=== PATIENT | male | born 1940 | race Caucasian/White ===

== ENCOUNTER 2020-01-12 16:29 | Observation (INO) | payer OTHER, MEDICARE ==
[2020-01-12 17:37] LABS: Absolute Lymphocytes (CBC) 1.3 K/uL (0.7-4.9); Basophils % 1.2 % (0-1.3); Hematocrit 44.6 % (39.6-49.0); Lymphocytes % 24.3 % (15.3-44.8); MPV 9.4 fL (7.6-11.3); Protime INR 1.1
--- NOTE | 2020-01-12 17:41 | RAD REPORT ---
EXAM DESCRIPTION: RAD - Chest Single View - 01/12/2020 5:06 pm CLINICAL HISTORY: CHEST PAIN Chest pain. COMPARISON: CHEST PA AND LAT 2 VIEW dated 07/09/2015; CHEST SINGLE VIEW dated 10/30/2013; CHEST SINGLE VIEW dated 07/03/2011; CHEST SINGLE VIEW dated 07/01/2011 FINDINGS: Portable technique limits examination quality. The lungs are grossly clear. The heart is normal in size. No displaced fractures. IMPRESSION: No acute intrathoracic process suspected.
[2020-01-12 17:56] LABS: ALT/SGPT 41 U/L (12-78); AST/SGOT 37 U/L (15-37); Albumin 3.9 g/dL (3.4-5.0); Alkaline Phosphatase 70 U/L (45-117); BUN Blood Urea Nitrogen 21 mg/dL (7-18); Bicarbonate 25 mmol/L (21-32); Bilirubin Direct 0.2 mg/dL (0-0.2); Bilirubin Total 0.6 mg/dL (0.2-1.0); Glucose Level 146 mg/dL (74-106); Magnesium 2.2 mg/dL (1.8-2.4); NT PRO-BNP 591 pg/mL (<450); Potassium 4.3 mmol/L (3.5-5.1); Sodium Level 142 mmol/L (136-145); Troponin (Emerg Dept Use Only) < 0.02 ng/mL (0.0-0.045)
--- NOTE | 2020-01-12 18:29 | EDPHYS ---
Physician Documentation [facility] Name: Matthew Ansari Age: 79 yrs Sex: Male : 1940 Arrival Date: 01/12/2020 Time: 16:37 Bed 17 Private MD: ED Physician Hilario Jackson HPI: 01/11 17:49 This 79 yrs old Male presents to ER via Ambulatory with complaints of Chest kdr Pain, Possible Cardiac Related. 17:49 The patient or guardian reports chest pain that is located primarily in the anterior kdr chest wall. Onset: gradually, Several weeks. The pain radiates to neck. Associated signs and symptoms: Pertinent positives: diaphoresis, shortness of breath, Pertinent negatives: abdominal pain, headache, lower extremity pain, lower extremity swelling, lightheadedness, nausea, near syncope, palpitations, recent travel, syncope, vomiting. The chest pain is described as aching, a pressure. Duration: The patient or guardian reports multiple episodes, that are intermittent, that wax and wane, Related to exertion. Modifying factors: The symptoms are alleviated by remaining still, the symptoms are aggravated by exertion, movement. Severity of pain: At its worst the pain was moderate severe incapacitating just prior to arrival, in the emergency department the pain has improved mildly. Historical: - Allergies: 16:45 No Known Allergies; ll1 - PMHx: 16:45 Hypertension; Diabetes - NIDDM; High Cholesterol; ll1 - PSHx: 16:45 Angioplasty; ll1 - Immunization history:: Adult Immunizations up to date. - Social history:: Smoking status: Patient denies any tobacco usage or history of. Patient/guardian denies using alcohol, street drugs, tobacco products. ROS: 17:49 Constitutional: Negative for fever, chills, and weight loss, Eyes: Negative for injury, kdr pain, redness, and discharge, ENT: Negative for injury, pain, and discharge, Neck: Negative for injury, pain, and swelling, Respiratory: Negative for shortness of breath, cough, wheezing, and pleuritic chest pain, Abdomen/GI: Negative for abdominal pain, nausea, vomiting, diarrhea, and constipation, Back: Negative for injury and pain, : Negative for injury, bleeding, discharge, and swelling, MS/Extremity: Negative for injury and deformity, Skin: Negative for injury, rash, and discoloration, Neuro: Negative for headache, weakness, numbness, tingling, and seizure activity. Psych: Negative for depression, anxiety, suicide ideation, homicidal ideation, and hallucinations, Allergy/Immunology: Negative for hives, rash, and allergies, Endocrine: Negative for neck swelling, polydipsia, polyuria, polyphagia, and marked weight changes, Hematologic/Lymphatic: Negative for swollen nodes, abnormal bleeding, and unusual bruising. 17:49 Cardiovascular: Positive for chest pain, Negative for edema, orthopnea, palpitations, paroxysmal nocturnal dyspnea, acute changes. Exam: 17:49 Constitutional: This is a well developed, well nourished patient who is awake, alert, kdr and in no acute distress. Head/Face: Normocephalic, atraumatic. Eyes: Pupils equal round and reactive to light, extra-ocular motions intact. Lids and lashes normal. Conjunctiva and sclera are non-icteric and not injected. Cornea within normal limits. Periorbital areas with no swelling, redness, or edema. Neck: Trachea midline, no thyromegaly or masses palpated, and no cervical lymphadenopathy. Supple, full range of motion without nuchal rigidity, or vertebral point tenderness. No Meningismus. Chest/axilla: Normal chest wall appearance and motion. Nontender with no deformity. No lesions are appreciated. Cardiovascular: Regular rate and rhythm with a normal S1 and S2. No gallops, murmurs, or rubs. Normal PMI, no JVD. No pulse deficits. Respiratory: Lungs have equal breath sounds bilaterally, clear to auscultation and percussion. No rales, rhonchi or wheezes noted. No increased work of breathing, no retractions or nasal flaring. Abdomen/GI: Soft, non-tender, with normal bowel sounds. No distension or tympany. No guarding or rebound. No evidence of tenderness throughout. Back: No spinal tenderness. No costovertebral tenderness. Full range of motion. Skin: Warm, dry with normal turgor. Normal color with no rashes, no lesions, and no evidence of cellulitis. MS/ Extremity: Pulses equal, no cyanosis. Neurovascular intact. Full, normal range of motion. Neuro: Awake and alert, GCS 15, oriented to person, place, time, and situation. Cranial nerves II-XII grossly intact. Motor strength 5/5 in all extremities. Sensory grossly intact. Cerebellar exam normal. Normal gait. Psych: Awake, alert, with orientation to person, place and time. Behavior, mood, and affect are within normal limits. 17:49 ECG was reviewed by the Attending Physician. kdr Vital Signs: 16:40 BP 141 / 80; Pulse 68; Resp 18; Temp 98.6; Pulse Ox 96% ; Pain 6/10; ll1 18:01 BP 115 / 73; Pulse 66; Resp 18; Pulse Ox 96% ; ah 19:00 BP 140 / 95; Pulse 77; Resp 18; Pulse Ox 100% ; ah 20:00 BP 133 / 78; Pulse 68; Resp 20; Pulse Ox 99% ; ah MDM: 17:49 Data reviewed: vital signs, nurses notes. [facility] 18:29 Patient medically screened. [facility] 06/ 16:42 Order name: Basic Metabolic Panel; Complete Time: 18:24 [facility] 01/11 16:42 Order name: CBC with Diff; Complete Time: 18:24 [facility] 01/11 16:42 Order name: LFT's; Complete Time: 18:24 [facility] 01/11 16:42 Order name: Magnesium; Complete Time: 18:24 [facility] 01/11 16:42 Order name: NT PRO-BNP; Complete Time: 18:24 [facility] 01/11 16:42 Order name: PT-INR; Complete Time: 18:24 [facility] 01/11 16:42 Order name: Troponin (emerg Dept Use Only); Complete Time: 18:24 [facility] 01/11 16:42 Order name: XRAY Chest (1 view); Complete Time: 17:49 [facility] 01/11 19:04 Order name: Comprehensive Metabolic Panel [facility] 01/11 19:04 Order name: Comprehensive Metabolic Panel [facility] 01/11 19:05 Order name: Troponin I [facility] 01/11 19:05 Order name: Troponin I [facility] 01/11 19:07 Order name: Echo with Doppler [facility] 01/11 19:07 Order name: Thyroid Stimulating Hormone [facility] 01/11 16:42 Order name: EKG; Complete Time: 16:43 [facility] 01/11 16:42 Order name: Cardiac monitoring; Complete Time: 17:24 [facility] 01/11 16:42 Order name: EKG - Nurse/Tech; Complete Time: 17:24 [facility] 01/11 16:42 Order name: IV Saline Lock; Complete Time: 17:24 [facility] 01/11 16:42 Order name: Labs collected and sent; Complete Time: 17:24 [facility] 01/11 16:42 Order name: O2 Per Protocol; Complete Time: 17:24 [facility] 01/11 16:42 Order name: O2 Sat Monitoring; Complete Time: 17:24 [facility] 01/11 19:05 Order name: CONS Pharmacy Consult [facility] 01/11 19:05 Order name: CONS Physician Consult [facility] 01/11 19:05 Order name: Heart Healthy EDHI EC:49 Rate is 66 beats/min. Rhythm is regular, Normal Sinus Rhythm with No ectopy. Left axis kdr deviation noted. OH interval is normal. QRS interval is normal. QT interval is normal. Clinical impression: NSR w/ Non-specific ST/T Changes. Administered Medications: No medications were administered Disposition: 01/12/20 18:29 Hospitalization ordered by Jaida Echeverria for Observation. Preliminary diagnosis are Bradycardia, unspecified, Chest pain, unspecified. - Bed requested for Telemetry/MedSurg (observation). - Status is Observation. - Condition is Fair. - Problem is new. - Symptoms have improved. Signatures: Dispatcher [employer] EDHI Hilario Jackson MD MD [facility] Norma Holt RN RN Pia Victor RN RN Ciaran Llanes RN RN ll1 Corrections: (The following items were deleted from the chart) 19:41 18:29 Hospitalization Ordered by Jaida Echeverria MD for Observation. Preliminary cg diagnosis is Bradycardia, unspecified; Chest pain, unspecified. Bed requested for Telemetry/MedSurg (observation). Status is Observation. Condition is Fair. Problem is new. Symptoms have improved. kdr 21:01 19:41 01/12/2020 18:29 Hospitalization Ordered by Jaida Echeverria MD for Observation. Preliminary diagnosis is Bradycardia, unspecified; Chest pain, unspecified. Bed requested for Telemetry/MedSurg (observation). Status is Observation. Condition is Fair. Problem is new. Symptoms have improved. cg
--- NOTE | 2020-01-12 18:29 | ER ---
Nurse's Notes [facility] Name: Matthew Ansari Age: 79 yrs Sex: Male : 1940 Arrival Date: 01/12/2020 Time: 16:37 Bed 17 Private MD: Diagnosis: Bradycardia, unspecified;Chest pain, unspecified Presentation: 01/11 16:40 Chief complaint: Patient states: Chest pain with SOB for 3 days intermittently, worse ll1 today. Saw dr. Lowry, sent for eval of chest pressure. Coronavirus screen: Proceed with normal triage. Patient denies a cough. Patient reports shortness of breath or difficulty breathing. Patient denies measured and/or subjective temperature greater than 100.4F prior to today's visit. Patient denies travel on a cruise ship or to a country the [facility] currently lists as an affected area. Patient denies contact with known and/or suspected case of COVID-19. Cough in the mornings. Ebola Screen: Patient denies travel to an Ebola-affected area in the 21 days before illness onset. Initial Sepsis Screen: Does the patient meet any 2 criteria? No. Patient's initial sepsis screen is negative. Does the patient have a suspected source of infection? No. Patient's initial sepsis screen is negative. Risk Assessment: Do you want to hurt yourself or someone else? Patient reports no desire to harm self or others. Onset of symptoms was January 09, 2020. 16:40 Method Of Arrival: Ambulatory ll1 16:40 Acuity: RAMIRO 3 ll1 Historical: - Allergies: 16:45 No Known Allergies; ll1 - PMHx: 16:45 Hypertension; Diabetes - NIDDM; High Cholesterol; ll1 - PSHx: 16:45 Angioplasty; ll1 - Immunization history:: Adult Immunizations up to date. - Social history:: Smoking status: Patient denies any tobacco usage or history of. Patient/guardian denies using alcohol, street drugs, tobacco products. Screenin:47 Abuse screen: Denies threats or abuse. Nutritional screening: No deficits noted. Tuberculosis screening: No symptoms or risk factors identified. Fall Risk None identified. Assessment: 17:24 General: Appears in no apparent distress. Behavior is calm, cooperative. Pain: Denies pain. Neuro: Level of Consciousness is awake, alert, obeys commands, Oriented to person, place, time, situation. Cardiovascular: Heart tones S1 S2 present Capillary refill < 3 seconds Patient's skin is warm and dry. Pulses are palpable in right radial artery and left radial artery Rhythm is sinus bradycardia. Respiratory: Airway is patent Respiratory effort is even, unlabored, Respiratory pattern is regular, symmetrical. Derm: Skin is intact, is healthy with good turgor. 18:30 Reassessment: Patient and/or family updated on plan of care and expected duration. Pain ah level reassessed. Patient is alert, oriented x 3, equal unlabored respirations, skin warm/dry/pink. awaiting on room assignment Patient denies pain at this time. 19:30 Reassessment: Patient and/or family updated on plan of care and expected duration. Pain ah level reassessed. Patient is alert, oriented x 3, equal unlabored respirations, skin warm/dry/pink. No needs voiced at this time. 20:17 Reassessment: Fleta- phone mjwcxn=[phone]. Vital Signs: 16:40 BP 141 / 80; Pulse 68; Resp 18; Temp 98.6; Pulse Ox 96% ; Pain 6/10; ll1 18:01 BP 115 / 73; Pulse 66; Resp 18; Pulse Ox 96% ; ah 19:00 BP 140 / 95; Pulse 77; Resp 18; Pulse Ox 100% ; ah 20:00 BP 133 / 78; Pulse 68; Resp 20; Pulse Ox 99% ; ah ED Course: 16:37 Patient arrived in ED. fj1 16:42 Hilario Jackson MD is Attending Physician. kdr 16:43 Triage completed. ll1 16:46 Arm band placed on. ll1 16:49 Pia Victor, RN is Primary Nurse. 17:07 XRAY Chest (1 view) In Process Unspecified. EDMS 17:24 Initial lab(s) drawn, by me, sent to lab. Inserted saline lock: 20 gauge in right antecubital area, using aseptic technique. 17:47 Patient has correct armband on for positive identification. Bed in low position. Call light in reach. Side rails up X2. Adult w/ patient. threat monitoring analyst on. Pulse ox on. NIBP on. 17:48 Patient maintains SpO2 saturation greater than 95% on room air. 18:28 Jaida Echeverria MD is Hospitalizing Provider. kdr 20:21 No provider procedures requiring assistance completed. Patient admitted, IV remains in ah place. Administered Medications: No medications were administered Outcome: 18:29 Decision to Hospitalize by Provider. kdr 20:32 Admitted to [facility] accompanied by nurse, via wheelchair, room 204, with chart, Report called to SUMMER Brady 20:32 Condition: good 20:32 Instructed on the need for admit. 21:01 Patient left the ED. Signatures: Dispatcher [employer] EDMS Hilario Jackson MD MD [facility] Arias Stout fj1 Pia Victor, RN RN Ciaran Llanes RN RN ll1 Corrections: (The following items were deleted from the chart) 20:01 18:30 Reassessment: Patient and/or family updated on plan of care and expected ah duration. Pain level reassessed. Patient is alert, oriented x 3, equal unlabored respirations, skin warm/dry/pink. Patient denies pain at this time.
[2020-01-12] MEDS ORDERED: ONDANSETRON 4 MG/2 ML VIAL IV PRN (18:57)
[2020-01-12] MEDS ORDERED: MORPHINE 2 MG/ML SYR IV PRN (18:57)
[2020-01-12] MEDS ORDERED: ACETAMINOPHEN 500 MG TAB PO PRN (18:57)
[2020-01-12] MEDS ORDERED: ALBUTEROL 2.5 MG/3 ML NEB SOL NEB PRN (18:57)
--- NOTE | 2020-01-12 19:13 | P.HP ---
Certification for Inpatient Patient admitted to: Inpatient With expected LOS: >2 Midnights Patient will require the following post-hospital care: None Practitioner: I am a practitioner with admitting privileges, knowledge of patient current condition, hospital course, and medical plan of care. Services: Services provided to patient in accordance with Admission requirements found in Title 42 Section 412.3 of the Code of Federal Regulations Patient History Date of Service: 01/12/20 Reason for admission: Chest pain History of Present Illness: 79-year-old with past medical history of HLD, presumed sick sinus syndrome with previous tachycardia follows with Cardiology on metoprolol since the last couple of years, diabetes mellitus type 2 presented because of new onset chest pain, since the last 4 hr. History of intermittent dizziness and lightheadedness since the last 2 days. Chest pain radiating to was the neck. Admits to cough but no sputum. On arrival in the ED chest x-ray as well as EKG was unremarkable but patient noted with heart rate in the 60s which spontaneously dropped to the 30s and then recovered back to the 60s now. He feels slightly better. Chest pain is resolved. His complain of cramps in the lower extremity Home medications list reviewed: Yes - Past Medical/Surgical History Has patient received pneumonia vaccine in the past: No Diabetic: No -: Diabetes mellitus, HLD, Past Surgical History: Reviewed- Non-Contributory - Social History Smoking Status: Former smoker Smoking therapy provided: No Patient receptive to therapy: No Alcohol use: No CD- Drugs: No Caffeine use: No Place of Residence: Home Review of Systems 10-point ROS is otherwise unremarkable Physical Examination - Physical Exam General: Alert, In no apparent distress, Oriented x3 HEENT: Atraumatic, Normocephalic, PERRLA Neck: Supple, 2+ carotid pulse no bruit Respiratory: Clear to auscultation bilaterally, Normal air movement Cardiovascular: No edema, Normal pulses, Regular rate/rhythm, Normal S1 S2 Capillary refill: <2 Seconds Gastrointestinal: Normal bowel sounds, Soft and benign, Non-distended, No ascites Musculoskeletal: No clubbing, No swelling Integumentary: No rashes, No breakdown, No significant lesion Neurological: Normal gait, Normal speech, Normal strength at 5/5 x4 extr External genitalia: No edema, No lesions - Studies Laboratory Data (last 24 hrs) 01/12/20 17:20: PT 13.0 H, INR 1.10 01/12/20 17:20: WBC 5.4, Hgb 15.1, Hct 44.6, Plt Count 160 01/12/20 17:20: Sodium 142, Potassium 4.3, BUN 21 H, Creatinine 1.13, Glucose 146 H, Magnesium 2.2, Total Bilirubin 0.6, AST 37, ALT 41, Alkaline Phosphatase 70 Assessment and Plan - Problems (Diagnosis) (1) HLD (hyperlipidemia) Current Visit: Yes Status: Acute (2) Diabetes mellitus Current Visit: Yes Status: Acute (3) HTN (hypertension) Current Visit: Yes Status: Acute (4) Chest pain Current Visit: Yes Status: Acute Discharge Plan: Home - Advance Directives Does patient have a Living Will: No Does patient have a Durable POA for Healthcare: No Physician Review: Patient Assessed, Agree with Above Assessment and Plan Physician Review Additional Text: # chest pain-rule out acute coronary syndrome especially inferior wall OR although less likely. -Do serial set of cardiac enzymes, -initiate EKG with mild ST depression in the inferior leads left partial bundle branch block Intermittent bradycardia-obtain tsh and free T4 level Hold metoprolol for now Diabetes mellitus-insulin sliding with Accu-Chek DVT prophylaxis subcutaneous heparin Advanced directives full code Possible hospital stay for 24-48 hr Time Spent Managing Pts Care (In Minutes): 65
[2020-01-12] MEDS ORDERED: NITROGLYCERIN 0.2 MG/HR (5 MG) PATCH TD SCH (19:14)
[2020-01-12] MEDS ORDERED: HYDRALAZINE HCL 20 MG/ML VIAL IV PRN (19:14)
[2020-01-12] MEDS ORDERED: ATROPINE SULFATE 1 MG/ML INJ IV PRN (19:19)
[2020-01-12 21:00] VITALS: BMI 27.6
[2020-01-12] MEDS: INSULIN -REGULAR HUMAN 50 UNIT/0.5 ML ML SQ SCH (21:36)
[2020-01-12 22:40] LABS: Troponin I < 0.02 ng/mL (0.0-0.045)
[2020-01-12] MEDS: NITROGLYCERIN 0.1 MG/HR (2.5 MG) PATCH TD SCH (22:54)
[2020-01-12] MEDS: HEPARIN 5000 UNIT/ML 1 ML VIAL SQ SCH (23:49)
[2020-01-13 01:50] VITALS: O2SAT 97
[2020-01-13 06:00] LABS: Absolute Lymphocytes (CBC) 1.1 K/uL (0.7-4.9); Basophils % 1.1 % (0-1.3); Hematocrit 44.5 % (39.6-49.0); Lymphocytes % 24.8 % (15.3-44.8); RBC Red Blood Cell Count 4.67 M/uL (4.33-5.43)
[2020-01-13 06:47] LABS: Albumin 3.8 g/dL (3.4-5.0); Bilirubin Total 0.7 mg/dL (0.2-1.0); Potassium 3.8 mmol/L (3.5-5.1); Protein, Total 6.8 g/dL (6.4-8.2)
[2020-01-13] MEDS: INSULIN -REGULAR HUMAN 50 UNIT/0.5 ML ML SQ SCH ×2 (07:30→11:30)
[2020-01-13] MEDS: HEPARIN 5000 UNIT/ML 1 ML VIAL SQ SCH (08:17)
[2020-01-13] MEDS: NITROGLYCERIN 0.1 MG/HR (2.5 MG) PATCH TD SCH (08:17)
[2020-01-13] MEDS ORDERED: ASPIRIN EC 81 MG TAB PO SCH (09:00)
[2020-01-13] MEDS ORDERED: ZALEPLON 5 MG PO PRN (09:21)
[2020-01-13] MEDS: GABAPENTIN 300 MG CAP PO SCH ×2 (10:12→14:15)
[2020-01-13 11:53] VITALS: BP 140/79; TEMP 97.7
[2020-01-13] MEDS ORDERED: ALBUTEROL 2.5 MG/3 ML NEB SOL NEB PRN (15:00)
[2020-01-13] MEDS ORDERED: GLIMEPIRIDE 2 MG TABLET PO SCH (17:00)
[2020-01-13] MEDS ORDERED: NABUMETONE 500 MG PO SCH (21:00)
[2020-01-13] MEDS ORDERED: EZETIMIBE 10 MG TAB PO SCH (21:00)
[2020-01-13] MEDS ORDERED: ATORVASTATIN 80 MG TAB PO SCH (21:00)
[2020-01-13] MEDS ORDERED: FENOFIBRATE 160 MG TAB PO SCH (21:00)
--- NOTE | 2020-01-14 04:05 | DS ---
Date of Discharge: 01/13/2020 Consultants: Dr. Del Toro with Cardiology. Discharge Diagnoses: 1.Chest pain. 2.Bradycardia. 3.Essential hypertension. 4.Diabetes mellitus type 2 [id number] with hyperglycemia. 5.Mixed hyperlipidemia. Hospital Course: Patient is an 79-year-old male with past medical history of hypertension, hyperlipi demia, diabetes, presumed sick sinus syndrome with previous tachycardia on metoprolol, comes in [facility] of chest pain. Patient had some dizziness and lightheadedness. Patient was admitted to the [facility] for further evaluation. Chest x-ray was unremarkable. EKG showed some bradycardia. Patient als o had some drops into the 30s and recovered back to the 60s. Patient is on metoprolol. Patient was worked up for ACS and was ruled out. Cardiac enzymes were negative. Patient's triglyceride level wa s elevated at 246. He was counseled regarding diet regimen. His HDL was low. Patient follows with Dr. Allen in [place]. Patient was seen by Dr. Del Toro with Cardiology at our facility and as his sarah ycardia resolved with stopping the metoprolol, the patient was then cleared for discharge. He will l ikely need to follow up with Dr. Allen for an EP study. His TSH level was normal. Electrolytes were also normal. Patient did not have any further chest pain. His heart rate remained stable. He was then sent home in a stable condition. Activity: Fall precautions, ambulate with assist. Diet: Diabetic. Followup: Follow up with primary care physician in 2-3 days. Follow up with primary director of consumer marketing, Raul Allen in 1-2 weeks for EP study due to possible sick sinus syndrome. Return to ER for worsening c ondition. Medications: As per medication reconciliation list. Patient will discontinue his metoprolol due to the bradycardia and sinus pauses less than 3 seconds. Physical Examination: General: Awake, alert, oriented x3. Elderly male, no acute distress. CV: S1, S2. Respiratory: Moving air well bilaterally. Abdomen: Soft, nontender, nondistended. Positive bowel sounds. Extremities: No clubbing, cyanosis, or edema. Neurologic: Nonfocal. SA/MODL Voice ID: [id number] Report ID: [id number]
[2020-01-14] MEDS ORDERED: HOME MED 1 EA UNK (Omeprazole [Prilosec] 40 MG) PO SCH (06:00)
[2020-01-14] MEDS ORDERED: PANTOPRAZOLE 40MG TABLET PO SCH (06:30)
--- NOTE | 2020-01-16 08:45 | ECHO ---
HEIGHT: 5 ft 8 in WEIGHT: 181 lb 6.4 oz DATE OF STUDY: 01/13/[address]: Jaida Echeverria MD 2-DIMENSIONAL: YES M.MODE: YES DOPPLER: YES COLOR FLOW: YES TDS: NO PORTABLE: NO DEFINITY: NO BUBBLE STUDY: NO DIAGNOSIS: CEREBRAL VASCULAR ACCIDENT CARDIAC HISTORY: CATHERIZATION: NO SURGERY: NO PROSTHETIC VALVE: NO PACEMAKER: NO MEASUREMENTS (cm) DIASTOLIC (NORMALS) SYSTOLIC (NORMALS) IVSd 1.1 (0.6-1.2) LA Diam 4.4 (1.9-4.0) LVEF 68% LVIDd 4.2 (3.5-5.7) LVIDs 2.6 (2.0-3.5) %FS 38% LVPWd 1.1 (0.6-1.2) Ao Diam 3.1 (2.0-3.7) 2 DIMENSIONAL ASSESSMENT: RIGHT ATRIUM: NORMAL LEFT ATRIUM: NORMAL RIGHT VENTRICLE: NORMAL LEFT VENTRICLE: NORMAL TRICUSPID VALVE: NORMAL MITRAL VALVE: MILD MITRAL REGURGITATION PULMONIC VALVE: NORMAL AORTIC VALVE: MILD TO MODERATE AORTIC STENOSIS PERICARDIAL EFFUSION: NONE AORTIC ROOT: NORMAL LEFT VENTRICULAR WALL MOTION: NORMAL DOPPLER/COLOR FLOW: COMMENTS: NORMAL LEFT VENTRICULAR EJECTION FRACTION OF 60-65%. NORMAL WALL MOTION. MILD TO MODERATE AORTIC INSUFFICIENCY. MILD MITRAL REGURGITATION. TECHNOLOGIST: Jeremiah COMER
== END 2020-01-13 15:06 | disposition home or self-care (01) ==
LOC: ER 16:29 → ERHOLD 18:59 → INTOOBSV 18:59 → 2ND 20:27
PROVIDERS: ADMIT Internal Medicine; ATTEND Internal Medicine
DX: R07.9 Chest pain, unspecified (principal); R00.1 Bradycardia, unspecified; R05 Cough; R06.02 Shortness of breath; Z20.828 Contact with and (suspected) exposure to other viral communicable diseases; E11.9 Type 2 diabetes mellitus without complications; E78.2 Mixed hyperlipidemia; I10 Essential (primary) hypertension; I34.0 Nonrheumatic mitral (valve) insufficiency; I35.1 Nonrheumatic aortic (valve) insufficiency; I44.30 Unspecified atrioventricular block; Z79.899 Other long term (current) drug therapy; Z87.891 Personal history of nicotine dependence
CPT/HCPCS: 93005; 93306; 85025 ×2; 80048; 36415; 83735; 85610; 80061; 82947 ×3; 80076; 84443; 84484 ×3; 80053; 83880; 71045; 99285; U0002; J1644 ×2; G0378 ×3; J0461

== ENCOUNTER 2020-12-07 02:43 | Inpatient (IN) | payer OTHER, MEDICARE ==
[2020-12-07] MEDS ORDERED: METOPROLOL TARTRATE 5 MG/5 ML INJ IV ONE (03:34)
[2020-12-07 03:37] LABS: Absolute Lymphocytes (CBC) 0.7 K/uL (0.7-4.9); Basophils % 0.3 % (0-1.3); Hematocrit 48.8 % (39.6-49.0); Lymphocytes % 8.4 % (15.3-44.8); MPV 9.8 fL (7.6-11.3); RBC Red Blood Cell Count 5.08 M/uL (4.33-5.43)
[2020-12-07 03:44] LABS: Protime INR 1.12
[2020-12-07 03:55] LABS: ALT/SGPT 45 U/L (12-78); AST/SGOT 43 U/L (15-37); Albumin 4.2 g/dL (3.4-5.0); Alkaline Phosphatase 74 U/L (45-117); BUN Blood Urea Nitrogen 20 mg/dL (7-18); Bicarbonate 24 mmol/L (21-32); Bilirubin Direct 0.3 mg/dL (0-0.2); Glucose Level 251 mg/dL (74-106); Magnesium 2.4 mg/dL (1.8-2.4); NT PRO-BNP 340 pg/mL (<450); Potassium 4.2 mmol/L (3.5-5.1); Protein, Total 7.8 g/dL (6.4-8.2); Sodium Level 145 mmol/L (136-145); Troponin (Emerg Dept Use Only) < 0.02 ng/mL (0.0-0.045)
[2020-12-07] MEDS ORDERED: NA CHLORIDE 0.9% 500 ML ONE (04:29)
[2020-12-07] MEDS ORDERED: FENTANYL CITR 100 MCG/2 ML ONE (05:25)
[2020-12-07] MEDS ORDERED: LIDOCAINE 1% MPF 30 ML VIAL ONE (05:27)
[2020-12-07] MEDS ORDERED: ETOMIDATE 20 MG/10 ML VIAL IV ONE (05:27)
--- NOTE | 2020-12-07 05:56 | ER ---
Nurse's Notes [facility] Name: Matthew Ansari Age: 80 yrs Sex: Male : 1940 Arrival Date: 12/07/2020 Time: 03:00 Bed 3 Private MD: Diagnosis: Atrial Fibrillation with RVR;Pneumothorax, Left Presentation: 12/07 03:00 Chief complaint: EMS states: Pt was recently discharged from the hospital after having jb4 a pacemaker put in place. Reports tonight feeling like his heart is racing. We recorded his heart rate up to the 160's. Coronavirus screen: Client denies travel out of the [place] in the last 14 days. At this time, the client does not indicate any symptoms associated with coronavirus-19. Ebola Screen: No symptoms or risks identified at this time. Initial Sepsis Screen: Does the patient meet any 2 criteria? HR > 90 bpm. Yes Does the patient have a suspected source of infection? No. Patient's initial sepsis screen is negative. Risk Assessment: Do you want to hurt yourself or someone else? Patient reports no desire to harm self or others. Onset of symptoms was December 07, 2020. Transition of care: patient was not received from another setting of care. 03:00 Method Of Arrival: EMS: [facility] jb4 03:00 Acuity: RAMIRO 1 jb4 Historical: - Allergies: 03:00 No Known Allergies; jb4 - PMHx: 03:00 Diabetes - NIDDM; High Cholesterol; Hypertension; Atrial Fib; jb4 - PSHx: 03:00 Angioplasty; jb4 - Immunization history:: Adult Immunizations up to date. Screenin:00 Abuse screen: Denies threats or abuse. Nutritional screening: No deficits noted. jb4 Tuberculosis screening: No symptoms or risk factors identified. Fall Risk None identified. Assessment: 03:00 General: Appears distressed, uncomfortable, Behavior is cooperative, anxious. Pain: jb4 Complains of pain in chest Pain does not radiate. Pain currently is 8 out of 10 on a pain scale. Neuro: Level of Consciousness is awake, alert, obeys commands, Oriented to person, place, time, situation. Cardiovascular: Patient's skin is warm and dry. Respiratory: Airway is patent Respiratory effort is even, unlabored, Respiratory pattern is regular, symmetrical. GI: No signs and/or symptoms were reported involving the gastrointestinal system. : No signs and/or symptoms were reported regarding the genitourinary system. EENT: No signs and/or symptoms were reported regarding the EENT system. Derm: Skin is intact, Skin is pink, warm \T\ dry. Musculoskeletal: Circulation, motion, and sensation intact. Range of motion: intact in all extremities. 03:30 Reassessment: Provider notified that Pt's rhythm on the monitor appears to be paced jb4 again and and has dropped to 60 beats per minutes. HR verified with manual pulse check. 04:40 Reassessment: PT reports difficulty breathing. Upon auscultation it is noted that the jb4 pt has no breath sounds on the left. Provider notified. Pt placed on NC per providers instruction. 06:00 Reassessment: Patient appears in no apparent distress at this time. Patient and/or jb4 family updated on plan of care and expected duration. Pain level reassessed. Patient is alert, oriented x 3, equal unlabored respirations, skin warm/dry/pink. Pt began waking up after conscious sedation. Respirations are even and unlabored. No s/s of pain or distress noted. 06:00 Respiratory: Breath sounds are clear in right upper lobe, right middle lobe, right jb4 lower lobe, right posterior upper lobe, right posterior middle lobe and right posterior lower lobe Breath sounds with rhonchi in left upper lobe, left lower lobe, left posterior upper lobe and left posterior lower lobe. 07:30 Reassessment: Patient appears in no apparent distress at this time. Patient and/or hb family updated on plan of care and expected duration. Pain level reassessed. Patient is alert, oriented x 3, equal unlabored respirations, skin warm/dry/pink. 08:30 Reassessment: Patient appears in no apparent distress at this time. Patient and/or hb family updated on plan of care and expected duration. Pain level reassessed. Patient is alert, oriented x 3, equal unlabored respirations, skin warm/dry/pink. 09:30 Reassessment: Patient appears in no apparent distress at this time. Patient and/or hb family updated on plan of care and expected duration. Pain level reassessed. Patient is alert, oriented x 3, equal unlabored respirations, skin warm/dry/pink. 10:30 Reassessment: Patient appears in no apparent distress at this time. Patient and/or hb family updated on plan of care and expected duration. Pain level reassessed. Patient is alert, oriented x 3, equal unlabored respirations, skin warm/dry/pink. Vital Signs: 03:00 BP 118 / 87; Pulse 145; Resp 20 S; Temp 97.2(O); Pulse Ox 96% on R/A; jb4 04:00 BP 114 / 59; Pulse 59; Resp 16; Pulse Ox 96% on R/A; jb4 04:30 BP 123 / 78; Pulse 66; Resp 16; Pulse Ox 97% on R/A; jb4 06:00 BP 145 / 89; Pulse 75; Resp 18; Pulse Ox 93% on 3 lpm NC; jb4 07:30 BP 132 / 81; Pulse 80; Resp 19; Pulse Ox 98% on 2 lpm NC; hb 08:30 BP 144 / 89; Pulse 81; Resp 17; Pulse Ox 100% on 2 lpm NC; hb 09:30 BP 153 / 84; Pulse 78; Resp 18; Pulse Ox 99% ; hb 10:30 BP 144 / 76; Pulse 63; Resp 18; Pulse Ox 100% ; hb ED Course: 03:00 Patient arrived in ED. bp1 03:00 Arm band placed on right wrist. jb4 03:00 Inserted saline lock: 20 gauge in right antecubital area, using aseptic technique. jb4 Blood collected. Inserted by SUMMER Boss. 03:06 Tai Washington MD is Attending Physician. 7 03:37 Girish Carrillo, SUMMER is Primary Nurse. jb4 03:39 Triage completed. jb4 04:29 XRAY Chest (1 view) In Process Unspecified. EDMS 05:54 Bakari Cuenca MD is Hospitalizing Provider. 7 06:00 Assist provider with chest tube insertion with 18 Fr. in left lateral chest wall. Tray jb4 was set up. Attached to [employer]. Chest tube inserted by Tai Washington MD Placement verified by fluctuation of fluid, return of air, Dressed with Vaseline gauze, foam tape, 4X4s, Patient tolerated well. 06:01 Chest Single View XRAY In Process Unspecified. EDMS Administered Medications: 03:15 Drug: Metoprolol 5 mg Route: IVP; Site: right antecubital; jb4 03:30 Follow up: Response: No adverse reaction; Cardiac rhythm changed jb4 04:15 Drug: NS 0.9% 500 ml Route: IV; Rate: bolus; Site: left antecubital; jb4 05:30 Drug: fentaNYL (PF) 50 mcg Route: IVP; Site: right antecubital; jb4 06:00 Follow up: Response: No adverse reaction jb4 05:32 Drug: Etomidate 10 mg Route: IVP; Site: right antecubital; jb4 06:00 Follow up: Response: No adverse reaction jb4 05:40 Drug: fentaNYL (PF) 50 mcg Route: IVP; Site: right antecubital; jb4 06:00 Follow up: Response: No adverse reaction jb4 05:40 Drug: Etomidate 10 mg Route: IVP; Site: right antecubital; jb4 06:00 Follow up: Response: No adverse reaction jb4 06:20 Not Given (Physician Discretion): Lidocaine (1 %) 21 application 20 ml Infiltration jb4 once; to bedside Outcome: 05:55 Decision to Hospitalize by Provider. [facility] 13:17 Patient left the ED. Signatures: Dispatcher [employer] EDMS Karyn Keen RN RN Geeta Dean RN RN Girish Carrillo RN RN jb4 Swetha Hinojosa Maurice, MD MD 7 Corrections: (The following items were deleted from the chart) 03:15 03:00 BP 118 / 87; Pulse 145bpm; Resp 20bpm; Spontaneous; iw iw 06:21 06:21 Response: No adverse reaction jb4 jb4 06:26 03:00 BP 118 / 87; Pulse 145bpm; Resp 20bpm; Spontaneous; Pulse Ox 96% RA; iw jb4
--- NOTE | 2020-12-07 05:56 | EDPHYS ---
Physician Documentation [facility] Name: Matthew Ansari Age: 80 yrs Sex: Male : 1940 Arrival Date: 12/07/2020 Time: 03:00 Bed 3 Private MD: ED Physician Tai Washington HPI: 12/07 03:25 This 80 yrs old Male presents to ER via Unassigned with complaints of mh7 Palpitations. 03:25 The patient presents with a history of irregular heart beat, heart racing. Context: The mh7 symptoms occur at rest. Onset: The symptoms/episode began/occurred today. Duration: The patient or guardian reports multiple episodes, that are intermittent, that wax and wane, with no pattern. Modifying factors: The symptoms are aggravated by nothing. The symptoms are alleviated by nothing. Associated signs and symptoms: Pertinent positives: chest pain, SOB, Pertinent negatives: anxiety, cough, fever, lightheadedness, nausea, syncope, near-syncope, unusual stressors, vertigo, vomiting. Severity of symptoms: At their worst the symptoms were moderate today, in the emergency department the symptoms have improved moderately. Historical: - Allergies: 03:00 No Known Allergies; jb4 - PMHx: 03:00 Diabetes - NIDDM; High Cholesterol; Hypertension; Atrial Fib; jb4 - PSHx: 03:00 Angioplasty; jb4 - Immunization history:: Adult Immunizations up to date. ROS: 03:25 Constitutional: Negative for fever, chills, and weight loss, Eyes: Negative for injury, mh7 pain, redness, and discharge, ENT: Negative for injury, pain, and discharge, Neck: Negative for injury, pain, and swelling, Abdomen/GI: Negative for abdominal pain, nausea, vomiting, diarrhea, and constipation, Back: Negative for injury and pain, : Negative for injury, bleeding, discharge, and swelling, MS/Extremity: Negative for injury and deformity, Skin: Negative for injury, rash, and discoloration, Neuro: Negative for headache, weakness, numbness, tingling, and seizure, Psych: Negative for depression, anxiety, suicide ideation, homicidal ideation, and hallucinations, Allergy/Immunology: Negative for hives, rash, and allergies, Endocrine: Negative for neck swelling, polydipsia, polyuria, polyphagia, and marked weight changes, Hematologic/Lymphatic: Negative for swollen nodes, abnormal bleeding, and unusual bruising. Exam: 03:25 Constitutional: This is a well developed, well nourished patient who is awake, alert, mh7 and in no acute distress. Head/Face: Normocephalic, atraumatic. Eyes: Pupils equal round and reactive to light, extra-ocular motions intact. Lids and lashes normal. Conjunctiva and sclera are non-icteric and not injected. Cornea within normal limits. Periorbital areas with no swelling, redness, or edema. Neck: Trachea midline, no thyromegaly or masses palpated, and no cervical lymphadenopathy. Supple, full range of motion without nuchal rigidity, or vertebral point tenderness. No Meningismus. Chest/axilla: Normal chest wall appearance and motion. Nontender with no deformity. No lesions are appreciated. 03:25 Abdomen/GI: Soft, non-tender, with normal bowel sounds. No distension or tympany. No guarding or rebound. No evidence of tenderness throughout. Back: No spinal tenderness. No costovertebral tenderness. Full range of motion. Skin: Warm, dry with normal turgor. Normal color with no rashes, no lesions, and no evidence of cellulitis. MS/ Extremity: Pulses equal, no cyanosis. Neurovascular intact. Full, normal range of motion. Neuro: Awake and alert, GCS 15, oriented to person, place, time, and situation. Cranial nerves II-XII grossly intact. Motor strength 5/5 in all extremities. Sensory grossly intact. Cerebellar exam normal. Normal gait. Psych: Awake, alert, with orientation to person, place and time. Behavior, mood, and affect are within normal limits. 03:25 Cardiovascular: Rate: tachycardic, Rhythm: irregularly irregular, Pulses: no pulse deficits are appreciated, Heart sounds: normal, normal S1and S2, Edema: is not appreciated, JVD: is not appreciated. Vital Signs: 03:00 BP 118 / 87; Pulse 145; Resp 20 S; Temp 97.2(O); Pulse Ox 96% on R/A; jb4 04:00 BP 114 / 59; Pulse 59; Resp 16; Pulse Ox 96% on R/A; jb4 04:30 BP 123 / 78; Pulse 66; Resp 16; Pulse Ox 97% on R/A; jb4 06:00 BP 145 / 89; Pulse 75; Resp 18; Pulse Ox 93% on 3 lpm NC; jb4 07:30 BP 132 / 81; Pulse 80; Resp 19; Pulse Ox 98% on 2 lpm NC; hb 08:30 BP 144 / 89; Pulse 81; Resp 17; Pulse Ox 100% on 2 lpm NC; hb 09:30 BP 153 / 84; Pulse 78; Resp 18; Pulse Ox 99% ; hb 10:30 BP 144 / 76; Pulse 63; Resp 18; Pulse Ox 100% ; hb Procedures: 06:49 Chest tube insertion: the site was prepped using Betadine, in sterile fashion, Tube mh7 size: a 18 [place]ish chest tube was inserted, introduced in left lateral chest wall, to [facility], dressed with vaseline gauze, silk tape, the patient tolerated the procedure well. Moderate sedation: Pre-procedure assessment: the patient has been NPO 6 hour(s) prior to arrival, the patient has been NPO an unknown amount of time prior to arrival, ASA physical classification: II - mild/mod systemic disease that does not interfere with daily routines, Airway assessment: able to hyperextend neck, able to maintain airway, can open mouth without difficulty, Mallampati classification of tongue size: II - faucial pillars and soft palate can be visualized, but uvula is masked by the base of the tongue, Monitoring during procedure: power line installer, continuous pulse oximetry, nurse at bedside at all times, Medications employed: Etomidate, 20 mg(s), Fentanyl, 100 mcg(s), Post-procedure assessment: the patient is moderately sedated, Respiratory status: even and unlabored, a reversal agent was not used. MDM: 05:53 Differential diagnosis: arrythmia, dehydration, stress disorder, Atrial Fibrillation. mh7 Data reviewed: vital signs, nurses notes, EMS record, old medical records, lab test result(s), cardiac enzymes, CBC, electrolytes, EKG, radiologic studies, plain films. Data interpreted: Pulse oximetry: on room air is 97 %. Interpretation: normal. Counseling: I had a detailed discussion with the patient and/or guardian regarding: the historical points, exam findings, and any diagnostic results supporting the discharge/admit diagnosis, lab results, radiology results, the need for further work-up and treatment in the hospital. Response to treatment: the patient's symptoms have markedly improved after treatment. 05:55 Patient medically screened. [facility] 12/07 03:06 Order name: Basic Metabolic Panel; Complete Time: 04:19 [facility] 12/07 03:06 Order name: CBC with Diff; Complete Time: 04:19 [facility] 12/07 03:06 Order name: LFT's; Complete Time: 04:19 [facility] 12/07 03:06 Order name: Magnesium; Complete Time: 04:19 [facility] 12/07 03:06 Order name: NT PRO-BNP; Complete Time: 04:19 [facility] 12/07 03:06 Order name: PT-INR; Complete Time: 04:19 [facility] 12/07 03:06 Order name: Troponin (emerg Dept Use Only); Complete Time: 04:19 [facility] 12/07 03:06 Order name: XRAY Chest (1 view) [facility] 12/07 03:30 Order name: TSH; Complete Time: 04:19 [facility] 12/07 05:49 Order name: Chest Single View XRAY [facility] 12/07 08:51 Order name: COVID-19 : Document "Date of Symptom Onset" if Symptomatic. eb 12/07 10:14 Order name: CORONAVIRUS [facility] 12/07 10:55 Order name: SARS-COV-2 RT PCR [facility] 12/07 03:06 Order name: EKG; Complete Time: 03:07 [facility] 12/07 03:06 Order name: Cardiac monitoring; Complete Time: 03:18 [facility] 12/07 03:06 Order name: EKG - Nurse/Tech; Complete Time: 03:18 [facility] 12/07 03:06 Order name: IV Saline Lock; Complete Time: 03:18 [facility] 12/07 03:06 Order name: Labs collected and sent; Complete Time: 03:18 [facility] 12/07 03:06 Order name: O2 Per Protocol; Complete Time: 03:18 [facility] 12/07 03:06 Order name: O2 Sat Monitoring; Complete Time: 03:18 [facility] 12/07 08:15 Order name: CONS Physician Consult [facility] 12/07 08:15 Order name: Heart Healthy [facility] Administered Medications: 03:15 Drug: Metoprolol 5 mg Route: IVP; Site: right antecubital; jb4 03:30 Follow up: Response: No adverse reaction; Cardiac rhythm changed jb4 04:15 Drug: NS 0.9% 500 ml Route: IV; Rate: bolus; Site: left antecubital; jb4 05:30 Drug: fentaNYL (PF) 50 mcg Route: IVP; Site: right antecubital; jb4 06:00 Follow up: Response: No adverse reaction jb4 05:32 Drug: Etomidate 10 mg Route: IVP; Site: right antecubital; jb4 06:00 Follow up: Response: No adverse reaction jb4 05:40 Drug: fentaNYL (PF) 50 mcg Route: IVP; Site: right antecubital; jb4 06:00 Follow up: Response: No adverse reaction jb4 05:40 Drug: Etomidate 10 mg Route: IVP; Site: right antecubital; jb4 06:00 Follow up: Response: No adverse reaction jb4 06:20 Not Given (Physician Discretion): Lidocaine (1 %) 21 application 20 ml Infiltration jb4 once; to bedside Disposition: 12/07/20 05:55 Hospitalization ordered by Bakari Cuenca for Inpatient Admission. Preliminary diagnosis are Atrial Fibrillation with RVR, Pneumothorax, Left. - Bed requested for Telemetry/MedSurg (Inpatient). - Status is Inpatient Admission. hb - Condition is Stable. - Problem is new. - Symptoms have improved. Signatures: Dispatcher [employer] EDMS Kendra Rivas RN RN Geeta Dean RN RN Girish Carrillo RN RN jb4 Erika Pisano Maurice, MD MD mh7 Corrections: (The following items were deleted from the chart) 12:09 05:55 Hospitalization Ordered by Bakari Cuenca MD for Inpatient Admission. Preliminary dw diagnosis is Atrial Fibrillation with RVR; Pneumothorax, Left. Bed requested for Telemetry/MedSurg (Inpatient). Status is Inpatient Admission. Condition is Stable. Problem is new. Symptoms have improved. mh7 12:45 12:09 12/07/2020 05:55 Hospitalization Ordered by Bakari Cuenca MD for Inpatient eb Admission. Preliminary diagnosis is Atrial Fibrillation with RVR; Pneumothorax, Left. Bed requested for Telemetry/MedSurg (Inpatient). Status is Inpatient Admission. Condition is Stable. Problem is new. Symptoms have improved. yessy 13:17 12:45 12/07/2020 05:55 Hospitalization Ordered by Bakari Cuenca MD for Inpatient hb Admission. Preliminary diagnosis is Atrial Fibrillation with RVR; Pneumothorax, Left. Bed requested for Telemetry/MedSurg (Inpatient). Status is Inpatient Admission. Condition is Stable. Problem is new. Symptoms have improved. eb
--- NOTE | 2020-12-07 07:48 | EKG ---
Test Date: 2020-12-07 Test Time: 04:06:54 Inoculator: SHYLA MEASUREMENT RESULTS: Intervals: Rate: 60 IA: 176 QRSD: 86 QT: 404 QTc: 404 [place]: P: 57 IA: 176 QRS: 260 T: 74 INTERPRETIVE STATEMENTS: Electronic atrial pacemaker Low voltage QRS Possible Lateral infarct, age undetermined Abnormal ECG Compared to ECG 01/12/2020 16:54:09 Low QRS voltage now present Sinus rhythm no longer present Left anterior fascicular block no longer present Myocardial infarct finding still present Electronically Signed On 12-07-20 07:48:09 CDT by Chauncey Lee
[2020-12-07] MEDS ORDERED: ONDANSETRON 4 MG/2 ML VIAL IV PRN (08:11)
[2020-12-07] MEDS ORDERED: ALBUTEROL 2.5 MG/3 ML NEB SOL NEB PRN (08:11)
[2020-12-07] MEDS ORDERED: ACETAMINOPHEN 500 MG TAB PO PRN (08:11)
[2020-12-07] MEDS ORDERED: IPRATROPIUM BROM 0.5MG/2.5ML NEB PRN (08:11)
[2020-12-07 09:21] VITALS: BMI 26.6
[2020-12-07] MEDS: GABAPENTIN 300 MG CAP PO SCH ×3 (09:35→20:14)
[2020-12-07] MEDS: NA CHLORIDE 0.9% 1,000 ML IV SCH ×3 (09:35→22:20)
[2020-12-07] MEDS: ASPIRIN 81 MG CHEWABLE TABLET PO SCH (09:35)
[2020-12-07] MEDS ORDERED: NA CHLORIDE 0.9% 100 ML ONE (09:50)
[2020-12-07] MEDS ORDERED: ASPIRIN 81 MG CHEWABLE TABLET ONE (09:50)
[2020-12-07] MEDS ORDERED: GABAPENTIN 300 MG CAP ONE (09:50)
[2020-12-07] MEDS: MORPHINE 4 MG/ML SYR IV PRN ×2 (11:38→18:06)
[2020-12-07] MEDS ORDERED: MORPHINE 4 MG/ML SYR ONE (11:53)
[2020-12-07] MEDS ORDERED: ONDANSETRON 4 MG/2 ML VIAL ONE (11:53)
[2020-12-07] MEDS: ATORVASTATIN 80 MG TAB PO SCH (20:14)
[2020-12-08] MEDS: NA CHLORIDE 0.9% 1,000 ML IV SCH ×2 (01:49→20:12)
[2020-12-08] MEDS: MORPHINE 4 MG/ML SYR IV PRN ×2 (01:49→08:27)
[2020-12-08 04:31] LABS: Basophils % 0.6 % (0-1.3); Hematocrit 42.3 % (39.6-49.0); Lymphocytes % 16.9 % (15.3-44.8); MPV 9.1 fL (7.6-11.3); RBC Red Blood Cell Count 4.38 M/uL (4.33-5.43)
[2020-12-08 04:34] LABS: Protime INR 1.11
[2020-12-08 04:46] LABS: ALT/SGPT 35 U/L (12-78); AST/SGOT 27 U/L (15-37); Albumin 3.4 g/dL (3.4-5.0); Alkaline Phosphatase 50 U/L (45-117); BUN Blood Urea Nitrogen 17 mg/dL (7-18); Bicarbonate 28 mmol/L (21-32); Bilirubin Total 1.1 mg/dL (0.2-1.0); Glucose Level 130 mg/dL (74-106); Potassium 3.9 mmol/L (3.5-5.1); Protein, Total 6.5 g/dL (6.4-8.2); Sodium Level 143 mmol/L (136-145)
[2020-12-08] MEDS ORDERED: HOME MED 1 EA UNK (Omeprazole [Prilosec] 40 MG Capsule.Dr) PO SCH (06:00)
[2020-12-08] MEDS ORDERED: PANTOPRAZOLE 40MG TABLET PO SCH (06:00)
[2020-12-08] MEDS: GABAPENTIN 300 MG CAP PO SCH ×4 (08:22→20:25)
[2020-12-08] MEDS: ASPIRIN 81 MG CHEWABLE TABLET PO SCH (08:22)
--- NOTE | 2020-12-08 09:09 | RAD REPORT ---
EXAM DESCRIPTION: [place] Single View12/07/2020 4:29 am CLINICAL HISTORY: The patient is 80 years old and is Male; CHEST PAIN recent pacemaker placement TECHNIQUE: Single portable view of the chest. COMPARISON: No relevant prior studies available. FINDINGS: Lungs: Visualized right lung is clear. Pleural space: Large left pneumothorax with shift of the trachea to the right. Heart: No cardiomegaly. Mediastinum: Unremarkable. Bones/joints: Degenerative changes in the right shoulder. Tubes, lines and devices: Left-sided cardiac pacer. Soft tissue gas in the base of the left neck and adjacent to the pacemaker generator. IMPRESSION: 1. Tension left pneumothorax. 2. Left-sided cardiac pacer. 3. Soft tissue gas in the base of the left neck and adjacent to the pacemaker generator. THIS REPORT CONTAINS FINDINGS THAT MAY BE CRITICAL TO PATIENT CARE: The findings were verbally discus sed via telephone conference with Dr. Wahsington 4:52 AM central time December 07, 2020. The results were ack nowledged and understood. Electronically signed by: Linda Moncada MD 12/07/2020 4:52 AM CDT Due to temporary technical issues with the PACS/Fluency reporting system, reports are being signed by the in house radiologists without review as a courtesy to insure prompt reporting. The interpreting radiologist is fully responsible for the content of the report.
--- NOTE | 2020-12-08 09:11 | RAD REPORT ---
EXAM DESCRIPTION: [place] Single View12/07/2020 6:02 am CLINICAL HISTORY: The patient is 80 years old and is Male; POST CHEST TUBE TECHNIQUE: Single view of the chest. COMPARISON: December 07, 2020 4:09 AM. FINDINGS: Lungs: Linear atelectasis left lung base. Right lung is clear. Pleural space: See below. Heart: Unremarkable. No cardiomegaly. Mediastinum: Unremarkable. Bones/joints: The bones and joints are unchanged as visualized. Soft tissues: Soft tissues are unchanged. Tubes, lines and devices: Left chest tube has been placed. Minimal residual left pneumothorax. Left cardiac pacer again noted. Upper abdomen: No free air in the visualized upper abdomen. IMPRESSION: 1. Left chest tube has been placed. Minimal residual left pneumothorax. 2. Linear atelectasis left lung base. 3. Left cardiac pacer again noted. Electronically signed by: Linda Moncada MD 12/07/2020 6:31 AM CDT Due to temporary technical issues with the PACS/Fluency reporting system, reports are being signed by the in house radiologists without review as a courtesy to insure prompt reporting. The interpreting radiologist is fully responsible for the content of the report.
--- NOTE | 2020-12-08 09:45 | RAD REPORT ---
EXAM DESCRIPTION: RAD - Chest Single View - 12/08/2020 7:09 am CLINICAL HISTORY: ptx Chest pain. COMPARISON: Chest Single View dated 12/07/2020; Chest Single View dated 12/07/2020; Chest Single View da [place] 01/12/2020; CHEST PA AND LAT 2 VIEW dated 07/09/2015 FINDINGS: Portable technique limits examination quality. Mild interstitial edema is seen. Small left pleural effusion. Left-sided chest tube remains place wit hout pneumothorax. Heart upper limit normal size with pacer device present.
--- NOTE | 2020-12-08 10:33 | P.CNS ---
Date of Consult: 12/08/20 Reason for Consult: Pneumothorax Chief Complaint: Shortness of breath tachycardia History of Present Illness: Patient is 80 years of age recently had a pacemaker placed on the left side this . The day after patient developed some chest discomfort tachycardia shortness of breath ended up here in the emergency room Thursday was found to have a complete pneumothorax on the left-sided chest tube was inserted S some chest discomfort otherwise his lung is completely expanded there is no air leak no prior history of lung complain Allergies No Known Allergies Allergy (Verified 01/13/20 10:11) Home Medications: Aspirin Chewable [Aspirin Chewable*] 81 mg PO DAILY 01/12/20 Atorvastatin Calcium [Lipitor] 80 mg PO BEDTIME 01/12/20 Cholecalciferol (Vitamin D3) [Vitamin D3] 1,000 unit PO DAILY 01/12/20 Ezetimibe 10 mg PO BEDTIME 01/12/20 Fenofibrate 160 mg PO BEDTIME 01/12/20 Gabapentin 300 mg PO TID 01/12/20 Glimepiride 4 mg PO BID 01/12/20 Nabumetone [Relafen] 500 mg PO BID 01/12/20 Omeprazole [Prilosec] 40 mg PO [id number] 01/12/20 Zaleplon 10 mg PO BEDTIME PRN 01/12/20 Ascorbic Acid [Vitamin C*] 1,000 mg PO DAILY 12/07/20 Cephalexin [Keflex*] 1 cap PO BID 12/07/20 Cholecalciferol (Vitamin D3) [Vitamin D3] 1 tab PO DAILY 12/07/20 Empagliflozin [Jardiance] 1 tab PO DAILY 12/07/20 Olmesartan Medoxomil 1 tab PO DAILY 12/07/20 - Past Medical/Surgical History Diabetic: No -: Diabetes mellitus, HLD, -: Colon Cancer -: CAD -: Hypertension -: Measles -: gall bladder surgery -: Colon surgery -: Prostate surgery -: Back surgery -: Tonsillectomy and adenoidectomy -: Angioplasty no stents -: prostate surgery -: pacemaker - Social History Alcohol use: Yes CD- Drugs: No Caffeine use: No Place of Residence: Home Review of Systems 10-point ROS is otherwise unremarkable Physical Examination Temp Pulse Resp BP Pulse Ox 97.8 F 63 20 125/64 92 12/08/20 08:00 12/08/20 08:00 12/08/20 08:27 12/08/20 08:00 12/08/20 08:27 General: Alert, In no apparent distress, Oriented x3 Neck: Supple Respiratory: Clear to auscultation bilaterally Cardiovascular: No edema, Normal S1 S2 - Problems (1) Pneumothorax Current Visit: Yes Status: Acute Plan: Patient is 80 years of age admitted with a post procedural pneumothorax secon jordi to insertion of a left-sided pacemaker as lung is not completely expanded plan to discharge tomorrow I have Dc dehisced chest tube suction follow-up chest x-ray 2:00 p.m. and in the morning labs chemistries x-rays reviewed all unremarkable Dc IV fluids start him on oral pain medication oxygenation satisfactory Qualifiers: Pneumothorax type: postprocedural Qualified Code(s): J95.811 - Postprocedural pneumothorax
[2020-12-08] MEDS: HYDROCODONE/APAP 5/325 MG TAB PO PRN ×2 (10:59→18:02)
[2020-12-08 13:57] VITALS: O2SAT 90
--- NOTE | 2020-12-08 14:42 | RAD REPORT ---
EXAM DESCRIPTION: RAD - Chest Single View - 12/08/2020 2:15 pm CLINICAL HISTORY: Follow for pneumothorax Chest pain. COMPARISON: Chest Single View dated 12/08/2020; Chest Single View dated 12/07/2020; Chest Single View da levy 12/07/2020; Chest Single View dated 01/12/2020 FINDINGS: Portable technique limits examination quality. Small bore left-sided chest tube is in place. No measurable pneumothorax on the left. Small amount of subcutaneous emphysema seen at the base of the neck on the left. The heart mildly prominent. Multile ad pacer device.
[2020-12-08] MEDS ORDERED: VANCOMYCIN 1.5 GM in NA CHLORIDE 0.9% 500 ML IVPB SCH (17:00)
[2020-12-08] MEDS ORDERED: PIPER/TAZO/NS 3.375gm 3.375 GM/100 ML BAG IVPB SCH (17:00)
[2020-12-08] MEDS: GLIMEPIRIDE 2 MG TABLET PO SCH ×2 (17:49→17:54)
[2020-12-08] MEDS ORDERED: VANCOMYCIN 1 GM/VIAL ONE (17:55)
[2020-12-08] MEDS ORDERED: NA CHLORIDE 0.9% 250 ML ONE (17:56)
[2020-12-08] MEDS ORDERED: VANCOMYCIN 500 MG/VIAL ONE (17:56)
[2020-12-08] MEDS ORDERED: VANCOMYCIN 1.25 GM in NA CHLORIDE 0.9% 250 ML IVPB SCH (18:00)
[2020-12-08] MEDS ORDERED: DIGOXIN 0.25 MG/ML AMP IV ONE (19:00)
[2020-12-08] MEDS ORDERED: METOPROLOL TARTRATE 5 MG/5 ML INJ IV PRN (19:42)
[2020-12-08] MEDS ORDERED: NA CHLORIDE 0.9% 500 ML IV ONE (19:44)
[2020-12-08] MEDS: ATORVASTATIN 80 MG TAB PO SCH (20:18)
[2020-12-08] MEDS ORDERED: FENOFIBRATE 160 MG TAB PO SCH (21:00)
[2020-12-09] MEDS ORDERED: MELATONIN 5 MG TABLET PO PRN (00:06)
[2020-12-09 07:05] LABS: Absolute Lymphocytes (CBC) 0.9 K/uL (0.7-4.9); Basophils % 0.8 % (0-1.3); Hematocrit 44.8 % (39.6-49.0); Lymphocytes % 13.7 % (15.3-44.8); MPV 10.2 fL (7.6-11.3)
[2020-12-09 07:37] LABS: BUN Blood Urea Nitrogen 17 mg/dL (7-18); Bicarbonate 24 mmol/L (21-32); Glucose Level 131 mg/dL (74-106); Magnesium 2.1 mg/dL (1.8-2.4); NT PRO-BNP 1903 pg/mL (<450); Potassium 3.9 mmol/L (3.5-5.1); Sodium Level 140 mmol/L (136-145)
--- NOTE | 2020-12-09 08:19 | RAD REPORT ---
EXAM DESCRIPTION: [facility] Single View12/09/2020 6:44 am CLINICAL HISTORY: Pneumothorax COMPARISON: December 2020 FINDINGS: Left chest tube in place without visualization of a pneumothorax. A few areas of subsegmental atelectasis within the lung bases Heart is normal size. Pacemaker leads place
[2020-12-09] MEDS: HYDROCODONE/APAP 5/325 MG TAB PO PRN (08:30)
[2020-12-09] MEDS: GLIMEPIRIDE 2 MG TABLET PO SCH (08:30)
[2020-12-09] MEDS: GABAPENTIN 300 MG CAP PO SCH (08:30)
[2020-12-09] MEDS: ASPIRIN 81 MG CHEWABLE TABLET PO SCH (08:30)
[2020-12-09] MEDS ORDERED: VALSARTAN 80 MG TAB PO SCH (09:00)
[2020-12-09] MEDS ORDERED: JARDIANCE 25 MG PO SCH (09:00)
[2020-12-09] MEDS: NA CHLORIDE 0.9% 1,000 ML IV SCH (10:08)
--- NOTE | 2020-12-09 10:49 | P.PN ---
Subjective Date of Service: 12/09/20 Chief Complaint: Status post pneumothorax Subjective: Improving (Patient is doing well chest x-ray off suction did not show any evidence of pneumothorax no air leak) Review of Systems Cardiovascular: Chest Pain Physical Examination - Vital Signs Temperature: 98.0 F Blood Pressure: 139/65 Pulse: 60 Respirations: 16 Pulse Ox (%): 60 - Physical Exam General: Alert, In no apparent distress, Oriented x3 Respiratory: Clear to auscultation bilaterally Cardiovascular: No edema, Regular rate/rhythm Assessment & Plan - Problems (Diagnosis) (1) Pneumothorax Current Visit: Yes Status: Acute Plan: Patient is doing well chest tube removed plan to do a chest x-ray in 2 hr ambulate patient possible discharge Qualifiers: Pneumothorax type: postprocedural Qualified Code(s): J95.811 - Postprocedural pneumothorax
[2020-12-09 12:24] VITALS: BP 121/59; TEMP 97.9
--- NOTE | 2020-12-09 14:10 | RAD REPORT ---
EXAM DESCRIPTION: RADChest Single View12/09/2020 1:09 pm CLINICAL HISTORY: Chest tube removal COMPARISON: December 09, 2020 FINDINGS: Left chest tube has been removed. A pneumothorax is not seen. No other change since the prior exam
--- NOTE | 2020-12-14 01:10 | P.HP ---
Certification for Inpatient Patient admitted to: Inpatient With expected LOS: >2 Midnights Patient will require the following post-hospital care: None Practitioner: I am a practitioner with admitting privileges, knowledge of patient current condition, hospital course, and medical plan of care. Services: Services provided to patient in accordance with Admission requirements found in Title 42 Section 412.3 of the Code of Federal Regulations Patient History Date of Service: 12/07/20 Reason for admission: Status post pneumothorax History of Present Illness: Patient is a 80-year-old gentleman who came into the hospital With tachypnea and tachycardia. Patient had a pacemaker placed a few days ago. During the procedure, the patient apparently felt the shock go down his arm and he jerked up. There was concerned that patient could have had some complications so he was kept in the hospital for 4-6 extra hours and a repeat chest x-ray will be performed prior to him discharging which did not reveal a pneumothorax. Patient was discharged home and did well overnight. However, in the morning patient became severely short of breath. Patient also became tachycardic. Patient came to the emergency room for further evaluation. In the emergency room, patient was found to have a pneumothorax. Patient had a chest tube placed at that time. Allergies No Known Allergies Allergy (Verified 01/13/20 10:11) Home Medications: Aspirin Chewable [Aspirin Chewable*] 81 mg PO DAILY 01/12/20 Atorvastatin Calcium [Lipitor] 80 mg PO BEDTIME 01/12/20 Cholecalciferol (Vitamin D3) [Vitamin D3] 1,000 unit PO DAILY 01/12/20 Ezetimibe 10 mg PO BEDTIME 01/12/20 Fenofibrate 160 mg PO BEDTIME 01/12/20 Gabapentin 300 mg PO TID 01/12/20 Glimepiride 4 mg PO BID 01/12/20 Nabumetone [Relafen] 500 mg PO BID 01/12/20 Omeprazole [Prilosec] 40 mg PO [id number] 01/12/20 Zaleplon 10 mg PO BEDTIME PRN 01/12/20 Ascorbic Acid [Vitamin C*] 1,000 mg PO DAILY 12/07/20 Cephalexin [Keflex*] 1 cap PO BID 12/07/20 Empagliflozin [Jardiance] 1 tab PO DAILY 12/07/20 Olmesartan Medoxomil 1 tab PO DAILY 12/07/20 Albuterol Neb [Proventil 0.083% Neb Soln] 2.5 mg NEB Q6HP PRN #30 amp 12/09/20 Hydrocodone 5/APAP 325 [[place] 5/325*] 1 tab PO Q8HP PRN #20 tab 12/09/20 Ipratropium Neb [Atrovent*] 0.5 mg NEB Q6HP PRN #30 amp 12/09/20 Melatonin 10 mg PO BEDTIME PRN PRN #10 tablet 12/09/20 - Past Medical/Surgical History Has patient received pneumonia vaccine in the past: Yes Diabetic: No -: Diabetes mellitus, HLD, -: Colon Cancer -: CAD -: Hypertension -: Measles -: gall bladder surgery -: Colon surgery -: Prostate surgery -: Back surgery -: Tonsillectomy and adenoidectomy -: Angioplasty no stents -: prostate surgery -: pacemaker - Social History Smoking Status: Former smoker Alcohol use: Yes CD- Drugs: No Caffeine use: No Place of Residence: Home Review of Systems 10-point ROS is otherwise unremarkable Physical Examination - Vital Signs Temperature: 97.9 F Blood Pressure: 121/59 Pulse: 64 Respirations: 16 Pulse Ox (%): 97 - Physical Exam General: Alert, In no apparent distress, Oriented x3 HEENT: Atraumatic, PERRLA, Mucous membr. moist/pink, EOMI, Sclerae nonicteric Neck: Supple, 2+ carotid pulse no bruit, No LAD, Without JVD or thyroid abnormality Respiratory: Diminished, Other (Chest tube in the left side-left sided rubs) Cardiovascular: Regular rate/rhythm, Normal S1 S2, No murmurs Gastrointestinal: Normal bowel sounds, Soft and benign, Non-distended, No tenderness Musculoskeletal: No clubbing, No swelling, No tenderness Integumentary: No rashes Neurological: Normal gait, Normal speech, Normal strength at 5/5 x4 extr, Normal tone, Sensation intact, Cranial nerves 3-12 intact, Normal affect Lymphatics: No axilla or inguinal lymphadenopathy Assessment & Plan - Problems (Diagnosis) (1) Pneumothorax Status: Acute Qualifiers: Pneumothorax type: postprocedural Qualified Code(s): J95.811 - Postprocedural pneumothorax (2) Status post biventricular cardiac pacemaker insertion Status: Acute (3) Diabetes mellitus Status: Acute (4) HLD (hyperlipidemia) Status: Acute (5) HTN (hypertension) Status: Acute - Plan Plan: 1. Chest tube management 2. Pulmonary consultation 3. Pain control 4. Monitor labs closely 5. Continue with anti-arrhythmic 6. GI/DVT prophylaxis Discharge Plan: Home Plan to discharge in: Greater than 2 days - Advance Directives Does patient have a Living Will: No Does patient have a Durable POA for Healthcare: No - Code Status/Comfort Care Code Status Assessed: Yes Code Status: Full Code Critical Care: No Time Spent Managing PTS Care (In Minutes): 45
--- NOTE | 2020-12-14 01:16 | P.PN ---
Subjective Date of Service: 12/08/20 Patient is clinically doing well with no new complaints. Review of Systems 10-point ROS is otherwise unremarkable Physical Examination - Vital Signs Temperature: 97.9 F Blood Pressure: 121/59 Pulse: 64 Respirations: 16 Pulse Ox (%): 97 - Physical Exam General: Alert, In no apparent distress, Oriented x3 Respiratory: Other (Left-sided pneumothorax ) Cardiovascular: Regular rate/rhythm, Normal S1 S2, No murmurs Gastrointestinal: Normal bowel sounds, Soft and benign, Non-distended, No tenderness Musculoskeletal: No clubbing, No swelling, No tenderness Neurological: Sensation intact, Cranial nerves 3-12 intact - Studies Medications List Reviewed: Yes Assessment & Plan - Problems (Diagnosis) (1) Pneumothorax Status: Acute Qualifiers: Pneumothorax type: postprocedural Qualified Code(s): J95.811 - Postprocedural pneumothorax (2) Status post biventricular cardiac pacemaker insertion Status: Acute (3) Diabetes mellitus Status: Acute (4) HLD (hyperlipidemia) Status: Acute (5) HTN (hypertension) Status: Acute - Plan Plan: Continue with plan of care as mentioned below: 1. Chest tube management per pulmonary 2. Monitor oxygenation continue with cardiac meds 3. Pain control 4. Monitor labs closely 5. Continue with anti-arrhythmic 6. GI/DVT prophylaxis Discharge Plan: Home Plan to discharge in: Greater than 2 days - Advance Directives Does patient have a Living Will: No Does patient have a Durable POA for Healthcare: No - Code Status/Comfort Care Code Status: Full Code Critical Care: No Time Spent Managing PTS Care (In Minutes): 35
--- NOTE | 2020-12-14 01:18 | P.DS ---
Discharge Date: 12/09/20 Disposition: ROUTINE DISCHARGE Discharge Condition: GOOD Reason for Admission: Status post pneumothorax Consultations: Pulmonary - Problems (1) Pneumothorax Status: Acute Qualifiers: Pneumothorax type: postprocedural Qualified Code(s): J95.811 - Postprocedural pneumothorax (2) Status post biventricular cardiac pacemaker insertion Status: Acute (3) Diabetes mellitus Status: Acute (4) HLD (hyperlipidemia) Status: Acute (5) HTN (hypertension) Status: Acute Brief History of Present Illness: Patient is a 80-year-old gentleman who came into the hospital With tachypnea and tachycardia. Patient had a pacemaker placed a few days ago. During the procedure, the patient apparently felt the shock go down his arm and he jerked up. There was concerned that patient could have had some complications so he was kept in the hospital for 4-6 extra hours and a repeat chest x-ray will be performed prior to him discharging which did not reveal a pneumothorax. Patient was discharged home and did well overnight. However, in the morning patient became severely short of breath. Patient also became tachycardic. Patient came to the emergency room for further evaluation. In the emergency room, patient was found to have a pneumothorax. Patient had a chest tube placed at that time. Hospital Course: Patient did well during hospital stay. We were able to remove the chest tube and patient did not have recurrent pneumothorax. Follow up with cardiology and pulmonary as an outpatient. At this time, patient is stable for discharge home. Vital Signs/Physical Exam: Temp Pulse Resp BP Pulse Ox 97.9 F 64 16 121/59 L 97 12/14/20 01:16 12/14/20 01:16 12/14/20 01:16 12/14/20 01:16 12/14/20 01:16 General: Alert, In no apparent distress, Oriented x3 Laboratory Data at Discharge: WBC 6.70 K/uL (4.3-10.9) 12/09/20 06:00 Hgb 15.0 g/dL (13.6-17.9) 12/09/20 06:00 Hct 44.8 % (39.6-49.0) 12/09/20 06:00 Plt Count 145 K/uL (152-406) L 12/09/20 06:00 PT 12.8 SECONDS (9.5-12.5) H 12/08/20 03:58 INR 1.11 12/08/20 03:58 APTT 28.8 SECONDS (24.3-36.9) 12/08/20 03:58 Sodium 140 mmol/L (136-145) 12/09/20 06:00 Potassium 3.9 mmol/L (3.5-5.1) 12/09/20 06:00 BUN 17 mg/dL (7-18) 12/09/20 06:00 Creatinine 0.67 mg/dL (0.55-1.3) 12/09/20 06:00 Glucose 131 mg/dL (74-106) H 12/09/20 06:00 Phosphorus 2.0 mg/dL (2.5-4.9) L 12/09/20 06:00 Magnesium 2.1 mg/dL (1.8-2.4) 12/09/20 06:00 Total Bilirubin 1.1 mg/dL (0.2-1.0) H 12/08/20 03:58 AST 27 U/L (15-37) 12/08/20 03:58 ALT 35 U/L (12-78) 12/08/20 03:58 Alkaline Phosphatase 50 U/L (45-117) 12/08/20 03:58 Home Medications: Aspirin Chewable [Aspirin Chewable*] 81 mg PO DAILY 01/12/20 Atorvastatin Calcium [Lipitor] 80 mg PO BEDTIME 01/12/20 Cholecalciferol (Vitamin D3) [Vitamin D3] 1,000 unit PO DAILY 01/12/20 Ezetimibe 10 mg PO BEDTIME 01/12/20 Fenofibrate 160 mg PO BEDTIME 01/12/20 Gabapentin 300 mg PO TID 01/12/20 Glimepiride 4 mg PO BID 01/12/20 Nabumetone [Relafen] 500 mg PO BID 01/12/20 Omeprazole [Prilosec] 40 mg PO [id number] 01/12/20 Zaleplon 10 mg PO BEDTIME PRN 01/12/20 Ascorbic Acid [Vitamin C*] 1,000 mg PO DAILY 12/07/20 Cephalexin [Keflex*] 1 cap PO BID 12/07/20 Empagliflozin [Jardiance] 1 tab PO DAILY 12/07/20 Olmesartan Medoxomil 1 tab PO DAILY 12/07/20 Albuterol Neb [Proventil 0.083% Neb Soln] 2.5 mg NEB Q6HP PRN #30 amp 12/09/20 Hydrocodone 5/APAP 325 [[place] 5/325*] 1 tab PO Q8HP PRN #20 tab 12/09/20 Ipratropium Neb [Atrovent*] 0.5 mg NEB Q6HP PRN #30 amp 12/09/20 Melatonin 10 mg PO BEDTIME PRN PRN #10 tablet 12/09/20 New Medications: Ipratropium Neb [Atrovent*] 0.5 mg NEB Q6HP PRN #30 amp PRN Reason: Shortness Of Breath Melatonin 10 mg PO BEDTIME PRN PRN #10 tablet PRN Reason: Insomnia Hydrocodone 5/APAP 325 [[place] 5/325*] 1 tab PO Q8HP PRN #20 tab PRN Reason: PAIN Albuterol Neb [Proventil 0.083% Neb Soln] 2.5 mg NEB Q6HP PRN #30 amp PRN Reason: Shortness Of Breath Physician Discharge Instructions: PROBLEM: Pneumothorax, Supraventricular Tachycardia GOAL: Clear understanding of disease process E-scripts sent to [facility] in [place]. INSTRUCTIONS: - Ok to discontinue IV and discharge home if repeat CXR is ok. - Follow up with your primary care provider in 1-2 weeks. - Follow up with pulmonology, Dr. Solares, in 1-2 weeks. - Follow up with cardiology, Dr. Gavin, in 1-2 weeks. - Return to the ER if your symptoms worsen. - Call or text Dr. Cuenca at if any questions regarding your hospital stay. - Please call the floor at if you have any medication or nursing questions. Diet: Heart healthy Activity: Fall precautions IMMUNIZATION Influenza Vaccine Indicated: Influenza Vaccine Given: Date Given: Pneumonia Vaccine Indicated: No Pneumonia Vaccine Given: Date Given: Diet: AHA Activity: Fall precautions Followup: Fitz Solares MD [ACTIVE - CAN ADMIT] - 1-2 Weeks (Follow up in office in 1-2 weeks. Call to schedule an appointment.) Mj Gavin MD [OUTSIDE PHYSICIAN] - 1-2 Weeks (Follow up in office in 1-2 weeks. Call to schedule an apppointment.) Time spent managing pt's care (in minutes): 35
== END 2020-12-09 15:44 | disposition home or self-care (01) | DRG 200 ==
LOC: ER 02:43 → ERHOLD 08:11 → 4TH 12:34
PROVIDERS: ADMIT Hospitalist; ATTEND Hospitalist
PROC: 0W9B30Z Drainage of Left Pleural Cavity with Drainage Device, Percutaneous Approach (ICD-10-PCS; principal; 2020-12-07)
PROC: 0WPB30Z Removal of Drainage Device from Left Pleural Cavity, Percutaneous Approach (ICD-10-PCS; 2020-12-09)
DX: J95.811 Postprocedural pneumothorax (principal); I47.1 Supraventricular tachycardia; E11.9 Type 2 diabetes mellitus without complications; I25.10 Atherosclerotic heart disease of native coronary artery without angina pectoris; E78.5 Hyperlipidemia, unspecified; I10 Essential (primary) hypertension; Y83.8 Other surgical procedures as the cause of abnormal reaction of the patient, or of later complication, without mention of misadventure at the time of the procedure; Z95.0 Presence of cardiac pacemaker; Z79.82 Long term (current) use of aspirin; Z79.84 Long term (current) use of oral hypoglycemic drugs; Z87.891 Personal history of nicotine dependence; Z79.899 Other long term (current) drug therapy; Z85.038 Personal history of other malignant neoplasm of large intestine; Z20.822 Contact with and (suspected) exposure to COVID-19
CPT/HCPCS: 36415; 71045; 80048; 80053; 80076; 83735; 83880; 84100; 84436; 84439; 84443; 84480; 84481; 84484; 85025; 85610; 85730; 93005; 96374; 96375; 99291; 99292; J1160; J2405; J2543; J3010; J3370; J7030; J7040; J7050; U0003

== ENCOUNTER 2021-09-20 11:05 | Emergency (ER) | payer OTHER, MEDICARE ==
[2021-09-20 12:07] LABS: Absolute Lymphocytes (CBC) 0.5 K/uL (0.7-4.9); Hematocrit 21.8 % (39.6-49.0); Lymphocytes % 9.7 % (15.3-44.8); MPV 9.2 fL (7.6-11.3); RBC Red Blood Cell Count 2.51 M/uL (4.33-5.43)
[2021-09-20 12:31] LABS: Bilirubin Direct 0.3 mg/dL (0-0.2); Bilirubin Total 0.7 mg/dL (0.2-1.0); Potassium 4.1 mmol/L (3.5-5.1); Protein, Total 6.2 g/dL (6.4-8.2)
[2021-09-20] MEDS ORDERED: NA CHLORIDE 0.9% 500 ML ONE (12:52)
[2021-09-20] MEDS ORDERED: PANTOPRAZOLE 40 MG INJ ONE (17:46)
--- NOTE | 2021-09-20 18:07 | EDPHYS ---
Physician Documentation [facility] Name: Matthew Ansari Age: 80 yrs Sex: Male : 1940 Arrival Date: 09/20/2021 Time: 11:08 Bed 23 Private MD: ED Physician Colby Rodriguez HPI: 09/20 11:25 This 80 yrs old Male presents to ER via Ambulatory with complaints of Abnormal Lab jmm Results, Per Dr Lowry. 11:25 The patient presents to the emergency department with bleeding from the rectum/anus. jmm Onset: The symptoms/episode began/occurred gradually, 3 month(s) ago. Modifying factors: The symptoms are alleviated by nothing, The symptoms are aggravated by bowel movement. This is an 80-year-old male with history of atrial fibrillation, diabetes mellitus, hyperlipidemia, hypertension the presents emerged department with progressively worsening weakness beginning approximately a month and a half ago. Patient states that he has had dark greenish stools over the past 3 months. Patient states that he does take omeprazole and Eliquis. Patient had outpatient labs ordered which revealed anemia. Hemoglobin was over nine 1 month ago.. Historical: - Allergies: 11:24 No Known Allergies; ab2 - Home Meds: 11:24 None [Active]; ab2 - PMHx: 11:24 Atrial Fib; Diabetes - NIDDM; High Cholesterol; Hypertension; ab2 - PSHx: 11:24 Pacemaker; ab2 - Immunization history:: Adult Immunizations up to date, Client reports receiving the 2nd dose of the Covid vaccine, Flu vaccine is up to date. - Social history:: Smoking status: Patient denies any tobacco usage or history of. ROS: 11:25 Constitutional: Negative for fever, chills, and weight loss, Cardiovascular: Negative jmm for chest pain, palpitations, and edema, Respiratory: Negative for shortness of breath, cough, wheezing, and pleuritic chest pain. 11:25 Abdomen/GI: Positive for black/tarry stool. 11:25 Neuro: Positive for weakness. 11:25 All other systems are negative. Exam: 11:25 Constitutional: This is a well developed, well nourished patient who is awake, alert, jmm and in no acute distress. Head/Face: atraumatic. Eyes: EOMI, no conjunctival erythema appreciated ENT: Moist Mucus Membranes Neck: Trachea midline, Supple Chest/axilla: Normal chest wall appearance and motion. Cardiovascular: Regular rate and rhythm. No edema appreciated Respiratory: Normal respirations, no respiratory distress appreciated Abdomen/GI: Non distended, soft Back: Normal ROM Skin: General appearance color normal MS/ Extremity: Moves all extremities, no obvious deformities appreciated, no edema noted to the lower extremities 11:25 Neuro: Awake and alert Psych: Behavior is normal, Mood is normal, Patient is cooperative and pleasant 11:25 Abdomen/GI: Inspection: abdomen appears normal, Bowel sounds: normal, Palpation: soft, nontender, in all quadrants, Rectal exam: Stool: guaiac positive. Vital Signs: 11:21 BP 115 / 69; Pulse 60; Resp 18; Temp 98.0(O); Pulse Ox 100% on R/A; Weight 78.47 kg; ab2 Height 5 ft. 7 in. (170.18 cm); Pain 0/10; 12:17 BP 106 / 48; Pulse 60; Resp 18; Pulse Ox 100% on R/A; Pain 0/10; ab2 13:30 BP 106 / 53; Pulse 60; Resp 14; Temp 98.0(T); Pulse Ox 99% on R/A; Pain 0/10; ab2 13:35 BP 104 / 52; Pulse 60; Resp 14; Temp 98.0(O); Pulse Ox 100% on R/A; Pain 0/10; ab2 13:40 BP 103 / 54; Pulse 60; Resp 14; Temp 98.1(O); Pulse Ox 100% on R/A; Pain 0/10; ab2 13:45 BP 104 / 69; Pulse 58; Resp 14; Temp 98.0(O); Pulse Ox 100% on R/A; Pain 0/10; ab2 14:00 BP 108 / 50; Pulse 60; Resp 14; Temp 98.6; Pulse Ox 98% on R/A; Pain 0/10; ab2 14:30 BP 122 / 55; Pulse 61; Resp 14; Temp 98.4(O); Pulse Ox 99% on R/A; Pain 0/10; ab2 15:00 BP 112 / 60; Pulse 60; Resp 14; Temp 98.0(O); Pulse Ox 98% on R/A; Pain 0/10; ab2 15:20 BP 115 / 69; Pulse 60; Resp 14; Temp 98.0(O); Pulse Ox 99% on R/A; Pain 0/10; ab2 15:55 BP 124 / 63; Pulse 62; Resp 16; Temp 98.4(T); Pulse Ox 100% on R/A; Pain 0/10; ab2 16:00 BP 126 / 63; Pulse 60; Resp 15; Temp 98.6(T); Pulse Ox 100% on R/A; Pain 0/10; ab2 16:05 BP 125 / 61; Pulse 60; Resp 14; Temp 98.2(T); Pulse Ox 100% on R/A; Pain 0/10; ab2 16:10 BP 119 / 64; Pulse 62; Resp 14; Temp 98.2(T); Pulse Ox 100% on R/A; Pain 0/10; ab2 16:25 BP 125 / 63; Pulse 60; Resp 14; Temp 98.4(T); Pulse Ox 100% on R/A; Pain 0/10; ab2 16:55 BP 119 / 66; Pulse 60; Resp 14; Temp 98.3(T); Pulse Ox 100% ; Pain 0/10; ab2 17:25 BP 124 / 60; Pulse 60; Resp 14; Temp 98.1; Pulse Ox 100% on R/A; Pain 0/10; ab2 17:35 BP 129 / 71; Pulse 61; Resp 15; Temp 98.4(T); Pulse Ox 100% on R/A; Pain 0/10; ab2 11:21 Body Mass Index 27.10 (78.47 kg, 170.18 cm) ab2 MDM: 11:42 Patient medically screened. [facility] 17:15 Data reviewed: vital signs, nurses notes. Counseling: I had a detailed discussion with [facility] the patient and/or guardian regarding: the historical points, exam findings, and any diagnostic results supporting the discharge/admit diagnosis, the need to transfer to another facility. Refusal of service: The patient/guardian displays adequate decision making capability and despite a detailed discussion of alternatives, benefits, risks, and consequences refuses: Transfer. ED course: I discussed with the patient the need for transfer due to lack of GI coverage. Patient requested that I talk to /Dom[facility] for further care. I discussed the patient's case with Dr. Martinez who stated that he would been unable to see the patient in the hospital this weekend. I discussed this with the patient and who stated that they would not go to [place] to be transferred. I did discuss with the patient and the that the GI bleed could progressively worsen making him more sick or even potentially be life-threatening. They requested that I arrange outpatient follow-up for endoscopy with Dr. Martinez. I discussed this with Dr. Martinez whom said he would see the patient and arrange endoscopy for Thursday. 2 units of blood were given to the patient. Patient states he has so far after 1.5 units of blood felt better and now he is able to ambulate, which she could not when he was at home. Due to weakness. Dr. Martinez recommended that I discussed the patient's case with cardiology for clearance for endoscopy. Unable to contact cardiology due to lack of coverage.. 17:25 Transition of care: After a detail discussion of the patient's case, care is [facility] transferred to [facility]ri ANSARI. 18:06 ED course: Discussed transfer with pt again. Pt still does not want to be transferred. kb Has appt with the GI center on Thursday at 1100. . 09/20 11:25 Order name: Basic Metabolic Panel [facility] 09/20 11:25 Order name: CBC with Diff [facility] 09/20 11:25 Order name: Hepatic Function [facility] 09/20 11:25 Order name: Lipase; Complete Time: 12:35 [facility] 09/20 11:25 Order name: Type And Screen [facility] 09/20 11:26 Order name: Basic Metabolic Panel; Complete Time: 12:35 [facility] 09/20 11:26 Order name: CBC with Automated Diff; Complete Time: 12:09 [facility] 09/20 11:26 Order name: Liver (Hepatic) Function; Complete Time: 12:35 [facility] 09/20 11:46 Order name: Troponin High Sensitivity; Complete Time: 12:35 [facility] 09/20 12:25 Order name: Bb Add On eb 09/20 12:32 Order name: Packed RBC Leukored [facility] 09/20 11:25 Order name: IV Saline Lock; Complete Time: 11:56 [facility] 02/18 11:25 Order name: Labs collected and sent; Complete Time: 11:56 [facility] 09/20 12:08 Order name: Labs - recollect needed: T\T\S; Complete Time: 12:17 09/20 12:42 Order name: EKG - Nurse/Tech; Complete Time: 12:56 [facility] 09/20 13:05 Order name: ABO/RH no charge; Complete Time: 13:07 EDMS Administered Medications: 13:30 Drug: NS 0.9% 500 ml Route: IV; Rate: bolus; Site: right antecubital; ab2 18:15 Follow up: Response: No adverse reaction; IV Status: Completed infusion ab2 17:47 Drug: ProTONIX (pantoprazole) 40 mg Route: IVP; Site: right antecubital; ab2 18:15 Follow up: Response: No adverse reaction ab2 Disposition: 18:47 Co-signature as Attending Physician, Colby Rodriguez MD. rn Disposition Summary: 09/20/21 18:07 Left Against Medical Advice Location: Home kb Problem: new kb Symptoms: are unchanged kb Condition: Stable kb Diagnosis - GI Bleed/ Gastrointestinal hemorrhage, unspecified kb Followup: kb - With: Bridger Marcial MD - When: on Thursday - Reason: Recheck today's complaints, Continuance of care, Re-evaluation by your physician Discharge Instructions: - Discharge Summary Sheet [facility] - Gastrointestinal Bleeding [facility] Signatures: Dispatcher [employer] EDMS Carri Balderas FNP-C FNP-Jorge Schmidt PA PA [facility] Colby Rodriguez MD MD rn Smirch, Shelby, RN RN ss Bleininger, Alexis ab2 Mia Mccurdy PA PA sb3 Corrections: (The following items were deleted from the chart) 12:32 12:17 PACKED RBC LEUKORED -1+BB.LAB.BRZ ordered. EDMS EDMS 12:32 12:18 ABO/RH typing ordered. EDMS EDMS 12:32 12:18 Antibody Screen ordered. EDMS EDMS
--- NOTE | 2021-09-20 18:07 | ER ---
Nurse's Notes [facility] Name: Matthew Ansari Age: 80 yrs Sex: Male : 1940 Arrival Date: 09/20/2021 Time: 11:08 Bed 23 Private MD: Diagnosis: GI Bleed/ Gastrointestinal hemorrhage, unspecified Presentation: 09/20 11:21 Chief complaint: Patient states: "Dr. Garrido luci blood this morning and called me a few ab2 minutes ago and told me to come here because I need a blood transfusion. I have had dark stools for a few months and now im just so weak.". Coronavirus screen: Vaccine status: Patient reports receiving the 2nd dose of the covid vaccine. Client denies travel out of the [place] in the last 14 days. At this time, the client does not indicate any symptoms associated with coronavirus-19. Ebola Screen: Patient negative for fever greater than or equal to 101.5 degrees Fahrenheit, and additional compatible Ebola Virus Disease symptoms Patient denies exposure to infectious person. Patient denies travel to an Ebola-affected area in the 21 days before illness onset. No symptoms or risks identified at this time. Initial Sepsis Screen: Does the patient meet any 2 criteria? No. Patient's initial sepsis screen is negative. Does the patient have a suspected source of infection? No. Patient's initial sepsis screen is negative. Risk Assessment: Do you want to hurt yourself or someone else? Patient reports no desire to harm self or others. Onset of symptoms is unknown. 11:21 Method Of Arrival: Ambulatory ab2 11:21 Acuity: RAMIRO 3 ab2 14:02 Chief complaint:. ab2 Historical: - Allergies: 11:24 No Known Allergies; ab2 - Home Meds: 11:24 None [Active]; ab2 - PMHx: 11:24 Atrial Fib; Diabetes - NIDDM; High Cholesterol; Hypertension; ab2 - PSHx: 11:24 Pacemaker; ab2 - Immunization history:: Adult Immunizations up to date, Client reports receiving the 2nd dose of the Covid vaccine, Flu vaccine is up to date. - Social history:: Smoking status: Patient denies any tobacco usage or history of. Screenin:28 Abuse screen: Denies threats or abuse. Denies injuries from another. Nutritional ab2 screening: No deficits noted. Tuberculosis screening: No symptoms or risk factors identified. Fall Risk None identified. Assessment: 11:25 General: Appears in no apparent distress. comfortable, Behavior is calm, cooperative, ab2 appropriate for age. Pain: Denies pain. Neuro: Level of Consciousness is awake, alert, obeys commands, Oriented to person, place, time, situation, Appropriate for age Bowling Ball Engraver are equal bilaterally Moves all extremities. Weakness Gait is steady, Reports weakness. Cardiovascular: No deficits noted. Denies chest pain, shortness of breath, Heart tones present Patient's skin is warm and dry. Rhythm is Respiratory: Airway is patent Respiratory effort is even, unlabored, Respiratory pattern is regular, symmetrical, Breath sounds are diminished Denies cough, shortness of breath. GI: Reports dark stools. : No deficits noted. No signs and/or symptoms were reported regarding the genitourinary system. EENT: No deficits noted. No signs and/or symptoms were reported regarding the EENT system. Derm: No deficits noted. No signs and/or symptoms reported regarding the dermatologic system. Skin is fragile, Skin is dry, Skin is pale. Musculoskeletal: Reports weakness in whole body. 13:30 Reassessment: Patient appears in no apparent distress at this time. Began blood ab2 transfusion. Consent obtained and on chart. Rahel steam turbine assembler for second nurse verification. 13:35 Reassessment: Patient appears in no apparent distress at this time. No signs or ab2 symptoms of a transfusion reaction noted. Pt tolerating infusion well. remains at bedside. Patient denies any needs at this time. 13:40 Reassessment: Patient appears in no apparent distress at this time. No s/s of ab2 transfusion reaction noted, pt tolerating well. 13:45 Reassessment: Patient appears in no apparent distress at this time. No s/s of ab2 transfusion reaction noted. Pt tolerating well. 14:00 Reassessment: Patient appears in no apparent distress at this time. Pt resting ab2 comfortably, warm blankets provided per patient request. No s/s of transfusion reaction noted. Pt tolerating well. 14:30 Reassessment: Patient appears in no apparent distress at this time. Pt denies any s/s ab2 of transfusion reaction. 15:00 Reassessment: Patient appears in no apparent distress at this time. No s/s of ab2 transfusion reaction. Pt tolerating well. remains at bedside. 15:20 Reassessment: Patient appears in no apparent distress at this time. Transfusion ab2 complete. No s/s of transfusion reaction noted. Pt tolerated well. 15:32 Reassessment: Awaiting second unit of PRBC for transfusion. ab2 15:55 Reassessment: Patient appears in no apparent distress at this time. Began second unit ab2 of PRBC. 2nd nurse at bedside to verify. 16:00 Reassessment: Patient appears in no apparent distress at this time. No s/s of reaction ab2 nnoted. Pt resting comfortbaly. 16:05 Reassessment: Patient appears in no apparent distress at this time. No s/s of ab2 transfusion reaction. remains at bedside. 16:10 Reassessment: Patient appears in no apparent distress at this time. No s/s of ab2 transfusion reaction. Pt tolerating well. 16:25 Reassessment: Patient appears in no apparent distress at this time. No s/s of reaction ab2 noted. 16:55 Reassessment: Patient appears in no apparent distress at this time. No s/s of reaction ab2 noted. 17:25 Reassessment: Patient appears in no apparent distress at this time. Pt states he is ab2 feeling much better. Pt watching tv. Denies any s/s of transfusion reaction. 17:35 Reassessment: Patient appears in no apparent distress at this time. End of transfusion. ab2 Pt tolerated well with no s/s of reaction. Patient denies pain at this time. Vital Signs: 11:21 BP 115 / 69; Pulse 60; Resp 18; Temp 98.0(O); Pulse Ox 100% on R/A; Weight 78.47 kg; ab2 Height 5 ft. 7 in. (170.18 cm); Pain 0/10; 12:17 BP 106 / 48; Pulse 60; Resp 18; Pulse Ox 100% on R/A; Pain 0/10; ab2 13:30 BP 106 / 53; Pulse 60; Resp 14; Temp 98.0(T); Pulse Ox 99% on R/A; Pain 0/10; ab2 13:35 BP 104 / 52; Pulse 60; Resp 14; Temp 98.0(O); Pulse Ox 100% on R/A; Pain 0/10; ab2 13:40 BP 103 / 54; Pulse 60; Resp 14; Temp 98.1(O); Pulse Ox 100% on R/A; Pain 0/10; ab2 13:45 BP 104 / 69; Pulse 58; Resp 14; Temp 98.0(O); Pulse Ox 100% on R/A; Pain 0/10; ab2 14:00 BP 108 / 50; Pulse 60; Resp 14; Temp 98.6; Pulse Ox 98% on R/A; Pain 0/10; ab2 14:30 BP 122 / 55; Pulse 61; Resp 14; Temp 98.4(O); Pulse Ox 99% on R/A; Pain 0/10; ab2 15:00 BP 112 / 60; Pulse 60; Resp 14; Temp 98.0(O); Pulse Ox 98% on R/A; Pain 0/10; ab2 15:20 BP 115 / 69; Pulse 60; Resp 14; Temp 98.0(O); Pulse Ox 99% on R/A; Pain 0/10; ab2 15:55 BP 124 / 63; Pulse 62; Resp 16; Temp 98.4(T); Pulse Ox 100% on R/A; Pain 0/10; ab2 16:00 BP 126 / 63; Pulse 60; Resp 15; Temp 98.6(T); Pulse Ox 100% on R/A; Pain 0/10; ab2 16:05 BP 125 / 61; Pulse 60; Resp 14; Temp 98.2(T); Pulse Ox 100% on R/A; Pain 0/10; ab2 16:10 BP 119 / 64; Pulse 62; Resp 14; Temp 98.2(T); Pulse Ox 100% on R/A; Pain 0/10; ab2 16:25 BP 125 / 63; Pulse 60; Resp 14; Temp 98.4(T); Pulse Ox 100% on R/A; Pain 0/10; ab2 16:55 BP 119 / 66; Pulse 60; Resp 14; Temp 98.3(T); Pulse Ox 100% ; Pain 0/10; ab2 17:25 BP 124 / 60; Pulse 60; Resp 14; Temp 98.1; Pulse Ox 100% on R/A; Pain 0/10; ab2 17:35 BP 129 / 71; Pulse 61; Resp 15; Temp 98.4(T); Pulse Ox 100% on R/A; Pain 0/10; ab2 11:21 Body Mass Index 27.10 (78.47 kg, 170.18 cm) ab2 ED Course: 11:08 Patient arrived in ED. mr 11:09 Jorge Mina PA is PHCP. [facility] 11:09 Colby Rodriguez MD is Attending Physician. [facility] 11:21 Demetrius William is Primary Nurse. ab2 11:24 Triage completed. ab2 11:28 Arm band placed on right wrist. ab2 11:28 Patient has correct armband on for positive identification. Placed in gown. Bed in low ab2 position. Call light in reach. Side rails up X2. Adult w/ patient. 11:28 No provider procedures requiring assistance completed. ab2 11:45 Inserted saline lock: 18 gauge in right antecubital area, using aseptic technique. ab2 Blood collected. 11:56 Troponin High Sensitivity Sent. ab2 11:56 Liver (Hepatic) Function Sent. ab2 11:57 Basic Metabolic Panel Sent. ab2 11:57 CBC with Automated Diff Sent. ab2 11:57 Type And Screen Sent. ab2 11:57 Basic Metabolic Panel Sent. ab2 11:57 CBC with Diff Sent. ab2 11:57 Hepatic Function Sent. ab2 11:57 Lipase Sent. ab2 12:27 Bb Add On Sent. ab2 17:45 PHCP role handed off by Jorge Mina PA kb 17:45 Carri Balderas FNP-C is PHCP. kb 18:06 Bridger Marcial MD is Referral Physician. kb 18:14 IV discontinued, intact, bleeding controlled, No redness/swelling at site. Pressure ab2 dressing applied. Administered Medications: 13:30 Drug: NS 0.9% 500 ml Route: IV; Rate: bolus; Site: right antecubital; ab2 18:15 Follow up: Response: No adverse reaction; IV Status: Completed infusion ab2 17:47 Drug: ProTONIX (pantoprazole) 40 mg Route: IVP; Site: right antecubital; ab2 18:15 Follow up: Response: No adverse reaction ab2 Outcome: 18:14 Discharged to home ambulatory, with family. ab2 18:14 Condition: good 18:14 Discharge instructions given to patient, family, Instructed on discharge instructions, follow up and referral plans. Demonstrated understanding of instructions, follow-up care. 18:15 Patient left the ED. ab2 Signatures: Carri Balderas, SOUBRETTE-C SOUBRETTE-CkJorge Maya PA PA jmm Rivera, Mary mr Demetrius William ab2
[2021-09-20 18:40] VITALS: O2SAT 100
[2021-09-20 18:50] VITALS: BP 129/71; TEMP 98.4
== END 2021-09-20 18:15 | disposition left against medical advice (07) ==
LOC: ER 11:05
PROC: 30233N1 Transfusion of Nonautologous Red Blood Cells into Peripheral Vein, Percutaneous Approach (ICD-10-PCS; principal; 2021-09-20)
DX: K92.2 Gastrointestinal hemorrhage, unspecified (principal); I10 Essential (primary) hypertension; I48.91 Unspecified atrial fibrillation; E11.9 Type 2 diabetes mellitus without complications; Z95.0 Presence of cardiac pacemaker
CPT/HCPCS: 96361; 93005; 85025; 80048; 36415; 86900; 86850; 86901; 80076; 84484; 83690; 96374; 99284; 36430; C9113; P9016 ×2; J7040

== ENCOUNTER 2021-11-07 20:51 | Inpatient (IN) | payer OTHER, MEDICARE ==
--- OUTSIDE RECORDS SUMMARY | 2021-11-07 20:54 | XMS REPORT | Continuity of Care Document ---
:1940 Author Organization [facility] t Address [address] [place] [address] Care Team Providers Name Role Phone Raslan Attending Clinician Unavailable Physician, Primary or Family Admitting Clinician Unavailabl e Katey Admitting Clinician Unavailable Payers Payer Name Policy Type Policy Number Effective Date Expiration Date S ource Problems This patient has no known problems. Allergies, Adverse Reactions, Alerts Allergy Allergy Status Severity Reaction(s) Onset Inactive Treating Comm ents Source Name Type Date Date Clinician No Known DA Active U [facility] Allergie 3-21 Clear s 00:00: Alvarez [facility] No Known DA Active U 2002- [facility] Contrast 4-14 Clear Allergie 00:00: Alvarez s [facility] No Known DA Active U 2002- [facility] Drug 4-14 Clear Allergie 00:00: Alvarez s [facility] No Known DA Active U 2002-0 [facility] Food 4-14 Clear Allergie 00:00: Alvarez s [facility] No Known DA Active U 2002-0 [facility] Other 4-14 Clear Allergie 00:00: Alvarez s [facility] No Known DA Active U 2000- [facility] Drug 0-29 Clear Intolera 00:00: Alvarez nces [facility] Medications This patient has no known medications. Procedures Procedure Date / Time Performed Performing Clinician Shashi cruz [id number] 2021-10-23 00:00:00 RASSA [facility] Clear [facility] Encounters Start End Encounter Admission Attending Care Care Encounter Source Date/Time Date/Time Type Type Clinicians Facility Department ID 2021-10-21 Inpatient AFSHAN Erickson OUTD [id number] [facility] 11:30:00 Mohinder [id number] [facility] 2021-10-23 2021-10-24 Inpatient AFSHAN Erickson INTE.02 [id number] [facility] 11:58:00 11:32:00 Mohinder [id number] [facility] 2021-10-23 2021-10-23 Inpatient AFSHAN Erickson INTE.02 [id number] [facility] 11:58:00 11:58:00 Mohinder 45 [facility] Results Test Description Test Time Test Comments Results Result Comments Source GLUCOSE BEDSIDE 2021-10-24 09:10:00 Test Item Value Reference Range Interpretation Comme nts GLUCOSE BEDSIDE (test code = 93 MG/DL 70-110 N Performed by certified pulp operator at [facility] GLUCOSE [id number] 08:25:00 Test Item Value Reference Range Interpretation Comments GLUCOSE BEDSIDE (test 55 MG/DL 70-110 L Perfor med by certified code = GLUBED) pulp operator at [facility] GLUCOSE [id number] 08:25:00 Test Item Value Reference Range Interpretation Comments GLUCOSE BEDSIDE (test 47 MG/DL 70-110 L Perfor med by certified code = GLUBED) pulp operator at [facility] GLUCOSE [id number] 21:38:00 Test Item Value Reference Range Interpretation Comments GLUCOSE BEDSIDE (test 172 MG/DL 70-110 H Perfor med by certified code = GLUBED) pulp operator at [facility] GLUCOSE [id number] 18:13:00 Test Item Value Reference Range Interpretation Comments GLUCOSE BEDSIDE (test 145 MG/DL 70-110 H Perfor med by certified code = GLUBED) pulp operator at [facility] GLUCOSE [id number] 11:44:00 Test Item Value Reference Range Interpretation Comments GLUCOSE BEDSIDE (test 68 MG/DL 70-110 L Perfor med by certified code = GLUBED) pulp operator at [facility] [id number] 11:02:00 Test Item Value Reference Range Interpretation Comments ACT-ISTAT (test code 231 SEC 74-137 H Perform ed by certified = ACTI) pulp operator at [facility] GLUCOSE [id number] 08:03:00 Test Item Value Reference Range Interpretation Comments GLUCOSE BEDSIDE (test 94 MG/DL 70-110 N [facility] med by certified code = GLUBED) pulp operator at [facility] - XR CHEST 1 [id number] 00:00:00 [facility] : 1940 Sex: M FAX: Mohinder Merritt MD [phone] [place]: St: ADM FAX:Clinton Hunt [phone] Name: ERMELINDA BENSON [facility] : 1940 Age/S: 81/M [address] [place] [address] Unit #: [id number] Loc: [place] [address] Phys: Clinton Hunt SYSTEM SUPPORT DEVELOPER Acct: [id number] Dis Date: Status: ADM IN PHONE #: [phone] Exam Date: 10/23/2021 1302 FAX #: [phone] Reason: WATCHMAN EXAMS: CPT CODE: [id number] XR CHEST 1 V 23924 PROCEDURE INFORMATION: Exam: XR Chest Exam date and time: 10/23/2021 1:00 PMAge: 81 years old Clinical indication: Other: Watchman TECHNIQUE: Imaging protoc ol: XR of the chest. Views: 1 view. COMPARISON: DX XR CHEST 2 V 10/21/2021 12:14PM FINDINGS: Tubes, catheters and devices: Left subclavian pacer in stable position. Lungs: No consolidation. Pleural spaces: No pleural effusion. No pneumothorax. Heart/Mediastinum: Cardiomediastinal silhouette is stable in size. Watchman device noted. Aortic calcifications. Bones/joints: Osseous structures are unchanged. IMPRESSION: 1. No acute cardiopulmonary abnormality. at 7264 Reported and signed by: Guillermo Berry M.D. CC: Mohinder Del Toro MD; Clinton Hunt Technologist: RT Levar(R) Trnscrd Date/Time/By: 10/23/2021 (1282) : By: [email or web address] Orig Print D/T: S: 10/23/2021 (9084) PAGE 1 Signed ReportNovel Coronavirus 2019 [id number] 00:41:00 Test Item Value Reference Range Interpretation Comments Novel Coronavirus Negative Negative Positive r esults are 2019 Inhouse (test indicativ e of the presence code = COVNONPUI) ofSARS-CoV -2 RNA, clinical correlation wit h patient historyand othe r diagnostic info rmation is necessary to determinepatien t infection status. Positiv e results do not rule out bacterial infection or co -infection with other viru ses. Negative result s do not preclude SARS-C oV-2 infection andsh ould not be used as the sam e basis for patient managementdecis ions. Negative result s must be combined with otherclinical observations, p atient history, and epidemiological information . Detection of SARS-CoV-2 RNA may be affe cted bysample collec tion methods, storag e conditions, and /or stageof infection. Rhonda l RNA mutations, vacc inations, antiviraltherap eutics, antibiotics, chemotherapeuti c orimmunosuppres jazz drugs have not been e valuated for effectson d etection. Results are for the identification of SARS-CoV-2 RNA usingreal-time (RT) polymerase aminta n reaction (PCR) technolog yfor the qualitative det ection of nucleic acids f rom [id number] v irus and diagnosis of SA RS-CoV-2 virusinfection. It is an Emergency Use Authorization ( EUA) testauthorized by the U.S. FDA. BASIC METABOLIC [id number] 12:25:00 Test Item Value Reference Range Interpretation Comments SODIUM (test code = NA) 147 mEq/L 134-147 N POTASSIUM (test code = 4.8 mEq/L 3.4-5.0 N K) CHLORIDE (test code = 114 mEq/L 100-108 H CL) CARBON DIOXIDE (test 23 mEq/l 21-33 N code = CO2) ANION GAP (test code = 14 0-20 N GAP) GLUCOSE (test code = 145 mg/dL 70-110 H GLU) BLOOD UREA NITROGEN 19 mg/dL 7-18 H (test code = BUN) GLOMERULAR FILTRATION 57.8 70-80 L Units of measure = RATE (test code = GFR) ml/mi n/1.73 m2 CREATININE (test code = 1.2 mg/dL 0.6-1.3 N CREAT) CALCIUM (test code = 9.4 mg/dL 8.0-10.5 N CA) [id number] 12:25:00 Test Item Value Reference Range Interpretation Comments PREALBUMIN (test code = PREALB) 13.4 mg/dL 16.0-40.0 L PROTHROMBIN [id number] 12:24:00 Test Item Value Reference Range Interpretation Comments PROTHROMBIN TIME 27.2 SECONDS 9.3-12.9 H PATIENT (test code = PTP) INTERNATIONAL NORMAL 2.4 0.8-1.2 H TARGET RATIO (test code = INR BY IN DICATION INR) Indication INR1. Prophyl axis of venous thrombos is 2.0 - 3. 0 (orthopedic jordon srinivas), Prophylaxis of venous thrombos is (other than hig h-risk surgery), Keily tment of Deep Vein Thrombosis/Pulm onary Embolism, Preve ntion of systemic emb olism - Tissue heart va lves, Acute Myocardia l Infarction (to prevent systemic embo lism), Valvular heart disease, Atri al Fibrillation, Bileaflet mecha nical valve in aortic position.2. Mec hanical prosthetic valv es (high risk), 2.5 - 3.5 Presence of Lupus Anticoagu lant or Antiphospholi pid Antibodies, Pre vention of systemic e mbolism - Acute Myocard ial Infarction (t o prevent recurre nt infarct). CBC W/AUTO [id number] 12:20:00 Test Item Value Reference Range Interpretation Comments WHITE BLOOD CELL (test code = 7.3 x10 3/uL 4.5-11.0 N WBC) RED BLOOD CELL (test code = 3.35 x10 6/uL 4.00-5.60 L RBC) HEMOGLOBIN (test code = HGB) 9.4 g/dL 12.5-16.9 L HEMATOCRIT (test code = HCT) 31.7 % 37.5-50.7 L MEAN CELL VOLUME (test code = 94.6 fL 81.0-99.0 N MCV) MEAN CELL HGB (test code = MCH) 28.1 pg 27.0-33.0 N MEAN CELL HGB CONCETRATION 29.7 g/dL 33.0-37.0 L (test code = MCHC) RED CELL DISTRIBUTION WIDTH CV 23.8 % 11.5-14.5 H (test code = RDW) PLATELET COUNT (test code = 256 x10 3/uL 150-400 N PLT) NEUTROPHIL % (test code = NT%) 82.8 % 56.0-77.0 H LYMPHOCYTE % (test code = LY%) 8.5 % 14.0-32.0 L NEUTROPHIL # (test code = NT#) 6.04 x10 3/uL 2.0-7.6 N LYMPHOCYTE # (test code = LY#) 0.62 x10 3/uL 1.0-3.8 L MANUAL DIFF REQUIRED (test code NO = MDIFF) RED CELL DISTRIBUTION WIDTH SD 78.3 fL 37.0-54.0 H (test code = RDW-SD) MEAN PLATELET VOLUME (test code 11.5 fL 7.0-9.0 H = MPV) IMMATURE GRANULOCYTE % (test 0.3 % 0.0-2.0 N code = IG%) MONOCYTE % (test code = MO%) 7.1 % 4.8-9.0 N EOSINOPHIL % (test code = EO%) 1.0 % 0.3-3.7 N BASOPHIL % (test code = BA%) 0.3 % 0.0-2.0 N NUCLEATED RBC % (test code = 0.0 % 0-0 N NRBC%) IMMATURE GRANULOCYTE # (test 0.02 x10 3/uL 0.00-0.03 N code = IG#) MONOCYTE # (test code = MO#) 0.52 x10 3/uL 0.1-0.8 N EOSINOPHIL # (test code = EO#) 0.07 x10 3/uL 0.0-0.2 N BASOPHIL # (test code = BA#) 0.02 x10 3/uL 0.0-0.2 N NUCLEATED RBC # (test code = 0.00 x10 3/uL 0.0-0.1 N NRBC#) - XR CHEST 2 [id number] 00:00:00 [facility] : 1940 Sex: M FAX: Mohinder Merritt MD [phone] [place]: St: PRE Name: ERMELINDA BENSON [facility] : 1940 Age/S: 81/M [address] [place] [address] Blvd Unit #: [id number] Loc: [place] [address] Phys: Mohinder Del Toro MD Acct: [id number] Dis Date: Status: PRE [facility] PHONE #: [phone] Exam Date: 10/21/2021 1244 FAX #: [phone] Reason: PREOP EXAMS: CPT CODE: [id number] XR CHEST 2 V [id number] PROCEDURE INFORMATION: Exam: XR Chest Exam date and time: 10/21/2021 12:14 PM Age: 81 years old Clinical indication: Pre-operative exam; Respiratory screening exam; Additional info: Preop TECHNIQUE: Imaging protocol: XR of the chest. Views: 2 views. PA and Lateral COMPARISON: Norelevant prior studies available. FINDINGS: Tubes, catheters and devices: Left subclavian pacer present. Lungs: There are normal lung volumes without consolidation or interst itial oppacities. Pleural spaces: Unremarkable. No pleural effusion. No pneumothorax. Heart/Mediastinum: The heart size is normal. The mediastinal contour is normal. The trachea ismidline. Aortic calcifications. Bones/joints: No acute osseous abnormality. IMPRESSION: 1. No acute cardiopulmonary abnormality. at 1534 Reported and signed by: Guillermo Berry M.D. CC: Mohinder Del Toro MD Technologist: RT Christi(R) Trnscrd Date/Time/By: 10/21/2021 (0387) : By: [email or web address] Orig Print D/T: S: 10/21/2021 (3672) PAGE 1 Signed Report
[2021-11-07] MEDS ORDERED: DEXTROSE ORAL 40% 15 GM TUBE ONE ×2 (21:05→21:21)
[2021-11-07 21:32] LABS: Absolute Lymphocytes (CBC) 0.7 K/uL (0.7-4.9); Hematocrit 27.5 % (39.6-49.0); Lymphocytes % 5.4 % (15.3-44.8); RBC Red Blood Cell Count 3.07 M/uL (4.33-5.43)
[2021-11-07] MEDS ORDERED: D10W 250 ML IV ONE (21:41)
[2021-11-07 21:58] LABS: Potassium 4.5 mmol/L (3.5-5.1)
--- NOTE | 2021-11-07 22:32 | EDPHYS ---
Physician Documentation [facility] Name: Matthew Ansari Age: 81 yrs Sex: Male : 1940 Arrival Date: 11/07/2021 Time: 20:57 Bed 4 Private MD: ED Physician Nilesh Newton HPI: 11/07 22:30 This 81 yrs old Male presents to ER via EMS with complaints of Low Blood Sugar. ms3 22:30 The patient or guardian reports weakness, shaking that was potentially precipitated by ms3 no particular event. Onset: The symptoms/episode began/occurred acutely, today. Associated signs and symptoms: Pertinent positives: shaking, Pertinent negatives: vomiting. Current symptoms: In the emergency department the patient's symptoms are unchanged from the initial presentation, despite EMS interventions. 81-year-old male with past medical history of hypertension, hyperlipidemia, diabetes mellitus type 2, atrial fibrillation presents via [facility] for shaking and hypoglycemia. Patient denies pain at this time. Patient denies alleviating or inciting factors. Patient denies nausea, vomiting, chest pain, shortness of breath.. Historical: - Allergies: 21:27 No Known Allergies; ll3 - PMHx: 21:27 Hypertension; High Cholesterol; Diabetes - NIDDM; Atrial Fib; ll3 - PSHx: 21:27 pacemaker; ll3 - Immunization history:: Client reports receiving the 2nd dose of the Covid vaccine. - Social history:: Smoking status: Patient denies any tobacco usage or history of. ROS: 22:30 Constitutional: Negative for fever, and chills. Eyes: Negative for injury, pain, ms3 redness, and discharge, Cardiovascular: Negative for chest pain, and palpitations. Respiratory: Negative for shortness of breath, cough, wheezing, and pleuritic chest pain, Abdomen/GI: Negative for abdominal pain, nausea, vomiting, diarrhea, and constipation, Skin: Negative for injury, rash, and discoloration, Hematologic/Lymphatic: Negative for swollen nodes, abnormal bleeding, and unusual bruising. 22:30 MS/extremity: Positive for generalized weakness. 22:30 Neuro: Positive for shaking. 22:30 All other systems are negative. Exam: 22:30 Constitutional: This is a well developed, well nourished patient who is awake, alert, ms3 and in no acute distress. ENT: Nares patent. No nasal discharge, no septal abnormalities noted. Tympanic membranes are normal and external auditory canals are clear. Oropharynx with no redness, swelling, or masses, exudates, or evidence of obstruction, uvula midline. Mucous membranes moist. Neck: Trachea midline, no cervical lymphadenopathy. Supple, full range of motion without nuchal rigidity, or vertebral point tenderness. No Meningismus. Chest/axilla: Normal chest wall appearance and motion. Nontender with no deformity. Cardiovascular: Regular rate and rhythm with a normal S1 and S2. No gallops, murmurs, or rubs. Normal PMI, no JVD. No pulse deficits. Respiratory: Lungs have equal breath sounds bilaterally, clear to auscultation and percussion. No rales, rhonchi or wheezes noted. No increased work of breathing, no retractions or nasal flaring. Abdomen/GI: Soft, non-tender, with normal bowel sounds. No distension or tympany. No guarding or rebound. No evidence of tenderness throughout. 22:30 Skin: Stage I sacral decubitus. 22:30 Neuro: Abnormal movements: resting tremor, is located in the right arm. Vital Signs: 21:16 BP 90 / 61; Pulse 64; Resp 12; Temp 98.5(O); Pulse Ox 97% on R/A; Weight 77.11 kg (R); ll3 Height 5 ft. 7 in. (170.18 cm) (R); 21:30 BP 92 / 55; Pulse 60; Resp 15 S; Pulse Ox 97% on R/A; Pain 0/10; ag7 22:00 BP 108 / 60 RA Supine (auto/reg); Pulse 62 MON; Resp 14 S; Pulse Ox 95% on R/A; Pain ag7 0/10; 23:00 BP 87 / 72; Pulse 60; Resp 15; Pulse Ox 97% on R/A; ll3 23:30 Pain 3/10; ag7 04/08 00:00 BP 116 / 61; Pulse 59; Resp 16; Pulse Ox 97% on R/A; ll3 00:30 BP 96 / 56; Pulse 59; Resp 17; Pulse Ox 97% on R/A; ll3 11/07 21:16 Body Mass Index 26.63 (77.11 kg, 170.18 cm) ll3 MDM: 11/07 21:02 Patient medically screened. ms3 22:30 Differential diagnosis: UTI vs PNA vs hypoglycemia. Data reviewed: vital signs, nurses ms3 notes, lab test result(s). Data interpreted: patient monitor: rate is 62 beats/min, Pulse oximetry:. Counseling: I had a detailed discussion with the patient and/or guardian regarding: the historical points, exam findings, and any diagnostic results supporting the discharge/admit diagnosis, lab results, the need for further work-up and treatment in the hospital. ED course: Discussed case with MOE Conte, with Dr Snow and she accepts patient. All questions answered. Discussed with patient and his son need for admission. Patient remains in stable condition.. 11/07 21:03 Order name: CBC with Diff ms3 11/07 21:03 Order name: BMP; Complete Time: 22:13 ms3 11/07 21:10 Order name: Glucose, Ancillary Testing; Complete Time: 21:31 EDMS 11/07 21:27 Order name: Glucose, Ancillary Testing; Complete Time: 21:31 EDMS 11/07 21:32 Order name: Urinalysis ms3 11/07 21:59 Order name: Glucose, Ancillary Testing; Complete Time: 22:13 EDMS 11/07 21:03 Order name: CXR XRAY ms3 11/07 22:39 Order name: Glucose, Ancillary Testing; Complete Time: 23:23 EDMS 11/07 23:15 Order name: COVID-19/FLU A+B (Document "Date of Onset" if Symptomatic) tw5 11/07 23:30 Order name: Manual Differential EDMS 11/07 23:52 Order name: Glucose, Ancillary Testing EDMS 11/07 22:17 Order name: Glucose Level; Complete Time: 22:29 ms3 Administered Medications: 21:02 Drug: Glucose Liquid 10 grams Route: PO; ll3 21:27 Drug: Glucose Liquid 10 grams Route: PO; ag7 21:45 Follow up: Response: No adverse reaction; Blood sugar is elevated ag7 21:43 Drug: D50W 50 ml Route: IVP; Site: left antecubital; vc1 22:00 Follow up: Response: No adverse reaction; Blood sugar is elevated ag7 22:30 CANCELLED (Duplicate Order): Bacitracin Ointment (500 unit/g) 1 application Topical oncevc1 22:58 Drug: Bacitracin Ointment (500 unit/g) 1 application Route: Topical; Site: wound; ag7 23:30 Follow up: Pain 10/10 Adult; Response: No adverse reaction; Marked relief of symptoms ag7 Disposition Summary: 11/07/21 22:31 Hospitalization Ordered Hospitalization Status: Inpatient Admission ms3 Provider: Felipe Snow ms3 Location: Telemetry/MedSurg (Inpatient) ms3 Condition: Stable ms3 Problem: new ms3 Symptoms: are unchanged ms3 Bed/Room Type: Standard ms3 Room Assignment: 202(11/08/21 00:17) cg Diagnosis - Hypoglycemia, unspecified ms3 - Type II DM without insulin use ms3 - Renal insufficiency ms3 Forms: - Medication Reconciliation Form ms3 - SBAR form ms3 Signatures: Dispatcher [employer] Norma Cali RN RN cg Nilesh Newton, DO ms3 Carlita Lomas tw5 Mary Chan RN RN 3 Jess Martínez RN RN vc1 Mia Mccurdy PA PA sb3 Emy Desai, SUMMER RN ag7 Corrections: (The following items were deleted from the chart) 22:30 22:30 Bacitracin Ointment (500 unit/g) 1 application Topical once ordered. vc1 vc1 11/08 00:17 11/07 22:31 ms3 cg
--- NOTE | 2021-11-07 22:32 | ER ---
Nurse's Notes [facility] Name: Matthew Ansari Age: 81 yrs Sex: Male : 1940 Arrival Date: 11/07/2021 Time: 20:57 Bed 4 Private MD: Diagnosis: Hypoglycemia, unspecified;Type II DM without insulin use;Renal insufficiency Presentation: 11/07 21:16 Chief complaint: EMS states: EMS toned out for generalized weakness, shakiness and ll3 coldness, EMS checked glucose at the scene and it was 43, EMS administered oral glucose, when EMS arrived at the hospital PTs FSBG was 37. Coronavirus screen: Vaccine status: Patient reports receiving the 2nd dose of the covid vaccine. At this time, the client does not indicate any symptoms associated with coronavirus-19. Ebola Screen: No symptoms or risks identified at this time. Risk Assessment: Do you want to hurt yourself or someone else? Patient reports no desire to harm self or others. Onset of symptoms was November 07, 2021. Care prior to arrival: Medication(s) given: Oral glucose. 21:16 Method Of Arrival: EMS: [facility] ll3 21:16 Acuity: RAMIRO 3 ll3 21:16 Initial Sepsis Screen: Does the patient meet any 2 criteria? No. Patient's initial ll3 sepsis screen is negative. Does the patient have a suspected source of infection? No. Patient's initial sepsis screen is negative. Triage Assessment: 21:27 General: Appears uncomfortable, Behavior is calm, cooperative. Pain: Denies pain. ll3 Neuro: Level of Consciousness is awake, alert, obeys commands, Oriented to person, place, time, situation, Reports weakness. Cardiovascular: Patient's skin is warm and dry. Respiratory: Respiratory effort is even, unlabored, Respiratory pattern is regular, symmetrical. Derm: Skin temperature is cool Reports Feeling cold and shaky. Historical: - Allergies: 21:27 No Known Allergies; ll3 - PMHx: 21:27 Hypertension; High Cholesterol; Diabetes - NIDDM; Atrial Fib; ll3 - PSHx: 21:27 pacemaker; ll3 - Immunization history:: Client reports receiving the 2nd dose of the Covid vaccine. - Social history:: Smoking status: Patient denies any tobacco usage or history of. Screenin:40 Abuse screen: Denies threats or abuse. Nutritional screening: No deficits noted. ag7 Tuberculosis screening: No symptoms or risk factors identified. Fall Risk No fall in past 12 months (0 pts). Secondary diagnosis (15 points) IV access (20 points). Ambulatory Aid- None/Bed Rest/Nurse Assist (0 pts). Gait- Weak (10 pts.). Mental Status- Oriented to own ability (0 pts). Total Uribe Fall Scale indicates High Risk Score (45 or more points). Fall prevention measures have been instituted. Placed Close to Nursing Station Frequent Obs/Assessments Occuring As available patient and family educated on Fall Prevention Program and Strategies. Assessment: 21:34 General: Appears in no apparent distress. Behavior is cooperative, confused. Pain: ag7 Denies pain. Neuro: Level of Consciousness is awake, alert, obeys commands, confused, Oriented to person, Roofing Subcontractor are equal bilaterally weak bilaterally Moves all extremities. Cardiovascular: Heart tones present muffled Capillary refill < 3 seconds is brisk in bilateral fingers toes skin cool/clammy. Edema pitting to left ankle, left foot, right ankle and right foot bilateral. Respiratory: Airway is patent Trachea midline Respiratory effort is even, unlabored, Respiratory pattern is regular, symmetrical, Breath sounds are clear bilaterally. Breath sounds are diminished bilaterally. GI: Abdomen is round distended, Last BM was October 07, 2021. Bowel sounds present X 4 quads. hypoactive in right upper quadrant, left upper quadrant, right lower quadrant and left lower quadrant Reports nausea. 22:29 Derm: Skin is fragile, is thin, Skin is Skin is pale, Wound noted gluteal cleft ag7 Decubitus located on sacrum approximately 1.5 cm to 2.5 cm is stage II has erythematous edges bed has granulation present is draining none noted. 22:41 Reassessment: Patient and/or family updated on plan of care and expected duration. Pain ag7 level reassessed. Patient states feeling better. Patient states symptoms have improved. Pain: Complains of pain in gluteal cleft Pain does not radiate. Pain currently is 10 out of 10 on a pain scale. Quality of pain is described as burning, aching, Pain began suddenly, Is continuous, Alleviated by repositioning, Aggravated by. Neuro: Level of Consciousness is awake, alert, obeys commands, Oriented to person, place, time, situation, Appropriate for age. Vital Signs: 21:16 BP 90 / 61; Pulse 64; Resp 12; Temp 98.5(O); Pulse Ox 97% on R/A; Weight 77.11 kg (R); ll3 Height 5 ft. 7 in. (170.18 cm) (R); 21:30 BP 92 / 55; Pulse 60; Resp 15 S; Pulse Ox 97% on R/A; Pain 0/10; ag7 22:00 BP 108 / 60 RA Supine (auto/reg); Pulse 62 MON; Resp 14 S; Pulse Ox 95% on R/A; Pain ag7 0/10; 23:00 BP 87 / 72; Pulse 60; Resp 15; Pulse Ox 97% on R/A; ll3 23:30 Pain 3/10; ag7 0408 00:00 BP 116 / 61; Pulse 59; Resp 16; Pulse Ox 97% on R/A; ll3 00:30 BP 96 / 56; Pulse 59; Resp 17; Pulse Ox 97% on R/A; ll3 11/07 21:16 Body Mass Index 26.63 (77.11 kg, 170.18 cm) ll3 ED Course: 11/07 20:57 Patient arrived in ED. tw5 21:00 Inserted saline lock: 20 gauge in left antecubital area, using aseptic technique. Blood vc1 collected. 21:02 Nilesh Newton DO is Attending Physician. ms3 21:22 Triage completed. ll3 21:27 Arm band placed on Patient placed in an exam room, on a stretcher, on monitor and storage bin tender, ll3 on pulse oximetry. 21:30 monitor and storage bin tender on. Pulse ox on. NIBP on. wm 21:32 Emy Desai, RN is Primary Nurse. ag7 21:41 X-ray completed. Portable x-ray completed in exam room. Patient tolerated procedure mh1 well. 21:41 Patient has correct armband on for positive identification. Bed in low position. Call ag7 light in reach. 21:44 CXR XRAY In Process Unspecified. EDMS 22:04 Notified ED physician of a critical lab result(s). glucose 41. tw5 22:30 Felipe Snow is Hospitalizing Provider. ms3 11/08 01:28 No provider procedures requiring assistance completed. Patient admitted, IV remains in ll3 place. No redness/swelling at site. Administered Medications: 11/07 21:02 Drug: Glucose Liquid 10 grams Route: PO; ll3 21:27 Drug: Glucose Liquid 10 grams Route: PO; ag7 21:45 Follow up: Response: No adverse reaction; Blood sugar is elevated ag7 21:43 Drug: D50W 50 ml Route: IVP; Site: left antecubital; vc1 22:00 Follow up: Response: No adverse reaction; Blood sugar is elevated ag7 22:30 CANCELLED (Duplicate Order): Bacitracin Ointment (500 unit/g) 1 application Topical oncevc1 22:58 Drug: Bacitracin Ointment (500 unit/g) 1 application Route: Topical; Site: wound; ag7 23:30 Follow up: Pain 10/10 Adult; Response: No adverse reaction; Marked relief of symptoms ag7 Outcome: 22:31 Decision to Hospitalize by Provider. ms3 11/08 01:05 Admitted to Med/surg via wheelchair, room 202, Report called to Morteza WHEELER ag7 01:28 Condition: stable ll3 01:28 Discharge instructions given to patient, family, Instructed on the need for admit, Demonstrated understanding of instructions. 01:29 Patient left the ED. ll3 Signatures: Dispatcher [employer] EDMS Yuli Dupree 1 Nilesh Newton DO DO ms3 Gia Craig Tiffany tw5 Mary Chan RN RN ll3 Jess Martínez RN RN vc1 Emy Desai RN RN ag7 Corrections: (The following items were deleted from the chart) 11/07 21:43 21:16 Chief complaint: EMS states: EMS toned out for generalized weakness, shakiness ll3 and coldness, EMS checked glucose at the scene and it was 43, EMS administered oral glucose 15 mg, when EMS arrived at the hospital the glucose was 37. ll3 21:43 21:16 Care prior to arrival: Medication(s) given: Oral glucose 15 mg ll3 ll3
[2021-11-07] MEDS ORDERED: BACITRACIN OINTMENT 14 GM TUBE TOP ONE (22:44)
[2021-11-07 23:31] LABS: Anisocytosis 3+; Blood Morphology Comment NOTED (NOT SEEN); Ovalocytes 3+; Platelet Estimate ADEQ; Polychromasia 1+
[2021-11-07] MEDS ORDERED: D5 0.45 NS 1,000 ML IV ONE (23:48)
[2021-11-08 00:12] LABS: SARS-COV-2 RT PCR NEGATIVE (NEGATIVE)
--- NOTE | 2021-11-08 00:18 | P.HP ---
Certification for Inpatient Patient admitted to: Inpatient With expected LOS: <2 Midnights Patient will require the following post-hospital care: None Practitioner: I am a practitioner with admitting privileges, knowledge of patient current condition, hospital course, and medical plan of care. Services: Services provided to patient in accordance with Admission requirements found in Title 42 Section 412.3 of the Code of Federal Regulations Patient History Date of Service: 11/08/21 Primary Care Provider: Dr. Lowry Reason for admission: Hypoglycemia History of Present Illness: Patient is an 81-year-old male with hypertension, HLD, type 2 diabetes [id number], A. fib on Eliquis who presented to the ED via EMS after they returned out for complaints of generalized weakness shaking and chills. When they arrived, they checked his glucose and it was 43. EMS administered oral glucose. Upon arrival to the hospital his blood sugar was 37. Patient's blood sugar remained in the 20s after receiving more glucose. He was given D50 and finally his sugar went to the 100s. ED provider wishes to admit patient. Upon my assessment, patient's glucose was 72. He states that he has not been eating as much lately. will start patient on D5 half NS at 100 cc an hour overnight with a diet and monitor glucose every 4 hours. Other labs significant for creatinine 1.51, WBC 12, hemoglobin 8.9, urine pending. Patient is alert and oriented x3, vital signs stable. Allergies No Known Allergies Allergy (Verified 01/13/20 10:11) Home medications list reviewed: Yes Home Medications: Aspirin Chewable [Aspirin Chewable*] 81 mg PO DAILY 01/12/20 Atorvastatin Calcium [Lipitor] 80 mg PO BEDTIME 01/12/20 Cholecalciferol (Vitamin D3) [Vitamin D3] 1,000 unit PO DAILY 01/12/20 Ezetimibe 10 mg PO BEDTIME 01/12/20 Fenofibrate 160 mg PO BEDTIME 01/12/20 Gabapentin 300 mg PO TID 01/12/20 Glimepiride 4 mg PO BID 01/12/20 Nabumetone [Relafen] 500 mg PO BID 01/12/20 Omeprazole [Prilosec] 40 mg PO [id number] 01/12/20 Zaleplon 10 mg PO BEDTIME PRN 01/12/20 Ascorbic Acid [Vitamin C*] 1,000 mg PO DAILY 12/07/20 Cephalexin [Keflex*] 1 cap PO BID 12/07/20 Empagliflozin [Jardiance] 1 tab PO DAILY 12/07/20 Olmesartan Medoxomil 1 tab PO DAILY 12/07/20 Albuterol Neb [Proventil 0.083% Neb Soln] 2.5 mg NEB Q6HP PRN #30 amp 12/09/20 Hydrocodone 5/APAP 325 [[place] 5/325*] 1 tab PO Q8HP PRN #20 tab 12/09/20 Ipratropium Neb [Atrovent*] 0.5 mg NEB Q6HP PRN #30 amp 12/09/20 Melatonin 10 mg PO BEDTIME PRN PRN #10 tablet 12/09/20 - Past Medical/Surgical History Diabetic: Yes -: Diabetes mellitus -: Colon Cancer -: CAD -: Hypertension -: Measles -: Afib -: HLD -: gall bladder surgery -: Colon surgery -: Prostate surgery -: Back surgery -: Tonsillectomy and adenoidectomy -: Angioplasty no stents -: prostate surgery -: pacemaker and watchman Psychosocial/ Personal History: Patient lives at home with his - Family History Family History: Reviewed- Non-Contributory - Social History Smoking Status: Former smoker Alcohol use: Yes CD- Drugs: No Caffeine use: No Place of Residence: Home Review of Systems 10-point ROS is otherwise unremarkable General: Chills, Weakness Physical Examination - Physical Exam General: Alert, In no apparent distress, Oriented x3 HEENT: Atraumatic, PERRLA, EOMI, Sclerae nonicteric Neck: Supple, 2+ carotid pulse no bruit, No LAD, Without JVD or thyroid abnormality Respiratory: Clear to auscultation bilaterally, Normal air movement Cardiovascular: Regular rate/rhythm, Normal S1 S2 Gastrointestinal: Normal bowel sounds, No tenderness Musculoskeletal: No tenderness Integumentary: No rashes Neurological: Normal speech, Normal strength at 5/5 x4 extr, Normal tone, Normal affect - Studies Laboratory Data (last 24 hrs) 11/07/21 21:07: Sodium 141, Potassium 4.5, BUN 30 H, Creatinine 1.51 H, Glucose 41 L* 11/07/21 21:07: WBC 12.0 H, Hgb 8.9 L, Hct 27.5 L, Plt Count 282 Assessment and Plan - Problems (Diagnosis) (1) Type 2 diabetes mellitus Current Visit: Yes Status: Chronic Qualifiers: Diabetes mellitus termite exterminator helper insulin use: without termite exterminator helper use Diabetes mellitus complication status: with hypoglycemia Diabetes mellitus complication detail: without coma Qualified Code(s): E11.649 - Type 2 diabetes mellitus with hypoglycemia without coma (2) HTN (hypertension) Current Visit: No Status: Chronic Qualifiers: Hypertension type: primary hypertension Qualified Code(s): I10 - Essential (primary) hypertension (3) A-fib Current Visit: No Status: Chronic Qualifiers: Atrial fibrillation type: unspecified chronic Qualified Code(s): I48.20 - Chronic atrial fibrillation, unspecified; I48.2 - Chronic atrial fibrillation (4) Chronic anemia Current Visit: Yes Status: Chronic (5) Chronic kidney disease Current Visit: Yes Status: Chronic Qualifiers: Chronic kidney disease stage 3 subtype: stage 3b (GFR 30-44) (6) HLD (hyperlipidemia) Current Visit: No Status: Chronic Qualifiers: Hyperlipidemia type: mixed hyperlipidemia Qualified Code(s): E78.2 - Mixed hyperlipidemia - Plan -We will start patient on D5 half NS at 100 cc an hour and encourage diet. Accu-Cheks every 4 hours. -Patient checks his blood sugar regularly and keeps a log of it. Will likely need his medications adjusted. He does not use insulin -Creatinine is slightly elevated from baseline, will monitor -Patient has chronic anemia and has a history of that is being followed by Dr. Herrera. Stable at this time -Patient has cardiac history, will monitor on telemetry -Patient takes Eliquis for his A. fib. We will continue -Continue home medications -Patient has an outpatient CT head without contrast scheduled at this facility for 9 AM. Discharge Plan: Home Plan to discharge in: 48 Hours - Advance Directives Does patient have a Living Will: No Does patient have a Durable POA for Healthcare: No - Code Status/Comfort Care Code Status Assessed: Yes (Full) Critical Care: No Time Spent Managing Pts Care (In Minutes): 70
[2021-11-08] MEDS ORDERED: ACETAMINOPHEN 500 MG TAB PO PRN (02:24)
[2021-11-08] MEDS ORDERED: D5 0.45 NS 1,000 ML IV SCH (02:24)
[2021-11-08] MEDS ORDERED: ONDANSETRON 4 MG/2 ML VIAL IV PRN (02:24)
[2021-11-08] MEDS ORDERED: D5 0.45 NS 1,000 ML IV ONE (02:51)
[2021-11-08] MEDS: D5 0.45 NS 1,000 ML IV SCH ×6 (02:52→23:50)
[2021-11-08 05:36] LABS: Absolute Lymphocytes (CBC) 0.6 K/uL (0.7-4.9); Hematocrit 26.5 % (39.6-49.0); Lymphocytes % 7.9 % (15.3-44.8); MPV 8.8 fL (7.6-11.3); RBC Red Blood Cell Count 2.95 M/uL (4.33-5.43)
[2021-11-08 06:03] LABS: Urine Appearance CLOUDY (Clear); Urine Bilirubin NEGATIVE (Negative); Urine Blood NEGATIVE (Negative); Urine Color YELLOW (Yellow); Urine Glucose 3+ (Negative); Urine Protein NEGATIVE (Negative); Urine Specific Gravity 1.015 (1.005-1.030); Urine pH 5.5 (5.0-7.0)
[2021-11-08 06:03] LABS: Albumin 2.2 g/dL (3.4-5.0); Bilirubin Total 0.7 mg/dL (0.2-1.0); Magnesium 2.2 mg/dL (1.8-2.4); Potassium 4.3 mmol/L (3.5-5.1); Protein, Total 4.9 g/dL (6.4-8.2); Thyroid Stimulating Hormone 2.39 uIU/mL (0.360-3.740)
[2021-11-08 06:09] LABS: Urine Microscopic Reflex ORDER UMIC
[2021-11-08 06:22] LABS: Calcium Oxalate Crystals- Ur FEW (NONE SEEN); Urine Bacteria <20 /HPF (NONE SEEN); Urine RBC NONE SEEN /HPF (NONE SEEN); Urine Urothelial Cells <5 /HPF (NONE SEEN)
[2021-11-08] MEDS: INSULIN -REGULAR HUMAN 50 UNIT/0.5 ML ML SQ SCH ×4 (07:30→20:46)
--- NOTE | 2021-11-08 08:25 | RAD REPORT ---
EXAM DESCRIPTION: RAD - Chest Single View - 11/07/2021 9:42 pm CLINICAL HISTORY: hypoglycemia Chest pain. COMPARISON: Chest Single View dated 12/09/2020; Chest Single View dated 12/09/2020; Chest Single View da levy 12/08/2020; Chest Single View dated 12/08/2020 FINDINGS: Portable technique limits examination quality. Interstitial prominence bilaterally probably indicate mild interstitial pulmonary edema. The heart is normal in size. Dual lead pacer device is present.Trace pleural fluid. IMPRESSION: Mild CHF.
--- NOTE | 2021-11-08 11:50 | RAD REPORT ---
EXAM DESCRIPTION: CT - Head Brain Wo Cont - 11/08/2021 11:37 am CLINICAL HISTORY: Intermittent AMS Headache, drowsiness COMPARISON: Head Brain W/Wo Con dated 08/22/2021; Abdomen Pelvis Wo Contrast dated 11/08/2021; Thorax Wo Con dated 11/08/2021 TECHNIQUE: All CT scans are performed using dose optimization technique as appropriate and may inclu de automated exposure control or mA/KV adjustment according to patient size. FINDINGS: No intracranial hemorrhage, hydrocephalus or extra-axial fluid collection.No areas of brai n edema or evidence of midline shift. Vertebral atherosclerosis. The paranasal sinuses and mastoids are clear. The calvarium is intact. IMPRESSION: No acute intracranial abnormality.
--- NOTE | 2021-11-08 11:54 | RAD REPORT ---
EXAM DESCRIPTION: CT - Thorax Wo Con CLINICAL HISTORY: Chest pain Distended abdomen COMPARISON: CTANGIO CHEST FOR PE dated 07/04/2011 FINDINGS: Linear opacities in both posterior lung bases most compatible with subsegmental atelectasi s. No focal infiltrate or lung mass. No pleural thickening or pleural effusion. No pneumothorax. No axillary, mediastinal or hilar adenopathy. No concerning bony finding. All CT scans are performed using dose optimization technique as appropriate and may include automated exposure control or mA/KV adjustment according to patient size. IMPRESSION: Linear atelectasis in both posterior lung bases.
--- NOTE | 2021-11-08 11:57 | RAD REPORT ---
EXAM DESCRIPTION: CT - Abdomen Pelvis Wo Contrast - 11/08/2021 11:38 am CLINICAL HISTORY: Abdominal pain. DISTENDED ABDOMEN COMPARISON: Abdomen Pelvis W/Wo Contrast dated 04/01/2021; Thorax Wo Con dated 11/08/2021 TECHNIQUE: CT imaging of the abdomen and pelvis was performed without contrast. Solid organ, bowel a nd vascular assessment is limited due to lack of IV and oral contrast. All CT scans are performed using dose optimization technique as appropriate and may include automated exposure control or mA/KV adjustment according to patient size. FINDINGS: Mild linear atelectasis in both lung bases. Cholecystectomy clips.The liver, spleen, pancreas, adrenal glands and kidneys are within normal limit s for noncontrast imaging. Mild ascites is noted. No bowel obstruction or free air. Nonvisualized appendix. Moderate fat contain ing left inguinal hernia containing fluid. Small to moderate right inguinal hernia. Moderate lumbar degenerative changes. IMPRESSION: Mild ascites is present. Bilateral inguinal hernias, larger on the left. A limited non-contrast examination was performed as detailed.
--- NOTE | 2021-11-08 15:32 | P.PN ---
Subjective Date of Service: 11/08/21 Primary Care Provider: Dr. Lowry Chief Complaint: Hypoglycemia Changes awake and alert. Blood sugar readings improved. Family reports patient has loss of appetite and has been generally weak. Family is concerned about stroke given history of A. fib. Recent watchman's procedure. Patient is still anticoagulated with Eliquis. Physical Examination - Vital Signs Temperature: 97.3 F Blood Pressure: 100/57 Pulse: 60 Respirations: 14 Pulse Ox (%): 97 - Studies Laboratory Data (last 24 hrs) 11/07/21 21:07: Sodium 141, Potassium 4.5, BUN 30 H, Creatinine 1.51 H, Glucose 41 L* 11/07/21 21:07: WBC 12.0 H, Hgb 8.9 L, Hct 27.5 L, Plt Count 282 Assessment And Plan - Current Problems (Diagnosis) (1) Type 2 diabetes mellitus Current Visit: Yes Status: Chronic Qualifiers: Diabetes mellitus director of student affairs insulin use: without director of student affairs use Diabetes mellitus complication status: with hypoglycemia Diabetes mellitus complication detail: without coma Qualified Code(s): E11.649 - Type 2 diabetes mellitus with hypoglycemia without coma (2) Hypoglycemia Current Visit: Yes Status: Acute (3) Chronic anticoagulation Current Visit: Yes Status: Acute (4) Anorexia Current Visit: Yes Status: Acute (5) Generalized weakness Current Visit: Yes Status: Acute (6) Diabetes mellitus Current Visit: No Status: Acute (7) A-fib Current Visit: No Status: Chronic Qualifiers: Atrial fibrillation type: unspecified chronic Qualified Code(s): I48.20 - Chronic atrial fibrillation, unspecified; I48.2 - Chronic atrial fibrillation (8) Acute renal failure Current Visit: Yes Status: Acute - Plan Physical Exam General: Alert, In no apparent distress, Oriented x3 HEENT: Atraumatic, PERRLA, EOMI, Sclerae nonicteric Neck: Supple, Without JVD. Respiratory: Clear to auscultation bilaterally, Normal air movement Cardiovascular: Regular rate/rhythm, Normal S1 S2 Gastrointestinal: Normal bowel sounds, No tenderness Musculoskeletal: No tenderness Integumentary: No rashes Neurological: Normal speech, Normal strength at 5/5 x4 extr, Normal tone, Normal affect Plan: Head CT, CT chest and CT abdomen results reviewed. No acute CVA. Patient has minimal ascites. Moderate stool burden. Blood sugar is fluctuating but overall stable. I suspect prolonged action of glipizide. We will continue to monitor as inpatient. UA shows no evidence of UTI. Will treat functional constipation. Encourage oral intake. Check cortisol level given soft blood pressure and persistent hypoglycemia. Hold antihypertensives. Resume Eliquis for A. fib. Reconcile and continue other home medications.
[2021-11-08] MEDS ORDERED: ZALEPLON 10 MG PO PRN (15:36)
--- NOTE | 2021-11-08 17:45 | P.CNS ---
Date of Consult: 11/08/21 Reason for Consult: NADEGE Requesting Physician: nabil givens Primary Care Provider: Dr. Lowry Chief Complaint: Hypoglycemia History of Present Illness: 81M w/ PMHx of CKD2, Htn on Olmesartan, HLD, DM2, & afib s/p Watchman in Sep 2021 & on eliquis, who p/w generalized weakness & hypoglycemia. Pt reports that he has been feeling weak since his watchman procedure 2 mos ago. He has been taking glimepiride & Jardiance until 2-3 days ago. He has been eating poorly for the past few days. Serum glucose 43 on presentation, improved to normal after dextrose received. He is somewhat hypotensive. Referred to Nephrology for NADEGE. His baseline SCr is 0.8-1.1 as of 08/19/2021. SCr 1.5 on adm, today at 1.7. He is receiving IV fluids. Allergies No Known Allergies Allergy (Verified 01/13/20 10:11) Home Medications: Atorvastatin Calcium [Lipitor] 80 mg PO BEDTIME 01/12/20 Cholecalciferol (Vitamin D3) [Vitamin D3] 50 mcg PO DAILY 01/12/20 Ezetimibe 10 mg PO BEDTIME 01/12/20 Fenofibrate 160 mg PO BEDTIME 01/12/20 Gabapentin 300 mg PO BID 01/12/20 Omeprazole [Prilosec] 40 mg PO [id number] 01/12/20 Zaleplon 10 mg PO BEDTIME PRN 01/12/20 Ascorbic Acid [Vitamin C*] 1,000 mg PO DAILY 12/07/20 Olmesartan Medoxomil 1 tab PO BEDTIME 12/07/20 Amiodarone HCl [Pacerone] 400 mg PO BEDTIME 11/08/21 Apixaban [Eliquis] 5 mg PO BID 11/08/21 Ferrous Sulfate [Iron] 325 mg PO DAILY 11/08/21 - Past Medical/Surgical History Diabetic: Yes -: Diabetes mellitus -: Colon Cancer -: CAD -: Hypertension -: Measles -: Afib -: HLD -: gall bladder surgery -: Colon surgery -: Prostate surgery -: Back surgery -: Tonsillectomy and adenoidectomy -: Angioplasty no stents -: prostate surgery -: pacemaker and watchman Psychosocial/ Personal History: Patient lives at home with his - Social History Alcohol use: No CD- Drugs: No Caffeine use: Yes Place of Residence: Home Review of Systems General: Weakness Eyes: Unremarkable ENT: Unremarkable Respiratory: Unremarkable Gastrointestinal: Unremarkable Genitourinary: Unremarkable Musculoskeletal: Other (weakness) Integumentary: Unremarkable Neurological: Weakness, Other (Lethargy) Lymphatics: Unremarkable Physical Examination Temp Pulse Resp BP Pulse Ox 97.6 F 60 20 107/58 L 97 11/08/21 16:00 11/08/21 16:00 11/08/21 16:00 11/08/21 16:00 11/08/21 16:00 General: In no apparent distress HEENT: Atraumatic, Normocephalic Neck: Supple, JVD not distended Respiratory: Clear to auscultation bilaterally Cardiovascular: No rubs, No murmurs Gastrointestinal: Soft and benign, No guarding Musculoskeletal: No clubbing, No swelling Integumentary: No warmth Neurological: Normal tone, Other (+lethargy) Lymphatics: No axilla or inguinal lymphadenopathy Urinary: Other (no bladder distention) External genitalia: Deferred Rectal: Deferred Laboratory Data (last 24 hrs) 11/07/21 21:07: Sodium 141, Potassium 4.5, BUN 30 H, Creatinine 1.51 H, Glucose 41 L* 11/07/21 21:07: WBC 12.0 H, Hgb 8.9 L, Hct 27.5 L, Plt Count 282 Conclusions/Impression: # NADEGE 2/2 prerenal state/ATN from dec po intake, borderline hypotension, & olmesartan use Baseline CKD2, baseline SCr 0.8-1.1 as of 08/19/2021 SCr 1.5 on adm, today at 1.7 Urinalysis unremarkable, 3+glucosuria F/u random urine chem, UPCR, CPK, BNP, trop KUB unremarkable on CT imaging Hold olmesartan Cont IVF Start Midodrine 10 mg po tid Monitor renal panel # Hypoglycemia 2/2 Glimepiride + Jardiance, r/o adrenal insufficiency LFT unremarkable F/u serum DHEAS & 8am serum cortisol + ACTH # Borderline hypotension TTE in January [address] on 11/08/21 showed no pulmo Htn Prior BNP elevated, f/u repeat BP F/u troponin Adrenal testing as above Dc olmesartan Cont IV fluid Start Midodrine as above R/o infiltrative dse affecting autonomic nerves. F/u SPEP, serum ART, K:L serum FLC, random urine UPEP, JASON. # Macrocytic anemia MCV wnl but RDW super elevated Had EGD & colonoscopy recently that was negative per family report. Had enteroclysis done recently, result pending, per family report. TSH wnl LFT unremarkable F/u DHEAS/cortisol/ACTH, B12, folate, iron panel, retic count If above workup negative, recommend to pursue bone marrow biopsy to eval for myelodysplastic dse # Chronic BLE edema 2/2 hypoalbuminemia + hypomobility/edema of dependency Recommend to wear BLE graduated compression stockings, knee or thigh high, at least 20-30 mmHg ankle pressure, wear during the daytime, remove at bedtime Protein-energy malnutrition significantly contributing to hypoalbuminemia. Referred to dietitian.
[2021-11-08] MEDS: MIDODRINE HCL 5 MG TABLET PO SCH (20:43)
[2021-11-08] MEDS: GABAPENTIN 300 MG CAP PO SCH (20:44)
[2021-11-08] MEDS: APIXABAN 5 MG TABLET PO SCH (20:44)
[2021-11-08] MEDS: AMIODARONE HCL 200 MG TAB PO SCH (20:45)
[2021-11-08] MEDS: EZETIMIBE 10 MG TAB PO SCH (20:45)
[2021-11-08] MEDS: ATORVASTATIN 80 MG TAB PO SCH (20:45)
[2021-11-08] MEDS: JUVEN PACKET PO SCH (20:46)
[2021-11-08] MEDS: GLUCERNA SHAKE 237 ML CAN PO SCH (20:46)
[2021-11-08] MEDS ORDERED: FENOFIBRATE 160 MG TAB PO SCH (21:00)
[2021-11-08] MEDS ORDERED: HOME MED 1 EA UNK (Amiodarone Hcl [Pacerone] 400 MG Tablet) PO SCH (21:00)
[2021-11-09 01:50] LABS: RBC Red Blood Cell Count 2.92 M/uL (4.33-5.43)
[2021-11-09 02:17] LABS: Ferritin 57.4 ng/mL (26-388); Folic Acid, (Folate) 6.5 ng/mL (3.1-17.5); Troponin High Sensitivity 9.4 pg/mL (<58.9)
[2021-11-09 05:59] LABS: Absolute Lymphocytes (CBC) 0.9 K/uL (0.7-4.9); Hematocrit 27.2 % (39.6-49.0); Lymphocytes % 9.2 % (15.3-44.8); MPV 9.2 fL (7.6-11.3); RBC Red Blood Cell Count 3.03 M/uL (4.33-5.43)
[2021-11-09] MEDS ORDERED: HOME MED 1 EA UNK (Omeprazole [Prilosec] 40 MG Capsule.Dr) PO SCH (06:00)
[2021-11-09 06:20] LABS: Albumin 2.2 g/dL (3.4-5.0); Bilirubin Total 0.8 mg/dL (0.2-1.0); Magnesium 2.3 mg/dL (1.8-2.4); Phosphorus 2.5 mg/dL (2.5-4.9); Potassium 4.4 mmol/L (3.5-5.1)
[2021-11-09] MEDS ORDERED: PANTOPRAZOLE 40MG TABLET PO SCH (07:30)
[2021-11-09] MEDS: INSULIN -REGULAR HUMAN 50 UNIT/0.5 ML ML SQ SCH ×4 (07:30→20:30)
[2021-11-09] MEDS: D5 0.45 NS 1,000 ML IV SCH ×3 (07:40→12:37)
[2021-11-09] MEDS: MIDODRINE HCL 5 MG TABLET PO SCH ×3 (08:33→20:28)
[2021-11-09] MEDS: APIXABAN 5 MG TABLET PO SCH ×2 (08:33→20:29)
[2021-11-09] MEDS: VITAMIN D 1000 UNIT TAB PO SCH (08:34)
[2021-11-09] MEDS: ASCORBIC ACID 500 MG TABLET PO SCH (08:34)
[2021-11-09] MEDS: GABAPENTIN 300 MG CAP PO SCH (08:34)
[2021-11-09] MEDS: FERROUS SULFATE 325 MG TAB PO SCH (08:34)
[2021-11-09] MEDS: GLUCERNA SHAKE 237 ML CAN PO SCH ×2 (08:35→20:29)
[2021-11-09] MEDS: JUVEN PACKET PO SCH ×2 (08:36→20:29)
[2021-11-09] MEDS ORDERED: HOME MED 1 EA UNK (Cholecalciferol (Vitamin D3) [Vitamin D3] 1,000 UNIT Capsule) PO SCH (09:00)
--- NOTE | 2021-11-09 12:15 | P.PN ---
Subjective Date of Service: 11/09/21 Primary Care Provider: Dr. Lowry Chief Complaint: Hypoglycemia Patient is awake and alert. Noted he has tremors. He reports good bowel movement today. Family reports patient has loss of appetite and has been generally weak. No issues overnight. Physical Examination - Vital Signs Temperature: 97.3 F Blood Pressure: 99/50 Pulse: 60 Respirations: 16 Pulse Ox (%): 98 Assessment And Plan - Current Problems (Diagnosis) (1) Type 2 diabetes mellitus Current Visit: Yes Status: Chronic Qualifiers: Diabetes mellitus longwall shearer operator insulin use: without jail use Diabetes mellitus complication status: with hypoglycemia Diabetes mellitus complication detail: without coma Qualified Code(s): E11.649 - Type 2 diabetes mellitus with hypoglycemia without coma (2) Hypoglycemia Current Visit: Yes Status: Acute (3) Chronic anticoagulation Current Visit: Yes Status: Acute (4) Anorexia Current Visit: Yes Status: Acute (5) Generalized weakness Current Visit: Yes Status: Acute (6) Diabetes mellitus Current Visit: No Status: Acute (7) A-fib Current Visit: No Status: Chronic Qualifiers: Atrial fibrillation type: unspecified chronic Qualified Code(s): I48.20 - Chronic atrial fibrillation, unspecified; I48.2 - Chronic atrial fibrillation (8) Acute renal failure Current Visit: Yes Status: Acute - Plan Physical Exam General: Alert, In no apparent distress, Oriented x3 HEENT: Atraumatic, PERRLA, EOMI, Sclerae nonicteric Neck: Supple, Without JVD. Respiratory: Clear to auscultation bilaterally, Normal air movement Cardiovascular: Regular rate/rhythm, Normal S1 S2. 1+ bilateral pitting pedal edema Gastrointestinal: Normal bowel sounds, No tenderness Musculoskeletal: No tenderness Integumentary: No rashes Neurological: Normal speech, Normal strength at 5/5 x4 extr, Normal tone, Normal affect, hand tremors Plan: Head CT, CT chest and CT abdomen results reviewed. No acute CVA. Patient has minimal ascites. Patient had a bowel movement. BP has been running low. Blood glucose readings improved. I suspect hypoglycemia secondary to prolonged action of glipizide. Nephrology input appreciated UA shows no evidence of UTI. Encourage oral intake. Cortisol level checked normal Continue to hold antihypertensives. Continue Eliquis for A. fib. Neurology consult given resting tremors. Need to rule out Parkinson's disease.
--- NOTE | 2021-11-09 15:43 | P.PN ---
Subjective Date of Service: 11/09/21 Primary Care Provider: Dr. Lowry Chief Complaint: Hypoglycemia Subjective Pt admitted for hypoglycemia and hypotension, huynh NADEGE Cr 1.6 , baseline cr ~1.0 Today cr stable BP borderline pt with trace edema, will hold IVF Physical exam General: Awake,, NAD neck: Supple, no elevated JVD CHEST; CTAB, no wheezes or rales HEART : RRR. Normal S1,2 no murmur or rub Abd: distended, NT Ext: edema Skin : No rash A/P # NADEGE 2/2 ischemic ATN fborderline hypotension, & olmesartan use Baseline CKD2, baseline SCr 0.8-1.1 as of 08/19/2021 SCr 1.5 on adm Urinalysis unremarkable, 3+glucosuria F/u random urine chem, UPCR, CPK, BNP, trop KUB unremarkable on CT imaging Hold olmesartan will hold IVF cont Midodrine 10 mg po tid Monitor renal panel avoid NSAID and contrast # Hypoglycemia 2/2 Glimepiride + Jardiance, r/o adrenal insufficiency LFT unremarkable Cortisol level 33 F/u serum DHEAS # Borderline hypotension TTE in January [address] on 11/08/21 showed no pulmo Htn Dc olmesartan Cont Midodrine as above F/u SPEP, serum ART, K:L serum FLC, random urine UPEP, JASON. # Macrocytic anemia MCV wnl but RDW super elevated Had EGD & colonoscopy recently that was negative per family report. Had enteroclysis done recently, result pending, per family report. TSH wnl LFT unremarkable F/u DHEAS/cortisol/ACTH, B12, folate, iron panel, retic count # Chronic BLE edema 2/2 hypoalbuminemia + hypomobility/edema of dependency Recommend to wear BLE graduated compression stockings, knee or thigh high, at least 20-30 mmHg ankle pressure, wear during the daytime, remove at bedtime Protein-energy malnutrition significantly contributing to hypoalbuminemia. Referred to dietitian. Physical Examination - Vital Signs Temperature: 97.3 F Blood Pressure: 99/50 Pulse: 60 Respirations: 16 Pulse Ox (%): 98
[2021-11-09 15:49] LABS: UR PROTEIN 6.7 mg/dL (<11.9); UR SODIUM < 15 mmol/L (27-287); Urine Protein/Creatinine Ratio 0.07 ratio (<0.15)
[2021-11-09] MEDS: ATORVASTATIN 80 MG TAB PO SCH (20:29)
[2021-11-09] MEDS: EZETIMIBE 10 MG TAB PO SCH (20:29)
[2021-11-09] MEDS: AMIODARONE HCL 200 MG TAB PO SCH (20:29)
[2021-11-09] MEDS: GABAPENTIN 100 MG CAP PO SCH (20:29)
--- NOTE | 2021-11-09 20:51 | CON ---
Date of Consultation: 11/09/2021 Time: 1630. Reason For Consultation: Tremor and generalized weakness. History: An 81-year-old gentleman whom I have known for several years. He has neuropathy. He has d iabecole. He was usually quite active and he was actually driving up to [place] and working 4-6 month s ago and driving himself back and was quite independent. He has a pacemaker. He has had some cardi ac issues. He is 81 years old. Earlier this year, he was complaining of generalized weakness. We d id a CT scan of the cervical spine and he does have cervical spine stenosis but it really was not marga reciably worse than it was when we had imaged that before. This was essentially unchanged over the l ast 2-3 years and additional evaluation revealed a hemoglobin down in the 6s and he was actually refe rred to the emergency department here where he received some blood and was brought back up not normal , but to the 8-10 range. He had upper GI and lower GI and those were reported to be negative. It is felt that maybe his systemic anticoagulation was contributing, so he had a Watchman device placed re cently, but he is still on systemic anticoagulation per Cardiology's recommendation. The patient ins tead of improving after all those interventions has not improved and in fact worsened with worsening gait difficulties and tremor and they got to the point where his blood pressure was low and his blood sugar was low and he was more confused, so EMS was summoned. He was brought to the emergency depart ment. He was admitted and I was consulted. He has had a CT scan of the brain that is unrevealing. CT scan of the chest likewise unrevealing. CT abdomen and pelvis unrevealing. He does have renal in sufficiency. He is still anemic. He is getting a workup for adrenal failure. Consultation was requ ested. Past Medical History: Neuropathy, hypertension, diabetes, atrial fibrillation, anemia, renal insuffi ciency. Routine Home Medications: Iron, amiodarone, Eliquis, vitamin C, Lipitor, gabapentin, fenofibrate, Ze tia, Prilosec, Olmesartan, . Social History: The patient is and normally independent with activities of daily living. Family History: Noncontributory. Review of Systems: General: He has not been well over the last 3 months as noted. Eyes: Denies. Ears, Nose, Throat: No aphasia, no dysarthria. Cardiovascular: Relative hypotension more recently and he is on midodrine. Pulmonary: Negative. GI: As alluded to. : Renal insufficiency. Neurologic: He has a tremor that is relatively new. Physical Examination: Vital Signs: 97.9, 62, 16, 113/54. General: He is a pleasant gentleman lying in bed. He is awake, alert, and oriented. He is a little more cognitively slow than he was 6 months ago, that may be multifactorial. HEENT: Pupils are reactive. Ocular motion full without nystagmus. Visual barrera full to confrontat ion bilaterally. Facial strength and sensation are normal. Tongue protrudes evenly. Soft palate el evates symmetrically bilaterally. Neurologic: Extremity strength is full. to give a good contraction. He has fairly coars e myoclonic type tremor that has prominent flexion component and is highly reminiscent of asterixis. He has a slight resting component and there is mild cogwheeling at the wrists and the elbows. Manzano on sign is negative on cranial nerve exam. Sensation decreased distally. Reflexes trace to absent. Toes are downgoing. No [id number] ataxia given the degree of myoclonic tremor. Pertinent Laboratory Data: Imaging as noted. Hemoglobin 8.8, white count and platelets normal, reti culocytes 2.2. Creatinine is down to 1.39. Sodium normal. Iron levels are low. AST is 103. Prote in is low. Protein electrophoresis is pending. B12 is normal. Cosyntropin stim test is pending. C ortisol was 33.9. Impression: Tremor. The patient has a myoclonic type tremor. Most common etiology is renal failure , liver failure, medications. Plan: We will stop the sleeping pill. The patient is sleeping all the time anyway, may be contribut ing. Decrease the gabapentin to 100 b.i.d. Sometimes, amiodarone can cause a movement disorder, but that is a medication that the patient is going to likely require. Further opinion from Cardiology m ight be helpful. We will give IV thiamine and check a B1 level and continue general supportive care as you are doing. Check an ammonia level as well. Thank you for the consult. We will continue to follow with you. NITZA Voice ID: [id number] Report ID: [id number]
[2021-11-10 04:07] VITALS: BMI 29.4
[2021-11-10 06:15] LABS: Absolute Lymphocytes (CBC) 0.8 K/uL (0.7-4.9); Hematocrit 26.6 % (39.6-49.0); MPV 8.7 fL (7.6-11.3); RBC Red Blood Cell Count 2.96 M/uL (4.33-5.43)
[2021-11-10 06:39] LABS: Albumin 2.1 g/dL (3.4-5.0); Bilirubin Total 0.9 mg/dL (0.2-1.0); Magnesium 2.3 mg/dL (1.8-2.4); Phosphorus 2.5 mg/dL (2.5-4.9); Potassium 4.3 mmol/L (3.5-5.1); Protein, Total 4.8 g/dL (6.4-8.2)
[2021-11-10] MEDS: INSULIN -REGULAR HUMAN 50 UNIT/0.5 ML ML SQ SCH ×4 (07:30→21:00)
[2021-11-10] MEDS: FERROUS SULFATE 325 MG TAB PO SCH (08:16)
[2021-11-10] MEDS: ASCORBIC ACID 500 MG TABLET PO SCH (08:16)
[2021-11-10] MEDS: VITAMIN D 1000 UNIT TAB PO SCH (08:16)
[2021-11-10] MEDS: FAMOTIDINE 20 MG TAB PO SCH (08:16)
[2021-11-10] MEDS: GABAPENTIN 100 MG CAP PO SCH ×2 (08:16→21:45)
[2021-11-10] MEDS: APIXABAN 5 MG TABLET PO SCH ×2 (08:16→21:45)
[2021-11-10] MEDS: JUVEN PACKET PO SCH ×2 (08:17→21:46)
[2021-11-10] MEDS: GLUCERNA SHAKE 237 ML CAN PO SCH ×2 (08:17→21:45)
[2021-11-10] MEDS: THIAMINE 200 MG/2 ML INJ IVP SCH (08:17)
[2021-11-10] MEDS: MIDODRINE HCL 5 MG TABLET PO SCH ×3 (08:18→21:45)
[2021-11-10 08:45] LABS: Blood Morphology Comment NOTED (NOT SEEN); Platelet Estimate ADEQ; White Blood Cell Scan OK (OK)
[2021-11-10 08:46] LABS: Anisocytosis 3+; Hypochromasia 1+; Ovalocytes 1+; Poikilocytosis 2+; Polychromasia SLIGHT
--- NOTE | 2021-11-10 12:28 | P.PN ---
Subjective Date of Service: 11/10/21 Primary Care Provider: Dr. Lowry Chief Complaint: Hypoglycemia Patient is awake and alert. No issues overnight. It appears patient is eating more. Blood sugar has been stable. Physical Examination - Vital Signs Temperature: 97.9 F Blood Pressure: 123/58 Pulse: 60 Respirations: 18 Pulse Ox (%): 96 Assessment And Plan - Current Problems (Diagnosis) (1) Type 2 diabetes mellitus Current Visit: Yes Status: Chronic Qualifiers: Diabetes mellitus correction insulin use: without correction use Diabetes mellitus complication status: with hypoglycemia Diabetes mellitus complication detail: without coma Qualified Code(s): E11.649 - Type 2 diabetes mellitus with hypoglycemia without coma (2) Hypoglycemia Current Visit: Yes Status: Acute (3) Chronic anticoagulation Current Visit: Yes Status: Acute (4) Anorexia Current Visit: Yes Status: Acute (5) Generalized weakness Current Visit: Yes Status: Acute (6) Diabetes mellitus Current Visit: No Status: Acute (7) A-fib Current Visit: No Status: Chronic Qualifiers: Atrial fibrillation type: unspecified chronic Qualified Code(s): I48.20 - Chronic atrial fibrillation, unspecified; I48.2 - Chronic atrial fibrillation (8) Acute renal failure Current Visit: Yes Status: Acute - Plan Physical Exam General: Alert, In no apparent distress, Oriented x3 HEENT: Sclerae nonicteric Neck: Supple, Without JVD. Respiratory: Clear to auscultation bilaterally, Normal air movement Cardiovascular: Regular rate/rhythm, Normal S1 S2. 1+ bilateral pitting pedal edema Gastrointestinal: Normal bowel sounds, No tenderness Musculoskeletal: No tenderness Integumentary: No rashes Neurological: Normal speech, Normal strength at 5/5 x4 extr, Normal tone, Normal affect, hand tremors Plan: BP readings are better today. Blood glucose readings improved. Nephrology is following. Encourage oral intake. Normal cortisol level. Doubt adrenal insufficiency Continue to hold antihypertensives. Continue Eliquis for A. fib. Patient seen by neurology. Myoclonic tremors suspected. Gabapentin dose reduced. Cardiology consult to assess current cardiac medications. Continue PT Protein supplementation. Disposition: SNF.
[2021-11-10] MEDS: AMINO ACIDS/PROTEIN HYDROLYS 30 ML LIQUID.PKT PO SCH ×2 (13:25→21:00)
--- NOTE | 2021-11-10 13:41 | P.PN ---
Subjective Date of Service: 11/10/21 Primary Care Provider: Dr. Lowry Chief Complaint: Hypoglycemia Subjective Pt admitted for hypoglycemia and hypotension, huynh NADEGE Cr 1.6 , baseline cr ~1.0 Today cr improved to 1.3 off IVF BP improvd cont to hold BP medications Physical exam General: Awake,, NAD neck: Supple, no elevated JVD CHEST; CTAB, no wheezes or rales HEART : RRR. Normal S1,2 no murmur or rub Abd: distended, NT Ext: edema Skin : No rash A/P # NADEGE 2/2 ischemic ATN fborderline hypotension, & olmesartan use Baseline CKD2, baseline SCr 0.8-1.1 as of 08/19/2021 SCr 1.5 on adm, improved to 1.3 today Urinalysis unremarkable, 3+glucosuria F/u random urine chem, UPCR, CPK, BNP, trop KUB unremarkable on CT imaging Hold olmesartan cont Midodrine 10 mg po tid Monitor renal panel avoid NSAID and contrast # Hypoglycemia 2/2 Glimepiride + Jardiance, r/o adrenal insufficiency LFT unremarkable Cortisol level 33 # Borderline hypotension TTE in January [address] on 11/08/21 showed no pulmo Htn Dc olmesartan Cont Midodrine as above F/u SPEP, serum ART, K:L serum FLC, random urine UPEP, JASON. # Macrocytic anemia MCV wnl but RDW super elevated Had EGD & colonoscopy recently that was negative per family report. Had enteroclysis done recently, result pending, per family report. TSH wnl LFT unremarkable F/u B12, folate, iron panel, retic count # Chronic BLE edema Rt >lt 2/2 hypoalbuminemia + hypomobility/edema of dependency Recommend to wear BLE graduated compression stockings, knee or thigh high, at least 20-30 mmHg ankle pressure, wear during the daytime, remove at bedtime Protein-energy malnutrition significantly contributing to hypoalbuminemia. Referred to dietitian. Physical Examination - Vital Signs Temperature: 97.9 F Blood Pressure: 123/58 Pulse: 60 Respirations: 18 Pulse Ox (%): 96 - Studies Medications List Reviewed: Yes
[2021-11-10] MEDS: ATORVASTATIN 80 MG TAB PO SCH (21:45)
[2021-11-10] MEDS: EZETIMIBE 10 MG TAB PO SCH (21:45)
[2021-11-10] MEDS: AMIODARONE HCL 200 MG TAB PO SCH (21:45)
[2021-11-11 05:49] LABS: Absolute Lymphocytes (CBC) 0.8 K/uL (0.7-4.9); Hematocrit 25.8 % (39.6-49.0); Lymphocytes % 8.6 % (15.3-44.8); MPV 8.5 fL (7.6-11.3); RBC Red Blood Cell Count 2.93 M/uL (4.33-5.43)
[2021-11-11 06:13] LABS: Magnesium 2.3 mg/dL (1.8-2.4); Phosphorus 2.3 mg/dL (2.5-4.9); Potassium 4.2 mmol/L (3.5-5.1)
[2021-11-11] MEDS: INSULIN -REGULAR HUMAN 50 UNIT/0.5 ML ML SQ SCH ×4 (07:30→20:59)
[2021-11-11] MEDS: VITAMIN D 1000 UNIT TAB PO SCH (08:34)
[2021-11-11] MEDS: FERROUS SULFATE 325 MG TAB PO SCH (08:34)
[2021-11-11] MEDS: ASCORBIC ACID 500 MG TABLET PO SCH (08:34)
[2021-11-11] MEDS: APIXABAN 5 MG TABLET PO SCH ×2 (08:34→20:57)
[2021-11-11] MEDS: THIAMINE 200 MG/2 ML INJ IVP SCH (08:35)
[2021-11-11] MEDS: FAMOTIDINE 20 MG TAB PO SCH (08:35)
[2021-11-11] MEDS: MIDODRINE HCL 5 MG TABLET PO SCH ×3 (08:35→20:56)
[2021-11-11] MEDS: GABAPENTIN 100 MG CAP PO SCH ×2 (08:35→20:57)
[2021-11-11] MEDS: AMINO ACIDS/PROTEIN HYDROLYS 30 ML LIQUID.PKT PO SCH ×3 (08:36→21:00)
[2021-11-11] MEDS: GLUCERNA SHAKE 237 ML CAN PO SCH ×2 (08:36→20:59)
[2021-11-11] MEDS: JUVEN PACKET PO SCH ×2 (08:36→20:59)
--- NOTE | 2021-11-11 11:21 | RAD REPORT ---
EXAM DESCRIPTION: RAD - Abdomen 1 View (KUB) - 11/11/2021 10:53 am CLINICAL HISTORY: Abdominal distension COMPARISON: Abdomen Pelvis Wo Contrast dated 11/08/2021 FINDINGS: Air and fluid are present in the nondilated stomach. Air and stool are seen in nondilated colon from cecum to the rectum. No dilated small bowel identifiable. No free air or pneumatosis seen. Overall hazy opacification to the abdomen and pelvis likely reflects the ascites seen on the November 08 examination. Plain film to CT comparison for volume of ascites cannot be accurately made. Cholecyste ctomy clips are seen in the right upper quadrant. No suspicious calcifications. Prominent bony degenerative changes are present stable from comparison. IMPRESSION: No bowel obstruction, free air or emergent finding identifiable. Ascites is evident but assessment of interval change from November 08 cannot be made when comparing plain film to CT imaging.
--- NOTE | 2021-11-11 12:39 | P.PN ---
Subjective Date of Service: 11/11/21 Primary Care Provider: Dr. Lowry Chief Complaint: Hypoglycemia Spouse states patient is eating better. He has been sleeping most of the time. No issues overnight. Blood sugar has been stable. No more hypoglycemia episode. Physical Examination - Vital Signs Temperature: 97.7 F Blood Pressure: 114/59 Pulse: 59 Respirations: 18 Pulse Ox (%): 96 - Studies Medications List Reviewed: Yes Assessment And Plan - Current Problems (Diagnosis) (1) Type 2 diabetes mellitus Current Visit: Yes Status: Chronic Qualifiers: Diabetes mellitus salvage determiner insulin use: without salvage determiner use Diabetes mellitus complication status: with hypoglycemia Diabetes mellitus complication detail: without coma Qualified Code(s): E11.649 - Type 2 diabetes mellitus with hypoglycemia without coma (2) Hypoglycemia Current Visit: Yes Status: Acute (3) Chronic anticoagulation Current Visit: Yes Status: Acute (4) Anorexia Current Visit: Yes Status: Acute (5) Generalized weakness Current Visit: Yes Status: Acute (6) Diabetes mellitus Current Visit: No Status: Acute (7) A-fib Current Visit: No Status: Chronic Qualifiers: Atrial fibrillation type: unspecified chronic Qualified Code(s): I48.20 - Chronic atrial fibrillation, unspecified; I48.2 - Chronic atrial fibrillation (8) Acute renal failure Current Visit: Yes Status: Acute - Plan Physical Exam General: Alert, In no apparent distress, Oriented x3 HEENT: Sclerae nonicteric Neck: Supple, Without JVD. Respiratory: Clear to auscultation bilaterally, Normal air movement Cardiovascular: Regular rate/rhythm, Normal S1 S2. 1+ bilateral pitting pedal edema Gastrointestinal: Normal bowel sounds, No tenderness Musculoskeletal: No tenderness Integumentary: No rashes Neurological: Normal speech, Normal strength at 5/5 x4 extr, Normal tone, Normal affect, hand tremors Plan: BP has been stable. Blood glucose readings have been stable Nephrology input appreciated. Encourage oral intake. Normal cortisol level. Doubt adrenal insufficiency Continue to hold antihypertensives. Continue Eliquis for A. fib. Patient seen by neurology. Myoclonic tremors suspected. Gabapentin dose reduced. Cardiology consult to assess current cardiac medications given concern for medication induced tremors.. Continue PT Protein supplementation. Diet as tolerated. Disposition: SNF.
--- NOTE | 2021-11-11 15:50 | CON ---
Reason For Consultation: Management of cardiac medications. History Of Present Illness: This is an 81-year-old male with history of hypertension, atrial fibrill ation, dyslipidemia, diabetes, status post left atrial appendage closure on October 20. He has been having low glucose and generally very weak and low blood pressure. He is evaluated in the hospital. CT scan of the brain was negative for acute abnormalities. Past Medical History: As outlined above in the HPI. Medications: Refer to reconciliation sheet for detailed list. Allergies: NO KNOWN DRUG ALLERGIES. Family History: No premature coronary artery disease or cancer. Social History: He is an ex-smoker. Does not drink or use any drugs. Review of Systems: All systems reviewed and they were negative except for what mentioned in the HPI. Physical Examination: Vital Signs: Reviewed. Head and Neck: Pupils are equal, reactive to light. Intact eye movements. No JVD. No cervical lym phadenopathy. Neck is supple. Thyroid is not enlarged. Lungs: Clear to auscultation bilaterally. No rhonchi, rales, or crackles. No accessory muscle use. Heart: Irregularly irregular. No extra sounds. Abdomen: Soft, nontender. Bowel sounds positive. No organomegaly. No masses or hernia. No rigidi ty or rebound. Extremities: No edema, clubbing, or cyanosis. Intact pulses. Skin: No rash noted. Neurologic: Alert, awake, oriented x3 without focal deficits. Lymph Nodes: No cervical or axillary lymphadenopathy. Investigations: White blood cell count is 9, hemoglobin 8.6. His creatinine is 1.2. BUN is 35. Tr oponin is negative. CT scan of the head, no acute intracranial abnormalities. Assessment And Recommendations: 1.Atrial fibrillation. His rate is controlled, status post appendage closure. Continue Eliquis 5 m g twice a day until MARC is done, which will be planned in about a month. For the interim, please con tinue Eliquis 5 mg twice a day and continue amiodarone daily. 2.Hypertension. Blood pressure is on the low side. Please obtain an echocardiogram to evaluate for any pericardial effusion postprocedure and assess accordingly. 3.Hyperlipidemia, on statin. We will continue current medications. 4.Diabetes with episodes of hypoglycemia. Recommend to hold all anti-hyperglycemic agents and reduc e this accordingly. Thank you for the consult. /FIDEL Voice ID: [id number] Report ID: [id number]
[2021-11-11] MEDS: ATORVASTATIN 80 MG TAB PO SCH (20:57)
[2021-11-11] MEDS: AMIODARONE HCL 200 MG TAB PO SCH (20:57)
[2021-11-11] MEDS: EZETIMIBE 10 MG TAB PO SCH (20:57)
--- NOTE | 2021-11-11 23:03 | PN ---
Date of Progress Note: 11/11/2021 Chief Complaint: Acute kidney injury secondary to borderline hypotension resulted from angiotensin r eceptor anjel usage. The patient has baseline chronic kidney disease stage 2 and creatinine was pr eviously ranging from 0.8 to 1.1. He developed hypotension. Serum creatinine went up to 1.6. He di d not require dialysis. He remains nonoliguric. Serum creatinine has improved to 1.3. Review of Systems: Denies PND or orthopnea. Physical Examination: Lungs: Clear to auscultation bilaterally. Heart: S1, S2. Abdomen: Soft, benign. Extremities: No edema. Impression/plan: 1.Acute kidney injury secondary to ischemic acute tubular necrosis due to borderline hypotension and accelerated by olmesartan. The patient is on angiotensin receptor anjel. The patient was found t o have uncontrolled diabetes, likely contributory to acute kidney injury. Urinalysis was unremarkabl e for any evidence of nephritis although but was followup random urine chemistry with urin e protein is pending. The plan is to evaluate CPK, to rule out rhabdomyolysis. The patient received midodrine for blood pressure support, currently he is taking midodrine 10 mg 3 times per day. Plan is to avoid nephrotoxic agents and he cannot take nonsteroidal antiinflammatory medication and cannot have procedure. 2.Hypoglycemia. The patient is not a candidate for glimepiride due to acute kidney injury. The [facility] ient will have workup to rule out renal insufficiency. Preliminary report showed cortisol level ____ which is less likely indicating adrenal insufficiency. 3.Borderline hypotension. Discontinue olmesartan and monitor blood pressure. The patient previousl y had cardiac workup in January 2020. TTE was unremarkable. CT scan . Plan is to monitor electrolytes. Adjust treatment for hypotension. The patient may need echo to rule out pericardial e ffusion. EB/MODL Voice ID: [id number] Report ID: [id number]
[2021-11-12 05:43] LABS: Absolute Lymphocytes (CBC) 0.7 K/uL (0.7-4.9); Hematocrit 26.7 % (39.6-49.0); Lymphocytes % 8.2 % (15.3-44.8); MPV 8.7 fL (7.6-11.3); RBC Red Blood Cell Count 2.98 M/uL (4.33-5.43)
[2021-11-12 05:50] LABS: Potassium 4.2 mmol/L (3.5-5.1)
--- NOTE | 2021-11-12 06:33 | P.PN ---
Date of Service: 11/12/21 Subjective: didn't do much last night missed breakfast due to EEG this morning overall slowly improving, continues to sleep most of day, some confusion, very weak ROS: 10 point ROS as noted above, otherwise negative Physical exam GEN: Alert, orientedx3, NAD HEENT: Normal conjunctiva, sclera anicteric CV: Regular rate and rhythm, no edema Pulm: Non-labored respirations on room air ABD: Soft, nontender, nondistended Neuro: Normal speech, normal affect, b/l hand tremor Problem List Generalized weakness Debility DM2, [id number]; with hyperglycemia Anorexia A. fib, chronic anticoagulation; s/p recent Watchman procedure ~2 weeks ago NADEGE, resolved NADEGE resolved, with gentle IVF, nephrology following BP remains low-normal, but stable. started on midodrine by nephro a few days ago.Cardiology recommends echo Normal cortisol level. Doubt adrenal insufficiency Continue to hold antihypertensives. Continue Eliquis for A. fib. continue midodrine, BP more stable glucose stable; suspect secondary to decreased PO intake and hypoglycemic medication PO intake improving Patient seen by neurology. Myoclonic tremors noted and improving Gabapentin dose reduced. EEG today Continue PT, protein supplementation, diet as tolerated. unable to obtain MRI secondary to pacemaker will discuss further with neurology Disposition: SNF, 1-2 days pending echo per cardio recommendation - low BP after recent cardiac procedure (Watchman), r/o pericardial effusion Time Spent Managing Pts Care (In Minutes): 35
[2021-11-12] MEDS: INSULIN -REGULAR HUMAN 50 UNIT/0.5 ML ML SQ SCH ×4 (07:30→21:00)
[2021-11-12] MEDS: GLUCERNA SHAKE 237 ML CAN PO SCH ×2 (09:00→20:54)
[2021-11-12] MEDS: AMINO ACIDS/PROTEIN HYDROLYS 30 ML LIQUID.PKT PO SCH ×3 (09:00→20:52)
[2021-11-12] MEDS: JUVEN PACKET PO SCH ×2 (09:00→20:56)
[2021-11-12] MEDS: MIDODRINE HCL 5 MG TABLET PO SCH ×3 (09:45→21:00)
[2021-11-12] MEDS: FERROUS SULFATE 325 MG TAB PO SCH (09:45)
[2021-11-12] MEDS: FAMOTIDINE 20 MG TAB PO SCH (09:45)
[2021-11-12] MEDS: APIXABAN 5 MG TABLET PO SCH ×2 (09:45→21:01)
[2021-11-12] MEDS: ASCORBIC ACID 500 MG TABLET PO SCH (09:45)
[2021-11-12] MEDS: VITAMIN D 1000 UNIT TAB PO SCH (09:45)
--- NOTE | 2021-11-12 10:00 | PN ---
Date of Progress Note: 11/12/2021 The patient was seen by Dr. Del Toro for atrial fibrillation, hypertension, diabetes, and dyslipidemia. Amiodarone has been continued. He is in sinus rhythm. He has had a Watchman. He is on Eliquis. A transesophageal echocardiogram is planned for later to check on the Watchman status. Today, he has no complaint. He is 100% paced. Hemoglobin is 8.7. There were some concerns apparently about a pe ricardial effusion. A 2D echocardiogram transthoracic was ordered for today by Dr. Rodriguez. We will s ee what that shows. GONZALO/FIDEL Voice ID: [id number] Report ID: [id number]
[2021-11-12] MEDS: THIAMINE 200 MG/2 ML INJ IVP SCH (10:10)
[2021-11-12 10:59] VITALS: O2SAT 98
--- NOTE | 2021-11-12 11:45 | PN ---
Date of Progress Note: 11/11/2021 Time: 1939 Reason For Consultation: Myoclonus, confusion. Interval History: The patient is not really any worse, but I would not really say he is any better e rosalinda. Blood pressure is a little more stable. Blood glucose has been a little more stable, but he is still currently drowsy. The myoclonus is perhaps a little bit better. Labs reviewed. His hemogl obin is still 8.6, creatinine is a little better at 1.3, albumin is low. He has some abdominal diste ntion. KUB demonstrated ascites. Physical Examination: Vital Signs: 97.8, 60, 18, 114/60. General: He is awake. He recognizes me. He is drowsy. HEENT: Pupils reactive. Ocular motion full. Beauchamp full. NEUROLOGIC: Strength is 4+. Primarily flexion type of myoclonus with a slight resting tremor and mi ld cogwheeling. Sensation decreased distally. Reflex is suppressed. Impression: Myoclonus neuropathy. Plan: We will decrease gabapentin down to 100 at night. He has an echo pending. B1 level is pendin g. Check EEG. BK/MODL Voice ID: [id number] Report ID: [id number]
--- NOTE | 2021-11-12 15:33 | PN ---
Date of Progress Note: 11/12/2021 Subjective: The patient was admitted to the hospital with acute kidney injury. The patient's upon a rrival to the hospital creatinine was 1.5 and GFR down to the 44. The patient was started on hydrati on. Kidney function started being improving. The patient also had hypoglycemia, treated, recovered. Today, the patient feeling better. Physical Examination: Vital Signs: Blood pressure 133/64, pulse of 60, afebrile. The patient had voiding 3 times. The pa tient positive balance. Chest: Clear to auscultation. Heart: S1, S2. Regular. Abdomen: Soft, nontender. Extremity: No edema. Neuro: Alert. No focality. Laboratory Data: WBC 9, H and H 8.7/26.7, platelet 263. Sodium 141, potassium 4.2, bicarb 22, BUN 3 4, creatinine 1.1, GFR of 60, calcium 8.6, iron saturation of 13, ferritin of 57. Serum protein elec trophoresis is still pending. PC ratio 0.07. Current Medications: The patient on include Eliquis 5 mg b.i.d., ferrous sulfate, amiodarone 400 wili ly, atorvastatin, Zetia, Tylenol, gabapentin 100 daily, Zofran, and Pepcid. Assessment And Plan: 1.Acute kidney injury secondary to prerenal, recovered, resolved, currently the patient euvolemic. We will maintain the patient on the TPN and we will follow up. 2.Hypotension. Blood pressure has been stabilized on the midodrine. Running systolic around 110 to 130 on midodrine 10 t.i.d. I am going to go ahead and adjust the midodrine to b.i.d. and we will co ntinue to monitor blood pressure. The patient cleared from the Renal standpoint for discharge planni . 3.Iron deficiency anemia with the presence of acute kidney injury. Light chain disease to be ruled out. Serum protein electrophoresis is still pending. We will follow up as outpatient. Continue ora l iron supplement. 4.Deconditioning. Continue PT, OT. ALISSA/MODL Voice ID: [id number] Report ID: [id number]
[2021-11-12] MEDS: ATORVASTATIN 80 MG TAB PO SCH (20:53)
[2021-11-12] MEDS: EZETIMIBE 10 MG TAB PO SCH (20:53)
[2021-11-12] MEDS: GABAPENTIN 100 MG CAP PO SCH (20:53)
[2021-11-12] MEDS: AMIODARONE HCL 200 MG TAB PO SCH (21:55)
--- NOTE | 2021-11-13 00:30 | PN ---
Date of Progress Note: 11/12/2021 Time: 1915 hours. Interval History: The patient looks a little better today. EEG is still pending. He is having some coughing when he eats, so we will order a Speech Therapy consult. He has been accepted at [facility], so we would just need to be sure he is safe to swallow and follow up on some of the outstanding stud ies, and then I think he can be discharged safely. He will need some type of intensive therapy. He lives cannot really get to the front door at this point. Physical Examination: Vital Signs: He is afebrile. Vitals are stable. General: He is awake, alert. HEENT: Pupils reactive. Ocular motion full. Beauchamp full. NEUROLOGIC: Strength greater than 4+. Still has intermittent myoclonic type tremor. Sensation decr eased distally. Reflexes trace. Toes are downgoing. Impression: Myoclonus, neuropathy, dysphagia. Plan: EEG and Speech Therapy evaluation at least prior to discharge. Thank you for the consult. We will continue to follow. ADRIANA/FIDEL Voice ID: [id number] Report ID: [id number]
[2021-11-13 04:32] LABS: Albumin, (SPE) 2.4 g/dL (3.8-4.8); Alpha-1-Globulins 0.3 g/dL (0.2-0.3); Alpha-2-Globulins 0.6 g/dL (0.5-0.9); Gamma Globulins 0.7 g/dL (0.8-1.7); INTERPRETATION Consistent with
[2021-11-13 05:57] LABS: Hematocrit 25.4 % (39.6-49.0); MPV 8.3 fL (7.6-11.3); RBC Red Blood Cell Count 2.86 M/uL (4.33-5.43)
[2021-11-13 06:15] LABS: Magnesium 2.2 mg/dL (1.8-2.4)
--- NOTE | 2021-11-13 06:22 | P.PN ---
Date of Service: 11/13/21 Subjective: improving more energy/.strength eating more emesis after eating last night coughing and having to clear throat more, concern for aspiration ROS: 10 point ROS as noted above, otherwise negative Physical exam GEN: sleeping, but awakens easily, orientedx3, but slight confusion HEENT: Normal conjunctiva, sclera anicteric CV: Regular rate and rhythm, no edema Pulm: Non-labored respirations on room air ABD: Soft, nontender, nondistended Neuro: Normal speech, normal affect, b/l hand tremor mild (myoclonic) Problem List Generalized weakness Debility DM2, fsg-yjejgub-nxvdeoktk; with hyperglycemia Anorexia A. fib, chronic anticoagulation; s/p recent Watchman procedure ~2 weeks ago NADEGE, resolved NAEDGE resolved, with gentle IVF, nephrology following BP improved, no longer needing midodrine last night and this morning, continue to monitor through today off midodrine echo without pericardial effusion Normal cortisol level. Doubt adrenal insufficiency Continue to hold antihypertensives. Continue Eliquis for A. fib. glucose stable; suspect secondary to decreased PO intake and hypoglycemic medication PO intake improving speech consulted 11/13, monitor through today Patient seen by neurology. Myoclonic tremors noted and improving Gabapentin dose reduced. EEG done 11/12 Continue PT, protein supplementation, diet as tolerated. unable to obtain MRI secondary to pacemaker Disposition: SNF, tomorrow; moniting BP off midodrine, and swallowing function Time Spent Managing Pts Care (In Minutes): 35
--- NOTE | 2021-11-13 07:26 | ECHO ---
HEIGHT: 5 ft 7.5 in WEIGHT: 190 lb 11.2 oz DATE OF STUDY: 11/12/[address]: Yinka Rodriguez MD 2-DIMENSIONAL: YES M.MODE: YES DOPPLER: YES COLOR FLOW: YES TDS: NO PORTABLE: YES DEFINITY: NO BUBBLE STUDY: NO DIAGNOSIS: RULE OUT PERICARDIAL EFFUSION, STATUS POST RECENT WATCHMAN PROCEDURE CARDIAC HISTORY: CATHERIZATION: NO SURGERY: NO PROSTHETIC VALVE: NO PACEMAKER: YES MEASUREMENTS (cm) DIASTOLIC (NORMALS) SYSTOLIC (NORMALS) IVSd 1.0 (0.6-1.2) LA Diam 3.0 (1.9-4.0) LVEF 65% LVIDd 3.8 (3.5-5.7) LVIDs 2.5 (2.0-3.5) %FS 35% LVPWd 1.2 (0.6-1.2) Ao Diam 3.0 (2.0-3.7) 2 DIMENSIONAL ASSESSMENT: RIGHT ATRIUM: NORMAL LEFT ATRIUM: NORMAL RIGHT VENTRICLE: NORMAL LEFT VENTRICLE: NORMAL TRICUSPID VALVE: NORMAL MITRAL VALVE: MITRAL ANNULAR CALCIFICATION PULMONIC VALVE: NORMAL AORTIC VALVE: NORMAL PERICARDIAL EFFUSION: NONE AORTIC ROOT: NORMAL LEFT VENTRICULAR WALL MOTION: NORMAL DOPPLER/COLOR FLOW: NORMAL COMMENTS: MITRAL ANNULAR CALCIFICATION. STATUS POST WATCHMAN. NORMAL LEFT VENTRICULAR EJECTION FRACTION AND SIZE. NO EFFUSION. TECHNOLOGIST: Yaneth CONTRERAS
[2021-11-13] MEDS: INSULIN -REGULAR HUMAN 50 UNIT/0.5 ML ML SQ SCH ×4 (07:30→21:00)
[2021-11-13 07:38] LABS: KAPPA LIGHT CHAIN, FREE SERUM 52.3 mg/L (3.3-19.4)
[2021-11-13] MEDS: MIDODRINE HCL 5 MG TABLET PO SCH (08:59)
[2021-11-13] MEDS: AMINO ACIDS/PROTEIN HYDROLYS 30 ML LIQUID.PKT PO SCH (09:00)
[2021-11-13] MEDS: FERROUS SULFATE 325 MG TAB PO SCH (09:05)
[2021-11-13] MEDS: JUVEN PACKET PO SCH ×2 (09:05→20:38)
[2021-11-13] MEDS: GLUCERNA SHAKE 237 ML CAN PO SCH ×2 (09:05→20:38)
[2021-11-13] MEDS: ASCORBIC ACID 500 MG TABLET PO SCH (09:06)
[2021-11-13] MEDS: VITAMIN D 1000 UNIT TAB PO SCH (09:06)
[2021-11-13] MEDS: APIXABAN 5 MG TABLET PO SCH ×2 (09:06→20:36)
[2021-11-13] MEDS: FAMOTIDINE 20 MG TAB PO SCH (09:06)
[2021-11-13] MEDS: THIAMINE 200 MG/2 ML INJ IVP SCH (09:07)
[2021-11-13 09:59] LABS: Vitamin D 1,25-Dihydroxy Total 14 pg/mL (18-72); Vitamin D,1,25-OH2, D2 <8 pg/mL
[2021-11-13] MEDS ORDERED: BISACODYL 10 MG RECTAL SUPP PR ONE (11:35)
--- NOTE | 2021-11-13 15:44 | PN ---
Date of Progress Note: 11/13/2021 Subjective: The patient was admitted with acute kidney injury, low blood pressure, maintained on mid odrine. The patient's kidney function has been improved. Yesterday, we decreased the midodrine to b .i.d., blood pressure stayed stable. Kidney function continued to improve. Physical Examination: Vital Signs: Blood pressure 128/64, pulse of 61, afebrile. The patient voiding. Chest: Clear to auscultation. Heart: S1, S2. Regular. Systolic murmur. Abdomen: Soft, nontender. Extremity: No edema. Neuro: Alert. No focality. Laboratory Data: WBC 8.2, H and H 8.5/25.4, platelets 243. Sodium 141, potassium 4, bicarb 22, BUN 34, creatinine down to 1.1, GFR of 62, calcium 8.5, magnesium 2.2. Current Medications: The patient on include midodrine 10 mg b.i.d., Eliquis 5 mg b.i.d., ferrous sul fate, atorvastatin 80 mg daily, amiodarone 400 daily, gabapentin, Januvia, Zofran, Pepcid, and thiami ne. Assessment And Plan: 1.Acute kidney injury secondary to prerenal, continued to recover, resolve. 2.Hypotension, currently midodrine dependent. We tapered on midodrine yesterday. We will monitor f or another day. If blood pressure continued to be stable, I am going to go ahead and decrease it to 5 mg b.i.d. We will continue to monitor. 3.Iron deficiency anemia. Continue oral iron. 4.Anemia with the presence of acute kidney injury and the hypotension, serum protein electrophoresis , possible M-spike. I am going to go ahead and send for immunofixation and we will follow up. ALISSA/FIDEL Voice ID: [id number] Report ID: [id number]
[2021-11-13] MEDS: AMIODARONE HCL 200 MG TAB PO SCH (20:35)
[2021-11-13] MEDS: EZETIMIBE 10 MG TAB PO SCH (20:35)
[2021-11-13] MEDS: DOCUSATE NA 100 MG CAP PO SCH (20:36)
[2021-11-13] MEDS: ATORVASTATIN 80 MG TAB PO SCH (20:36)
[2021-11-13] MEDS: GABAPENTIN 100 MG CAP PO SCH (20:36)
[2021-11-14 06:00] LABS: Albumin 2.1 g/dL (3.4-5.0); Magnesium 2.3 mg/dL (1.8-2.4); Potassium 4.2 mmol/L (3.5-5.1)
[2021-11-14] MEDS: INSULIN -REGULAR HUMAN 50 UNIT/0.5 ML ML SQ SCH (07:30)
--- NOTE | 2021-11-14 08:51 | P.DS ---
Admission Date: 11/07/21 Discharge Date: 11/14/21 Primary Care Provider: Dr. Lowry Disposition: TRANSFER TO SNF - REHAB Discharge Condition: FAIR Reason for Admission: Hypoglycemia Vital Signs/Physical Exam: Temp Pulse Resp BP Pulse Ox 97.1 F 60 17 131/57 L 96 11/14/21 04:00 11/14/21 04:00 11/14/21 04:00 11/14/21 04:00 11/14/21 04:00 Laboratory Data at Discharge: WBC 8.2 K/uL (4.3-10.9) 11/13/21 05:19 Hgb 8.5 g/dL (13.6-17.9) L 11/13/21 05:19 Hct 25.4 % (39.6-49.0) L 11/13/21 05:19 Plt Count 243 K/uL (152-406) 11/13/21 05:19 Sodium 143 mmol/L (136-145) 11/14/21 05:26 Potassium 4.2 mmol/L (3.5-5.1) 11/14/21 05:26 BUN 33 mg/dL (7-18) H 11/14/21 05:26 Creatinine 1.18 mg/dL (0.55-1.3) 11/14/21 05:26 Glucose 161 mg/dL (74-106) H 11/14/21 05:26 Phosphorus 2.0 mg/dL (2.5-4.9) L 11/14/21 05:26 Magnesium 2.3 mg/dL (1.8-2.4) 11/14/21 05:26 Total Bilirubin 0.9 mg/dL (0.2-1.0) 11/10/21 05:56 AST 93 U/L (15-37) H 11/10/21 05:56 ALT 42 U/L (12-78) 11/10/21 05:56 Alkaline Phosphatase 97 U/L (45-117) 11/10/21 05:56 Triglycerides 92 mg/dL (<150) 11/08/21 05:13 Cholesterol 65 mg/dL (<200) 11/08/21 05:13 HDL Cholesterol 14 mg/dL (40-60) L 11/08/21 05:13 Cholesterol/HDL Ratio 4.64 11/08/21 05:13 Home Medications: Atorvastatin Calcium [Lipitor] 80 mg PO BEDTIME 01/12/20 Ezetimibe 10 mg PO BEDTIME 01/12/20 Fenofibrate 160 mg PO BEDTIME 01/12/20 Omeprazole [Prilosec] 40 mg PO VOBEO6EN 01/12/20 Ascorbic Acid [Vitamin C*] 1,000 mg PO DAILY 12/07/20 Amiodarone HCl [Pacerone] 400 mg PO BEDTIME 11/08/21 Apixaban [Eliquis] 5 mg PO BID 11/08/21 Ferrous Sulfate [Iron] 325 mg PO DAILY 11/08/21 Cholecalciferol (Vitamin D3) [Vitamin D 1000 Iu Tab*] 2,000 unit PO DAILY tab 11/14/21 Gabapentin [Neurontin*] 100 mg PO BEDTIME cap 11/14/21 Glucerna Shake [Glucerna*] 237 ml PO BID can 11/14/21 Dylan [Dylan*] 1 pkt PO BID powd.pack 11/14/21 Physician Discharge Instructions: Generalized weakness / debility and confusion. Unclear etiology. Most likely related to decreased PO intake and hypoglycemia. No evidence of infection. There was concern for possible stroke, however, patient without any focal find ings on exam. CT head negative. MRI unable to be performed here due to pacemaker. Pericardial effusion ruled out by echo. Patient also noted to have b/l hand myoclonic tremors which was more pronounced lately. Neurology (Dr. Lowry was consulted). Gabapentin dose decreased. Patient had improvement of his cognition / strength / glucose / tremors throughout hospitalization. He was noted to be coughing / clearing throat more than usual with meals as well. Speech therapy evaluated patient on 11/13 and recommended: Patient was noted to be hypotensive and NADEGE on presentation. Improved with IV fluids, and did require midodrine (dc'd on 11/12) and stable for ~48hrs off midodrine. discontinue diabetic medications, slowly restart as he improves and becomes hyperglycemic. stop anti-hypertensives. monitor blood pressure, discuss with PCP / Cardiology about restarting if blood pressure becomes elevated as he continues to improve. Continue Eliquis s/p Watchman per Cardiology. Patient to follow up in a few weeks, to have MARC and discuss when to discontinue Eliquis. Activity: Fall precautions Followup: Unknown,U [Primary Care Provider] -
[2021-11-14] MEDS: DOCUSATE NA 100 MG CAP PO SCH (09:00)
[2021-11-14] MEDS: ASCORBIC ACID 500 MG TABLET PO SCH (09:00)
[2021-11-14] MEDS: FERROUS SULFATE 325 MG TAB PO SCH (09:00)
[2021-11-14] MEDS: JUVEN PACKET PO SCH (09:00)
[2021-11-14] MEDS: VITAMIN D 1000 UNIT TAB PO SCH (09:00)
[2021-11-14] MEDS: FAMOTIDINE 20 MG TAB PO SCH (09:00)
[2021-11-14] MEDS: APIXABAN 5 MG TABLET PO SCH (09:00)
[2021-11-14] MEDS: GLUCERNA SHAKE 237 ML CAN PO SCH (09:00)
[2021-11-14] MEDS: THIAMINE 200 MG/2 ML INJ IVP SCH (09:00)
[2021-11-14 09:12] VITALS: BP 112/58; TEMP 97.8
--- NOTE | 2021-11-14 09:27 | PN ---
Date of Progress Note: 11/13/2021 The patient has been followed for atrial fibrillation. Recent Watchman procedure. There were some c oncerns that he may have a pericardial effusion. Echocardiogram, however, which was done showed norm al ejection fraction. Evidence of a Watchman in the left atrial appendage. No thrombus. Normal eje ction fraction. No wall motion abnormalities and no effusion. He will sign off his case for now. Kaelyn cruz is due to see us in the office soon to set up a transesophageal echocardiogram by Dr. Del Toro. Cont inue present regimen. He can go home whenever it is okay with admitting physician. GONZALO/FIDEL Voice ID: [id number] Report ID: [id number]
--- NOTE | 2021-11-14 15:18 | PN ---
Date of Progress Note: 11/14/2021 Subjective: The patient is doing better. No event. Physical Examination: Vital Signs: Blood pressure 112/58, pulse of 60, afebrile. Chest: Clear to auscultation. Heart: S1, S2. Regular. Abdomen: Soft, nontender. Extremity: No edema. Neurologic: Alert. No focality. Laboratory Data: WBC 8.2, H and H 8.5/25.4, platelet 243. Sodium 143, potassium 4.2, bicarb 23, BUN 33, creatinine 1.1, calcium 8.7, phosphorus of 2, magnesium 2.3. Current Medications: The patient on include; 1. Eliquis. 2. Ferrous sulfate. 3. Amiodarone. 4. Zetia. 5. Gabapentin. 6. Pepcid. 7. Docusate. Assessment And Plan: 1. Acute kidney injury secondary to prerenal, recovered, resolved. We will continue to monitor the patient. 2. Hypotension. The patient off midodrine, responding very well. We will keep holding. 3. Proteinuria with anemia. Serum protein electrophoresis was negative. Immunoelectrophoresis also was negative. Light chain disease has been ruled out any outpatient proteinuria, so minimal. We will continue to monitor the patient. 4. Iron deficiency anemia. We will continue the patient on iron supplement. 5. Acidosis, resolved. Time spent examining the patient [id number] placing order reviewing the data lab and radiology discussing with the patient by bedside discussing with the staff including nursing and hospitalist 35 minutes JO Voice ID: [id number] Report ID: [id number] MTDRaul
--- NOTE | 2021-11-21 14:46 | EEG ---
CHART: [id number] TEST ID#: [id number] DATE OF STUDY: 11/12/2021 THE EEG WAS RECORDED PORTABLE IN THE PATIENT'S ROOM ON A 17 CHANNEL MACHINE. ELECTRODES WERE APPLIED IN THE USUAL MANNER USING THE INTERNATIONAL 10-20 SYSTEM. THE WAKING BACKGROUND RHYTHM IN THIS RECORD CONSISTS OF WELL DEVELOPED AND WELL ORGANIZED WAVES OF 4.5 HZ., IN A WIDE DISTRIBUTION WHICH DO NOT ATTENUATE NORMALLY WITH EYE OPENING. MODERATE VOLTAGE 1.5-3 HZ MIXED WITH LOW-VOLTAGE 15-18 HZ ACTIVITY IS EXPRESSED IN THE FRONTAL REGIONS. THERE ARE NO FOCAL OR LATERALIZING FEATURES. NO EPILEPTIFORM ACTIVITY APPEARS. SLEEP DID NOT OCCUR. HYPERVENTILATION WAS NOT PERFORMED. PHOTIC STIMULATION PRODUCED NO DRIVING BILATERALLY. IMPRESSION: THIS IS A MODERATELY ABNORMAL ROUTINE EEG DUE TO A MODERATELY SLOW BACKGROUND AND NO WELL EXPRESSSED POSTERIOR DOMINANT RHYTHM. THESE FINDINGS ARE CONSISTENT WITH A MODERATE NON-SPECIFIC DIFFUSE DISTURBANCE IN CEREBRAL FUNCTION.
== END 2021-11-14 11:54 | DRG 638 ==
LOC: ER 20:51 → ERHOLD 23:26 → 2ND 11-08 00:37
PROVIDERS: ADMIT Internal Medicine; ATTEND Internal Medicine
DX: E11.649 Type 2 diabetes mellitus with hypoglycemia without coma (principal); I48.20 Chronic atrial fibrillation, unspecified; E44.0 Moderate protein-calorie malnutrition; N17.0 Acute kidney failure with tubular necrosis; I95.9 Hypotension, unspecified; E78.5 Hyperlipidemia, unspecified; I12.9 Hypertensive chronic kidney disease with stage 1 through stage 4 chronic kidney disease, or unspecified chronic kidney disease; E11.22 Type 2 diabetes mellitus with diabetic chronic kidney disease; N18.32 Chronic kidney disease, stage 3b; I25.10 Atherosclerotic heart disease of native coronary artery without angina pectoris; E78.2 Mixed hyperlipidemia; D50.9 Iron deficiency anemia, unspecified; R80.9 Proteinuria, unspecified; R63.0 Anorexia; R53.1 Weakness; Z68.29 Body mass index [BMI] 29.0-29.9, adult; L89.152 Pressure ulcer of sacral region, stage 2; K59.04 Chronic idiopathic constipation; E88.09 Other disorders of plasma-protein metabolism, not elsewhere classified; E11.40 Type 2 diabetes mellitus with diabetic neuropathy, unspecified; G25.2 Other specified forms of tremor; Z85.038 Personal history of other malignant neoplasm of large intestine; Z95.0 Presence of cardiac pacemaker; Z79.01 Long term (current) use of anticoagulants; Z79.82 Long term (current) use of aspirin; R53.81 Other malaise; Z87.891 Personal history of nicotine dependence; Z20.822 Contact with and (suspected) exposure to COVID-19
CPT/HCPCS: 0240U; 36415; 70450; 71045; 71250; 74018; 74176; 80048; 80053; 80061; 80069; 81003; 81015; 82024; 82140; 82306; 82533; 82550; 82570; 82607; 82627; 82652; 82728; 82746; 82947; 83036; 83520; 83540; 83735; 83880; 83935; 84100; 84132; 84156; 84165; 84166; 84300; 84425; 84439; 84443; 84466; 84484; 85025; 85027; 85044; 86038; 86334; 87070; 87205; 92610; 93306; 95819; 96374; 97110; 97112; 97116; 97161; 97530; 99285; J1815; J2405; J3411; J7799; U0003

== ENCOUNTER 2021-11-22 19:18 | Inpatient (IN) | payer OTHER, MEDICARE ==
--- OUTSIDE RECORDS SUMMARY | 2021-11-22 19:21 | XMS REPORT | Continuity of Care Document ---
:1940 Author Organization [facility] t Address [address] [place] [address] Care Team Providers Name Role Phone Raslan [...] [facility] Allergie 3-21 Clear s 00:00: [facility] No Known DA Active U 2002- [facility] Contrast 4-14 Clear Allergie 00:00: [facility] No Known DA Active U 2002- [facility] Drug 4-14 Clear Allergie 00:00: [facility] No Known DA Active U 2002-0 [facility] Food 4-14 Clear Allergie 00:00: [facility] No Known DA Active U 2002-0 [facility] Other 4-14 Clear Allergie 00:00: [facility] No Known DA Active U 2000- [facility] Drug 0-29 Clear Intolera 00:00: [facility] Medications This patient has no known medications. Procedures Procedure Date / Time Performed Performing Clinician Shashi cruz [id number] 2021-10-23 00:00:00 RASSA [facility] Clear La [facility] Encounters Start End Encounter Admission Attending Care Care Encounter Source Date/Time Date/Time Type Type Clinicians Facility Department ID 2021-10-21 Inpatient AFSHAN Erickson OUTD [id number] [facility] 11:30:00 Mohinder [id number] [facility] 2021-10-23 2021-10-24 Inpatient AFSHAN Erickson INTE.02 [id number] [facility] 11:58:00 11:32:00 Mohinder [id number] [facility] 2021-10-23 2021-10-23 Inpatient AFSHAN Erickson INTE.02 [id number] [facility] 11:58:00 11:58:00 Mohinder 45 [facility] Results Test Description Test Time Test Comments Results Result Comments Source GLUCOSE BEDSIDE 2021-10-24 09:10:00 Test Item Value Reference Range Interpretation Comme nts GLUCOSE BEDSIDE (test code = 93 MG/DL 70-110 N Performed by certified road equipment operator at [facility]) [facility] GLUCOSE [id number] 08:25:00 Test Item Value Reference Range Interpretation Comments GLUCOSE BEDSIDE (test 55 MG/DL 70-110 L Perfor med by certified code = GLUBED) road equipment operator at [facility] GLUCOSE [id number] 08:25:00 Test Item Value Reference Range Interpretation Comments GLUCOSE BEDSIDE (test 47 MG/DL 70-110 L Perfor med by certified code = GLUBED) road equipment operator at [facility] GLUCOSE [id number] 21:38:00 Test Item Value Reference Range Interpretation Comments GLUCOSE BEDSIDE (test 172 MG/DL 70-110 H Perfor med by certified code = GLUBED) road equipment operator at [facility] GLUCOSE [id number] 18:13:00 Test Item Value Reference Range Interpretation Comments GLUCOSE BEDSIDE (test 145 MG/DL 70-110 H Perfor med by certified code = GLUBED) road equipment operator at [facility] GLUCOSE [id number] 11:44:00 Test Item Value Reference Range Interpretation Comments GLUCOSE BEDSIDE (test 68 MG/DL 70-110 L Perfor med by certified code = GLUBED) road equipment operator at [facility] [id number] 11:02:00 Test Item Value Reference Range Interpretation Comments ACT-ISTAT (test code 231 SEC 74-137 H Perform ed by certified = ACTI) road equipment operator at [facility] GLUCOSE [id number] 08:03:00 Test Item Value Reference Range Interpretation Comments GLUCOSE BEDSIDE (test 94 MG/DL 70-110 N [facility] med by certified code = GLUBED) road equipment operator at [facility] - XR CHEST 1 [id number] 00:00:00 [facility] : 1940 Sex: M FAX: Mohinder Merritt MD [phone] [place]: St: ADM FAX:Clinton Hunt [phone] Name: ERMELINDA BENSON [facility] : 1940 Age/S: 81/M [address] [place] [address] Unit #: [id number] Loc: [place] [address] Phys: Clinton Hunt CERTIFIED ENERGY MANAGER Acct: [id number] Dis Date: Status: ADM IN PHONE #: [phone] Exam Date: 10/23/2021 1302 FAX #: [phone] Reason: WATCHMAN EXAMS: CPT CODE: [id number] XR CHEST 1 V 20706 PROCEDURE INFORMATION: Exam: XR Chest Exam date [...] IMPRESSION: 1. No acute cardiopulmonary abnormality. at 7816 Reported and signed by: Guillermo Berry M.D. CC: Mohinder Del Toro MD; Clinton Hunt Technologist: RT Levar(R) Trnscrd Date/Time/By: 10/23/2021 (5333) : By: [email or web address] Orig Print D/T: S: 10/23/2021 (7355) PAGE 1 Signed ReportNovel Coronavirus 2019 [id number] 00:41:00 Test Item Value Reference Range Interpretation [...] det ection of nucleic acids f rom [id number] v irus and diagnosis of SA RS-CoV-2 virusinfection. It is an Emergency Use Authorization ( EUA) testauthorized by the U.S. FDA. BASIC METABOLIC [id number] 12:25:00 Test Item Value Reference Range Interpretation [...] code = 9.4 mg/dL 8.0-10.5 N CA) [id number] 12:25:00 Test Item Value Reference Range Interpretation Comments PREALBUMIN (test code = PREALB) 13.4 mg/dL 16.0-40.0 L PROTHROMBIN [id number] 12:24:00 Test Item Value Reference Range Interpretation [...] o prevent recurre nt infarct). CBC W/AUTO [id number] 12:20:00 Test Item Value Reference Range Interpretation [...] 0.0-0.1 N NRBC#) - XR CHEST 2 [id number] 00:00:00 [facility] : 1940 Sex: M FAX: Mohinder Mreritt MD [phone] [place]: St: PRE Name: ERMELINDA BENSON [facility] : 1940 Age/S: 81/M [address] [place] [address] Blvd Unit #: [id number] Loc: [place] [address] Phys: Mohinder Del Toro MD Acct: [id number] Dis Date: Status: PRE [facility] PHONE #: [phone] Exam Date: 10/21/2021 1244 FAX #: [phone] Reason: PREOP EXAMS: CPT CODE: [id number] XR CHEST 2 V 54510 PROCEDURE INFORMATION: Exam: XR Chest Exam date [...] MD Technologist: RT Christi(R) Trnscrd Date/Time/By: 10/21/2021 (6123) : By: [email or web address] Orig Print D/T: S: 10/21/2021 (1986) PAGE 1 Signed Report
--- NOTE | 2021-11-22 20:24 | RAD REPORT ---
EXAM DESCRIPTION: Katelin Single View11/22/2021 8:13 pm CLINICAL HISTORY: Congestion COMPARISON: November 08, 2021 FINDINGS: The lungs appear clear of acute infiltrate. The heart is mildly enlarged. Postsurgical ch anges involve the chest. Pacemaker leads in place. Chronic elevation right hemidiaphragm IMPRESSION: No acute abnormalities displayed
[2021-11-22 20:27] LABS: Absolute Lymphocytes (CBC) 0.5 K/uL (0.7-4.9); Hematocrit 27.9 % (39.6-49.0); Lymphocytes % 3.4 % (15.3-44.8); MPV 8.5 fL (7.6-11.3); RBC Red Blood Cell Count 3.07 M/uL (4.33-5.43)
[2021-11-22 20:47] LABS: Potassium 4.3 mmol/L (3.5-5.1); Troponin High Sensitivity 19.6 pg/mL (<58.9)
[2021-11-22 21:33] LABS: White Blood Cell Scan OK (OK)
[2021-11-22 21:34] LABS: Anisocytosis 2+; Blood Morphology Comment NOTED (NOT SEEN); Platelet Estimate ADEQ; Polychromasia SLIGHT
--- NOTE | 2021-11-23 00:05 | EDPHYS ---
Physician Documentation [facility] Name: Matthew Ansari Age: 81 yrs Sex: Male : 1940 Arrival Date: 11/22/2021 Time: 19:28 Bed 20 Private MD: ED Physician Hilario Jackson HPI: 11/22 20:26 This 81 yrs old Male presents to ER via EMS with complaints of Low Blood Sugar. kdr 20:27 The patient or guardian reports hypoglycemia. Onset: The symptoms/episode kdr began/occurred suddenly, just prior to arrival. Associated signs and symptoms: Pertinent positives: None. Pertinent negatives: None. Current symptoms: In the emergency department the patient's symptoms have improved, mildly. The patient has experienced similar episodes in the past, several times. The patient has been recently seen at the [facility] Emergency Department, November 08. Patient was noted to have low blood sugar approximately 50 at the retirement. EMS was called and given 150 mL of D5 and some sublingual glucose. Patient's subsequent glucose reading was 106.. Historical: - PMHx: 19:50 Atrial Fib; Diabetes - NIDDM; High Cholesterol; Hypertension; ana - PSHx: 19:50 pacemaker; ana - Immunization history:: Client reports receiving the 2nd dose of the Covid vaccine. - Social history:: Smoking status: Patient denies any tobacco usage or history of. ROS: 20:28 Constitutional: Negative for fever, chills, and weight loss, Eyes: Negative for injury, kdr pain, redness, and discharge, ENT: Negative for injury, pain, and discharge, Neck: Negative for injury, pain, and swelling, Cardiovascular: Negative for chest pain, palpitations, and edema, Respiratory: Negative for shortness of breath, cough, wheezing, and pleuritic chest pain, Abdomen/GI: Negative for abdominal pain, nausea, vomiting, diarrhea, and constipation, Back: Negative for injury and pain, : Negative for injury, bleeding, discharge, and swelling, MS/Extremity: Negative for injury and deformity, Skin: Negative for injury, rash, and discoloration, Neuro: Negative for headache, weakness, numbness, tingling, and seizure activity. Psych: Negative for depression, anxiety, suicide ideation, homicidal ideation, and hallucinations, Allergy/Immunology: Negative for hives, rash, and allergies, Hematologic/Lymphatic: Negative for swollen nodes, abnormal bleeding, and unusual bruising. 20:28 Endocrine: Positive for none. Exam: 20:25 Constitutional: This is a well developed, well nourished patient who is awake, alert, kdr and in no acute distress. Head/Face: Normocephalic, atraumatic. Eyes: Pupils equal round and reactive to light, extra-ocular motions intact. Lids and lashes normal. Conjunctiva and sclera are non-icteric and not injected. Cornea within normal limits. Periorbital areas with no swelling, redness, or edema. Neck: Trachea midline, no thyromegaly or masses palpated, and no cervical lymphadenopathy. Supple, full range of motion without nuchal rigidity, or vertebral point tenderness. No Meningismus. Chest/axilla: Normal chest wall appearance and motion. Nontender with no deformity. No lesions are appreciated. Cardiovascular: Regular rate and rhythm with a normal S1 and S2. No gallops, murmurs, or rubs. Normal PMI, no JVD. No pulse deficits. Respiratory: Lungs have equal breath sounds bilaterally, clear to auscultation and percussion. No rales, rhonchi or wheezes noted. No increased work of breathing, no retractions or nasal flaring. Abdomen/GI: Soft, non-tender, with normal bowel sounds. No distension or tympany. No guarding or rebound. No evidence of tenderness throughout. Back: No spinal tenderness. No costovertebral tenderness. Full range of motion. Skin: Warm, dry with normal turgor. Normal color with no rashes, no lesions, and no evidence of cellulitis. MS/ Extremity: Pulses equal, no cyanosis. Neurovascular intact. Full, normal range of motion. Neuro: Awake and alert, GCS 15, oriented to person, place, time, and situation. Cranial nerves II-XII grossly intact. Motor strength 5/5 in all extremities. Sensory grossly intact. Cerebellar exam normal. Normal gait. Psych: Awake, alert, with orientation to person, place and time. Behavior, mood, and affect are within normal limits. 20:25 ECG was reviewed by the Attending Physician. Vital Signs: 19:46 BP 92 / 59; Pulse 68; Resp 18; Temp 96.8(TE); Pulse Ox 97% on R/A; Pain 0/10; ana 19:50 BP 92 / 59; Pulse 68; Resp 18; Temp 96.8(TE); Pulse Ox 97% on R/A; Pain 0/10; ana 20:36 BP 113 / 51; Pulse 67; Resp 14; Temp 96.8(TE); Pulse Ox 99% on R/A; Pain 0/10; ana 22:11 BP 105 / 57; Pulse 68; Resp 16; Temp 97.5(TE); Pulse Ox 98% on R/A; Pain 0/10; ana 23:39 BP 98 / 58; Pulse 69; Resp 18; Pulse Ox 97% on R/A; Pain 0/10; ana 11/23 00:21 BP 101 / 78; Pulse 65; Resp 18; Temp 97.3; Pulse Ox 95% on R/A; Pain 0/10; ana 01:22 BP 100 / 66; Pulse 60; Resp 18; Pulse Ox 96% on R/A; Pain 0/10; ana 02:13 BP 117 / 50; Pulse 64; Resp 16; Temp 97.5(TE); Pulse Ox 97% on R/A; Pain 00/10; ana 03:34 BP 90 / 49; Pulse 65; Resp 16; Temp 97.5(TE); Pulse Ox 96% on R/A; ana MDM: 11/22 19:54 Patient medically screened. [place] 20:28 Data reviewed: vital signs, nurses notes, lab test result(s), radiologic studies. kdr Counseling: I had a detailed discussion with the patient and/or guardian regarding: the historical points, exam findings, and any diagnostic results supporting the discharge/admit diagnosis, lab results, radiology results, the need for outpatient follow up. 11/23 00:05 ED course: Patient continues to be moderately hypoglycemia. kdr 11/22 19:43 Order name: Basic Metabolic Panel; Complete Time: 21:50 kdr 11/22 19:43 Order name: CBC with Diff; Complete Time: 21:50 kdr 11/22 19:43 Order name: Troponin HS; Complete Time: 21:50 kdr 11/22 19:47 Order name: Glucose, Ancillary Testing; Complete Time: 20:25 EDMS 11/22 20:19 Order name: Glucose, Ancillary Testing; Complete Time: 20:25 EDMS 11/22 20:46 Order name: Glucose, Ancillary Testing; Complete Time: 21:50 EDMS 11/22 21:10 Order name: Glucose, Ancillary Testing; Complete Time: 21:50 EDMS 11/22 21:11 Order name: Glucose, Ancillary Testing; Complete Time: 21:50 EDMS 11/22 21:34 Order name: CBC Smear Scan; Complete Time: 21:50 EDMS 11/22 21:39 Order name: Glucose, Ancillary Testing; Complete Time: 21:50 EDMS 11/22 22:18 Order name: Glucose, Ancillary Testing; Complete Time: 23:14 EDMS 11/22 23:17 Order name: Glucose, Ancillary Testing; Complete Time: 00:00 EDMS 11/22 23:45 Order name: Glucose, Ancillary Testing; Complete Time: 00:00 EDMN 11/23 00:15 Order name: COVID-19/FLU A+B (Document "Date of Onset" if Symptomatic) tw5 11/22 19:43 Order name: XRAY Chest (1 view); Complete Time: 20:25 kdr 11/22 19:43 Order name: EKG; Complete Time: 19:44 kdr 11/22 19:43 Order name: Cardiac monitoring; Complete Time: 19:46 kdr 11/22 19:43 Order name: EKG - Nurse/Tech; Complete Time: 20:09 kdr 11/22 19:43 Order name: IV Saline Lock; Complete Time: 19:46 kdr 11/22 19:43 Order name: Labs collected and sent; Complete Time: 21:00 kdr 11/22 19:43 Order name: O2 Per Protocol; Complete Time: 19:46 kdr 11/22 21:51 Order name: CT Abd/Pelvis - IV Contrast Only [facility] 11/23 00:27 Order name: Glucose, Ancillary Testing EDMN 11/23 00:42 Order name: [facility] Cons EDMN 11/23 01:07 Order name: Glucose, Ancillary Testing EDMN 11/23 01:45 Order name: Glucose, Ancillary Testing EDMN 11/23 02:37 Order name: Glucose, Ancillary Testing EDMN 11/23 03:04 Order name: Glucose, Ancillary Testing EDMN 11/23 03:45 Order name: Glucose, Ancillary Testing EDMN 11/22 19:43 Order name: O2 Sat Monitoring; Complete Time: 19:46 kdr EC/22 20:25 Rate is 69 beats/min. Rhythm is regular, Paced with No ectopy. QRS [place] is Normal. MD kdr interval is normal. QRS interval is normal. QT interval is normal. Clinical impression: No evidence of ischemia and Paced. Administered Medications: 11/23 01:11 Drug: D10 in 250cc 1 application Route: IV; Rate: bolus; Site: right antecubital; ana 01:35 Follow up: Response: Blood sugar is elevated; IV Intake: 250ml ana Point of Care Testing: Blood Glucose: 11/22 19:35 Blood Glucose: 106 mg/dL; ana 20:09 Blood Glucose: 86 mg/dL; ana 20:35 Blood Glucose: 92 mg/dL; ana 21:00 Blood Glucose: 109 mg/dL; ana 21:31 Blood Glucose: 104 mg/dL; ana 22:00 Blood Glucose: 112 mg/dL; ana 22:30 Blood Glucose: 69 mg/dL; ana 23:06 Blood Glucose: 77 mg/dL; ana 11/23 00:15 Blood Glucose: 64 mg/dL; ana 00:57 Blood Glucose: 54 mg/dL; ana 01:34 Blood Glucose: 138 mg/dL; ana 02:25 Blood Glucose: 62 mg/dL; ana 02:52 Blood Glucose: 59 mg/dL; ana 03:28 Blood Glucose: 44 mg/dL; ana 04:26 Blood Glucose: 98 mg/dL; ana Ranges: Critical Glucose Levels:Adult <50 mg/dl or >400 mg/dl <40 mg/dl or >180 mg/dl Disposition Summary: 11/23/21 00:04 Hospitalization Ordered Hospitalization Status: Observation kdr Provider: Felipe Snow kdr Condition: Fair kdr Problem: an acute exacerbation kdr Symptoms: have improved kdr Bed/Room Type: Standard kdr Location: Intensive Care Unit(11/23/21 03:59) mw Room Assignment: 2-(11/23/21 03:59) mw Diagnosis - Hypoglycemia, unspecified kdr Forms: - Medication Reconciliation Form kdr - SBAR form kdr Signatures: Dispatcher [employer] EDYuli Treadwell RN RN Dante Gamino MD MD cha Rittger, Kevin, MD MD kdr O'Farrell, Brenda, RN RN bo Brown, Sophia, PA PA sb3 Corrections: (The following items were deleted from the chart) 02:10 00:04 kdr mw 03:59 00:04 Telemetry/Jorge (observation) [facility] 03:59 02:10 201 mw mw
--- NOTE | 2021-11-23 00:05 | ER ---
Nurse's Notes [facility] Name: Matthew Ansari Age: 81 yrs Sex: Male : 1940 Arrival Date: 11/22/2021 Time: 19:28 Bed 20 Private MD: Diagnosis: Hypoglycemia, unspecified Presentation: 11/22 19:46 Chief complaint: EMS states: "low blood sugar". Coronavirus screen: Vaccine status: ana Patient reports receiving the 2nd dose of the covid vaccine. Ebola Screen: Patient negative for fever greater than or equal to 101.5 degrees Fahrenheit, and additional compatible Ebola Virus Disease symptoms Patient denies exposure to infectious person. Patient denies travel to an Ebola-affected area in the 21 days before illness onset. Initial Sepsis Screen: Does the patient meet any 2 criteria? No. Patient's initial sepsis screen is negative. Does the patient have a suspected source of infection? Yes: Skin breakdown/wound. Risk Assessment: Do you want to hurt yourself or someone else? Patient reports no desire to harm self or others. Onset of symptoms was November 22, 2021. Care prior to arrival: 150 ml of D50, SL to rt ac 20g. 19:46 Method Of Arrival: EMS: [facility] ana 19:46 Acuity: RAMIRO 3 ana Triage Assessment: 19:50 General: Appears in no apparent distress. unkempt, Behavior is calm, cooperative. Pain: ana Denies pain. Historical: - PMHx: 19:50 Atrial Fib; Diabetes - NIDDM; High Cholesterol; Hypertension; ana - PSHx: 19:50 pacemaker; ana - Immunization history:: Client reports receiving the 2nd dose of the Covid vaccine. - Social history:: Smoking status: Patient denies any tobacco usage or history of. Screenin:56 Abuse screen: Denies threats or abuse. Denies injuries from another. Nutritional ana screening: No deficits noted. Tuberculosis screening: No symptoms or risk factors identified. Fall Risk None identified. Assessment: 19:52 Reassessment: Patient appears in no apparent distress at this time. The pt was yinka'sujatha ana from [facility] from [facility]. Per their report, the pt has had "low blood sugar all day" and on their arrival to the group home, it was found to be 50. The pt was given 150cc of D50 by EMS and a SL was started to his Rt AC. His bs was 106 \\T\\ 1935. The pt has a drsg to his Lt lower leg and a boot to his Rt lower leg. He is in a brief and is AAOx3. The pt is malodorous, coming from the group home. He is very pleasant. 20:36 Reassessment: The pt's , Jovana called. Her number is [phone]. She asked me to ana tell the pt that she loved him, so I did. He was disappointed by her not coming to the hospital, but I reminded him that she said she can't drive at night. 21:31 Reassessment: The pt tolerated the jello and apple juice well. When asked how he ana injured his left lower leg, he reports that it occurred when the staff was turning him, at [facility]. He states it was "an accident" and said it was "rough handling". I have asked the tech to assist me in cleaning the pt and doing a dressing change on his leg, so that I can assess the wound better. He is pleasant and cooperative. 22:11 Reassessment: The pt was just taken to CT via stretcher, but not before we were able to ana perform a bed bath and assess his skin. Under the boot on the rt foot, is a stage 1 wound to his heel, that I believe is due to rubbing against the boot. Kerlix was placed, after the leg and foot were cleaned, then the boot replaced. To his lt calf, there is a stage 2 wound that is weeping clear fluid. The leg was cleaned and kerlix was placed to the calf. To the pt's thoracic area of his back, is a dressing that is dated for today, that is covering the wound, as well as to his sacrum, another dressing is dated for today. The pt reports no pain to his distended abdomen and reports he doesn't know when his last bm was. 22:28 Reassessment: The pt is still in CT, when he returns, his glucose will be taken. ana 22:50 Reassessment: The pt was returned from CT and the radiology dept redressed the IV site. ana The bs will be taken javy. 23:40 Reassessment: The pt tolerated the rosalba crackers and apple juice. ana 11/23 01:02 Reassessment: I recv'd orders from the MD, as the pt's bs continues to drop. He ordered ana an amp of D50, but we are out in the pyxis and D10 250cc was substituted, per MD and charge nurse. 01:21 Reassessment: SL was checked for blood return and dressing was changed, prior to ana infusing the D10 in 250cc. The pt remains on the monitor. He is in NAD. We are awaiting a bed assignment upstairs. 02:10 Reassessment: The pt was changed, as he urinated and was able to help me and the other ana nurse, minimally, but he tried. The pt voided a great amount into his brief, had I been faster, he would have been able to use the urinal. 02:19 Reassessment: I called registration to "flip" the pt, as he has a bed assigned ana upstairs, 201. I also tried to call report, but the nurse will call me when she can take report. 02:27 Reassessment: I called the provider, as the pt continues to drop his sugar and the ana floor will not be able to handle the acuity. The order for D5 1/2 NS \\T\\ 75cc/h is in [employer], per the provider and will be hung now. She will up grade to ICU. I will wait till an ICU bed has been assigned to call report. Vital Signs: 11/22 19:46 BP 92 / 59; Pulse 68; Resp 18; Temp 96.8(TE); Pulse Ox 97% on R/A; Pain 0/10; ana 19:50 BP 92 / 59; Pulse 68; Resp 18; Temp 96.8(TE); Pulse Ox 97% on R/A; Pain 0/10; ana 20:36 BP 113 / 51; Pulse 67; Resp 14; Temp 96.8(TE); Pulse Ox 99% on R/A; Pain 0/10; ana 22:11 BP 105 / 57; Pulse 68; Resp 16; Temp 97.5(TE); Pulse Ox 98% on R/A; Pain 0/10; ana 23:39 BP 98 / 58; Pulse 69; Resp 18; Pulse Ox 97% on R/A; Pain 0/10; ana 11/23 00:21 BP 101 / 78; Pulse 65; Resp 18; Temp 97.3; Pulse Ox 95% on R/A; Pain 0/10; ana 01:22 BP 100 / 66; Pulse 60; Resp 18; Pulse Ox 96% on R/A; Pain 0/10; ana 02:13 BP 117 / 50; Pulse 64; Resp 16; Temp 97.5(TE); Pulse Ox 97% on R/A; Pain 00/10; ana 03:34 BP 90 / 49; Pulse 65; Resp 16; Temp 97.5(TE); Pulse Ox 96% on R/A; ana ED Course: 11/22 19:28 Patient arrived in ED. ab2 19:30 Hilario Jackson MD is Attending Physician. kdr 19:35 Arm band placed on left wrist. ana 19:45 Shalini Dunn, RN is Primary Nurse. ana 19:49 Triage completed. ana 19:56 No provider procedures requiring assistance completed. Maintain EMS IV. Dressing ana intact. Good blood return noted. Site clean \\T\\ dry. Gauge \\T\\ site: 20 gauge to Rt AC. 19:57 Patient has correct armband on for positive identification. Bed in low position. Call ana light in reach. Side rails up X2. court monitor on. Pulse ox on. NIBP on. 20:15 XRAY Chest (1 view) In Process Unspecified. EDMS 22:45 CT Abd/Pelvis - IV Contrast Only In Process Unspecified. EDMS 11/23 00:03 Felipe Snow is Hospitalizing Provider. kdr 01:04 COVID-19/FLU A+B (Document "Date of Onset" if Symptomatic) Sent. ana Administered Medications: 01:11 Drug: D10 in 250cc 1 application Route: IV; Rate: bolus; Site: right antecubital; ana 01:35 Follow up: Response: Blood sugar is elevated; IV Intake: 250ml ana Point of Care Testing: Blood Glucose: 11/22 19:35 Blood Glucose: 106 mg/dL; ana 20:09 Blood Glucose: 86 mg/dL; ana 20:35 Blood Glucose: 92 mg/dL; ana 21:00 Blood Glucose: 109 mg/dL; ana 21:31 Blood Glucose: 104 mg/dL; ana 22:00 Blood Glucose: 112 mg/dL; ana 22:30 Blood Glucose: 69 mg/dL; ana 23:06 Blood Glucose: 77 mg/dL; ana 11/23 00:15 Blood Glucose: 64 mg/dL; ana 00:57 Blood Glucose: 54 mg/dL; ana 01:34 Blood Glucose: 138 mg/dL; ana 02:25 Blood Glucose: 62 mg/dL; ana 02:52 Blood Glucose: 59 mg/dL; ana 03:28 Blood Glucose: 44 mg/dL; ana 04:26 Blood Glucose: 98 mg/dL; ana Ranges: Intake: 01:35 IV: 250ml; Total: 250ml. ana Outcome: 11/22 19:57 Condition: stable ana 11/23 00:04 Decision to Hospitalize by Provider. kdr 04:40 Patient left the ED. tw5 Signatures: Dispatcher [employer] EDHilario De La Cruz MD MD kdr Wood, Tiffany tw5 Shalini Dunn RN RN Demetrius Noland
--- NOTE | 2021-11-23 00:41 | P.HP ---
Certification for Inpatient Patient admitted to: Observation With expected LOS: <2 Midnights Patient will require the following post-hospital care: None Practitioner: I am a practitioner with admitting privileges, knowledge of patient current condition, hospital course, and medical plan of care. Services: Services provided to patient in accordance with Admission requirements found in Title 42 Section 412.3 of the Code of Federal Regulations Patient History Date of Service: 11/23/21 Reason for admission: Hypoglycemia History of Present Illness: Patient is an 81-year-old male with hypertension, HLD, type 2 diabetes [id number], A. fib on Eliquis who presented to the ED via EMS from [facility] stating FSBS of 50. When they arrived, they administered 150 mL D5 and sublingual glucose. Subsequent blood sugar was 106. ED attempted to increase his blood sugar with diet, but it could not sustained. Readings ranged from 64-112. Other labs significant for WBC 15, Cr 1.59, hgb 9.1. CT negative for acute findings. Patient was admitted here ~2 weeks ago with hypoglycemia. He takes a sulfonylurea. Patient is oriented x 3 and has no complaints. ED provider wishes to admit patient for observation. Allergies No Known Allergies Allergy (Verified 01/13/20 10:11) Home medications list reviewed: Yes Home Medications: Atorvastatin Calcium [Lipitor] 80 mg PO BEDTIME 01/12/20 Ezetimibe 10 mg PO BEDTIME 01/12/20 Fenofibrate 160 mg PO BEDTIME 01/12/20 Omeprazole [Prilosec] 40 mg PO [id number] 01/12/20 Ascorbic Acid [Vitamin C*] 1,000 mg PO DAILY 12/07/20 Amiodarone HCl [Pacerone] 400 mg PO BEDTIME 11/08/21 Apixaban [Eliquis] 5 mg PO BID 11/08/21 Ferrous Sulfate [Iron] 325 mg PO DAILY 11/08/21 Cholecalciferol (Vitamin D3) [Vitamin D 1000 Iu Tab*] 2,000 unit PO DAILY tab 11/14/21 Gabapentin [Neurontin*] 100 mg PO BEDTIME cap 11/14/21 Glucerna Shake [Glucerna*] 237 ml PO BID can 11/14/21 Dylan [Dylan*] 1 pkt PO BID powd.pack 11/14/21 - Past Medical/Surgical History Diabetic: Yes -: Diabetes mellitus -: Colon Cancer -: CAD -: Hypertension -: Measles -: Afib -: HLD -: gall bladder surgery -: Colon surgery -: Prostate surgery -: Back surgery -: Tonsillectomy and adenoidectomy -: Angioplasty no stents -: prostate surgery -: pacemaker and watchman Psychosocial/ Personal History: Patient lives at [facility]. He is . - Family History Family History: Reviewed- Non-Contributory - Social History Smoking Status: Former smoker Alcohol use: No CD- Drugs: No Caffeine use: Yes Place of Residence: Residential Review of Systems Unremarkable Physical Examination - Physical Exam General: Alert, In no apparent distress, Oriented x3 HEENT: Atraumatic, PERRLA, Mucous membr. moist/pink, EOMI, Sclerae nonicteric Neck: Supple, 2+ carotid pulse no bruit, No LAD, Without JVD or thyroid abnormality Respiratory: Clear to auscultation bilaterally, Normal air movement Cardiovascular: Regular rate/rhythm, Normal S1 S2, Edema Gastrointestinal: Normal bowel sounds, No tenderness Musculoskeletal: No tenderness Integumentary: Other (wounds at midback, sacrum, R heel, L calf ) Neurological: Normal speech, Normal strength at 5/5 x4 extr, Normal tone, Normal affect - Studies Laboratory Data (last 24 hrs) 11/22/21 20:20: WBC 15.4 H D, Hgb 9.1 L, Hct 27.9 L, Plt Count 281 D 11/22/21 20:20: Sodium 136, Potassium 4.3, BUN 54 H, Creatinine 1.59 H, Glucose 113 H Assessment and Plan - Problems (Diagnosis) (1) Type 2 diabetes mellitus Current Visit: Yes Status: Chronic Qualifiers: Diabetes mellitus exterminator insulin use: without residential use Diabetes mellitus complication status: with hypoglycemia Diabetes mellitus complication detail: without coma Qualified Code(s): E11.649 - Type 2 diabetes mellitus with hypoglycemia without coma (2) Anasarca Current Visit: Yes Status: Acute (3) Chronic anticoagulation Current Visit: Yes Status: Chronic (4) A-fib Current Visit: Yes Status: Chronic Qualifiers: Atrial fibrillation type: unspecified chronic Qualified Code(s): I48.20 - Chronic atrial fibrillation, unspecified; I48.2 - Chronic atrial fibrillation (5) Chronic anemia Current Visit: Yes Status: Chronic (6) Chronic kidney disease Current Visit: Yes Status: Chronic Qualifiers: Chronic kidney disease stage 3 subtype: stage 3b (GFR 30-44) (7) HLD (hyperlipidemia) Current Visit: No Status: Chronic Qualifiers: Hyperlipidemia type: mixed hyperlipidemia Qualified Code(s): E78.2 - Mixed hyperlipidemia (8) HTN (hypertension) Current Visit: No Status: Chronic Qualifiers: Hypertension type: primary hypertension Qualified Code(s): I10 - Essential (primary) hypertension - Plan -D5 1/2 NS at 75 cc an hour and encourage diet. Accu-Cheks every 4 hours. -second admission for hypoglycemia. will likely need his medications adjusted. He does not use insulin -Creatinine is slightly elevated from baseline, will monitor -CT showed anasarca and patient does have pitting edema. No history of CHF. Lasix as needed -Patient has chronic anemia and has a history of that is being followed by Dr. Herrera. Stable at this time -Patient takes Eliquis for his A. fib. We will continue -Continue home medications Discharge Plan: Residential Plan to discharge in: 24 Hours - Advance Directives Does patient have a Living Will: Yes Does patient have a Durable POA for Healthcare: No - Code Status/Comfort Care Code Status Assessed: Yes (Full) Critical Care: No Time Spent Managing Pts Care (In Minutes): 50
[2021-11-23] MEDS ORDERED: D10W 250 ML IV ONE ×2 (01:04→03:48)
[2021-11-23 01:10] LABS: SARS-COV-2 RT PCR NEGATIVE (NEGATIVE)
[2021-11-23] MEDS ORDERED: D5 0.45 NS 1,000 ML IV ONE (02:37)
[2021-11-23] MEDS ORDERED: ONDANSETRON 4 MG/2 ML VIAL IV PRN (03:41)
[2021-11-23] MEDS ORDERED: ACETAMINOPHEN 500 MG TAB PO PRN (03:41)
[2021-11-23] MEDS ORDERED: D5 0.45 NS 1,000 ML IV SCH (03:41)
[2021-11-23] MEDS ORDERED: FUROSEMIDE 40 MG/4 ML VIAL IV ONE (03:41)
[2021-11-23] MEDS ORDERED: D10W 250 ML IV SCH ×3 (04:00→13:44)
[2021-11-23 06:33] LABS: Urine Appearance Clear (Clear); Urine Bilirubin Negative (Negative); Urine Blood Negative (Negative); Urine Color Yellow (Yellow); Urine Glucose 1+ (Negative); Urine Protein Negative (Negative); Urine Specific Gravity 1.015 (1.005-1.030)
[2021-11-23 06:46] LABS: Urine Microscopic Reflex NO UMIC
[2021-11-23] MEDS: INSULIN -REGULAR HUMAN 50 UNIT/0.5 ML ML SQ SCH ×4 (07:30→21:00)
[2021-11-23] MEDS: APIXABAN 5 MG TABLET PO SCH ×2 (09:00→21:13)
[2021-11-23] MEDS: JEVITY 1.5 CAL LIQUID 1,000 ML BOT FT SCH ×2 (10:00→16:00)
[2021-11-23] MEDS ORDERED: ALBUMIN HUMAN 25% 200 ML IV ONE (11:00)
[2021-11-23] MEDS: DEXTROSE 10%-WATER 500 ML IV SCH ×2 (14:00→21:55)
[2021-11-23] MEDS: MIDODRINE HCL 5 MG TABLET PO SCH ×2 (14:00→21:13)
--- NOTE | 2021-11-23 14:42 | P.PN ---
Subjective Date of Service: 11/23/21 Chief Complaint: Hypoglycemia Patient unresponsive during my examination today. Spouse stated patient was awake briefly this morning. Recurring hypoglycemia episodes. Attempted NG tube insertion unsuccessful today. Patient is mildly hypotensive. Physical Examination - Vital Signs Temperature: 97.0 F Blood Pressure: 97/52 Pulse: 60 Respirations: 17 Pulse Ox (%): 99 - Studies Laboratory Data (last 24 hrs) 11/22/21 20:20: WBC 15.4 H D, Hgb 9.1 L, Hct 27.9 L, Plt Count 281 D 11/22/21 20:20: Sodium 136, Potassium 4.3, BUN 54 H, Creatinine 1.59 H, Glucose 113 H Assessment And Plan - Current Problems (Diagnosis) (1) Metabolic encephalopathy Current Visit: Yes Status: Acute (2) Hypoglycemia Current Visit: Yes Status: Acute (3) A-fib Current Visit: Yes Status: Chronic Qualifiers: Atrial fibrillation type: unspecified chronic Qualified Code(s): I48.20 - Chronic atrial fibrillation, unspecified; I48.2 - Chronic atrial fibrillation (4) Chronic kidney disease Current Visit: Yes Status: Chronic Qualifiers: Chronic kidney disease stage 3 subtype: stage 3b (GFR 30-44) (5) Type 2 diabetes mellitus Current Visit: Yes Status: Chronic Qualifiers: Diabetes mellitus termite technician insulin use: without skilled nursing use Diabetes mellitus complication status: with hypoglycemia Diabetes mellitus complication detail: without coma Qualified Code(s): E11.649 - Type 2 diabetes mellitus with hypoglycemia without coma (6) Status post biventricular cardiac pacemaker insertion Current Visit: No Status: Acute - Plan Physical Exam General: Unresponsive, ill looking. HEENT: PERRLA, Mucous membr. moist/pink, EOMI, Sclerae nonicteric Neck: Supple, 2+ carotid pulse no bruit, Without JVD. Respiratory: Clear to auscultation bilaterally, Normal air movement Cardiovascular: Regular rate/rhythm, Normal S1 S2, Edema Gastrointestinal: Normal bowel sounds, No tenderness Musculoskeletal: No tenderness Integumentary: Wounds at midback, sacrum, R heel, L calf. Neurological: He moves all extremities spontaneously. Plan: Patient is unresponsive today. Changed IV fluids to D10 infusion given recurrent hypoglycemia. Inserted Dobhoff for feeding and medications. Albumin infusion for anasarca and hypotension. Patient given a dose of IV Lasix. Ordered midodrine for hypotension. Also added IV steroid for possible adrenal insufficiency. Neurochecks. Monitor blood glucose every hour until levels stabilize A. fib is currently rate controlled. Plan of care discussed with her spouse. Monitor renal function to follow NADEGE.
[2021-11-23] MEDS ORDERED: dexAMETHasone 4 MG/ML VIAL IV ONE (15:00)
--- NOTE | 2021-11-23 16:34 | RAD REPORT ---
EXAM DESCRIPTION: RAD - Abdomen 1 View (KUB) - 11/23/2021 4:27 pm CLINICAL HISTORY: Dobhoff placement Pain COMPARISON: Abdomen 1 View (KUB) dated 11/11/2021 FINDINGS: Tip of the enteric tube is in the stomach.
[2021-11-23] MEDS ORDERED: GLUCAGON 1 MG/VIAL IV STA (16:52)
[2021-11-23] MEDS ORDERED: GLUCAGON 1 MG/VIAL IM PRN (16:53)
[2021-11-23] MEDS ORDERED: D50W 25 GM/50 ML SYRINGE IV PRN (16:53)
[2021-11-23] MEDS ORDERED: JEVITY 1.5 CAL LIQUID 1,000 ML BOT FT SCH ×2 (18:00→19:00)
[2021-11-23] MEDS: ATORVASTATIN 80 MG TAB PO SCH (21:13)
[2021-11-24] MEDS: DEXTROSE 10%-WATER 500 ML IV SCH (03:21)
[2021-11-24 04:27] LABS: Absolute Lymphocytes (CBC) 0.4 K/uL (0.7-4.9); Hematocrit 24.7 % (39.6-49.0); Lymphocytes % 2.1 % (15.3-44.8); MPV 9.1 fL (7.6-11.3); RBC Red Blood Cell Count 2.76 M/uL (4.33-5.43)
[2021-11-24 04:45] LABS: Potassium 4.3 mmol/L (3.5-5.1)
[2021-11-24] MEDS ORDERED: D5 0.45 NS 1,000 ML IV SCH (06:00)
[2021-11-24] MEDS: INSULIN -REGULAR HUMAN 50 UNIT/0.5 ML ML SQ SCH ×4 (08:15→20:36)
[2021-11-24] MEDS: MIDODRINE HCL 5 MG TABLET PO SCH ×3 (09:00→20:36)
[2021-11-24 10:51] LABS: Protime INR 6.9
--- NOTE | 2021-11-24 11:35 | P.PN ---
Subjective Date of Service: 11/24/21 Chief Complaint: Hypoglycemia Patient's clinical condition is getting worse. Nursing staff report bloody bowel movement earlier this morning. He is still unresponsive. Worsening renal function, drop in hemoglobin. Blood pressure has improved, blood sugar readings improved. Patient vomited a moment ago. No coffee-ground emesis. NG tube in. Patient has been on Jevity since yesterday Physical Examination - Vital Signs Temperature: 99.4 F Blood Pressure: 107/53 Pulse: 73 Respirations: 20 Pulse Ox (%): 96 Assessment And Plan - Current Problems (Diagnosis) (1) Metabolic encephalopathy Current Visit: Yes Status: Acute (2) Hypoglycemia Current Visit: Yes Status: Acute (3) A-fib Current Visit: Yes Status: Chronic Qualifiers: Atrial fibrillation type: unspecified chronic Qualified Code(s): I48.20 - Chronic atrial fibrillation, unspecified; I48.2 - Chronic atrial fibrillation (4) Chronic kidney disease Current Visit: Yes Status: Chronic Qualifiers: Chronic kidney disease stage 3 subtype: stage 3b (GFR 30-44) (5) Type 2 diabetes mellitus Current Visit: Yes Status: Chronic Qualifiers: Diabetes mellitus usp insulin use: without usp use Diabetes mellitus complication status: with hypoglycemia Diabetes mellitus complication detail: without coma Qualified Code(s): E11.649 - Type 2 diabetes mellitus with hypoglycemia without coma (6) Status post biventricular cardiac pacemaker insertion Current Visit: No Status: Acute (7) Acute blood loss anemia Current Visit: Yes Status: Acute (8) Coagulopathy Current Visit: Yes Status: Acute (9) Hepatic failure Current Visit: Yes Status: Acute (10) Liver cirrhosis Current Visit: Yes Status: Acute - Plan Physical Exam General: Unresponsive, ill looking. HEENT: Mucous membr. moist/pink, Sclerae nonicteric Neck: Supple, Without JVD. Respiratory: Clear to auscultation bilaterally, Normal air movement Cardiovascular: Regular rate/rhythm, Normal S1 S2, Edema Gastrointestinal: Normal bowel sounds, No tenderness Musculoskeletal: No tenderness Integumentary: Wounds at midback, sacrum, R heel, L calf. Neurological: He moves all extremities spontaneously. Plan: Patient remain unresponsive. CT abdomen pelvis result reviewed he has liver cirrhosis with significant ascites. Severe hypoglycemia with inability to to maintain blood glucose related to sulfonylurea use in the context of liver cirrhosis/hepatic failure. Patient vomited today. Hold NG tube feeding for about 4 hours and restart as tolerated. We will start D5 normal saline at maintenance rate. Albumin infusion for as needed anasarca and hypotension. Lasix as needed Continue midodrine for hypotension. Neurochecks. Eliquis on hold due to GI bleed. Patient with significant coagulopathy. INR e levated to 6.4. Monitor H&H every 6 hours Transfuse as needed for hemoglobin less than 7. GI consult Prophylactic antibiotics-IV Rocephin. A. fib is currently rate controlled. Discussed prognosis with spouse and son. High mortality Monitor renal function to follow NADEGE.
[2021-11-24] MEDS ORDERED: CEFTRIAXONE 1,000 MG in NA CHLORIDE 0.9% 50 ML IVPB SCH (12:00)
[2021-11-24 12:12] LABS: Hematocrit 25.1 % (39.6-49.0)
[2021-11-24] MEDS: D5 0.9 NS 1,000 ML IV SCH (12:15)
[2021-11-24 12:16] LABS: Magnesium 2.4 mg/dL (1.8-2.4); Phosphorus 3.2 mg/dL (2.5-4.9)
--- NOTE | 2021-11-24 12:41 | RAD REPORT ---
EXAM DESCRIPTION: RAD - Chest Single View - 11/24/2021 12:16 pm CLINICAL HISTORY: potential aspiration, shortness of breath COMPARISON: Portable 11/22/2021, portable 472 TECHNIQUE: AP portable chest image was obtained 11/24/2021 12:16 pm . FINDINGS: Lung volumes are low. Right hemidiaphragm elevation again noted. There is bibasilar atelec tasis. Posterior gutter assessment is limited. Upper right lung field and left lung field clear of an y consolidation. No specific finding for aspiration pneumonia. Feeding tube tip is in the proximal stomach similar to prior imaging. Left-sided pacemaker in place. Heart and vasculature are normal. No measurable pleural effusion and no pneumothorax. No acute bony abnormality seen. No acute aortic findings suspected. IMPRESSION: No specific finding for aspiration pneumonia. Exam is limited by shallow inspiration. This limits the bilateral posterior gutter evaluation.
--- NOTE | 2021-11-24 15:19 | RAD REPORT ---
EXAM DESCRIPTION: RAD - Abdomen 1 View (KUB) - 11/24/2021 3:07 pm CLINICAL HISTORY: placement of feeding tube COMPARISON: Abdomen 1 View (KUB) dated 11/23/2021; Abdomen Single View dated 11/24/2021 FINDINGS: Feeding tube has been placed and is curled in the proximal stomach. There is slight angula tion or bending of the tubing near the distal tip. This is not likely to restrict flow through the ahmet men. Stomach is not dilated. Bowel gas pattern is nonspecific. IMPRESSION: Dobhoff feeding tube has been placed and is curled in the fundus of the stomach.
--- NOTE | 2021-11-24 15:21 | RAD REPORT ---
EXAM DESCRIPTION: RAD - Abdomen Single View - 11/24/2021 3:07 pm CLINICAL HISTORY: feeding tube advanced COMPARISON: Abdomen Pelvis W Contrast dated 11/22/2021; Abdomen 1 View (KUB) dated 11/24/2021 FINDINGS: Repeat KUB examination was performed. Feeding tube remains curled in the fundus of the sto mach. No change in positioning since the earlier study. There remains angulation of the tubing near t he tip. This probably does not restrict flow. IMPRESSION: Repeat imaging shows no change in positioning of the feeding tube since earlier study.
[2021-11-24] MEDS ORDERED: NA CHLORIDE 0.9% 250 ML IV SCH (16:00)
[2021-11-24] MEDS ORDERED: VITAMIN K (ADULT) 10 MG/ML IVPB ONE (16:00)
--- NOTE | 2021-11-24 16:03 | P.PN ---
Date of Service: 11/24/21 Patient seen and evaluated again. He had a coffee-ground emesis. Also passing BRBPR. He remains unresponsive. Abdomen is distended. 750 ml of residue suctioned from the NG tube. KUB suggests gasin the intestinal lumen. Dr. Smallwood came to evaluate patient. Case discussed with Dr. Smallwood. 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 Transfuse 2 unit PRBC for ongoing GI bleed. Monitor H&H every 4 hours. Amiodarone not resumed during this hospital stay. Eliquis discontinued. Nursing staff with concern for aspiration. Chest x-ray is negative for aspiration pneumonitis at this time. We will change IV Rocephin to IV meropenem to cover for aspiration pneumonitis. Dr. Del Toro consulted. Echocardiogram requested. IV fluids changed to D5 NS to maintain blood glucose level and to treat hyponatremia. Consult nephrology for NADEGE. Critical care time spent managing patient GI bleed, hypoglycemia, coagulopathy was about 45 minutes.
[2021-11-24 16:04] LABS: Hematocrit 25.3 % (39.6-49.0)
[2021-11-24] MEDS: Meropenem 500 MG in NA CHLORIDE 0.9% 100 ML IV SCH (16:54)
--- NOTE | 2021-11-24 17:00 | RAD REPORT ---
EXAM DESCRIPTION: Abdomen Pelvis W Contrast RadLex: CT ABDOMEN PELVIS WITH IV CONTRAST CLINICAL HISTORY: Abdominal pain, acute, nonlocalized. COMPARISON: CT of the abdomen and pelvis from November 08, 2021. TECHNIQUE: CT of the abdomen and pelvis was performed following intravenous administration of iodina levy contrast. Arterial phase images through the abdomen, and portal venous phase images through the a bdomen and pelvis were obtained. Oral contrast was not administered. Axial, coronal, and sagittal sof t tissue window reconstructions were created and sent to PACS. This exam was performed according to our departmental dose-optimization program, which includes autom ated exposure control, adjustment of the mA and/or kV according to patient size and/or use of iterati ve reconstruction technique. FINDINGS: Mild motion degradation. Thoracic: Mild interstitial thickening and atelectasis in the lung bases. Hepatobiliary: Grossly nodular liver contour. Surgical clips in the right hepatic lobe. No concerning hepatic lesion identified. The central portal veins are patent the peripheral portal veins are not w ell evaluated due to contrast timing.. The gallbladder is surgically absent. No biliary ductal dilata tion. Pancreas: Unremarkable. Spleen: Unremarkable. Gastrointestinal: No evidence of bowel obstruction or perienteric inflammation. The appendix is jm l. Adrenals: No abnormality identified in either adrenal gland. Renal: Few small simple left renal cysts. No concerning parenchymal abnormality in either kidney. No hydronephrosis or urolithiasis. Bladder/Reproductive: Unremarkable appearance of the urinary bladder by CT technique. Vascular/Lymphatics: No lymphadenopathy identified by CT size criteria. Abdominal aorta is normal in caliber. Musculoskeletal: No concerning osseous lesion identified. Moderate calcific atherosclerosis. Bilatera l fat-containing inguinal hernias, also containing a small amount of fluid on the right and a moderat e amount on the left. Moderate anasarca. Osteopenia. Prominent spinal degenerative changes. Fluid / peritoneum: Moderate abdominopelvic free fluid, slightly increased from prior. No free intr aperitoneal air identified. IMPRESSION 1. Moderate ascites, slightly increased from the recent prior CT. 2. Grossly nodular liver contour. Correlate for potential cirrhosis. 3. Moderate anasarca. Electronically signed by: Huma Hernandez MD 11/22/2021 11:35 PM CDT Due to temporary technical issues with the PACS/Fluency reporting system, reports are being signed by the in house radiologists without review as a courtesy to insure prompt reporting. The interpreting radiologist is fully responsible for the content of the report.
--- NOTE | 2021-11-24 18:44 | RAD REPORT ---
EXAM DESCRIPTION: US - Abdomen Pelvis Scan US - 11/24/2021 6:31 pm CLINICAL HISTORY: Check for mesentery vein for occlusion COMPARISON: No comparisons TECHNIQUE: Sonographic evaluation of the mesenteric vasculature was performed. Doppler assessment wa s performed with waveforms and velocity values obtained. FINDINGS: Superior mesenteric vein was visualized and appears patent. Normal venous waveform pattern was obtained. Superior mesenteric artery was also visualized with normal arterial waveform pattern demonstrated. IMPRESSION: No superior mesenteric vein or superior mesenteric artery abnormality identified.
--- NOTE | 2021-11-24 18:46 | CON ---
Date of Consultation: 11/24/2021 Reason For Consultation: Managing cardiac medications and acute decompensated hospital stay. History Of Present Illness: This is an 81-year-old male, who was admitted with unresponsive because of hypoglycemia, found to have signs of liver failure with GI bleed, status post left atrial appendag e closure recently. He has chronic AFib, on amiodarone plus was still on anticoagulant post Watchman . Past Medical History: Significant for chronic atrial fibrillation, dyslipidemia, diabetes. The chirag ent is on Eliquis. Medications: Refer to reconciliation sheet for detailed list. Allergies: NO KNOWN DRUG ALLERGIES. Family History: No premature coronary artery disease or cancer. Social History: Does not smoke or drink. Does not use drugs. Review of Systems: All systems reviewed and are negative except for what mentioned in the HPI. Physical Examination: Vital Signs: Reviewed. Head and Neck: Pupils are equal, reactive to light. Intact eye movements. No JVD. No cervical lym phadenopathy. Neck is supple. Thyroid is not enlarged. Lungs: Decreased breathing sounds bilaterally. No rhonchi, wheezing, crackles. Heart: Irregularly irregular. No extra sounds. Abdomen: Soft with ascites. Extremities: No clubbing or cyanosis. Positive edema. Skin: No rash noted. Neurologic: He is not responding. Lymph Nodes: No cervical or axillary lymphadenopathy. Investigations: Labs reviewed. Assessment And Recommendations: 1.Chronic atrial fibrillation, status post recent left atrial appendage closure using Watchman FLX d evice to discontinue Eliquis completely at this point due to active gastrointestinal bleed and once t he gastrointestinal bleed is stable, to start him on baby aspirin alone. 2.Liver failure. Please obtain liver function panel and definitely I agree with discontinuation of amiodarone and to control atrial fibrillation, we can use beta-anjel and if his creatinine remains stable, sotalol will be an option. We will monitor the patient with you. Thank you for the consult. /FIDEL Voice ID: [id number] Report ID: [id number]
--- NOTE | 2021-11-24 19:45 | RAD REPORT ---
EXAM DESCRIPTION: RAD - Abdomen 1 View (KUB) - 11/24/2021 7:08 pm CLINICAL HISTORY: Check for small bowel obstruction COMPARISON: <Comparisons> KUB 11/24/2021 FINDINGS: Feeding tube is present, curled in the fundal portion of an air-filled nondilated stomach. Air and stool are present nondilated colon down to the level of the rectum. No dilated small bowel l oops are identified. No obstruction, free air or pneumatosis. No suspicious calcifications. No significant bony findings IMPRESSION: No bowel obstruction identified on the images. Fluid-filled small bowel loops can be occult and isodense to surrounding tissues. No free air or pneu matosis. Feeding tube curled in the fundal portion of the nondilated stomach.
[2021-11-24] MEDS: ATORVASTATIN 80 MG TAB PO SCH (20:35)
[2021-11-25] MEDS: Meropenem 500 MG in NA CHLORIDE 0.9% 100 ML IV SCH ×3 (01:38→16:39)
[2021-11-25] MEDS: D5 0.9 NS 1,000 ML IV SCH ×2 (01:38→16:39)
[2021-11-25 02:37] LABS: Hematocrit 25.9 % (39.6-49.0)
[2021-11-25 02:45] LABS: Protime INR 4.35
[2021-11-25 05:22] LABS: Absolute Lymphocytes (CBC) 0.5 K/uL (0.7-4.9); Hematocrit 24.8 % (39.6-49.0); Lymphocytes % 4.2 % (15.3-44.8); MPV 9.2 fL (7.6-11.3); RBC Red Blood Cell Count 2.78 M/uL (4.33-5.43)
[2021-11-25 05:29] LABS: Protime INR 4.47
[2021-11-25 05:40] LABS: Albumin 2.3 g/dL (3.4-5.0); Bilirubin Direct 1.8 mg/dL (0-0.2); Bilirubin Total 2.5 mg/dL (0.2-1.0); Potassium 4.6 mmol/L (3.5-5.1); Protein, Total 5.2 g/dL (6.4-8.2)
[2021-11-25] MEDS: INSULIN -REGULAR HUMAN 50 UNIT/0.5 ML ML SQ SCH ×4 (07:17→20:23)
[2021-11-25] MEDS: MIDODRINE HCL 5 MG TABLET PO SCH ×3 (07:18→20:25)
[2021-11-25 08:28] LABS: Hematocrit 24.6 % (39.6-49.0)
--- NOTE | 2021-11-25 08:44 | P.PN ---
Subjective Date of Service: 11/25/21 Chief Complaint: Hypoglycemia, hematochezia, INR 7, anemia, new ESLD / ascites, aspiration Subjective: Improving (No further hematochezia. DBT with dark fluid, as per RNs. Hgb 7.9 to 8.3. WBC 17.6 to 11.0. S/p Watchman procedure 10-23-21 with rapid decline since. Awaiting echo today. U/S doppler of mesenteric vessels was negative yesterday. High D-dimer. EKG with poor R wave progression. Liver and renal #), Other (Liver and renal #s up some today.) Review of Systems 10-point ROS is otherwise unremarkable General: Weakness, Malaise Gastrointestinal: Nausea, Vomiting (Improved), Abdominal Pain Neurological: Weakness, Confusion Physical Examination - Vital Signs Temperature: 97.6 F Blood Pressure: 95/42 Pulse: 65 Respirations: 18 Pulse Ox (%): 99 - Physical Exam General: Alert, Disheveled, Mild distress, Delirious HEENT: Atraumatic, Normocephalic, PERRLA Assessment And Plan - Current Problems (Diagnosis) (1) Hematochezia Current Visit: Yes Status: Acute (2) Ascites Current Visit: Yes Status: Acute (3) Acute blood loss anemia Current Visit: Yes Status: Acute (4) Anasarca Current Visit: Yes Status: Acute (5) Hypoglycemia Current Visit: Yes Status: Acute (6) Liver cirrhosis Current Visit: Yes Status: Acute (7) A-fib Current Visit: Yes Status: Chronic Qualifiers: Atrial fibrillation type: unspecified chronic Qualified Code(s): I48.20 - Chronic atrial fibrillation, unspecified; I48.2 - Chronic atrial fibrillation (8) Acute renal failure Current Visit: No Status: Acute - Plan REC: 1) await echocardiogram this morning 2) check cardiac enzymes & repeat EKG 3) then decide of EGD / colonoscopy 4) check PeTH / GGT 5) await viral hepatitis panel 6) check ceruloplasmin, JASON, AMA 7) agree with d/c of Eliquis 8) PPI therapy
[2021-11-25] MEDS: ALBUMIN HUMAN 25% 200 ML IV ONE ×2 (10:51→16:39)
[2021-11-25] MEDS ORDERED: FUROSEMIDE 100 MG/10 ML VIAL IV ONE (11:00)
[2021-11-25] MEDS: D10W 125 ML IV PRN ×3 (12:17→20:14)
[2021-11-25 12:26] LABS: Magnesium 2.3 mg/dL (1.8-2.4); Phosphorus 4.6 mg/dL (2.5-4.9)
--- NOTE | 2021-11-25 13:26 | CON ---
Date of Consultation: 11/24/2021 Reason. For Consultation: New onset hematochezia with coagulopathy and new onset ascites after Watch man procedure. History Of Present Illness: The patient is an 81-year-old white male with history of diabetes, hyper tension, hyperlipidemia, atrial fibrillation, status post Watchman procedure on October 23, 2021. The patient had been in the hospital previously probably 2 weeks ago for hypoglycemia, now readmitted at this time for hypoglycemia; however, the patient had a bloody stool this morning and GI co nsultation was obtained. The patient and his and son report he had a colonoscopy and EGD in Oct with the Dr. Herrera. Colonoscopy revealed a few polyps removed successfully and EGD was negative. The patient also has a history of atrial fibrillation for which he underwent a Watchm an procedure on October 23, 2021. This was successful; however, he has new onset liver disease as well . Upon reviewing his chart, his liver numbers were normal approximately 1 year ago and now his liver numbers are elevated with AST and ALT ratio of 2:1 and albumin which was in the range from 3.4 to 4. 0 last year, now it is down to 2.2. reports that he got amiodarone last year on December 21 and wa s continued all the way up until the start of this admission on November 22. The patient and and son all report that he has minimal to no alcohol. It is rare that he drinks alcohol at all. It is of note that the Watchman procedure the son reports was performed on October 23, 2021 and since that ti me, his clinical status has dwindled rapidly. Also on this admission, the patient had nausea and vom iting this morning with probable aspiration as per nurses and the primary care physician today. It w as also found that his INR today is elevated at 6.9 with a PT history of atrial fibrillati on, status post Watchman procedure. Past Medical History: Significant for diabetes, hypertension, hyperlipidemia, colon cancer, status p ost resection, atrial fibrillation, status post Watchman procedure on October 23, 2021, recent increase and decrease in the glucose level, hepatic encephalopathy with this new admission. Home Medications: Include ezetimibe, gabapentin, olmesartan, fenofibrate, Prilosec, Jardiance, amiod arone, Eliquis, , and atorvastatin. Allergies: NKDA. Social History: The patient has lived at home until this prior admission for and then he was placed in the rehab facility and readmitted for . Review of Systems: The patient is somewhat obtunded, unable to really answer questions really well. He is responsive to physical stimuli, but not much to verbal. He has hematochezia. He has abdominal distention, swelli ng of the testicles and some lower extremity edema. He does have hematochezia, but no hematemesis, c offee-ground emesis, melena, hemoptysis, hematuria, dysuria, polyuria, polydipsia. No depression or anxiety. until past couple of weeks. Physical Examination: Vital Signs: He is 5 feet 9 inches, 108 pounds, BMI 27.8 kg/m2. Temperature 99.6 degrees Fahrenheit , pulse 103 up from 69, respiration 20 to 22, blood pressure 111/70, O2 saturation 94% on room air. Laboratory Data: The patient has a white count of 17.6 up from 15.4, hemoglobin down from 9.1 to 8.0 , hematocrit 25, MCV of 98, platelet count of 233, polys of 94%, lymphocytes 2%, monocytes 4%. PT of 78.9, INR of 6.9. Prior PT/INRs earlier this year revealed INR 1.1. The patient has a s odium of 129, potassium 4.3, chloride 100, bicarb of 20, BUN of 53, creatinine of 1.8, calcium 8.5; h owever, liver numbers from prior admission 2 weeks ago revealed AST and ALT ratio of 2:1. UA on the revealed 1+ glucose, 1.0 bilirubin. Hepatitis A, B, and C serologies pending. COVID- 19 is negative. Influenza type A and B negative as well. On the November 19; he had AST of 128, ALT of 68, alkaline phosphatase of 148. He had albumin of 2.1. Prealbumin of 11.1 AST of 103 , ALT of 42, alkaline phosphatase 96, . CT of the abdomen and pelvis on April 01, 2021 revealed no ascites. No major abnormalities: On Apr il 8, WS/MODL Voice ID: [id number] Report ID: [id number]
--- NOTE | 2021-11-25 13:26 | ECHO ---
HEIGHT: 5 ft 9 in WEIGHT: 190 lb 7 oz DATE OF STUDY: 11/25/[address]: Mohinder Del Toro 2-DIMENSIONAL: YES M.MODE: YES DOPPLER: YES COLOR FLOW: YES TDS: NO PORTABLE: YES DEFINITY: NO BUBBLE STUDY: NO DIAGNOSIS: HYPOTENSION, ATRIAL FIBRILLATION CARDIAC HISTORY: CATHERIZATION: NO SURGERY: NO PROSTHETIC VALVE: NO PACEMAKER: YES MEASUREMENTS (cm) DIASTOLIC (NORMALS) SYSTOLIC (NORMALS) IVSd 0.9 (0.6-1.2) LA Diam 3.6 (1.9-4.0) LVEF 60-65% LVIDd 4.8 (3.5-5.7) LVIDs 2.0 (2.0-3.5) %FS 59% LVPWd 1.2 (0.6-1.2) Ao Diam 3.4 (2.0-3.7) 2 DIMENSIONAL ASSESSMENT: RIGHT ATRIUM: NORMAL LEFT ATRIUM: NORMAL RIGHT VENTRICLE: NORMAL LEFT VENTRICLE: NORMAL TRICUSPID VALVE: NORMAL MITRAL VALVE: NORMAL PULMONIC VALVE: NORMAL AORTIC VALVE: NORMAL PERICARDIAL EFFUSION: NONE AORTIC ROOT: NORMAL LEFT VENTRICULAR WALL MOTION: NORMAL DOPPLER/COLOR FLOW: MILD TRICUSPID, MITRAL AND AORTIC REGURGITATION. COMMENTS: NORMAL LEFT VENTRICULAR EJECTION FRACTION 60-65%. NORMAL WALL MOTION. NORMAL DIASTOLIC FUNCTION. MILD TRICUSPID, MITRAL AND AORTIC REGURGITATION. TECHNOLOGIST: Yaneth CONTRERAS
--- NOTE | 2021-11-25 15:24 | RAD REPORT ---
EXAM DESCRIPTION: RAD - Abdomen Single View - 11/25/2021 3:14 pm CLINICAL HISTORY: Dobhoff placement COMPARISON: Abdomen Single View dated 11/24/2021; Abdomen 1 View (KUB) dated 11/24/2021; Chest Single View dated 11/24/2021 FINDINGS/IMPRESSION: The feeding tube tip has been repositioned and now lies in the peripyloric stephen on. The tip is angulated caudally which could indicate a proximal duodenal location versus coiling at the pylorus.
[2021-11-25] MEDS ORDERED: ALBUMIN HUMAN 25% 100 ML IV SCH (17:00)
[2021-11-25] MEDS ORDERED: FUROSEMIDE 20 MG/ 2ML VIAL IV ONE (17:00)
--- NOTE | 2021-11-25 19:03 | P.PN ---
Subjective Date of Service: 11/25/21 Chief Complaint: Hypoglycemia, hematochezia, INR 7, anemia, new ESLD / ascites, aspiration No major changes from yesterday. Patient continues to have bright red blood per rectum. Minimal coffee-ground aspirate from the NG tube today. No change in mental status. He is still unresponsive. Episode of hypoglycemia this morning. Blood pressure appears stable NG tube hooked to suction. Physical Examination - Vital Signs Temperature: 97.2 F Blood Pressure: 109/63 Pulse: 64 Respirations: 16 Pulse Ox (%): 97 Assessment And Plan - Current Problems (Diagnosis) (1) Metabolic encephalopathy Current Visit: Yes Status: Acute (2) Hypoglycemia Current Visit: Yes Status: Acute (3) A-fib Current Visit: Yes Status: Chronic Qualifiers: Atrial fibrillation type: unspecified chronic Qualified Code(s): I48.20 - Chronic atrial fibrillation, unspecified; I48.2 - Chronic atrial fibrillation (4) Chronic kidney disease Current Visit: Yes Status: Chronic Qualifiers: Chronic kidney disease stage 3 subtype: stage 3b (GFR 30-44) (5) Type 2 diabetes mellitus Current Visit: Yes Status: Chronic Qualifiers: Diabetes mellitus termite technician insulin use: without fci use Diabetes mellitus complication status: with hypoglycemia Diabetes mellitus complication detail: without coma Qualified Code(s): E11.649 - Type 2 diabetes mellitus with hypoglycemia without coma (6) Status post biventricular cardiac pacemaker insertion Current Visit: No Status: Acute (7) Acute blood loss anemia Current Visit: Yes Status: Acute (8) Coagulopathy Current Visit: Yes Status: Acute (9) Hepatic failure Current Visit: Yes Status: Acute (10) Liver cirrhosis Current Visit: Yes Status: Acute - Plan Physical Exam General: Unresponsive, ill looking. HEENT: Mucous membr. moist/pink, Sclerae nonicteric Neck: Supple, Without JVD. Respiratory: Clear to auscultation bilaterally, Normal air movement Cardiovascular: Regular rate/rhythm, Normal S1 S2, Edema Gastrointestinal: Normal bowel sounds, No tenderness Musculoskeletal: No tenderness Integumentary: Wounds at midback, sacrum, R heel, L calf. Neurological: He moves all extremities spontaneously. Plan: Patient remain unresponsive. CT abdomen pelvis result reviewed he has liver cirrhosis with significant ascites. Severe hypoglycemia with inability to to maintain blood glucose related to sulfonylurea use in the context of liver cirrhosis/hepatic failure. NG tube hooked to suction. Feeding is on hold. Continue IV antibiotics. GI, cardiology and nephrology input appreciated. IV Protonix, subcutaneous octreotide. Status post 2 unit PRBC transfusion yesterday Continue to monitor H&H every 4 hours. Transfuse 1 unit PRBC today and transfuse as needed for hemoglobin less than 1 Continue D5 normal saline at maintenance rate. Added D10 infusion today for an episode of hypoglycemia. IV D10 as needed. Status post albumin infusion today. Lasix as needed Continue midodrine for hypotension. Neurochecks. Eliquis on hold due to GI bleed. Patient with significant coagulopathy. INR elevated to 6.4 yesterday. Status post vitamin K IV. INR was down to 4.4. Continue to monitor INR. A. fib is currently rate controlled. Dr. Del Toro recommended Echo which is unremarkable. High mortality. I continue to discuss plan of care and prognosis with family. Family contemplating on making him DNR but want all aggressive measures. Monitor renal function to follow NADEGE.
[2021-11-25] MEDS: ALBUTEROL 2.5 MG/3 ML NEB SOL NEB SCH (20:10)
[2021-11-25] MEDS: ATORVASTATIN 80 MG TAB PO SCH (20:22)
[2021-11-25 20:29] LABS: Hematocrit 22.8 % (39.6-49.0)
[2021-11-25] MEDS: PANTOPRAZOLE 40 MG INJ IVP SCH (20:34)
[2021-11-25] MEDS: OCTREOTIDE ACETATE 100 MCG/ML SQ SCH (20:34)
[2021-11-25 20:50] LABS: Uric Acid 5.5 mg/dL (3.5-7.2)
--- NOTE | 2021-11-25 21:26 | CON ---
Date of Consultation: 11/25/2021 Chief Complaint: Acute kidney injury, borderline oliguric. The patient is in ICU. He has hypoperfusion and has been on midodrine. History Of Present Illness: He is an 81-year-old man with history of hypertension, hyperlipidemia, diabetes mellitus type 2, on p.o. hypoglycemic agent. He has history of atrial fibrillation and he was treated with Eliquis previously. He came to the emergency room via EMS from [facility] because of severe hypoglycemia. Blood glucose was 50. He received D50 IV followed by continues infusion with 5% dextrose and blood glucose improved to 106. The patient was admitted to ICU for hypotension, possible sepsis, and acute kidney injury. The patient was found to have severe leukocytosis. WBC was 15,000, creatinine level was 1.59, hemoglobin 9.1. The patient has history of diabetes mellitus and baseline creatinine level is unknown at this time. The patient was taking multiple medications including fenofibrate, atorvastatin, Eliquis, amiodarone, ascorbic acid, gabapentin, Dylan, vitamin D, and omeprazole. The patient cannot provide review of systems. He is lethargic. Past Medical History: Diabetes mellitus, colon cancer, coronary artery disease, hypertension, atrial fibrillation, HIV. Past Surgical History: Bladder surgery, colon surgery, prostate surgery, back surgery, tonsillectomy, angioplasty, pacemaker. Family History: No kidney disease in the family. Social History: Former smoker. Review of Systems: Cannot be obtained due to the patient's condition. He cannot provide review of systems. Case was discussed with his and his son at the bedside. Physical Examination: General: The patient is awake, follows commands. Eyes: Anicteric sclerae. Neck: Supple. No bruits. Lungs: Few rhonchi. Heart: S1 and S2. No pericardial friction rub. Abdomen: Soft, nontender. Extremities: Edema present in upper and lower extremities. Wounds at mid back, upper extremities, right heel, left calf. Neurological: Normal affect. Moving extremities. Laboratory Data: Creatinine level on arrival to the hospital 1.59, BUN 54, sodium 156, potassium 4.3. Hemoglobin 9.1, platelets 281,000, hematocrit 27.9. Blood work today showed hemoglobin 7.7, hematocrit 23. Chemistry; phosphorus 4.6, magnesium 2.3, sodium 133, potassium 4.6, chloride 101, CO2 of 23, BUN 65, creatinine level 2.53. total bilirubin 2.5, ALT 96. Impression And Plan: Acute kidney injury, severe, borderline oliguric. The patient has hypoalbuminemia. Albumin level is 2.3, serum protein 5.2. The patient has anasarca. Urine output has been declining. The patient is undergoing cardiac workup. Troponin level is elevated. The patient has history of coronary artery disease and atrial fibrillation. The patient needs to be ruled out hypothyroid, and due to treatment with amiodarone he needs to be ruled out for hypothyroidism . The patient has acute kidney injury, which may be due to hepatorenal syndrome, and the patient will continue midodrine and octreotide. Avoid nonsteroidal anti-inflammatory medications. Continue midodrine for adequate blood pressure support. Plan is to check renal ultrasound and order lab work to screen for vasculitis. The patient will have IV albumin, midodrine, and octreotide for hepatorenal syndrome. The patient may be a candidate for dialysis. Workup is initiated for chronic liver disease with hyperbilirubinemia, likely the patient has liver cirrhosis. Prognosis overall is guarded. CARLA/FIDEL Voice ID: [id number] Report ID: [id number] BRIDGETTE
--- NOTE | 2021-11-25 22:51 | PN ---
The patient is admitted with hypoglycemia, hematemesis, bright red blood per rectum, unresponsive. Kaelyn cruz has a history of atrial fibrillation, status post Watchman in October of 2019. He has a history of p acemaker, hypertension, dyslipidemia as well as diabetes. Since he has been in the hospital, he has received blood transfusion. Dr. Smallwood thinks he had amiodarone liver toxicity with ascites, cirrhos is, anasarca. Amiodarone has been held and Eliquis has been held. INR was 6.9. Hemoglobin was 7.9. White count was 17,000. Chest x-ray was negative. Echocardiogram remains pending. He remains in sinus rhythm. He will eventually need a transesophageal echo to check on his Watchman status, but he is obviously not a candidate anymore for anticoagulation. He will follow up with us when he goes ho me, but meanwhile we will continue to follow on. GONZALO/FIDEL Voice ID: [id number] Report ID: [id number]
[2021-11-26] MEDS: ALBUTEROL 2.5 MG/3 ML NEB SOL NEB SCH ×4 (01:50→19:15)
[2021-11-26] MEDS: Meropenem 500 MG in NA CHLORIDE 0.9% 100 ML IV SCH ×3 (02:00→16:42)
[2021-11-26 05:26] LABS: Absolute Lymphocytes (CBC) 0.3 K/uL (0.7-4.9); Hematocrit 25.7 % (39.6-49.0); Lymphocytes % 2.8 % (15.3-44.8); MPV 9.4 fL (7.6-11.3)
[2021-11-26 05:31] LABS: Protime INR 3.32
[2021-11-26 05:49] LABS: Albumin 2.5 g/dL (3.4-5.0); Bilirubin Direct 2.1 mg/dL (0-0.2); Bilirubin Total 3.2 mg/dL (0.2-1.0); Phosphorus 4.7 mg/dL (2.5-4.9); Protein, Total 5.1 g/dL (6.4-8.2)
[2021-11-26 05:50] LABS: Magnesium 2.4 mg/dL (1.8-2.4); Potassium 4.5 mmol/L (3.5-5.1)
--- NOTE | 2021-11-26 06:09 | P.PN ---
Date of Service: 11/26/21 Subjective: talking more today, recognized not answering much No acute events overnight ROS: Difficult to fully obtain secondary to patient's mentation Physical exam GEN: ill appearing, fatigued, arousable, oriented to self HEENT: Normal conjunctiva, sclera anicteric CV: Regular rate and rhythm, 2+ edema in b/l lower extremities Pulm: rales bilaterally, nonproductive cough ABD: Soft, nondistended Integumentary: superficial wounds at mid back, sacrum, right heel, and left calf Neuro: moving all extremities, mumbled speech, oriented to self Problem List Acute metabolic encephalopathy Hypoglycemia, secondary to sulfonylurea use NADEGE on CKD2 hepatic failure, liver cirrhosis Chronic atrial fibrillation, s/p watchman's procedure Diabetes mellitus type 2, pez-gxbezhc-jknsiegkv acute blood loss anemia s/p biventricular cardiac pacemaker insertion improved slightly - more responsive CT abd: liver cirrhosis with ascites, change from CT done a few weeks ago workup pending, GI consulted; 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 Patient's A1c also within normal range dobhoff placed, feeds held; may undergo EGD with GI blood culture prelim +, has wounds, unsure if contaminant or not, vanc added 11/26, repeat blood cultures ordered hgb stable now, s/p 3u PRBCs, continue iv protonix, octreotide nephrology consulted, renal function worsened yesterday, appears edematous, but oliguric, may be intravascularly depleted continue midodrine for hypotension hannah dc'd - cardiology agreed to dc completely given bleed INR: 6.4, improved after vit K, result of liver failure, also on DOAC which can cause inconsistent INR levels afib is rate controlled, can use beta anjel if needed / tolerable, per cardiology Echo unremarkable Patient with high mortality, poor prognosis family contemplating code status, possible DNR, but not at this time family want to see how he progresses over next few days Code: full Dispo: SNF, several days Time Spent Managing Pts Care (In Minutes): 35
[2021-11-26 06:30] LABS: Anisocytosis 2+; Blood Morphology Comment NOTED (NOT SEEN); Burr Cells 2+; Platelet Estimate DECR; Polychromasia 1+
--- NOTE | 2021-11-26 06:58 | RAD REPORT ---
EXAM DESCRIPTION: US - Renal Ultrasound-Complete - 11/26/2021 5:46 am CLINICAL HISTORY: legin ckd3, hepatorenal syndrome COMPARISON: Abdomen Pelvis W Contrast dated 11/22/2021 FINDINGS: The right kidney measures grossly 11.9 x 5.9 cm. The left kidney was too obscured to allo w all accurate size sent. Patient body habitus and limited mobility of the patient precluded optimal visualization. Right renal cortical thickness is normal. No right-sided hydronephrosis or mass. Image d portions of the left kidney show normal thickness of cortex and normal echogenicity. The central po rtion of the mid left kidney was sufficiently visualized to exclude any significant hydronephrosis. Bladder was not adequately filled to allow assessment. IMPRESSION: No hydronephrosis of either kidney. Left kidney was suboptimally visualized. Visualization was sufficient to exclude any significant hydr onephrosis.
[2021-11-26] MEDS: INSULIN -REGULAR HUMAN 50 UNIT/0.5 ML ML SQ SCH ×4 (07:30→20:00)
[2021-11-26] MEDS: MIDODRINE HCL 5 MG TABLET PO SCH ×3 (09:00→19:58)
[2021-11-26] MEDS ORDERED: PANTOPRAZOLE 40 MG INJ IVP SCH (09:00)
[2021-11-26] MEDS: PANTOPRAZOLE 40 MG INJ IVP SCH ×2 (09:00→19:58)
[2021-11-26] MEDS: OCTREOTIDE ACETATE 100 MCG/ML SQ SCH ×3 (09:01→19:59)
[2021-11-26] MEDS: D5 0.9 NS 1,000 ML IV SCH ×2 (09:02→17:20)
[2021-11-26 09:09] LABS: Hematocrit 26.8 % (39.6-49.0)
--- NOTE | 2021-11-26 09:36 | EKG ---
Test Date: 2021-11-24 Test Time: 18:11:30 Alligator Trapper: MG MEASUREMENT RESULTS: Intervals: Rate: 68 ME: 184 QRSD: 102 QT: 530 QTc: 563 [place]: P: 77 ME: 184 QRS: -46 T: -1 INTERPRETIVE STATEMENTS: Normal sinus rhythm Left axis deviation Low voltage QRS Cannot rule out Anterior infarct, age undetermined Prolonged QT Abnormal ECG Compared to ECG 11/24/2021 18:08:40 No significant changes Electronically Signed On 11-26-21 09:32:09 CDT by Chauncey Lee
--- NOTE | 2021-11-26 09:36 | EKG ---
Test Date: 2021-11-24 Test Time: 18:08:40 Professional Bondsman: MEASUREMENT RESULTS: Intervals: Rate: 68 ND: 178 QRSD: 94 QT: 484 QTc: 514 [place]: P: 80 ND: 178 QRS: -47 T: 6 INTERPRETIVE STATEMENTS: Normal sinus rhythm Left axis deviation Low voltage QRS Possible Anterolateral infarct, age undetermined Prolonged QT Abnormal ECG Compared to ECG 11/22/2021 19:58:14 Left-axis deviation now present Low QRS voltage now present Myocardial infarct finding now present Prolonged QT interval now present Ventricular-paced complex(es) or rhythm no longer present AV dual-paced complex(es) or rhythm no longer present Electronically Signed On 11-26-21 09:32:10 CDT by Chauncey Lee
[2021-11-26 12:45] LABS: Magnesium 2.4 mg/dL (1.8-2.4); Phosphorus 5.2 mg/dL (2.5-4.9)
--- NOTE | 2021-11-26 12:56 | RAD REPORT ---
EXAM DESCRIPTION: RAD - Abdomen Single View - 11/26/2021 12:35 pm CLINICAL HISTORY: dobhoff placement COMPARISON: Renal Ultrasound-Complete dated 11/26/2021; Abdomen Single View dated 11/25/2021 FINDINGS/IMPRESSION: The feeding tube has been advanced and now terminates overlying the second por tion of the duodenum. It is not beyond the ligament of Treitz. The feeding tube would have to be adva nced by 12-15 cm if that position is desired.
[2021-11-26] MEDS ORDERED: VANCOMYCIN 1.5 GM in NA CHLORIDE 0.9% 500 ML IVPB SCH (13:00)
[2021-11-26] MEDS ORDERED: NA CHLORIDE 0.9% 500 ML IV ONE ×2 (13:26→13:29)
--- NOTE | 2021-11-26 14:21 | P.PN ---
Subjective Date of Service: 11/26/21 Chief Complaint: Hypoglycemia, hematochezia, INR 7, anemia, new ESLD / ascites, aspiration Subjective: Improving (2 bowel movements today.) Physical Examination - Vital Signs Temperature: 97.9 F Blood Pressure: 111/50 Pulse: 60 Respirations: 17 Pulse Ox (%): 93 Assessment And Plan - Current Problems (Diagnosis) (1) Hematochezia Current Visit: Yes Status: Acute (2) Ascites Current Visit: Yes Status: Acute (3) Acute blood loss anemia Current Visit: Yes Status: Acute (4) Anasarca Current Visit: Yes Status: Acute (5) Hypoglycemia Current Visit: Yes Status: Acute (6) Liver cirrhosis Current Visit: Yes Status: Acute (7) A-fib Current Visit: Yes Status: Chronic Qualifiers: Atrial fibrillation type: unspecified chronic Qualified Code(s): I48.20 - Chronic atrial fibrillation, unspecified; I48.2 - Chronic atrial fibrillation (8) Acute renal failure Current Visit: No Status: Acute - Plan REC: 1) EGD tomorrow 2) try TFs today and check residuals 3) PPI therapy
--- NOTE | 2021-11-26 15:12 | PN ---
Date of Progress Note: 11/26/2021 Mr. Ansari was admitted with GI bleed and liver toxicity secondary to Eliquis and amiodarone resp ectively. He got 1 unit of blood transfusion yesterday. He is hemodynamically stable. He is in sin us rhythm. He has had a Watchman recently. Echocardiogram appeared to be perfectly normal with norm al ejection fraction. No wall motion abnormalities. Good position of the Watchman. No clots. I th ink he is cleared to undergo GI procedures. Discussed the case with Dr. Rodriguez. Continue present reg imen. Continue holding Eliquis and amiodarone. NB/MODL Voice ID: [id number] Report ID: [id number]
--- NOTE | 2021-11-26 15:16 | RAD REPORT ---
EXAM DESCRIPTION: RAD - Chest Single View - 11/26/2021 3:03 pm CLINICAL HISTORY: COPD COMPARISON: Abdomen 1 View (KUB) dated 11/24/2021; Abdomen 1 View (KUB) dated 11/24/2021; Chest Single View dated 11/24/2021; Abdomen 1 View (KUB) dated 11/23/2021; Abdomen Pelvis W Contrast dated 022 FINDINGS: Lines: Pacemaker. Feeding tube in the small bowel, partially imaged. Lungs: Low lung volumes. Mild increased interstitial and airspace opacities bilaterally. Pleural: No significant pleural effusions or pneumothorax. Cardiac: Enlarged cardiac silhouette is similar. Bones: No acute fractures. Other: IMPRESSION: Low lung volumes with mild increased bilateral interstitial and airspace opacities. This could reflect multifocal pneumonia.
[2021-11-26 16:26] LABS: Hematocrit 25.8 % (39.6-49.0)
[2021-11-26] MEDS: ATORVASTATIN 80 MG TAB PO SCH (19:58)
[2021-11-26] MEDS: ALBUMIN HUMAN 25% 200 ML IV SCH (19:59)
[2021-11-26] MEDS: MEDIHONEY 44 ML TOPICAL TUBE TOP SCH (19:59)
[2021-11-26 20:55] LABS: Hematocrit 25.8 % (39.6-49.0)
[2021-11-26 21:41] LABS: UR PROTEIN 45.2 mg/dL (<11.9); Urine Protein/Creatinine Ratio 0.5 ratio (<0.15)
[2021-11-26] MEDS ORDERED: ALBUMIN HUMAN 25% 100 ML IV ONE (22:32)
[2021-11-27] MEDS: Meropenem 500 MG in NA CHLORIDE 0.9% 100 ML IV SCH ×3 (00:02→18:23)
[2021-11-27] MEDS: ALBUTEROL 2.5 MG/3 ML NEB SOL NEB SCH ×4 (01:35→20:55)
[2021-11-27 05:02] LABS: Absolute Lymphocytes (CBC) 0.5 K/uL (0.7-4.9); Hematocrit 25.4 % (39.6-49.0); Lymphocytes % 4.3 % (15.3-44.8); MPV 9.4 fL (7.6-11.3); RBC Red Blood Cell Count 2.77 M/uL (4.33-5.43)
--- NOTE | 2021-11-27 06:09 | P.PN ---
Date of Service: 11/27/21 Subjective: more alert, oriented slight labored respirations denies shortness of breath, denies pain, states he is "ok" answers a few questions then closes eyes ROS: Difficult to fully obtain Physical exam GEN: alert, oriented x3, fatigued appearing HEENT: Normal conjunctiva, sclera anicteric CV: Regular rate and rhythm, 2+ edema in b/l lower extremities to thighs Pulm: rales bilaterally, nonproductive cough, transmitted upper airways noises ABD: Soft, nondistended Integumentary: superficial wounds at mid back, sacrum, right heel, and left calf with dressings c/d/i Neuro: moving all extremities Problem List Acute metabolic encephalopathy, improving Hypoglycemia, secondary to sulfonylurea use NADEGE on CKD2 hepatic failure, liver cirrhosis, new Chronic atrial fibrillation, s/p watchman's procedure Diabetes mellitus type 2, qtq-jcyfcqg-bllumjtjq acute blood loss anemia s/p biventricular cardiac pacemaker insertion mentation improving CT abd: liver cirrhosis with ascites, change from CT done a few weeks ago workup pending, GI consulted; 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 Patient's A1c also within normal range. stable dobhoff placed, tolerated feeds yesterday, EGD planned for today blood culture prelim +, has wounds, unsure if contaminant or not, vanc added 11/26, growing MSSA. ID consulted, changed to Ancef hgb stable now, s/p 3u PRBCs, continue iv protonix, octreotide, EGD planned for today nephrology consulted, renal function slightly improved continue midodrine for hypotension hannah dc'd - cardiology agreed to dc completely given bleed INR was up to 6.4, improved after vit K, result of liver failure, also on DOAC which can cause inconsistent INR levels afib is rate controlled, can use beta anjel if needed / tolerable, per cardiology Echo unremarkable Patient with high mortality, poor prognosis family were contemplating code status, possible DNR, but not at this time Code: full Dispo: SNF, several days, continue ICU level of care, likely downgrade tomorrow Time Spent Managing Pts Care (In Minutes): 35
[2021-11-27 06:12] LABS: Albumin 2.8 g/dL (3.4-5.0); Bilirubin Total 4.2 mg/dL (0.2-1.0); Ferritin 140.9 ng/mL (26-388); Phosphorus 4.7 mg/dL (2.5-4.9); Potassium 4.3 mmol/L (3.5-5.1); Protein, Total 5.1 g/dL (6.4-8.2); Thyroid Stimulating Hormone 0.121 uIU/mL (0.360-3.740); Uric Acid 6.4 mg/dL (3.5-7.2)
[2021-11-27] MEDS: D5 0.9 NS 1,000 ML IV SCH ×2 (06:40→09:23)
[2021-11-27 07:01] LABS: Rheumatoid Factor NEG (NEG)
[2021-11-27] MEDS: INSULIN -REGULAR HUMAN 50 UNIT/0.5 ML ML SQ SCH ×3 (07:30→18:00)
[2021-11-27] MEDS: OCTREOTIDE ACETATE 100 MCG/ML SQ SCH ×3 (08:39→20:12)
[2021-11-27] MEDS: PANTOPRAZOLE 40 MG INJ IVP SCH ×2 (08:41→20:12)
[2021-11-27] MEDS: MIDODRINE HCL 5 MG TABLET PO SCH ×3 (08:41→20:11)
[2021-11-27] MEDS: MEDIHONEY 44 ML TOPICAL TUBE TOP SCH (08:44)
[2021-11-27] MEDS: ALBUMIN HUMAN 25% 200 ML IV SCH ×2 (09:06→20:10)
[2021-11-27] MEDS ORDERED: NA CHLORIDE 0.9% 1,000 ML ONE (10:56)
[2021-11-27] MEDS ORDERED: propofoL 200 MG/20 ML VIAL IV ONE (11:37)
--- NOTE | 2021-11-27 12:23 | ENDO RPT ---
[address], [address] EGD PROCEDURE REPORT EXAM DATE: 11/27/2021 PATIENT NAME: Matthew Ansari MR#: [id number] BIRTHDATE: 1940 ATTENDING: Franki Smallwood Dr STATUS: inpatient - [facility] UPHOLSTERY TECHNICIAN: Felicitas Wynn RN and Toma El INDICATIONS: The patient is a 81 yr old Male here for an EGD due to nausea and vomiting, anemia, hematemesis, and mid epigastric abdominal pain PROCEDURE PERFORMED: EGD with biopsy MEDICATIONS: Per Anesthesia. TOPICAL ANESTHETIC: none CONSENT: The patient understands the risks and benefits of the procedure and understands that these risks include, but are not limited to: sedation, allergic reaction, infection, perforation and/or bleeding. Alternative means of evaluation and treatment include, among others: physical exam, x-rays, and/or surgical intervention. The patient elects to proceed with this endoscopic procedure. DESCRIPTION OF PROCEDURE: During intra-op preparation period all mechanical medical equipment was checked for proper function. Hand hygiene and appropriate measures for infection prevention was taken. Procedure, possible complications, and alternatives including but not limited to the possibility of bleeding, perforation, tear, infection, sepsis, need for surgery, need for blood transfusion, and anesthesia related complications were explained to the patient. After the risks, benefits and alternatives of the procedure were thoroughly explained, Informed consent was verified, confirmed and timeout was successfully executed by the treatment team. The patient was placed in the left lateral position. The patient was anesthetized with topical anesthesia. Through the anesthetized oropharyngeal area, the scope was passed without any difficulty. The [id number] ([id number]) endoscope was introduced through the mouth and advanced to the third portion of the duodenum. Retroflexed views revealed no abnormalities. The gastroscope was then slowly withdrawn and removed. Portal hypertensive gastropathy was found in the body of the stomach. Mild gastritis was found in the antrum. Multiple biopsies were obtained and sent to pathology. A large 2.5 cm diverticulum was found in the descending duodenum. Dobhoff tube placed endoscopically. ADVERSE EVENTS: There were no complications. IMPRESSIONS: 1. Portal hypertensive gastropathy in the body of the stomach 2. Mild gastritis in the antrum, s/p biopsies 3. Large 2.5 cm diverticulum in the descending duodenum 4. Dobhoff tube endoscopic placement RECOMMENDATIONS: 1. await biopsy results 2. acid suppression therapy 3. liver disease work-up / therapy REPEAT EXAM: Franki Smallwood Dr eSigned: Franki Smallwood Dr 11/27/2021 12:22 PM cc: CPT CODES: ICD9 CODES: PATIENT NAME: Matthew Ansari MR#: [id number]
--- NOTE | 2021-11-27 13:02 | RAD REPORT ---
EXAM DESCRIPTION: RAD - Abdomen 1 View (KUB) - 11/27/2021 12:50 pm CLINICAL HISTORY: Device placement Dobhoff tube placement FINDINGS: The tip of a Dobhoff tube lies within the second portion of the duodenum
[2021-11-27 13:17] LABS: HBsAG Nonreactive (Nonreactive)
[2021-11-27] MEDS ORDERED: NA CHLORIDE 0.9% 500 ML IV ONE (14:35)
--- NOTE | 2021-11-27 15:06 | PN ---
Date of Progress Note: 11/26/2021 Subjective: The patient was admitted to the hospital with altered mental status, elevation in BUN and creatinine. Suspected of hepatorenal syndrome. The patient being nonoliguric. The last 12 hours, he made 250, but patient still with altered mental status. Physical Examination: Vital Signs: When I saw the patient; blood pressure 111/50, pulse of 60, afebrile. The patient had urine output of 500. Chest: Clear to auscultation. Heart: S1, S2. Systolic murmur. Abdomen: Soft, nontender. Extremities: No edema. Neuro: Patient obtunded. Moving 4 extremities. No focality. Laboratory Data: Chest x-ray; cardiomegaly, no congestion. H and H 8.9 over 27. Sodium 135, potassium 4.5, bicarb 22, BUN 72, creatinine 2.6, GFR 23, calcium 7.7, phosphorus 4.7, albumin 2.5. Urinalysis negative for infection. Patient still obtunded. Renal ultrasound did not show any hydronephrosis. Current Medications: The patient on include meropenem 500 every 8, vancomycin, midodrine 7.5 t.i.d., Eliquis, Atorvastatin, Jevity. Assessment And Plan: 1. Acute kidney injury secondary to hepatorenal syndrome. We going to continue the patient on midodrine. I am going to put the patient on albumin for fluid expansion. We will give the patient 500 of normal saline as fluid expansion and we will continue hydration. If kidney function continue to decline, patient may need to be initiated on renal replacement therapy. I spoke to the by bedside, verbalized understanding, and agree if the patient needing dialysis to be initiated. 2. Hypertension. Currently, blood pressure on the lower side. We will continue midodrine. 3. Altered mental status, possible secondary to uremia/hepatic encephalopathy. We will follow up with the primary. 4. Anemia with the presence of acute kidney injury. I am going to go ahead and send for anemia workup and we will send for serum protein electrophoresis to rule out any light chain diseases. Time spent examining the patient, [id number] communicating with the patient and family, discussing the case with the nursing staff, reviewing the data including lab and radiology,discussing with other speciality placing order 35 minutes ALISSA/FIDEL Voice ID: [id number] Report ID: [id number] MTDD
[2021-11-27] MEDS: NA CHLORIDE 0.9% 1,000 ML IV SCH (15:19)
[2021-11-27] MEDS ORDERED: GLUCAGON 1 MG/VIAL IM PRN (15:59)
[2021-11-27] MEDS ORDERED: D50W 25 GM/50 ML SYRINGE IV PRN (15:59)
[2021-11-27] MEDS ORDERED: D10W 125 ML IV PRN (16:12)
--- NOTE | 2021-11-27 19:15 | PN ---
Date of Progress Note: 11/27/2021 Subjective: The patient was admitted with acute kidney injury secondary to hepatorenal. The patient had GI bleed. The patient had EGD today. Physical Examination: Vital Signs: Blood pressure 121/55, pulse of 60, afebrile. Yesterday, the patient received fluid expansion. Urine output has been improved to 550. Chest: Clear to auscultation. Heart: S1, S2 regular. Abdomen: Soft, nontender. Extremities: No edema. Neurologic: Patient more awake today. No focal. Laboratory Data: H and H of 8.2/25.4. Sodium 138, potassium 4.3, bicarb 22, BUN 81, creatinine 2.4, GFR 25, calcium 7.4, phosphorus 4.7, iron saturation 11, ferritin 140. Serum protein electrophoresis is still pending. PTH 129. Current Medications: Include: 1. Cefazolin. 2. Meropenem. 3. Midodrine. 4. Atorvastatin. 5. IV fluid. 6. Octreotide. Assessment And Plan: 1. Acute kidney injury secondary to cardiorenal, currently plateaued to mild improvement, nonoliguric. I do not see the need to initiate any renal replacement therapy. I am going to continue with the fluid expansion for the time being and we will continue to monitor the patient. 2. Hypertension, currently blood pressure on the lower side. Continue midodrine. 3. Bacteremia Staphylococcus aureus. Continue current antibiotic. We will follow up with primary. 4. Altered mental status, secondary to encephalopathy. We will follow up with primary and GI. 5. Iron deficiency anemia, secondary to gastrointestinal loss. We will start the patient on IV iron. Time spent examining the patient, [id number] communicating with the patient and family, discussing the case with the nursing staff, reviewing the data including lab and radiology,discussing with other speciality placing order 35 minutes ALISSA/FIDEL Voice ID: [id number] Report ID: [id number] BRIDGETTE
[2021-11-27] MEDS: CEFAZOLIN/SWI 2gm 2 GM/20 ML SYR IV SCH (20:10)
--- NOTE | 2021-11-27 23:54 | PN ---
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 Eliquis has been held. Amiodarone has been held. He is in sinus rhythm. The patient underwent an endoscopy with biopsy without any complications today and he was found to have mild gastritis, portal hypertension, gastropathy in the body of the stomach, and a 2.5 cm diverticulum in the descending du odenum. He has a Dobhoff. The plan was to await biopsy, liver workup. Acid suppression therapy. Objective: Cardiac jiang, his vital signs are stable. He is in sinus rhythm. His I's and O's are ad equate. His O2 saturation is 95% on 3 L. Laboratory Data: Creatinine is 2.46, hemoglobin is 8.2. His liver function enzymes are decreasing. Plan: Continue with medical therapy at this point with Lipitor, inhalers, Lasix, insulin, midodrine, and antibiotics. No amiodarone. No Eliquis at this point. We will continue to follow p.r.n. The patient has had a Watchman. Once he recovers from this, we will do another transesophageal echocardi ogram to check on his Watchman status. We will do that as an outpatient. GONZALO/FIDEL Voice ID: [id number] Report ID: [id number]
[2021-11-28] MEDS: NA CHLORIDE 0.9% 1,000 ML IV SCH ×3 (00:41→11:06)
[2021-11-28] MEDS: Meropenem 500 MG in NA CHLORIDE 0.9% 100 ML IV SCH ×2 (00:41→08:30)
[2021-11-28] MEDS: ALBUTEROL 2.5 MG/3 ML NEB SOL NEB SCH ×4 (01:35→20:15)
[2021-11-28 04:22] LABS: Hematocrit 24.1 % (39.6-49.0); MPV 9.5 fL (7.6-11.3); RBC Red Blood Cell Count 2.65 M/uL (4.33-5.43)
[2021-11-28 04:38] LABS: Albumin 3.2 g/dL (3.4-5.0); Phosphorus 4.2 mg/dL (2.5-4.9); Potassium 4.2 mmol/L (3.5-5.1)
[2021-11-28] MEDS: INSULIN -REGULAR HUMAN 50 UNIT/0.5 ML ML SQ SCH ×4 (06:00→18:00)
--- NOTE | 2021-11-28 06:34 | P.PN ---
Date of Service: 11/28/21 Subjective: More alert and oriented Answers appropriately Pulled Dobbhoff overnight, states he did not like it/uncomfortable Denies pain has tried to give him some Ensure and pudding, states he has been swallowing okay, no coughing/gagging/clearing his throat related to swallowing Patient with minimal appetite ROS: 10 point review of systems as noted above, otherwise negative Physical exam GEN: alert, oriented x3 HEENT: Normal conjunctiva, sclera anicteric CV: Regular rate and rhythm, 1+ edema in b/l lower extremities to thighs Pulm: mild rales bilaterally, nonproductive cough, transmitted upper airways noises ABD: Soft, nondistended Integumentary: superficial wounds at mid back, sacrum, right heel, and left calf with dressings in place, LLE with serosanguineous drainage noted on dressing Neuro: moving all extremities Problem List Acute metabolic encephalopathy, improving Hypoglycemia, secondary to sulfonylurea use MSSA bacteremia NADEGE on CKD2 hepatic failure, liver cirrhosis, new Chronic atrial fibrillation, s/p watchman's procedure Diabetes mellitus type 2, [id number] acute blood loss anemia s/p biventricular cardiac pacemaker insertion mentation improving CT abd: liver cirrhosis with ascites, change from CT done a few weeks ago. 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 Patient's A1c also within normal range. stable Patient has now removed his Dobbhoff twice this hospitalization. Patient's has been giving him oral Ensure/pudding this morning Hold off on further p.o. feeds, speech therapy consulted Physical therapy consulted Initial blood culture growing MSSA, ID consulted, empiric vancomycin started 11/26, changed to Ancef per sensitivities Repeat cultures pending, initial echocardiogram (TTE) without evidence of vegetation hgb stable now, s/p 3u PRBCs, continue iv protonix, octreotide EGD done on 11/27, noted gastritis, evidence of portal hypertension. No active bleeding found nephrology consulted, renal function improving continue midodrine for hypotension as needed hannah dc'd - cardiology agreed to dc completely given bleed INR was up to 6.4, improved after vit K, result of liver failure, also on DOAC which can cause inconsistent INR levels afib is rate controlled, can use beta anjel if needed / tolerable, per cardiology Echo unremarkable Patient with high mortality, poor prognosis; now improving Code: full Dispo: SNF, ~2-3 days, downgraded to telemetry last night Time Spent Managing Pts Care (In Minutes): 35
[2021-11-28] MEDS: ALBUMIN HUMAN 25% 200 ML IV SCH (08:29)
[2021-11-28] MEDS: PANTOPRAZOLE 40 MG INJ IVP SCH ×2 (08:30→21:40)
[2021-11-28] MEDS: MEDIHONEY 44 ML TOPICAL TUBE TOP SCH (08:32)
[2021-11-28] MEDS: CEFAZOLIN/SWI 2gm 2 GM/20 ML SYR IV SCH ×2 (08:32→21:38)
[2021-11-28] MEDS: OCTREOTIDE ACETATE 100 MCG/ML SQ SCH ×3 (08:33→21:38)
[2021-11-28] MEDS: MIDODRINE HCL 5 MG TABLET PO SCH ×3 (08:35→21:40)
[2021-11-28] MEDS: SOD FERRIC GLUC COMPLX/SUCROSE 250 MG in NA CHLORIDE 0.9% 250 ML IV SCH (12:23)
--- NOTE | 2021-11-28 13:00 | P.PN ---
Subjective Date of Service: 11/28/21 Chief Complaint: Hypoglycemia, hematochezia, INR 7, anemia, new ESLD / ascites, aspiration Subjective: Improving (No further bleeding noted. Much more alert now and talking with appropriate answers to questions. He pulled out Dobhoff tube today. Speech therapy is to see him soon. Moved to floor today from ICU.) Review of Systems General: Weakness, Malaise (Improved.) Physical Examination - Vital Signs Temperature: 97.3 F Blood Pressure: 160/80 Pulse: 60 Respirations: 19 Pulse Ox (%): 95 - Physical Exam General: Alert, Oriented x1, Cooperative HEENT: Atraumatic, Normocephalic, PERRLA, EOMI Neck: Supple Respiratory: Normal air movement Cardiovascular: Normal pulses Gastrointestinal: Soft and benign, Distended (mild) Musculoskeletal: Swelling Neurological: Normal speech Assessment And Plan - Current Problems (Diagnosis) (1) Hematochezia Current Visit: Yes Status: Acute (2) Ascites Current Visit: Yes Status: Acute (3) Acute blood loss anemia Current Visit: Yes Status: Acute (4) Anasarca Current Visit: Yes Status: Acute (5) Hypoglycemia Current Visit: Yes Status: Acute (6) Liver cirrhosis Current Visit: Yes Status: Acute (7) A-fib Current Visit: Yes Status: Chronic Qualifiers: Atrial fibrillation type: unspecified chronic Qualified Code(s): I48.20 - Chronic atrial fibrillation, unspecified; I48.2 - Chronic atrial fibrillation (8) Acute renal failure Current Visit: No Status: Acute - Plan REC: 1) await speech therapy; if fails, place DBT again and start TFs 2) monitor labs 3) PPI therapy 4) continue to hold Eliquis
--- NOTE | 2021-11-28 15:43 | PN ---
Date of Progress Note: 11/28/2021 Subjective: The patient is status post EGD yesterday, tolerated, showed ischemic gastropathy. No active bleed. The patient more awake today. The patient received 500 of bolus yesterday. Urine output has been improved. Physical Examination: Vital Signs: Blood pressure 138/75, pulse of 66, afebrile. The patient had urine output of 800, positive of 900. Chest: Faint rales bilateral base. Heart: S1, S2. Regular. Systolic murmur. Abdomen: Soft, nontender. Extremities: Plus edema. Dressing on both legs and right arm. Neurologic: Alert. No focality. More awake today. Laboratory Data: WBC 10.3, H and H 8.1/24.1. Sodium 141, potassium 4.2, bicarb 24, BUN 83, creatinine down to 2. GFR of 31, calcium 7.6, phosphorus 4.2, albumin 3.2, corrected calcium is 8.4. Current Medications: The patient on include cefazolin, meropenem 500 t.i.d., midodrine 7.5 t.i.d., Tylenol, Zofran, pantoprazole, octreotide, normal saline at 100 per hour. The patient received albumin for fluid expansion for hepatorenal. Assessment And Plan: 1. Acute kidney injury secondary to hepatorenal, poor perfusion, ATN, on the recovery phase, nonoliguric. No hyperkalemia. No acidosis. Uremic symptoms have been improving. I do not see the need to initiate any renal replacement therapy for the time being. The patient started has been more on the third space side. I am going to go ahead and get chest x-ray for better evaluation of the fluid status. I am going to go ahead and decrease IV fluid normal saline down to 50 per hour and we will continue to monitor the patient. 2. Hypertension, currently hypotension. The patient is dependent on the midodrine. We will continue midodrine and fluid expansion with current normal saline at 50 per hour. 3. Bacteremia secondary to Staphylococcus aureus. The patient on antibiotic. We will follow up with ID. Dose appropriate. 4. Altered mental status secondary to hepatic encephalopathy. More awake today. We will follow up with GI and Primary. 5. Iron deficiency anemia secondary to GI bleed. Continue IV iron. 6. Malnourished. The patient was started on Jevity. We will follow up. 7. Hypernatremia. The patient started on the Jevity. Has free water. We will decrease normal saline and we will follow up. time spend exam the patient face to face diswcussing with patient, placing order , reviewing the data , discussing the case with steam and power superintendent including nursing and hospitalist 35min JO Voice ID: [id number] Report ID: [id number] MTDD
--- NOTE | 2021-11-28 16:00 | RAD REPORT ---
EXAM DESCRIPTION: RAD - Chest Single View - 11/28/2021 3:50 pm CLINICAL HISTORY: COPD Chest pain. COMPARISON: Abdomen 1 View (KUB) dated 11/27/2021; Chest Single View dated 11/26/2021; Abdomen 1 View (KUB) dated 11/24/2021; Abdomen 1 View (KUB) dated 11/24/2021 FINDINGS: Portable technique limits examination quality. The lungs are underinflated with mild bilateral pulmonary opacities persisting. The heart is mildly p rominent size. Dual lead pacer device is present. IMPRESSION: Moderate underinflation of the lungs.
[2021-11-29] MEDS: ALBUTEROL 2.5 MG/3 ML NEB SOL NEB SCH ×3 (01:40→14:00)
--- NOTE | 2021-11-29 05:05 | P.PN ---
Subjective Date of Service: 11/29/21 Chief Complaint: Hypoglycemia, hematochezia, INR 7, anemia, new ESLD / ascites, aspiration Subjective: No new changes Physical Examination - Vital Signs Temperature: 98.0 F Blood Pressure: 170/79 Pulse: 59 Respirations: 18 Pulse Ox (%): 95 - Physical Exam General: Other (frail looking) HEENT: Atraumatic, Normocephalic Neck: Supple, JVD not distended Respiratory: Other (symmetric chest expansion) Cardiovascular: No rubs, No murmurs Gastrointestinal: Soft and benign, Non-distended Musculoskeletal: No clubbing Integumentary: No warmth Neurological: Normal speech, Normal tone Urinary: Other (no bladder distention) External genitalia: Deferred Rectal: Deferred Assessment And Plan - Plan 1. Acute kidney injury secondary to hepatorenal, poor perfusion, ATN. SCr improved/plateaued at 2.1. Keep MAP > 65-70. [place] po fluid intake. Monitor renal panel. 2. Hypotension, resolved. Off Midodrine. Monitor BP. 3. MSSA bacteremia. Abx per ID. TTE no vegetation. May need MARC. 4. Altered mental status secondary to hepatic encephalopathy. Improving. Monitor. 5. Iron deficiency anemia secondary to GI bleed. Continue IV iron. Transfuse pRBC prn for hgb < 7.0. 6. Protein-calorie malnutrition. The patient was started on Jevity. 7. Hyponatremia. Resolved. Monitor.
[2021-11-29 05:27] VITALS: BMI 29.9
[2021-11-29] MEDS: INSULIN -REGULAR HUMAN 50 UNIT/0.5 ML ML SQ SCH ×4 (06:00→18:00)
[2021-11-29] MEDS: NA CHLORIDE 0.9% 1,000 ML IV SCH ×2 (06:05→23:36)
[2021-11-29 06:29] LABS: Hematocrit 27.7 % (39.6-49.0); MPV 9.6 fL (7.6-11.3); RBC Red Blood Cell Count 3.06 M/uL (4.33-5.43)
[2021-11-29 06:33] LABS: Albumin 2.9 g/dL (3.4-5.0); Bilirubin Total 4.7 mg/dL (0.2-1.0); Magnesium 2.6 mg/dL (1.8-2.4); Phosphorus 4.4 mg/dL (2.5-4.9); Potassium 4.2 mmol/L (3.5-5.1); Protein, Total 5.1 g/dL (6.4-8.2)
--- NOTE | 2021-11-29 06:39 | P.PN ---
Date of Service: 11/29/21 Subjective: improving, low appetite upper airway secretions swelling slightly improved ROS: 10 point review of systems as noted above, otherwise negative Physical exam GEN: alert, oriented x3 HEENT: Normal conjunctiva, sclera anicteric CV: Regular rate and rhythm, edema to abdomen Pulm: mild rales bilaterally, nonproductive cough, transmitted upper airways noises ABD: Soft, nondistended Integumentary: superficial wounds at mid back, sacrum, right heel, and left calf with dressings in place, LLE with serosanguineous drainage noted on dressing : edematous scrotum Neuro: moving all extremities Problem List Acute metabolic encephalopathy, improving Hypoglycemia, secondary to sulfonylurea use MSSA bacteremia NADEGE on CKD2 hepatic failure, liver cirrhosis, new Chronic atrial fibrillation, s/p watchman's procedure Diabetes mellitus type 2, [id number] acute blood loss anemia s/p biventricular cardiac pacemaker insertion mentation improving CT abd: liver cirrhosis with ascites, change from CT done a few weeks ago. 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 Patient's A1c also within normal range. stable Patient has now removed his Dobbhoff twice this hospitalization. Patient's has been giving him oral Ensure/pudding Hold off on further p.o. feeds, speech therapy consulted - to see today Physical therapy consulted Initial blood culture growing MSSA, ID consulted, empiric vancomycin started 11/26, changed to Ancef per sensitivities Repeat cultures pending, initial echocardiogram (TTE) without evidence of vegetation; patient does have pacemaker, may require MARC, will discuss further with ID hgb stable now, s/p 3u PRBCs, continue iv protonix, octreotide EGD done on 11/27, noted gastritis, evidence of portal hypertension. No active bleeding found nephrology consulted, renal function improving dc midodrine 11/29, BP high eliquis dc'd - cardiology agreed to dc completely given bleed afib is rate controlled, can use beta anjel if needed / tolerable, per cardiology Echo unremarkable Patient with high mortality, poor prognosis; now improving Code: full Dispo: SNF, ~3 days Time Spent Managing Pts Care (In Minutes): 35
[2021-11-29] MEDS: MEDIHONEY 44 ML TOPICAL TUBE TOP SCH (09:29)
[2021-11-29] MEDS: CEFAZOLIN/SWI 2gm 2 GM/20 ML SYR IV SCH ×2 (09:30→20:32)
[2021-11-29] MEDS: PANTOPRAZOLE 40 MG INJ IVP SCH ×2 (09:30→20:32)
[2021-11-29] MEDS: OCTREOTIDE ACETATE 100 MCG/ML SQ SCH ×3 (09:30→20:33)
--- NOTE | 2021-11-29 11:59 | P.CNS ---
Date of Consult: 11/29/21 Chief Complaint: Hypoglycemia, hematochezia, INR 7, anemia, new ESLD / ascites, aspiration History of Present Illness: The patient is an 81-year-old male with a past medical history significant of hypertension, A. fib, hyperlipidemia, type 2 diabetes, history of dual-lead pacemaker device placed December 05, 2020 and a watchmen cardiac device placed on October 04, 2019 who presented to the emergency department via EMS from [facility] secondary to altered mental status and hypoglycemia. Blood cultures obtained on 09/26 grew methicillin susceptible Staph aureus, repeat cultures obtained on 11/26 showed no growth. Of note patient has multiple wounds to his bilateral upper and lower extremities as well as upper back/sacrum. Chest x-ray performed on 11/26 showed possible multifocal PNA. Transthoracic echocardiogram performed on 11/25 showed no acute vegetation. Recommend patient be transferred for a transesophageal echocardiogram secondary to having a permanent intracardiac device to rule out acute infective endocarditis. Recommend continuing cefazolin at this time, patient has completed course of meropenem for possible multifocal PNA. Currently denies nausea/vomiting/shortness of breath/chest pain. Allergies No Known Allergies Allergy (Verified 01/13/20 10:11) Home Medications: Atorvastatin Calcium [Lipitor] 80 mg PO BEDTIME 01/12/20 Ezetimibe 10 mg PO BEDTIME 01/12/20 Fenofibrate 160 mg PO BEDTIME 01/12/20 Omeprazole [Prilosec] 40 mg PO [id number] 01/12/20 Ascorbic Acid [Vitamin C*] 1,000 mg PO DAILY 12/07/20 Amiodarone HCl [Pacerone] 400 mg PO BEDTIME 11/08/21 Apixaban [Eliquis] 5 mg PO BID 11/08/21 Ferrous Sulfate [Iron] 325 mg PO DAILY 11/08/21 Cholecalciferol (Vitamin D3) [Vitamin D 1000 Iu Tab*] 2,000 unit PO DAILY tab 11/14/21 Gabapentin [Neurontin*] 100 mg PO BEDTIME cap 11/14/21 Dylan [Dylan*] 1 pkt PO BID powd.pack 11/14/21 Docusate Sodium 100 mg PO BID 11/23/21 Empagliflozin [Jardiance] 25 mg PO DAILY 11/23/21 Furosemide [Lasix] 20 mg PO DAILY 11/23/21 Glimepiride [Amaryl] 4 mg PO DAILY 11/23/21 Nepro Shake [Nepro*] 1 can PO BID 11/23/21 - Past Medical/Surgical History Diabetic: Yes -: Diabetes mellitus -: Colon Cancer -: CAD -: Hypertension -: Measles -: Afib -: HLD -: gall bladder surgery -: Colon surgery -: Prostate surgery -: Back surgery -: Tonsillectomy and adenoidectomy -: Angioplasty no stents -: prostate surgery -: pacemaker and watchman Psychosocial/ Personal History: Patient lives at [facility]. He is . - Social History Alcohol use: No CD- Drugs: No Caffeine use: Yes Place of Residence: [place] Review of Systems 10-point ROS is otherwise unremarkable Physical Examination Temp Pulse Resp BP Pulse Ox 98.1 F 60 16 138/74 96 11/29/21 08:00 11/29/21 08:00 11/29/21 08:00 11/29/21 08:00 11/29/21 08:00 General: Alert HEENT: Atraumatic Neck: Supple Respiratory: Other (Bilateral crackles/rales) Cardiovascular: Normal pulses, Normal S1 S2, Edema (Diffuse), Irregular heart rate/rhythm Gastrointestinal: Distended Integumentary: Other (Diffuse anasarca, wounds to bilateral upper and lower extremities. Stage III pressure wounds to sacrum and upper back.) Urinary: Victoria catheter External genitalia: Other (scrotal swelling) Rectal: Normal Conclusions/Impression: Antibiotics: Cefazolin: 11/27current Meropenem: 11/20-11/2027 Vancomycin: 11/20-11/2026 Assessment/plan Positive bacteremia Blood cultures obtained on 11/24 grew methicillin susceptible Staph aureus Repeat cultures obtained on 11/26 and 11/27 showed no growth. Transthoracic echocardiogram without any acute findings. Recommend patient be transferred for transesophageal echocardiogram due to indwelling intracardiac devices -Continue cefazolin at this time. Results of transesophageal echocardiogram will determine duration. Multifocal PNA Checks x-ray performed on 11/26 showed signs concerning for multifocal pneumonia. Patient has completed course of meropenem. Liver cirrhosis with ascites GI following. Plan of care discussed with Dr. Cardona Thank you for consultation
[2021-11-29 15:43] LABS: Hepatitis C Virus RNA (PCR)log <1.18 log IU/mL
--- NOTE | 2021-11-29 19:51 | RAD REPORT ---
EXAM DESCRIPTION: US - Scrotum Testicles - 11/29/2021 7:32 pm CLINICAL HISTORY: Testicular pain and swelling COMPARISON: None FINDINGS: Marked scrotal skin and subcutaneous thickening. Right testicle measures 2.7 x 2 x 2.1 centimeters. Echotexture is homogeneous. Normal blood flow Left testicle measures 2.7 x 2 x 2 centimeters. Echotexture is homogeneous. Normal blood flow The epididymides are normal in size and echotexture. Normal blood flow is seen. Moderate bilateral hydroceles IMPRESSION: Marked scrotal skin and subcutaneous thickening. This may be related to cellulitis or ve nous stasis Moderate bilateral hydroceles
[2021-11-29] MEDS: JUVEN PACKET PO SCH (20:32)
--- NOTE | 2021-11-30 00:13 | CON ---
Date of Consultation: 11/25/2021 Chief Complaint: Acute kidney injury, borderline oliguric. The patient is in ICU. He has acute kidney injury due to renal hypoperfusion in setting of hypotension and he has been on midodrine for bp support. History Of Present Illness: He is an 81-year-old man with history of hypertension, hyperlipidemia, diabetes mellitus type 2, on p.o. hypoglycemic agent. He has history of atrial fibrillation and he was treated with Eliquis previously. He came to the emergency room via EMS from [facility] because of severe hypoglycemia. Blood glucose was 50. He received D50 and continues infusion with 5% dextrose and then blood glucose improved 106. The patient was admitted to ICU for hypotension, possible sepsis, and acute kidney injury. The patient was found to have severe leukocytosis. WBC was 15,000, creatinine level was 1.59, hemoglobin 9.1. The patient has history of diabetes mellitus and baseline creatinine level is unknown at this time. The patient was taking multiple medications including fenofibrate, atorvastatin, Eliquis, amiodarone, ascorbic acid, gabapentin, Dylan, vitamin D, and omeprazole. The patient cannot provide review of systems. He is lethargic. Past Medical History: Diabetes mellitus, colon cancer, coronary artery disease, hypertension, measles, atrial fibrillation, HIV. Past Surgical History: Gallbladder surgery, colon surgery, prostate surgery, back surgery, tonsillectomy, angioplasty, pacemaker. Family History: No kidney disease in the family. Social History: Former smoker. Review of Systems: Cannot be obtained due to the patient's condition. He cannot provide review of systems. Case was discussed with his and his son at the bedside. Physical Examination: General: The patient is awake, follows commands. Eyes: Anicteric sclerae. Neck: Supple. No bruits. Lungs: Few rhonchi. Heart: S1 and S2. No pericardial friction rub. Abdomen: Soft, nontender. Extremities: Edema present in upper and lower extremities. Wounds at mid back, upper extremities, right heel, left calf. Neurological: Normal affect. Moving extremities. Laboratory Data: Creatinine level on arrival to the hospital 1.59, BUN 54, sodium 156, potassium 4.3. Hemoglobin 9.1, platelets 281,000, hematocrit 27.9. Blood work today showed hemoglobin 7.7, hematocrit 23. Chemistry; phosphorus 4.6, magnesium 2.3, sodium 133, potassium 4.6, chloride 101, CO2 of 23, BUN 65, creatinine level 2.53. Direct bilirubin 1.8, total bilirubin 2.5, ALT 96. Impression And Plan: Acute kidney injury, severe, borderline oliguric. The patient has hypoalbuminemia. Albumin level is 2.3, serum protein 5.2. The patient has anasarca. Urine output has been declining. The patient is undergoing cardiac workup. Troponin level is elevated. The patient has history of coronary artery disease and atrial fibrillation. The patient needs to be ruled out hypothyroid, and due to the finding, he was taking amiodarone. He may have hypothyroidism. The patient has acute kidney injury, which may be due to hepatorenal syndrome, and the patient will continue midodrine and octreotide. Avoid nonsteroidal anti-inflammatory medications. Continue midodrine for adequate blood pressure support. Plan is to check renal ultrasound and screen for vasculitis. The patient will have IV albumin, midodrine, and octreotide for hepatorenal syndrome. The patient may be a candidate for dialysis. Workup is initiated for chronic liver disease with hyperbilirubinemia, likely the patient has liver cirrhosis. Prognosis overall is guarded. EB/MODL Voice ID: [id number] Report ID: [id number] BRIDGETTE
[2021-11-30 04:34] LABS: Hematocrit 28.3 % (39.6-49.0); MPV 9.3 fL (7.6-11.3); RBC Red Blood Cell Count 3.11 M/uL (4.33-5.43)
[2021-11-30 04:51] LABS: Albumin 2.6 g/dL (3.4-5.0); Phosphorus 4.8 mg/dL (2.5-4.9); Potassium 4.3 mmol/L (3.5-5.1)
[2021-11-30] MEDS: INSULIN -REGULAR HUMAN 50 UNIT/0.5 ML ML SQ SCH ×5 (06:00→21:00)
--- NOTE | 2021-11-30 06:29 | P.PN ---
Date of Service: 11/30/21 Subjective: Feeling better, eating slightly more Without any new complaints this morning Intermittent confusion ROS: 10 point review of systems as noted above, otherwise negative Physical exam GEN: alert, oriented x3, intermittently confused HEENT: Normal conjunctiva, sclera anicteric CV: Regular rate and rhythm, edema to abdomen Pulm: mild rales bilaterally, nonproductive cough, transmitted upper airways noises ABD: Soft, nondistended Integumentary: superficial wounds at mid back, sacrum, right heel, and left calf with dressings in place, LLE with serosanguineous drainage noted on dressing : edematous scrotum Neuro: moving all extremities Problem List Acute metabolic encephalopathy, improving Hypoglycemia, secondary to sulfonylurea use, resolved MSSA bacteremia NADGEE on CKD2 hepatic failure, liver cirrhosis, new Chronic atrial fibrillation, s/p watchman's procedure Diabetes mellitus type 2, [id number]-wmnlwstjw acute blood loss anemia s/p biventricular cardiac pacemaker insertion mentation improving CT abd: liver cirrhosis with ascites, change from CT done a few weeks ago. workup pending, mostly negative GI consulted; 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 Patient's A1c also within normal range. stable Patient has now removed his Dobbhoff twice this hospitalization. Patient's has been giving him oral Ensure/pudding Hold off on further p.o. feeds, speech therapy consulted - to see today Physical therapy consulted Initial blood culture growing MSSA, ID consulted, empiric vancomycin started 11/26, changed to Ancef per sensitivities Repeat cultures pending no growth, initial echocardiogram (TTE) without evidence of vegetation; patient does have pacemaker, may require MARC, will discuss further with ID hgb stable now, s/p 3u PRBCs, continue protonix, octreotide EGD done on 11/27, noted gastritis, evidence of portal hypertension. No active bleeding found nephrology consulted, renal function improving dc midodrine 11/29, BP high eliquis dc'd - cardiology agreed to dc completely given bleed afib is rate controlled, can use beta anjel if needed / tolerable, per cardiology Echo unremarkable Patient with high mortality, poor prognosis; now improving Code: full Dispo: SNF, ~3 days Patient's counseled on recommendation for MARC, states she does not want him to go,since she may not be able to visit him. Her vision has been worse lately and she cannot drive when it is dark outside Time Spent Managing Pts Care (In Minutes): 35
[2021-11-30 07:04] LABS: Albumin 2.6 g/dL (3.4-5.0); Bilirubin Direct 3.6 mg/dL (0-0.2); Bilirubin Total 4.9 mg/dL (0.2-1.0); Protein, Total 5.1 g/dL (6.4-8.2)
[2021-11-30] MEDS: OCTREOTIDE ACETATE 100 MCG/ML SQ SCH ×3 (08:39→21:54)
[2021-11-30] MEDS: JUVEN PACKET PO SCH ×2 (08:39→21:55)
[2021-11-30] MEDS: PANTOPRAZOLE 40 MG INJ IVP SCH ×2 (08:39→21:55)
[2021-11-30] MEDS: CEFAZOLIN/SWI 2gm 2 GM/20 ML SYR IV SCH ×2 (08:39→21:55)
[2021-11-30] MEDS: MEDIHONEY 44 ML TOPICAL TUBE TOP SCH (08:40)
[2021-11-30 16:56] LABS: HIV AG/AB 4TH GEN Non-reactive (Non-reactive)
--- NOTE | 2021-12-01 03:28 | PN ---
Date of Progress Note: 11/30/2021 Chief Complaint: Acute kidney injury, anxiety, aspiration pneumonia. Subjective: Acute kidney injury secondary to hepatorenal syndrome and complicated by ATN associated with fluid overload and anasarca. The patient was treated in the ICU for hypotension and Lasix was used along with midodrine and octreotide to treat volume overload and hepatorenal syndrome. The patient was transferred to telemetry floor when blood pressure stabilized. Blood pressure is elevated. The patient tolerated Lasix and urine output has improved. Serum creatinine has overall improved to 2.1 and midodrine was stopped when hypotension resolved. The patient was found to have MSSA bacteremia. TTE did not show vegetation. The patient may need transesophageal echo. The patient remains encephalopathic due to hepatic encephalopathy. P.o. intake is improving and appetite is improving. The patient denies complaints. Objective: Lungs: Clear to auscultation bilaterally. Heart: S1, S2. Abdomen: Soft, benign. Extremities: Edema present in both legs. Impression And Plan: 1. Acute kidney injury, secondary to hepatorenal syndrome, complicated by acute tubular necrosis. Serum creatinine is improving. Monitor electrolytes. 2. Hypotension, resolved. Continue off midodrine and blood pressure medication as needed. 3. Methicillin-susceptible Staphylococcus aureus bacteremia. Continue antibiotics. Further workup per primary team and Cardiology. 4. Altered mental status due to hepatic encephalopathy. Continue treatment. 5. Protein-calorie malnutrition. The patient was started on Jevity and plan is to monitor p.o. intake. 6. Hyponatremia, resolved. Monitor electrolytes daily. EB/MODL Voice ID: [id number] Report ID: [id number] [facility] HEALTH SYSTEMRaul
[2021-12-01 06:12] LABS: Protime INR 1.98
--- NOTE | 2021-12-01 06:23 | P.PN ---
Date of Service: 12/01/21 Subjective: intermittent confusion UOP decreased eating better, but requiring to constantly remind him / feed him swelling about the same ROS: 10 point review of systems as noted above, otherwise negative Physical exam GEN: alert, oriented x2, intermittently confused HEENT: Normal conjunctiva, sclera anicteric CV: Regular rate and rhythm, edema to abdomen Pulm: nonproductive cough, transmitted upper airways noises ABD: Soft, nondistended Integumentary: superficial wounds at mid back, sacrum, right heel, and left calf with dressings in place, LLE with serosanguineous drainage noted on dressing : edematous scrotum Neuro: moving all extremities Problem List Acute metabolic encephalopathy, improving Hypoglycemia, secondary to sulfonylurea use, resolved MSSA bacteremia NADEGE on CKD2 hepatic failure, liver cirrhosis, new Chronic atrial fibrillation, s/p watchman's procedure Diabetes mellitus type 2, ynj-vuvfnad-zzgalspup acute blood loss anemia s/p biventricular cardiac pacemaker insertion mentation improving- but waxing/waning; BUN and Cr rising, likely contributing now nephrology following, managing fluids/diuresis CT abd: liver cirrhosis with ascites, change from CT done a few weeks ago. wor kup pending, mostly negative so far GI consulted; 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 Patient's A1c also within normal range. stable evaluated by speech, tolerating diet, minimal appetite, but has been assisting Physical therapy consulted Initial blood culture: MSSA, ID consulted, empiric vancomycin started 11/26, changed to Ancef per sensitivities Repeat cultures no growth, initial echocardiogram (TTE) without evidence of vegetation; patient does have pacemaker ID recommends MARC since patient has a pacemaker undecided, does not want him to be moved further away, she would be unable to visit him. will discuss if open to idea if he can go get MARC done and come back Hgb stable now, s/p 3u PRBCs, continue protonix EGD done on 11/27, noted gastritis, evidence of portal hypertension. No active bleeding found dc'd midodrine 11/29, BP high eliquis dc'd - cardiology agreed to dc completely given bleed, s/p watchman afib is rate controlled, can use beta anjel if needed / tolerable, per cardiology Echo unremarkable Patient with high mortality, poor prognosis Code: full Dispo: SNF, ~3 days Patient's counseled on recommendation for MARC, states she does not want him to go,since she may not be able to visit him. Her vision has been worse lately and she cannot drive when it is dark outside Time Spent Managing Pts Care (In Minutes): 35
[2021-12-01 06:29] LABS: Potassium 4.6 mmol/L (3.5-5.1)
[2021-12-01 06:30] LABS: Albumin 2.4 g/dL (3.4-5.0); Phosphorus 5.2 mg/dL (2.5-4.9); Potassium 4.6 mmol/L (3.5-5.1)
[2021-12-01] MEDS: INSULIN -REGULAR HUMAN 50 UNIT/0.5 ML ML SQ SCH ×4 (07:30→21:00)
[2021-12-01] MEDS: CEFAZOLIN/SWI 2gm 2 GM/20 ML SYR IV SCH ×2 (08:36→22:28)
[2021-12-01] MEDS: OCTREOTIDE ACETATE 100 MCG/ML SQ SCH ×3 (08:37→22:29)
[2021-12-01] MEDS: JUVEN PACKET PO SCH ×2 (08:37→22:31)
[2021-12-01] MEDS: PANTOPRAZOLE 40 MG INJ IVP SCH ×2 (08:37→22:28)
[2021-12-01] MEDS: MEDIHONEY 44 ML TOPICAL TUBE TOP SCH (08:37)
[2021-12-01] MEDS: SOD FERRIC GLUC COMPLX/SUCROSE 250 MG in NA CHLORIDE 0.9% 250 ML IV SCH (12:08)
[2021-12-01] MEDS: NA CHLORIDE 0.9% 1,000 ML IV SCH ×2 (13:57→19:06)
[2021-12-01] MEDS ORDERED: VITAMIN K (ADULT) 10 MG/ML SQ ONE (15:25)
[2021-12-01] MEDS: ALBUTEROL 2.5 MG/3 ML NEB SOL NEB PRN (17:27)
--- NOTE | 2021-12-01 18:34 | RAD REPORT ---
EXAM DESCRIPTION: RAD - Chest Single View - 12/01/2021 6:27 pm CLINICAL HISTORY: shortness of breath Chest pain. COMPARISON: Chest Single View dated 11/28/2021; Abdomen 1 View (KUB) dated 11/27/2021; Chest Single Vi ew dated 11/26/2021; Abdomen 1 View (KUB) dated 11/24/2021 FINDINGS: Portable technique limits examination quality. The lungs are moderately underinflated with moderate bilateral pulmonary opacities, unchanged since c omparative study. The heart is mildly prominent size. Dual lead pacer device is present.
--- NOTE | 2021-12-02 01:34 | PN ---
Date of Progress Note: 12/01/2021 Chief Complaint: Acute kidney injury, altered mental status, aspiration pneumonia, sepsis due to line infection. Subjective: Patient was found to have acute kidney injury in setting of hepatorenal syndrome associated with fluid overload, anasarca. The patient was treated with IV diuretic and midodrine, octreotide, as well as IV albumin for hepatorenal syndrome. Urine output somewhat improved in response from diuretic and recently blood urea nitrogen have increased and Lasix is on hold. Patient was started on mild hydration. Despite hydration, urine output has not improved. Patient has a Victoria catheter. Patient remains encephalopathic and is on antibiotics for MSSA bacteremia. TTE did not show vegetation. Patient may need transesophageal echo. Due to acute kidney injury with oliguria, patient is to start hemodialysis tomorrow. Family wants to proceed with hemodialysis and plan is to set up the catheter placement by surgery tomorrow. Objective: General: Patient is lethargic, arousable. Lungs: Equal chest expansion. Heart: S1, S2. Abdomen : soft Extremities: Edema present in extremities. Impression/plan: 1. Acute kidney injury secondary to multiple causes. Currently, patient has complicated acute tubular necrosis. Blood pressure has improved and patient was taken off Lasix due to persistent hyperazotemia and hypotension, resolved. Patient will continue midodrine as needed. Currently, he is off midodrine. 2. Methicillin-susceptible Staphylococcus aureus bacteremia. Continue antibiotics. 3. Altered mental status due to hepatic encephalopathy and possible uremia. At this point BUN remains elevated and may be contributory to altered mental status and the patient will need to start dialysis. 4. Protein-calorie malnutrition. Patient was started on Jevity. 5. Hyponatremia, resolved. Monitor electrolytes. EB/MODL Voice ID: [id number] Report ID: [id number] BR[facility]GET[facility]
[2021-12-02 05:19] LABS: Hematocrit 28.1 % (39.6-49.0); MPV 9.4 fL (7.6-11.3); RBC Red Blood Cell Count 3.07 M/uL (4.33-5.43)
[2021-12-02 05:22] LABS: Protime INR 2.07
[2021-12-02 05:36] LABS: Albumin 2.3 g/dL (3.4-5.0); Bilirubin Total 4.3 mg/dL (0.2-1.0); Magnesium 2.5 mg/dL (1.8-2.4); Potassium 4.6 mmol/L (3.5-5.1); Protein, Total 5.2 g/dL (6.4-8.2)
--- NOTE | 2021-12-02 06:24 | P.PN ---
Date of Service: 12/02/21 Subjective: confused, weak cough, intermittent dyspnea ROS: 10 point review of systems as noted above, otherwise negative Physical exam GEN: alert, oriented x2, intermittently confused HEENT: Normal conjunctiva, sclera anicteric CV: Regular rate and rhythm, anasarca Pulm: nonproductive cough, b/l crackles ABD: +ascites, mild distention but soft Integumentary: superficial wounds at mid back, sacrum, right heel, and left calf with dressings in place, LLE with serosanguineous drainage noted on dressing : edematous scrotum Neuro: moving all extremities, generalized weakness Problem List Acute metabolic encephalopathy Hypoglycemia, secondary to sulfonylurea use, resolved MSSA bacteremia NADEGE on CKD2 hepatic failure, liver cirrhosis, new Chronic atrial fibrillation, s/p watchman's procedure Diabetes mellitus type 2, ltj-fgyziwu-irswtpwje acute blood loss anemia s/p biventricular cardiac pacemaker insertion mentation improving- but waxing/waning; BUN and Cr rising, mentation now slightly worsened, suspect due to uremia nephrology following, managing fluids/diuresis CT abd: liver cirrhosis with ascites, change from CT done a few weeks ago. workup pending, mostly negative so far GI consulted; 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 Patient's A1c also within normal range. stable evaluated by speech, tolerating diet, minimal appetite, but has been assisting Physical therapy consulted Initial blood culture: MSSA, ID consulted, empiric vancomycin started 11/26, changed to Ancef per sensitivities Repeat cultures no growth, initial echocardiogram (TTE) without evidence of vegetation; patient does have pacemaker ID recommends MARC since patient has a pacemaker does not want him to be moved further away, she would be unable to visit him. would be amenable for him to go get MARC done and come back (only if he comes back) MARC on hold, patient needs dialysis, temporary cath to be done today, followed by dialysis Hgb stable now, s/p 3u PRBCs, continue protonix EGD done on 11/27, noted gastritis, evidence of portal hypertension. No active bleeding found dc'd midodrine 11/29, BP high eliquis dc'd - cardiology agreed to dc completely given bleed, s/p watchman afib is rate controlled, can use beta anjel if needed / tolerable, per cardiology Echo unremarkable Patient with high mortality, poor prognosis Code: full Dispo: SNF, ~3 days prolonged hospitalizaton, now requiring dialysis Time Spent Managing Pts Care (In Minutes): 35
[2021-12-02] MEDS: INSULIN -REGULAR HUMAN 50 UNIT/0.5 ML ML SQ SCH ×4 (07:30→20:51)
[2021-12-02] MEDS: OCTREOTIDE ACETATE 100 MCG/ML SQ SCH ×3 (08:45→21:09)
[2021-12-02] MEDS: PANTOPRAZOLE 40 MG INJ IVP SCH ×2 (08:45→21:09)
[2021-12-02] MEDS: CEFAZOLIN/SWI 2gm 2 GM/20 ML SYR IV SCH ×2 (08:45→21:08)
[2021-12-02] MEDS: JUVEN PACKET PO SCH ×3 (08:46→21:22)
[2021-12-02] MEDS: MEDIHONEY 44 ML TOPICAL TUBE TOP SCH (08:46)
[2021-12-02] MEDS: ALBUTEROL 2.5 MG/3 ML NEB SOL NEB PRN (09:23)
--- NOTE | 2021-12-02 11:42 | P.OP ---
Preoperative diagnosis: Acute on Chronic Renal Failure Postoperative diagnosis: Acute on Chronic Renal Failure Primary procedure: Placement of Temporary RIGHT femoral Hemodialysis catheter Secondary procedure: ultrasound + microintroducer used Anesthesia: 1% lidocaine Estimated blood loss: 20cc Specimen: none Findings: dark, non-pulsatile blood returned Complications: None Implants: temporary HD catheter Transferred to: Other (floor) Condition: Good
[2021-12-02] MEDS: NA CHLORIDE 0.9% 1,000 ML IV SCH ×2 (12:32→15:06)
--- NOTE | 2021-12-02 13:48 | P.PN ---
Subjective Date of Service: 12/02/21 Chief Complaint: Hypoglycemia, hematochezia, INR 7, anemia, new ESLD / ascites, aspiration Patient seen and examined at bedside, creatinine worsening as well as mentation. Right temporary femoral dialysis catheter placed on 12/02, plan for dialysis today. Review of Systems 10-point ROS is otherwise unremarkable Physical Examination - Vital Signs Temperature: 97.2 F Blood Pressure: 187/80 Pulse: 60 Respirations: 16 Pulse Ox (%): 98 - Studies Laboratory Last Values WBC 15.4 K/uL (4.3-10.9) H D 11/22/21 20:20 RBC 3.07 M/uL (4.33-5.43) L 11/22/21 20:20 Hgb 9.1 g/dL (13.6-17.9) L 11/22/21 20:20 Hct 27.9 % (39.6-49.0) L 11/22/21 20:20 MCV 90.9 fL (80-100) 11/22/21 20:20 MCH 29.6 pg (27.0-35.0) 11/22/21 20:20 MCHC 32.5 g/dL (32.0-36.0) 11/22/21 20:20 RDW 24.0 % (12.1-15.2) H 11/22/21 20:20 Plt Count 281 K/uL (152-406) D 11/22/21 20:20 MPV 8.5 fL (7.6-11.3) 11/22/21 20:20 Neutrophils % 89.2 % (41.7-73.7) H 11/22/21 20:20 Lymphocytes % 3.4 % (15.3-44.8) L 11/22/21 20:20 Monocytes % 6.8 % (3.3-12.3) 11/22/21 20:20 Eosinophils % 0.3 % (0-4.4) 11/22/21 20:20 Basophils % 0.3 % (0-1.3) 11/22/21 20:20 Absolute Neutrophils 13.8 K/uL (1.8-8.0) H 11/22/21 20:20 Absolute Lymphocytes 0.5 K/uL (0.7-4.9) L 11/22/21 20:20 Absolute Monocytes 1.1 K/uL (0.1-1.3) 11/22/21 20:20 Absolute Eosinophils 0.0 K/uL (0-0.5) 11/22/21 20:20 Absolute Basophils 0.1 K/uL (0-0.5) 11/22/21 20:20 Platelet Estimate Adeq 11/22/21 20:20 Polychromasia Slight 11/22/21 20:20 Anisocytosis 2+ 11/22/21 20:20 Morphology Comment Noted (NOT SEEN) 11/22/21 20:20 Sodium Cancelled 11/23/21 05:00 Potassium Cancelled 11/23/21 05:00 Chloride Cancelled 11/23/21 05:00 Carbon Dioxide Cancelled 11/23/21 05:00 Anion Gap Cancelled 11/23/21 05:00 BUN Cancelled 11/23/21 05:00 Creatinine Cancelled 11/23/21 05:00 Estimated GFR Cancelled 11/23/21 05:00 Glucose Cancelled 11/23/21 05:00 POC Glucose 37 mg/dL (65-120) L* 11/23/21 13:26 Calcium Cancelled 11/23/21 05:00 Troponin I High Sens 19.6 pg/mL (<58.9) 11/22/21 20:20 Urine Color Yellow (Yellow) 11/23/21 06:30 Urine Appearance Clear (Clear) 11/23/21 06:30 Urine pH 6.0 (5.0-7.0) 11/23/21 06:30 Ur Specific [place] 1.015 (1.005-1.030) 11/23/21 06:30 Glucose (UA)(Auto) 1+ (Negative) H 11/23/21 06:30 Urine Ketones Negative (Negative) 11/23/21 06:30 Urine Blood Negative (Negative) 11/23/21 06:30 Urine Nitrite Negative (Negative) 11/23/21 06:30 Urine Bilirubin Negative (Negative) 11/23/21 06:30 Urine Urobilinogen 1.0 mg/dL (0.2-1.0) 11/23/21 06:30 Ur Leukocyte Esterase Negative (Negative) 11/23/21 06:30 Urine Total Protein Negative (Negative) 11/23/21 06:30 Influenza Type A RNA Negative (NEGATIVE) 11/23/21 00:23 Influenza Type B RNA Negative (NEGATIVE) 11/23/21 00:23 SARS-CoV-2 RNA (RT-PCR) Negative (NEGATIVE) 11/23/21 00:23 Smear Scan Ok (OK) 11/22/21 20:20 Assessment And Plan - Plan Physical Exam: General: Alert HEENT: Atraumatic Neck: Supple Respiratory: Other (Bilateral crackles/rales) Cardiovascular: Normal pulses, Normal S1 S2, Edema (Diffuse), Irregular heart rate/rhythm Gastrointestinal: Distended Integumentary: Other (Diffuse anasarca, wounds to bilateral upper and lower extremities. Stage III pressure wounds to sacrum and upper back.) Urinary: Victoria catheter External genitalia: Other (scrotal swelling) Rectal: Normal Conclusions/Impression: Antibiotics: Augmentin: urrent Cefazolin: 11/27current Meropenem: 11/20-11/2027 Vancomycin: 11/20-11/2026 Assessment/plan Positive bacteremia Blood cultures obtained on 11/24 grew methicillin susceptible Staph aureus Repeat cultures obtained on 11/26 and 11/27 showed no growth. Transthoracic echocardiogram without any acute findings. Recommend patient be transferred for transesophageal echocardiogram due to indwelling intracardiac devices -Continue cefazolin at this time. Results of transesophageal echocardiogram will determine duration. Multifocal PNA Checks x-ray performed on 11/26 showed signs concerning for multifocal pneumon ia. Patient has completed course of meropenem. Repeat chest x-ray performed on 12/01 showed bilateral pulmonary opacities with no improvement. Will start Augmentin x7 days. Liver cirrhosis with ascites GI following. Likely source of patient's thrombocytopenia. NADEGE on CKD Right temporary femoral dialysis catheter placed on 12/02. First dialysis session on 12/02. Plan of care discussed with Dr. Cardona Thank you for consultation
--- NOTE | 2021-12-02 14:31 | CON ---
Date of Consultation: 12/02/2021 Brief History Of Present Illness: The patient is an 81-year-old male with history of hypertension, hyperlipidemia, type 2 diabetes, atrial fibrillation, on Eliquis, who presented to the ER from a SNF facility with a blood sugar of 50. He was administered 150 mL of D5 and sublingual glucose. His blood sugar came to 106. He continued to have resistant hypoglycemia. He had been admitted prior with hypoglycemia in the past. He does take medication. He also has evidence of encephalopathy, hepatic dysfunction, and possible cirrhosis. Past Medical History: Significant for diabetes, colon cancer, coronary artery disease, hypertension, measles, atrial fibrillation, hyperlipidemia, possible hepatic dysfunction. Past Surgical History: Includes cholecystectomy, partial colectomy, prostate surgery, back surgery, tonsillectomy with adenoidectomy, angioplasty, pacemaker and Watchman cardiac atrial appendage device. Allergies: NO KNOWN DRUG ALLERGIES. Home Medications: Include Lipitor, ezetimibe, fenofibrate, Prilosec, vitamin C, Pacerone/amiodarone, Eliquis, ferrous sulfate, vitamin D3, Neurontin, Glucerna, Dylan. Family History: Noncontributory. Social History: He lives in a SNF, he is . He does have a positive heavy tobacco use history. No alcohol or recreational drug use obtained, but the patient has disorientation as such. Unable to obtain complete social history. Review of Systems: 10-point review of systems is unable to obtain at this time as the patient has low-grade confusion. Physical Examination: Vital Signs: At the time of my examination, his BMI is 30. His blood pressure 125/60, heart rate 62, respiratory rate 16, temperature 97.6, SpO2 93% on room air. General: He is awake, lethargic but arousable. He answers questions appropriately but has poor insight. His is present at the bedside. HEENT: Otherwise normocephalic. His sclerae were anicteric. His mucosa is moist, oropharynx clear. Neck: Supple without JVD. Chest: Normal expansion and excursion. Cardiovascular: Irregular rhythm, regular rate. Extremities: No clubbing, cyanosis, or edema. Skin: He has well-healed surgical scar in the left chest where his pacemaker is put in place. The remainder of the skin examination is unremarkable. Severe scrotal edema. Diagnostic Data: The patient has a white blood cell count of 13.6, hemoglobin is 9.2, hematocrit 28.1, platelet count is 158. His PT was 23.1, INR 2.07. His PTT was 44.6. His sodium 142, potassium 4.6, chloride 114, carbon dioxide 19, BUN 120, creatinine 3.1. His glucose was 134. His phosphorus was 5.2 on 12/01. His total bilirubin was 4.9 on admission, now 4.3, AST was 89, ALT 14, alkaline phosphatase is 137. He had a scrotal ultrasound performed on 11/29, officially read as marked scrotal skin and subcutaneous thickening may be related to cellulitis or venous stasis. Moderate bilateral hydroceles. He had a chest x- ray performed on 12/01, officially read as lungs are moderately underinflated with moderate bilateral pulmonary opacities, unchanged in appearance. Heart is mildly prominent size. Dual lead pacemaker device is present. Assessment And Plan: This is an 81-year-old male who comes in with multiple medical problems as described, now in need of initiation of hemodialysis. The patient is currently coagulopathic despite medical treatment. As such, I have discussed the risks, benefits, and alternatives of placement of temporary hemodialysis catheter in the femoral position including, but not limited to, bleeding, infection, damage to surrounding tissue, need for further operative procedures. The patient and his agreed to proceed. We will dialyze him through this access point until such time that his coagulopathy is better corrected and his medical condition is optimized, and we can then plan for placement of a tunneled hemodialysis catheter in the operating room when his coagulopathy is corrected. I have explained the risks, benefits, and alternatives of that plan as well, and the patient agrees to proceed as indicated along with his . ROMAN/FIDEL Voice ID: [id number] Report ID: [id number] [facility]GET[facility]
[2021-12-02] MEDS: AMOX/CLAV 200 MG/5 ML ORAL SUSP (100 ML BTL) PO SCH ×2 (15:37→21:08)
--- NOTE | 2021-12-03 03:10 | PN ---
Date of Progress Note: 12/02/2021 Chief Complaint: Acute kidney injury, altered mental status, aspiration pneumonia, sepsis, line infection, encephalopathy. Subjective: The patient was found to have severe acute kidney injury. Urine output has declined. The patient has ATN in setting of hepatorenal syndrome associated with fluid overload. Diuretic was stopped and the patient was started on IV normal saline. Despite IV fluids, renal function has not improved and urine output is borderline oliguric. The patient and patient's son want to proceed with dialysis and the patient will have temporary dialysis catheter for dialysis access. Dialysis will be started today. Review of Systems: The patient is lethargic, but arousable and cannot provide review of systems. Impression And Plan: 1. Acute kidney injury secondary to multiple causes. Currently, the patient has oliguria due to acute tubular necrosis. Lasix has been on hold. The patient is encephalopathic and blood work showed elevated BUN corresponding with hyperazotemia. The patient was previously started on midodrine for hepatorenal syndrome and currently blood pressure is stable and midodrine remains on hold. 2. Bacteremia with methicillin-resistant Staphylococcus aureus. Continue antibiotics. 3. Protein-calorie malnutrition. The patient was started on Jevity. 4. Hyponatremia, resolved. Monitor electrolytes. EB/MODL Voice ID: [id number] Report ID: [id number] [facility]
[2021-12-03 04:52] LABS: Hematocrit 26.1 % (39.6-49.0); MPV 9.8 fL (7.6-11.3); RBC Red Blood Cell Count 2.87 M/uL (4.33-5.43)
[2021-12-03 05:04] LABS: AST/SGOT 79 U/L (15-37); Albumin 2.2 g/dL (3.4-5.0); Alkaline Phosphatase 132 U/L (45-117); BUN Blood Urea Nitrogen 107 mg/dL (7-18); Bicarbonate 21 mmol/L (21-32); Bilirubin Total 4.7 mg/dL (0.2-1.0); Glomerular Filtration Rate 20 mL/min (=/>90); Glucose Level 97 mg/dL (74-106); Magnesium 2.5 mg/dL (1.8-2.4); Potassium 4.6 mmol/L (3.5-5.1); Protein, Total 4.9 g/dL (6.4-8.2); Sodium Level 142 mmol/L (136-145)
[2021-12-03 05:05] LABS: ALT/SGPT < 10 U/L (12-78)
--- NOTE | 2021-12-03 05:16 | OP ---
Date of Procedure: 12/02/2021 Surgeon: Rodger Garcia MD, Preoperative Diagnosis: Acute on chronic renal failure. Postoperative Diagnosis: Acute on chronic renal failure. Procedure Performed: Placement of temporary right femoral hemodialysis catheter using ultrasound and microintroducer set. Anesthesia: 1% lidocaine utilized. Estimated Blood Loss: Less than 20 mL. Specimen: None. Findings: Dark nonpulsatile blood return. Complications: None. Implants: Temporary Mahurkar double lumen hemodialysis catheter placed to right femoral vein. Condition: The patient remained in the floor in good condition throughout the procedure. Procedure In Detail: After informed consent was obtained, patient was prepped and draped in the usua l sterile fashion. After adequate anesthesia was achieved with 1% lidocaine, using ultrasound guidan ce, I anesthetized and cannulated the right femoral vein using the microintroducer needle. At this p oint, the micro wire was advanced. Once dark red nonpulsatile blood was returned, the needle was rem susan. A small mathew incision was made at the insertion site. I then placed the introducer sheath for the micro set. A 5-Kosovan sheath in place. I then removed the microwire at this point and removed the inner portion of the cannula. I then advanced standard wire at this point and performed sequenti al dilatation using Seldinger technique. I then advanced the catheter using Seldinger technique over the standard wire. The standard wire was then removed at this point. Dark red nonpulsatile blood w as returned throughout the procedure. I then pulled back and flushed the ports with dark red nonpuls atile blood. I then flushed them with sterile saline and capped these at this point. I then secured the catheter to the skin using the attached 3-0 nylon suture and a sterile dressing placed over top. The patient tolerated the procedure without evidence of complication, remained in the room througho ut the procedure in good condition. All counts were correct at the end of the case. TK/MODL Voice ID: [id number] Report ID: [id number]
[2021-12-03] MEDS: INSULIN -REGULAR HUMAN 50 UNIT/0.5 ML ML SQ SCH ×4 (07:30→20:58)
[2021-12-03] MEDS: PANTOPRAZOLE 40 MG INJ IVP SCH ×2 (08:59→20:49)
[2021-12-03] MEDS: JUVEN PACKET PO SCH ×2 (09:00→20:50)
[2021-12-03] MEDS: AMOX/CLAV 200 MG/5 ML ORAL SUSP (100 ML BTL) PO SCH ×2 (09:00→20:48)
[2021-12-03] MEDS: CEFAZOLIN/SWI 2gm 2 GM/20 ML SYR IV SCH ×2 (09:00→20:49)
[2021-12-03] MEDS: OCTREOTIDE ACETATE 100 MCG/ML SQ SCH (09:01)
[2021-12-03] MEDS: MEDIHONEY 44 ML TOPICAL TUBE TOP SCH (09:01)
--- NOTE | 2021-12-03 10:34 | CON ---
The patient is an 81-year-old male. I was consulted for bacteremia. The patient has blood cultures which are positive for Staph aureus done on November 24, sensitive to Cipro, oxacillin, Levaquin, vanc omycin, cefazolin, tetracycline, and Bactrim. Patient is currently being treated with cefazolin and meropenem. The patient is more alert and awake according to the nurse. As patient is not able to gi ve much of the history on his own, most of the history was obtained through medical records and staff . The patient has significant past medical history of hypertension, hyperlipidemia, type 2 diabetes mellitus, atrial fibrillation on Eliquis, who was brought into the emergency room from [facility] with low b lood sugar. The patient denies any discomfort at this time. Past Medical History: As per HPI. Social History: Nonsmoker, nondrinker. Family History: Noncontributory. Medication: Cefazolin and meropenem. Allergies: NO KNOWN DRUG ALLERGIES. Review of Systems: Unable to obtain. Physical Examination: General: This is an 81-year-old male, lying in bed, not in any acute cardiopulmonary distress. Vital Signs: Temperature 97, pulse 60, respirations 19, blood pressure 160/80. HEENT: Unremarkable. Neck: Supple. Lungs: Basal crackles. Heart: S1, S2. Regular. Abdomen: Soft, nontender. Bowel sounds present. EXTREMITY: Wounds noted. Laboratory Data: WBC 10.3, down from 11.5, hemoglobin 8.1, platelets 131. Chemistry: Sodium 141, p otassium 4.2, chloride 108, bicarb 24, BUN is 83, creatinine 2.06, glucose is 118. Repeat blood cult ures from 11/27, negative to date. Blood culture from 11/24, one set is positive for Staph aureus, n ot MRSA. Assessment And Plan: 1.Bacteremia secondary to Staph aureus, possibly secondary to open wounds in lower extremity. We wi ll recommend to treat patient for 2 weeks after the repeat blood cultures are negative. Consider sto pping meropenem and continuing cefazolin. 2.Renal insufficiency. 3.Diabetes mellitus. 4.Leukocytosis, improving. Continue current treatment. We will follow the patient closely. Thank you Dr. Rodriguez for consult. ALVARO/FIDEL Voice ID: [id number] Report ID: [id number]
--- NOTE | 2021-12-03 10:37 | CON ---
Date of Consultation: 11/24/2021 Reason For Consultation: New onset hematochezia with coagulopathy and new onset ascites after Watchm an procedure. History Of Present Illness: The patient is an 81-year-old white male with history of diabetes, hyper tension, hyperlipidemia, atrial fibrillation, status post Watchman procedure on October 23, 2021. The patient had been in the hospital previously probably 2 weeks ago for hypoglycemia, now readmitted at this time for hypoglycemia; however, the patient had a bloody stool this morning and GI co nsultation was obtained. The patient and his and son report he had a colonoscopy and EGD in Oct with the Dr. Herrera. Colonoscopy revealed a few polyps removed successfully and EGD was negative. The patient also has a history of atrial fibrillation for which he underwent a Watchm an procedure on October 23, 2021. This was successful; however, he has new onset liver disease as well . Upon reviewing his chart, his liver numbers were normal approximately 1 year ago and now his liver numbers are elevated with AST and ALT ratio of 2:1 and albumin which was in the range from 3.4 to 4. 0 last year, now it is down to 2.2. reports that he got amiodarone last year on December 21 and wa s continued all the way up until the start of this admission on November 22. The patient and and son all report that he has minimal to no alcohol. It is rare that he drinks alcohol at all. It is of note that the Watchman procedure the son reports was performed on October 23, 2021 and since that ti me, his clinical status has dwindled rapidly. Also on this admission, the patient had nausea and vom iting this morning with probable aspiration as per nurses and the primary care physician today. It w as also found that his INR today is elevated at 6.9 with a PT history of atrial fibrillati on, status post Watchman procedure. Past Medical History: Significant for diabetes, hypertension, hyperlipidemia, colon cancer, status p ost resection, atrial fibrillation, status post Watchman procedure on October 23, 2021, recent increase and decrease in the glucose level, hepatic encephalopathy with this new admission. Home Medications: Include ezetimibe, gabapentin, olmesartan, fenofibrate, Prilosec, Jardiance, amiod arone, Eliquis, , and atorvastatin. Allergies: NKDA. Social History: The patient has lived at home until this prior admission for hypoglycemia, and then he was placed in the rehab facility and then he has been readmitted for hypoglycemia. Review of Systems: The patient is somewhat obtunded, unable to really answer questions really well. He is responsive to physical stimuli, but not much to verbal. He has hematochezia. He has abdominal distention, swelli ng of the testicles and some lower extremity edema. He does have hematochezia, but no hematemesis, c offee-ground emesis, melena, hemoptysis, hematuria, dysuria, polyuria, polydipsia. No depression or anxiety. Was able-bodied until the past couple of weeks. Physical Examination: Vital Signs: He is 5 feet 9 inches, 108 pounds, BMI 27.8 kg/m2. Temperature 99.6 degrees Fahrenheit , pulse 103 up from 69, respiration 20 to 22, blood pressure 111/70, O2 saturation 94% on room air. Laboratory Data: The patient has a white count of 17.6 up from 15.4, hemoglobin down from 9.1 to 8.0 , hematocrit 25, MCV of 98, platelet count of 233, polys of 94%, lymphocytes 2%, monocytes 4%. PT of 78.9, INR of 6.9. Prior PT/INRs earlier this year revealed INRs of 1.0 and 1.1. The patient has a sodium of 129, potassium 4.3, chloride 100, bicarb of 20, BUN of 53, creatinine of 1.8, calcium 8.5; however, liver numbers from prior admission 2 weeks ago revealed AST and ALT ratio of 2:1. UA on the revealed 1+ glucose and 1.0 bilirubin. Hepatitis A, B, and C serologies pending. COVID-19 is negative. Influenza type A and B negative as well. On the November 19; he had AST of 128, ALT of 68, alkaline phosphatase of 148. He had albumin of 2.1. Prealbumin of 11.1. Then, on the , he had an AST of 103 and an ALT of 42 and alk phos of 96, total bili 0.8. Total bili on the of 1.3. CT of the abdomen and pelvis on April 01, 2021 revealed no ascites. No major abnormalities: On Nov il 8, DICTATION ENDS HERE AYAN/FIDEL Voice ID: [id number] Report ID: [id number]
[2021-12-03] MEDS: NA CHLORIDE 0.9% 1,000 ML IV SCH ×2 (11:06→16:42)
--- NOTE | 2021-12-03 11:56 | P.PN ---
Subjective Date of Service: 12/03/21 Chief Complaint: Hypoglycemia, hematochezia, INR 7, anemia, new ESLD / ascites, aspiration Patient seen and examined at bedside, slight increase in WBC noted on most recent labs. Likely reactive secondary to right temporary femoral dialysis catheter placement yesterday. Review of Systems 10-point ROS is otherwise unremarkable Physical Examination - Vital Signs Temperature: 97.6 F Blood Pressure: 190/71 Pulse: 59 Respirations: 18 Pulse Ox (%): 97 - Studies Laboratory Last Values WBC 15.4 K/uL (4.3-10.9) H D 11/22/21 20:20 RBC 3.07 M/uL (4.33-5.43) L 11/22/21 20:20 Hgb 9.1 g/dL (13.6-17.9) L 11/22/21 20:20 Hct 27.9 % (39.6-49.0) L 11/22/21 20:20 MCV 90.9 fL (80-100) 11/22/21 20:20 MCH 29.6 pg (27.0-35.0) 11/22/21 20:20 MCHC 32.5 g/dL (32.0-36.0) 11/22/21 20:20 RDW 24.0 % (12.1-15.2) H 11/22/21 20:20 Plt Count 281 K/uL (152-406) D 11/22/21 20:20 MPV 8.5 fL (7.6-11.3) 11/22/21 20:20 Neutrophils % 89.2 % (41.7-73.7) H 11/22/21 20:20 Lymphocytes % 3.4 % (15.3-44.8) L 11/22/21 20:20 Monocytes % 6.8 % (3.3-12.3) 11/22/21 20:20 Eosinophils % 0.3 % (0-4.4) 11/22/21 20:20 Basophils % 0.3 % (0-1.3) 11/22/21 20:20 Absolute Neutrophils 13.8 K/uL (1.8-8.0) H 11/22/21 20:20 Absolute Lymphocytes 0.5 K/uL (0.7-4.9) L 11/22/21 20:20 Absolute Monocytes 1.1 K/uL (0.1-1.3) 11/22/21 20:20 Absolute Eosinophils 0.0 K/uL (0-0.5) 11/22/21 20:20 Absolute Basophils 0.1 K/uL (0-0.5) 11/22/21 20:20 Platelet Estimate Adeq 11/22/21 20:20 Polychromasia Slight 11/22/21 20:20 Anisocytosis 2+ 11/22/21 20:20 Morphology Comment Noted (NOT SEEN) 11/22/21 20:20 Sodium Cancelled 11/23/21 05:00 Potassium Cancelled 11/23/21 05:00 Chloride Cancelled 11/23/21 05:00 Carbon Dioxide Cancelled 11/23/21 05:00 Anion Gap Cancelled 11/23/21 05:00 BUN Cancelled 11/23/21 05:00 Creatinine Cancelled 11/23/21 05:00 Estimated GFR Cancelled 11/23/21 05:00 Glucose Cancelled 11/23/21 05:00 POC Glucose 37 mg/dL (65-120) L* 11/23/21 13:26 Calcium Cancelled 11/23/21 05:00 Troponin I High Sens 19.6 pg/mL (<58.9) 11/22/21 20:20 Urine Color Yellow (Yellow) 11/23/21 06:30 Urine Appearance Clear (Clear) 11/23/21 06:30 Urine pH 6.0 (5.0-7.0) 11/23/21 06:30 Ur Specific Rupert 1.015 (1.005-1.030) 11/23/21 06:30 Glucose (UA)(Auto) 1+ (Negative) H 11/23/21 06:30 Urine Ketones Negative (Negative) 11/23/21 06:30 Urine Blood Negative (Negative) 11/23/21 06:30 Urine Nitrite Negative (Negative) 11/23/21 06:30 Urine Bilirubin Negative (Negative) 11/23/21 06:30 Urine Urobilinogen 1.0 mg/dL (0.2-1.0) 11/23/21 06:30 Ur Leukocyte Esterase Negative (Negative) 11/23/21 06:30 Urine Total Protein Negative (Negative) 11/23/21 06:30 Influenza Type A RNA Negative (NEGATIVE) 11/23/21 00:23 Influenza Type B RNA Negative (NEGATIVE) 11/23/21 00:23 SARS-CoV-2 RNA (RT-PCR) Negative (NEGATIVE) 11/23/21 00:23 Smear Scan Ok (OK) 11/22/21 20:20 Assessment And Plan - Plan Physical Exam: General: Alert HEENT: Atraumatic Neck: Supple Respiratory: Other (Bilateral crackles/rales) Cardiovascular: Normal pulses, Normal S1 S2, Edema (Diffuse), Irregular heart rate/rhythm Gastrointestinal: Distended Integumentary: Other (Diffuse anasarca, wounds to bilateral upper and lower extremities. Stage III pressure wounds to sacrum and upper back.) Urinary: Victoria catheter External genitalia: Other (scrotal swelling) Rectal: Normal Conclusions/Impression: Antibiotics: Augmentin: urrent Cefazolin: 11/27current Meropenem: 11/20-11/2027 Vancomycin: 11/20-11/2026 Assessment/plan Gram positive bacteremia Blood cultures obtained on 11/24 grew methicillin susceptible Staph aureus Repeat cultures obtained on 11/26 and 11/27 showed no growth. Transthoracic echocardiogram without any acute findings. Recommend patient be transferred for transesophageal echocardiogram due to indwelling intracardiac devices -Continue cefazolin at this time. Results of transesophageal echocardiogram will determine duration. -Possible source includes multiple bilateral upper/lower extremity wounds Multifocal PNA Checks x-ray performed on 11/26 showed signs concerning for multifocal pneumonia. Patient has completed course of meropenem. Repeat chest x-ray performed on 12/01 showed bilateral pulmonary opacities with no improvement. Will start Augmentin x7 days. Liver cirrhosis with ascites GI following. Likely source of patient's thrombocytopenia. NADEGE on CKD Right temporary femoral dialysis catheter placed on 12/02. First dialysis session on 12/02. Sacral stage III wound Wound care on board. Offload wound and avoid direct pressure Wounds to bilateral upper/lower extremities Wound care following. Continue local wound care. Plan of care discussed with Dr. Cardona Thank you for consultation
--- NOTE | 2021-12-03 14:58 | PN ---
Date of Progress Note: 12/03/2021 Subjective: The patient was admitted with acute kidney injury secondary to hepatorenal. The patient was initiated on dialysis secondary to uremic symptoms. The patient received dialysis yesterday, to lerated the dialysis. Physical Examination: Vital Signs: When I saw the patient; blood pressure 139/63, pulse of 63, afebrile. Chest: Crackles bilateral. Heart: S1, S2. Systolic murmur. Abdomen: Soft, nontender. Scrotal swelling. Extremities: +1 edema. Neurologic: Alert. No focality. Laboratory Data: Sodium 142, potassium 4.6, bicarb 21, BUN 107, creatinine 2.9, GFR 20, calcium 8.3, magnesium 2.5, albumin 2.2. Corrected calcium is 10. Current Medications: The patient on include Augmentin, cefazolin, IV iron, Tylenol, Zofran, octreoti de. Assessment And Plan: 1.Acute kidney injury secondary to hepatorenal, oliguric and uremic. I am going to continue daily d ialysis and we will monitor the patient. 2.Hypokalemia. The patient was dialyzed on high potassium bath. Currently, potassium normalized. We will continue to monitor. 3.Over volume with severe third spacing. We will continue to challenge the patient on the dialysis. 4.Hepatorenal syndrome. Discontinue octreotide. 5.Gastrointestinal bleed. Continue IV iron. We will follow up with GI. Discontinue octreotide. 6.Hepatorenal syndrome as above. Follow up with primary. JO Voice ID: [id number] Report ID: [id number]
[2021-12-03 17:16] LABS: Albumin, (SPE) 2.9 g/dL (3.8-4.8); Alpha-1-Globulins 0.3 g/dL (0.2-0.3); Alpha-2-Globulins 0.5 g/dL (0.5-0.9); Gamma Globulins 0.6 g/dL (0.8-1.7); INTERPRETATION REPORT
--- NOTE | 2021-12-03 17:23 | P.PN ---
Subjective Date of Service: 12/03/21 Chief Complaint: Hypoglycemia, hematochezia, INR 7, anemia, new ESLD / ascites, aspiration According to spouse, patient has been more awake over the past couple of days. His oral intake has been poor. Currently on ground diet. No fever. BUN significantly elevated. Status post hemodialysis yesterday. Physical Examination - Vital Signs Temperature: 97.8 F Blood Pressure: 157/75 Pulse: 62 Respirations: 16 Pulse Ox (%): 96 Assessment And Plan - Current Problems (Diagnosis) (1) Metabolic encephalopathy Current Visit: Yes Status: Acute (2) Hypoglycemia Current Visit: Yes Status: Acute (3) A-fib Current Visit: Yes Status: Chronic Qualifiers: Atrial fibrillation type: unspecified chronic Qualified Code(s): I48.20 - Chronic atrial fibrillation, unspecified; I48.2 - Chronic atrial fibrillation (4) Chronic kidney disease Current Visit: Yes Status: Chronic Qualifiers: Chronic kidney disease stage 3 subtype: stage 3b (GFR 30-44) (5) Type 2 diabetes mellitus Current Visit: Yes Status: Chronic Qualifiers: Diabetes mellitus half-way insulin use: without half-way use Diabetes mellitus complication status: with hypoglycemia Diabetes mellitus complication detail: without coma Qualified Code(s): E11.649 - Type 2 diabetes mellitus with hypoglycemia without coma (6) Status post biventricular cardiac pacemaker insertion Current Visit: No Status: Acute (7) Acute blood loss anemia Current Visit: Yes Status: Acute (8) Coagulopathy Current Visit: Yes Status: Acute (9) Hepatic failure Current Visit: Yes Status: Acute (10) Liver cirrhosis Current Visit: Yes Status: Acute - Plan Physical exam GEN: alert, oriented x2, intermittently confused HEENT: Normal conjunctiva, sclera anicteric CV: Regular rate and rhythm, anasarca Pulm: nonproductive cough, b/l crackles ABD: +ascites, mild distention of abdomen but soft Integumentary: superficial wounds at mid back, sacrum, right heel, and left calf with dressings in place, LLE and left upper extremity with serosanguineous drainage noted on dressing : edematous scrotum Neuro: moving all extremities, generalized weakness Problem List Acute metabolic encephalopathy Hypoglycemia, secondary to sulfonylurea use, resolved MSSA bacteremia NADEGE on CKD2 hepatic failure, liver cirrhosis, new Chronic atrial fibrillation, s/p watchman's procedure Diabetes mellitus type 2, [id number] acute blood loss anemia s/p biventricular cardiac pacemaker insertion mentation improving- but waxing/waning; creatinine improved slightly with dialysis. BUN is still elevated. nephrology following, managing fluids/diuresis. CT abd: liver cirrhosis with ascites, change from CT done a few weeks ago. Hepatitis negative. GI consulted; suspect amiodarone toxicity which has been discontinued this admission severe/persistent hypoglycemia - secondary to sulfonylurea use in the context of liver cirrhosis/hepatic failure. Patient's A1c also within normal range. Blood glucose level is now stable. evaluated by speech, tolerating diet, minimal appetite, but has been assisting Initial blood culture: MSSA, ID consulted, empiric vancomycin started 11/26, changed to Ancef per sensitivities Repeat cultures no growth, initial echocardiogram (TTE) without evidence of vegetation; patient does have pacemaker ID recommends MARC since patient has a pacemaker does not want him to be moved further away because she would be unable to visit him. would be amenable for him to go get MARC done only if he comes back. MARC on hold, patient needs dialysis, temporary cath to be done today, followed by dialysis Hgb stable now, s/p 3u PRBCs, continue protonix EGD done on 11/27, noted gastritis, evidence of portal hypertension. No active bleeding found BP improved and patient is currently hypertensive. Midodrine discontinued. Eliquis discontinued completely given bleed per cardiology-Dr. Del Toro, s/p watchman Afib is rate controlled, can use beta anjel if needed / tolerable, per cardiology Echo unremarkable Patient with high mortality, poor prognosis. He may be an appropriate candidate for LTAC. Social service is exploring the option. Code: full
[2021-12-03] MEDS: SODIUM CHLORIDE 0.9% 10ML INJ IV PRN (20:49)
[2021-12-04 04:25] LABS: Albumin 2.2 g/dL (3.4-5.0); Bilirubin Total 4.5 mg/dL (0.2-1.0); Magnesium 2.3 mg/dL (1.8-2.4); Potassium 4.3 mmol/L (3.5-5.1); Protein, Total 5.1 g/dL (6.4-8.2)
[2021-12-04] MEDS: INSULIN -REGULAR HUMAN 50 UNIT/0.5 ML ML SQ SCH ×4 (07:30→21:00)
[2021-12-04] MEDS: AMOX/CLAV 200 MG/5 ML ORAL SUSP (100 ML BTL) PO SCH ×2 (09:00→21:37)
--- NOTE | 2021-12-04 10:26 | P.PN ---
Subjective Date of Service: 12/03/21 Chief Complaint: Hypoglycemia, hematochezia, INR 7, anemia, new ESLD / ascites, aspiration Subjective: No new changes (Able to tolerate dialysis via temporary HD catheter in RIGHT femoral) Physical Examination - Vital Signs Temperature: 97.8 F Blood Pressure: 123/63 Pulse: 62 Respirations: 16 Pulse Ox (%): 93 - Physical Exam General: Alert, In no apparent distress, Cooperative Integumentary: Other (jaudiced) Assessment And Plan - Current Problems (Diagnosis) (1) Chronic kidney disease Current Visit: Yes Status: Chronic Qualifiers: Chronic kidney disease stage 3 subtype: stage 3b (GFR 30-44) - Plan - continue dialysis via temporary HD catheter - continue medical management for hepatorenal syndrome - will not plan for permacath placement until appropriate, currently remains coagulopathic, if permacath needed, will need to correct with FFP,blood products
[2021-12-04] MEDS: JUVEN PACKET PO SCH ×2 (10:29→21:39)
[2021-12-04] MEDS: MEDIHONEY 44 ML TOPICAL TUBE TOP SCH (10:30)
[2021-12-04] MEDS: PANTOPRAZOLE 40 MG INJ IVP SCH ×2 (10:30→21:54)
--- NOTE | 2021-12-04 11:59 | P.PN ---
Subjective Date of Service: 12/04/21 Chief Complaint: Hypoglycemia, hematochezia, INR 7, anemia, new ESLD / ascites, aspiration Patient wakes up and communicate appropriately. Currently on a ground diet but patient is not eating much. No fever. Abdomen is distended. Patient underwent hemodialysis yesterday. Physical Examination - Vital Signs Temperature: 97.8 F Blood Pressure: 123/63 Pulse: 62 Respirations: 16 Pulse Ox (%): 93 Assessment And Plan - Current Problems (Diagnosis) (1) Metabolic encephalopathy Current Visit: Yes Status: Acute (2) Hypoglycemia Current Visit: Yes Status: Acute (3) A-fib Current Visit: Yes Status: Chronic Qualifiers: Atrial fibrillation type: unspecified chronic Qualified Code(s): I48.20 - Chronic atrial fibrillation, unspecified; I48.2 - Chronic atrial fibrillation (4) Chronic kidney disease Current Visit: Yes Status: Chronic Qualifiers: Chronic kidney disease stage 3 subtype: stage 3b (GFR 30-44) (5) Type 2 diabetes mellitus Current Visit: Yes Status: Chronic Qualifiers: Diabetes mellitus extermination inspector insulin use: without fpc use Diabetes mellitus complication status: with hypoglycemia Diabetes mellitus complication detail: without coma Qualified Code(s): E11.649 - Type 2 diabetes mellitus with hypoglycemia without coma (6) Status post biventricular cardiac pacemaker insertion Current Visit: No Status: Acute (7) Acute blood loss anemia Current Visit: Yes Status: Acute (8) Coagulopathy Current Visit: Yes Status: Acute (9) Hepatic failure Current Visit: Yes Status: Acute (10) Liver cirrhosis Current Visit: Yes Status: Acute - Plan Physical exam GEN: alert, oriented x2, intermittently confused HEENT: Normal conjunctiva, sclera anicteric CV: Regular rate and rhythm, anasarca Pulm: nonproductive cough, b/l crackles ABD: Abdomen distended, + ascites Integumentary: superficial wounds at mid back, sacrum, right heel, and left calf with dressings in place, LLE and left upper extremity with serosanguineous drainage noted on dressing : edematous scrotum Neuro: moving all extremities, generalized weakness Problem List Acute metabolic encephalopathy Hypoglycemia, secondary to sulfonylurea use, resolved MSSA bacteremia NADEGE on CKD2 hepatic failure, liver cirrhosis, new Chronic atrial fibrillation, s/p watchman's procedure Diabetes mellitus type 2, [id number]-koemhjvgf acute blood loss anemia s/p biventricular cardiac pacemaker insertion Waxing and waning mental status, creatinine and BUN improving with dialysis. nephrology following, managing fluids/diuresis. CT abd: liver cirrhosis with ascites. Hepatitis negative. Ascites is worsening despite dialysis. US guided paracentesis today. GI consulted; suspect amiodarone toxicity which was discontinued on admission Hypoglycemia - secondary to sulfonylurea use in the context of liver cirrhosis/hepatic failure. Patient's A1c also within normal range. Blood glucose level has been stable. High risk for hypoglycemia with poor oral intake. Will consider NG tube insertion again to avoid hypoglycemia for persistent poor oral intake. Initial blood culture: MSSA, ID consulted, empiric vancomycin started 11/26, changed to Ancef per sensitivities Repeat cultures no growth, initial echocardiogram (TTE) without evidence of vegetation; patient does have pacemaker ID recommends MARC since patient has a pacemaker does not want him to be moved further away because she would be unable to visit him. would be amenable for him to go get MARC done only if he comes back. MARC on hold. Patient getting [id number] dialysis. Hgb stable now, s/p 3u PRBCs, continue protonix EGD done on 11/27, noted gastritis, evidence of portal hypertension. No active bleeding found BP improved and patient is currently hypertensive. Midodrine discontinued. Eliquis discontinued completely given bleed per cardiology-Dr. Del Toro, s/p watchman Afib is rate controlled, can use beta anjel if needed / tolerable, per cardiology Echo unremarkable Patient with high mortality, poor prognosis. Discussing LTAC placement. Code: full
[2021-12-04] MEDS: SOD FERRIC GLUC COMPLX/SUCROSE 250 MG in NA CHLORIDE 0.9% 250 ML IV SCH (12:00)
--- NOTE | 2021-12-04 12:05 | P.PN ---
Subjective Date of Service: 12/04/21 Chief Complaint: Hypoglycemia, hematochezia, INR 7, anemia, new ESLD / ascites, aspiration Patient seen and examined at bedside, altered mental status. Patient having functional decline, not eating. May need PEG tube placement. Review of Systems 10-point ROS is otherwise unremarkable Physical Examination - Vital Signs Temperature: 97.8 F Blood Pressure: 123/63 Pulse: 62 Respirations: 16 Pulse Ox (%): 93 - Studies Laboratory Last Values WBC 15.4 K/uL (4.3-10.9) H D 11/22/21 20:20 RBC 3.07 M/uL (4.33-5.43) L 11/22/21 20:20 Hgb 9.1 g/dL (13.6-17.9) L 11/22/21 20:20 Hct 27.9 % (39.6-49.0) L 11/22/21 20:20 MCV 90.9 fL (80-100) 11/22/21 20:20 MCH 29.6 pg (27.0-35.0) 11/22/21 20:20 MCHC 32.5 g/dL (32.0-36.0) 11/22/21 20:20 RDW 24.0 % (12.1-15.2) H 11/22/21 20:20 Plt Count 281 K/uL (152-406) D 11/22/21 20:20 MPV 8.5 fL (7.6-11.3) 11/22/21 20:20 Neutrophils % 89.2 % (41.7-73.7) H 11/22/21 20:20 Lymphocytes % 3.4 % (15.3-44.8) L 11/22/21 20:20 Monocytes % 6.8 % (3.3-12.3) 11/22/21 20:20 Eosinophils % 0.3 % (0-4.4) 11/22/21 20:20 Basophils % 0.3 % (0-1.3) 11/22/21 20:20 Absolute Neutrophils 13.8 K/uL (1.8-8.0) H 11/22/21 20:20 Absolute Lymphocytes 0.5 K/uL (0.7-4.9) L 11/22/21 20:20 Absolute Monocytes 1.1 K/uL (0.1-1.3) 11/22/21 20:20 Absolute Eosinophils 0.0 K/uL (0-0.5) 11/22/21 20:20 Absolute Basophils 0.1 K/uL (0-0.5) 11/22/21 20:20 Platelet Estimate Adeq 11/22/21 20:20 Polychromasia Slight 11/22/21 20:20 Anisocytosis 2+ 11/22/21 20:20 Morphology Comment Noted (NOT SEEN) 11/22/21 20:20 Sodium Cancelled 11/23/21 05:00 Potassium Cancelled 11/23/21 05:00 Chloride Cancelled 11/23/21 05:00 Carbon Dioxide Cancelled 11/23/21 05:00 Anion Gap Cancelled 11/23/21 05:00 BUN Cancelled 11/23/21 05:00 Creatinine Cancelled 11/23/21 05:00 Estimated GFR Cancelled 11/23/21 05:00 Glucose Cancelled 11/23/21 05:00 POC Glucose 37 mg/dL (65-120) L* 11/23/21 13:26 Calcium Cancelled 11/23/21 05:00 Troponin I High Sens 19.6 pg/mL (<58.9) 11/22/21 20:20 Urine Color Yellow (Yellow) 11/23/21 06:30 Urine Appearance Clear (Clear) 11/23/21 06:30 Urine pH 6.0 (5.0-7.0) 11/23/21 06:30 Ur Specific [place] 1.015 (1.005-1.030) 11/23/21 06:30 Glucose (UA)(Auto) 1+ (Negative) H 11/23/21 06:30 Urine Ketones Negative (Negative) 11/23/21 06:30 Urine Blood Negative (Negative) 11/23/21 06:30 Urine Nitrite Negative (Negative) 11/23/21 06:30 Urine Bilirubin Negative (Negative) 11/23/21 06:30 Urine Urobilinogen 1.0 mg/dL (0.2-1.0) 11/23/21 06:30 Ur Leukocyte Esterase Negative (Negative) 11/23/21 06:30 Urine Total Protein Negative (Negative) 11/23/21 06:30 Influenza Type A RNA Negative (NEGATIVE) 11/23/21 00:23 Influenza Type B RNA Negative (NEGATIVE) 11/23/21 00:23 SARS-CoV-2 RNA (RT-PCR) Negative (NEGATIVE) 11/23/21 00:23 Smear Scan Ok (OK) 11/22/21 20:20 Assessment And Plan - Plan Physical Exam: General: Alert HEENT: Atraumatic Neck: Supple Respiratory: Other (Bilateral crackles/rales) Cardiovascular: Normal pulses, Normal S1 S2, Edema (Diffuse), Irregular heart rate/rhythm Gastrointestinal: Distended Integumentary: Other (Diffuse anasarca, wounds to bilateral upper and lower extremities. Stage III pressure wounds to sacrum and upper back.) Urinary: Victoria catheter External genitalia: Other (scrotal swelling) Rectal: Normal Conclusions/Impression: Antibiotics: Augmentin: urrent Cefazolin: 11/27current Meropenem: 11/20-11/2027 Vancomycin: 11/20-11/2026 Assessment/plan Gram positive bacteremia Blood cultures obtained on 11/24 grew methicillin susceptible Staph aureus Repeat cultures obtained on 11/26 and 11/27 showed no growth. Transthoracic echocardiogram without any acute findings. Recommend patient be transferred for transesophageal echocardiogram due to indwelling intracardiac devices -Continue cefazolin at this time. Results of transesophageal echocardiogram will determine duration. -Possible source includes multiple bilateral upper/lower extremity wounds Multifocal PNA Checks x-ray performed on 11/26 showed signs concerning for multifocal pneumonia. Patient has completed course of meropenem. Repeat chest x-ray performed on 12/01 showed bilateral pulmonary opacities with no improvement. Will start Augmentin x7 days. Liver cirrhosis with ascites GI following. Likely source of patient's thrombocytopenia. NADEGE on CKD Right temporary femoral dialysis catheter placed on 12/02. First dialysis session on 12/02. Sacral stage III wound Wound care on board. Offload wound and avoid direct pressure Wounds to bilateral upper/lower extremities Wound care following. Continue local wound care. Plan of care discussed with Dr. Cardona Thank you for consultation
[2021-12-04] MEDS ORDERED: ALBUMIN HUMAN 25% 200 ML IV ONE (15:20)
--- NOTE | 2021-12-04 15:52 | PN ---
Date of Progress Note: 12/04/2021 Subjective: The patient was admitted with acute kidney injury secondary to hepatorenal. The patient developed severe anasarca. The patient was started on dialysis for uremic symptoms yesterday, could not tolerate full treatment. Cut short to 30 minutes. Managed removal of 1.5 L. Physical Examination: Vital Signs: Blood pressure 123/63, pulse of 62, afebrile. The patient negative balance of 500. Lo st 1 pound. Chest: Crackles bilateral base. Heart: S1, S2. Systolic murmur. Abdomen: Soft. Ascites. Extremities: +3 edema. Scrotum swelling. Neurologic: Alert. No focality. Bedridden. Laboratory Data: WBC 15, H and H 8.6/26.1. Sodium 140, potassium 4.3, bicarb 21, BUN 97, creatinine 2.7, GFR 22, calcium 8.3, phosphorus 2.3, albumin 2.2. The patient had urine output only 75. Current Medications: The patient on include; 1.Tylenol. 2.Pantoprazole. 3.Normal saline. 4.Amoxicillin. 5.Cefazolin. Assessment And Plan: 1.Acute kidney injury secondary to hepatorenal syndrome, oliguric. I am going to continue the patie nt on dialysis, still over volume. I am going to do session today and we will follow up the patient. 2.Hypertension, stable. We will keep utilizing the blood pressure to establish better volume contro l. 3.Anasarca secondary to renal failure, liver disease. We will continue to challenge the patient. T he patient planned for paracentesis today. 4.Deconditioning. Continue PT/OT. 5.Failure to thrive. NG tube is going to be placed today and we will follow up. 6.Cirrhosis of the liver. We will follow up with primary. ALISSA/FIDEL Voice ID: [id number] Report ID: [id number]
--- NOTE | 2021-12-04 17:49 | RAD REPORT ---
EXAM DESCRIPTION: US - Paracentesis Proc Guidance - 12/04/2021 2:52 pm CLINICAL HISTORY: Ascites COMPARISON: None. TECHNIQUE: The patient presents for ultrasound-guided paracentesis. Procedure was confirmed as only a therapeutic paracentesis. The procedure, risks and alternatives were discussed with the patient in detail. Oral and written consent were obtained. Time out procedure was performed. The patient had n o contraindicated allergy or medication history. PT, INR values within acceptable limits. Preliminary sonographic evaluation identified right lower quadrant access site. The skin and deeper tissues were anesthetized with 1 percent lidocaine. Under direct sonographic visualization, a parace ntesis catheter was advanced into the peritoneal cavity. Large volume drainage was initiated. Approx imately 7 liters of ascites removed. At the conclusion of the procedure, catheter was withdrawn and a bandage placed at the puncture site. Postprocedure care and precaution instructions were given to the patient. IMPRESSION: Ultrasound-guided paracentesis as detailed.
[2021-12-04] MEDS: CEFAZOLIN/SWI 2gm 2 GM/20 ML SYR IV SCH (21:38)
[2021-12-05 05:49] LABS: Absolute Lymphocytes (CBC) 0.4 K/uL (0.7-4.9); Hematocrit 24.3 % (39.6-49.0); MPV 9.3 fL (7.6-11.3); RBC Red Blood Cell Count 2.66 M/uL (4.33-5.43)
[2021-12-05 06:02] LABS: Albumin 2.2 g/dL (3.4-5.0); Protein, Total 4.7 g/dL (6.4-8.2)
[2021-12-05 07:20] LABS: White Blood Cell Scan OK (OK)
[2021-12-05 07:22] LABS: Anisocytosis 1+; Platelet Estimate ADEQ
[2021-12-05 07:23] LABS: Blood Morphology Comment NOTED (NOT SEEN); Ovalocytes 1+; Platelets, Giant FEW; Teardrop Cell 1+
[2021-12-05 07:28] LABS: Beta Globulin 24 HR Urine 18 %; Gamma Globulin, 24hr Urine 23 %; Interpretation: REPORT; Protein/Crea Ratio in g 563 mg/g creat (<=114); Protein/Crea Ratio in mg 0.563 (<=0.114); Urine Alpha-2-Globulins, 24 Hr 10 %; Urine PEP Abn Protein Band1 REPORT; Urine Total Volume 24 Hours 250 mL
[2021-12-05] MEDS: INSULIN -REGULAR HUMAN 50 UNIT/0.5 ML ML SQ SCH ×4 (07:30→21:00)
[2021-12-05] MEDS: AMOX/CLAV 200 MG/5 ML ORAL SUSP (100 ML BTL) PO SCH ×2 (07:59→21:09)
[2021-12-05] MEDS: PANTOPRAZOLE 40 MG INJ IVP SCH ×2 (08:00→20:57)
[2021-12-05] MEDS: MEDIHONEY 44 ML TOPICAL TUBE TOP SCH (08:00)
[2021-12-05] MEDS: JUVEN PACKET PO SCH ×2 (08:00→21:02)
--- NOTE | 2021-12-05 11:52 | RAD REPORT ---
EXAM DESCRIPTION: RAD - Abdomen Single View - 12/05/2021 11:44 am CLINICAL HISTORY: Device placement Dobhoff tube placement FINDINGS: It appears that the Dobhoff tube is coiled within the distal esophagus with the tip point ing cranially. It is only partially included in the field of view Chest x-ray is recommended for better evaluation
--- NOTE | 2021-12-05 13:33 | RAD REPORT ---
EXAM DESCRIPTION: RAD - Abdomen Single View - 12/05/2021 1:25 pm CLINICAL HISTORY: Confirm Dobhoff tube placement COMPARISON: Abdomen Single View dated 12/05/2021 FINDINGS/IMPRESSION: The Dobhoff tube remains overlying the esophagus and should be repositioned.
--- NOTE | 2021-12-05 13:56 | P.PN ---
Subjective Date of Service: 12/05/21 Chief Complaint: Hypoglycemia, hematochezia, INR 7, anemia, new ESLD / ascites, aspiration Patient seen and examined at bedside, thoracentesis was performed yesterday, 7 L of fluid removed from abdomen. Fluid analysis pending. Based on serology patient has no hep B immunity, recommend hep B series once patient is more medically stable. Review of Systems 10-point ROS is otherwise unremarkable Physical Examination - Vital Signs Temperature: 97.3 F Blood Pressure: 119/54 Pulse: 60 Respirations: 18 Pulse Ox (%): 92 - Studies Laboratory Last Values WBC 15.4 K/uL (4.3-10.9) H D 11/22/21 20:20 RBC 3.07 M/uL (4.33-5.43) L 11/22/21 20:20 Hgb 9.1 g/dL (13.6-17.9) L 11/22/21 20:20 Hct 27.9 % (39.6-49.0) L 11/22/21 20:20 MCV 90.9 fL (80-100) 11/22/21 20:20 MCH 29.6 pg (27.0-35.0) 11/22/21 20:20 MCHC 32.5 g/dL (32.0-36.0) 11/22/21 20:20 RDW 24.0 % (12.1-15.2) H 11/22/21 20:20 Plt Count 281 K/uL (152-406) D 11/22/21 20:20 MPV 8.5 fL (7.6-11.3) 11/22/21 20:20 Neutrophils % 89.2 % (41.7-73.7) H 11/22/21 20:20 Lymphocytes % 3.4 % (15.3-44.8) L 11/22/21 20:20 Monocytes % 6.8 % (3.3-12.3) 11/22/21 20:20 Eosinophils % 0.3 % (0-4.4) 11/22/21 20:20 Basophils % 0.3 % (0-1.3) 11/22/21 20:20 Absolute Neutrophils 13.8 K/uL (1.8-8.0) H 11/22/21 20:20 Absolute Lymphocytes 0.5 K/uL (0.7-4.9) L 11/22/21 20:20 Absolute Monocytes 1.1 K/uL (0.1-1.3) 11/22/21 20:20 Absolute Eosinophils 0.0 K/uL (0-0.5) 11/22/21 20:20 Absolute Basophils 0.1 K/uL (0-0.5) 11/22/21 20:20 Platelet Estimate Adeq 11/22/21 20:20 Polychromasia Slight 11/22/21 20:20 Anisocytosis 2+ 11/22/21 20:20 Morphology Comment Noted (NOT SEEN) 11/22/21 20:20 Sodium Cancelled 11/23/21 05:00 Potassium Cancelled 11/23/21 05:00 Chloride Cancelled 11/23/21 05:00 Carbon Dioxide Cancelled 11/23/21 05:00 Anion Gap Cancelled 11/23/21 05:00 BUN Cancelled 11/23/21 05:00 Creatinine Cancelled 11/23/21 05:00 Estimated GFR Cancelled 11/23/21 05:00 Glucose Cancelled 11/23/21 05:00 POC Glucose 37 mg/dL (65-120) L* 11/23/21 13:26 Calcium Cancelled 11/23/21 05:00 Troponin I High Sens 19.6 pg/mL (<58.9) 11/22/21 20:20 Urine Color Yellow (Yellow) 11/23/21 06:30 Urine Appearance Clear (Clear) 11/23/21 06:30 Urine pH 6.0 (5.0-7.0) 11/23/21 06:30 Ur Specific [place] 1.015 (1.005-1.030) 11/23/21 06:30 Glucose (UA)(Auto) 1+ (Negative) H 11/23/21 06:30 Urine Ketones Negative (Negative) 11/23/21 06:30 Urine Blood Negative (Negative) 11/23/21 06:30 Urine Nitrite Negative (Negative) 11/23/21 06:30 Urine Bilirubin Negative (Negative) 11/23/21 06:30 Urine Urobilinogen 1.0 mg/dL (0.2-1.0) 11/23/21 06:30 Ur Leukocyte Esterase Negative (Negative) 11/23/21 06:30 Urine Total Protein Negative (Negative) 11/23/21 06:30 Influenza Type A RNA Negative (NEGATIVE) 11/23/21 00:23 Influenza Type B RNA Negative (NEGATIVE) 11/23/21 00:23 SARS-CoV-2 RNA (RT-PCR) Negative (NEGATIVE) 11/23/21 00:23 Smear Scan Ok (OK) 11/22/21 20:20 Assessment And Plan - Plan Physical Exam: General: Alert HEENT: Atraumatic Neck: Supple Respiratory: Other (Bilateral crackles/rales) Cardiovascular: Normal pulses, Normal S1 S2, Edema (Diffuse), Irregular heart rate/rhythm Gastrointestinal: Distended Integumentary: Other (Diffuse anasarca, wounds to bilateral upper and lower extremities. Stage III pressure wounds to sacrum and upper back.) Urinary: Victoria catheter External genitalia: Other (scrotal swelling) Rectal: Normal Conclusions/Impression: Antibiotics: Augmentin: urrent Cefazolin: 11/27current Meropenem: 11/20-11/2027 Vancomycin: 11/20-11/2026 Assessment/plan Gram positive bacteremia Blood cultures obtained on 11/24 grew methicillin susceptible Staph aureus Repeat cultures obtained on 11/26 and 11/27 showed no growth. Transthoracic echocardiogram without any acute findings. Recommend patient be transferred for transesophageal echocardiogram due to indwelling intracardiac devices -Continue cefazolin at this time. Results of transesophageal echocardiogram will determine duration. -Possible source includes multiple bilateral upper/lower extremity wounds Multifocal PNA Checks x-ray performed on 11/26 showed signs concerning for multifocal pneumonia. Patient has completed 5 day course of meropenem. Repeat chest x-ray performed on 12/01 showed bilateral pulmonary opacities with no improvement. Will start Augmentin x7 days. Liver cirrhosis with ascites GI following. Likely source of patient's thrombocytopenia. -Thoracentesis performed on 12/04. 7 L of fluid pulled from abdomen, fluid analysis pending. NADEGE on CKD Right temporary femoral dialysis catheter placed on 12/02. First dialysis session on 12/02. Sacral stage III wound Wound care on board. Offload wound and avoid direct pressure Wounds to bilateral upper/lower extremities Wound care following. Continue local wound care. Plan of care discussed with Dr. Brendan hackett Thank you for consultation
--- NOTE | 2021-12-05 16:07 | P.PN ---
Subjective Date of Service: 12/05/21 Chief Complaint: Hypoglycemia, hematochezia, INR 7, anemia, new ESLD / ascites, aspiration Patient condition is declining. He is grunting most of the time. Abdomen is distended again. He is not eating No fever. Physical Examination - Vital Signs Temperature: 97.3 F Blood Pressure: 119/54 Pulse: 60 Respirations: 18 Pulse Ox (%): 92 Assessment And Plan - Current Problems (Diagnosis) (1) Metabolic encephalopathy Current Visit: Yes Status: Acute (2) Hypoglycemia Current Visit: Yes Status: Acute (3) A-fib Current Visit: Yes Status: Chronic Qualifiers: Atrial fibrillation type: unspecified chronic Qualified Code(s): I48.20 - Chronic atrial fibrillation, unspecified; I48.2 - Chronic atrial fibrillation (4) Chronic kidney disease Current Visit: Yes Status: Chronic Qualifiers: Chronic kidney disease stage 3 subtype: stage 3b (GFR 30-44) (5) Type 2 diabetes mellitus Current Visit: Yes Status: Chronic Qualifiers: Diabetes mellitus exterminator termite insulin use: without fci use Diabetes mellitus complication status: with hypoglycemia Diabetes mellitus complication detail: without coma Qualified Code(s): E11.649 - Type 2 diabetes mellitus with hypoglycemia without coma (6) Status post biventricular cardiac pacemaker insertion Current Visit: No Status: Acute (7) Acute blood loss anemia Current Visit: Yes Status: Acute (8) Coagulopathy Current Visit: Yes Status: Acute (9) Hepatic failure Current Visit: Yes Status: Acute (10) Liver cirrhosis Current Visit: Yes Status: Acute - Plan Physical exam GEN: alert, oriented x2, intermittently confused HEENT: Normal conjunctiva, sclera anicteric CV: Regular rate and rhythm, anasarca Pulm: nonproductive cough, b/l crackles ABD: Abdomen distended, + ascites Integumentary: superficial wounds at mid back, sacrum, right heel, and left calf with dressings in place, LLE and left upper extremity with serosanguineous drainage noted on dressing : edematous scrotum Neuro: moving all extremities, generalized weakness Problem List Acute metabolic encephalopathy Hypoglycemia, secondary to sulfonylurea use, resolved MSSA bacteremia NADEGE on CKD2 hepatic failure, liver cirrhosis, new Chronic atrial fibrillation, s/p watchman's procedure Diabetes mellitus type 2, [id number] acute blood loss anemia s/p biventricular cardiac pacemaker insertion Waxing and waning mental status, creatinine and BUN improving slowly with dialysis. nephrology following, managing fluids/diuresis. CT abd: liver cirrhosis with ascites. Hepatitis negative. Ascites is worsening despite dialysis. US guided paracentesis done yesterday about 7 L of fluid drained. GI saw patient and suspect amiodarone toxicity which was discontinued on admission. Hepatitis profile is negative. Hypoglycemia - secondary to sulfonylurea use in the context of liver cirrhosis/hepatic failure. Patient's A1c also within normal range. Blood glucose level has been stable. High risk for hypoglycemia with poor oral intake. Dobhoff Insertion unsuccessful today. Patient started on PPN in the meantime. Discussed with Dr. Garcia who is considering the above insertion with endoscopy. Initial blood culture: MSSA, ID consulted, empiric vancomycin started 11/26, changed to Ancef per sensitivities Repeat cultures no growth, initial echocardiogram (TTE) without evidence of vegetation; patient does have pacemaker ID recommends [facility] since patient has a pacemaker Initiating transfer to [facility]. Hemoglobin is trending down slowly, s/p 3u PRBCs, continue protonix. Transfuse as needed for hemoglobin less than 8. EGD done on 11/27, noted gastritis, evidence of portal hypertension. No active bleeding found BP improved and patient is currently hypertensive. Midodrine discontinued. Eliquis discontinued completely given bleed per cardiology-Dr. Del Toro, s/p watchman Afib is rate controlled, can use beta anjel if needed / tolerable, per cardiology Echo unremarkable Patient with high mortality, poor prognosis. Had a long discussion with patient's and son about overall goals of care. They were made aware his prognosis is poor. Family want to continue aggressive measures. Son Juan kemp raised the possibility of getting him a liver transplant and wanted another opinion. Initiating transfer to [facility]. Code: full
--- NOTE | 2021-12-05 16:32 | PN ---
Date of Progress Note: 12/05/2021 Subjective: The patient was admitted with hepatorenal acute kidney injury. The patient is oliguric. The patient started on dialysis. The patient had dialysis yesterday, managed to remove 1300 and al so had thoracentesis, managed to remove 7 L. Physical Examination: Vital Signs: Blood pressure 108/51, pulse of 62, afebrile. As weight, no change even with all fluid loss. Chest: Decreased entry bilateral base. Heart: S1, S2. Systolic murmur. Abdomen: Ascites. Extremities: +2 edema. Neuro: Moving 4 extremities. No focality. The patient is sleepy. Laboratory Data: WBC 13.6, H and H 8/24.3. Sodium 143, potassium 4, bicarb 24, BUN 73, creatinine 2 .2, calcium of 8. Current Medications: The patient on include Augmentin, cefazolin, IV iron, Zofran. Assessment And Plan: 1.Acute kidney injury secondary to hepatorenal, oliguric, dialysis dependent. I am going to continu e dialysis. We will arrange for the patient to have dialysis tomorrow, then we will switch the patie nt to be Thursday, Thursday, Thursday. We will try to establish better volume control. 2.Hypertension, controlled, optimal. We will continue to utilize blood pressure to establish better volume control on the dialysis. 3.Anasarca, multifactorial, secondary to hepatorenal, liver disease status post paracentesis yesterd ay. We will continue to challenge with dialysis. 4.Liver failure as by primary. 5.Failure to thrive. NG tube was placed. We will follow up. Continue current feeding. 6.Deconditioning. Continue PT/OT. ALISSA/MODL Voice ID: [id number] Report ID: [id number]
[2021-12-05] MEDS ORDERED: AA 4.25 %/D5W/ELECTROLYTES 2,000 ML IV SCH (17:00)
[2021-12-05] MEDS ORDERED: AA 5%/D20W/ELECTROLYTES-TPN 2,000 ML, Lipids 20% 250 ML with MULTIVITAMINS INJ 10 ML IV SCH ×3 (17:00)
[2021-12-05] MEDS ORDERED: AA 4.25 %/D5W/ELECTROLYTES 2,000 ML, Lipids 20% 250 ML with MULTIVITAMINS INJ 10 ML IV SCH ×3 (17:00)
[2021-12-05] MEDS: CEFAZOLIN/SWI 2gm 2 GM/20 ML SYR IV SCH (20:57)
[2021-12-05] MEDS: SODIUM CHLORIDE 0.9% 10ML INJ IV PRN (21:02)
[2021-12-06 05:04] LABS: Absolute Lymphocytes (CBC) 0.5 K/uL (0.7-4.9); Hematocrit 26.6 % (39.6-49.0); MPV 9.9 fL (7.6-11.3); RBC Red Blood Cell Count 2.83 M/uL (4.33-5.43)
[2021-12-06 05:09] LABS: Protime INR 2.13
[2021-12-06 05:22] LABS: Potassium 4.3 mmol/L (3.5-5.1); Protein, Total 4.8 g/dL (6.4-8.2)
--- NOTE | 2021-12-06 05:59 | P.PN ---
Subjective Date of Service: 12/06/21 Chief Complaint: Hypoglycemia, hematochezia, INR 7, anemia, new ESLD / ascites, aspiration Subjective: No new changes, Other (Received HD today.) Physical Examination - Vital Signs Temperature: 97.9 F Blood Pressure: 108/55 Pulse: 62 Respirations: 20 Pulse Ox (%): 96 - Physical Exam General: Other (appears as his stated age) HEENT: Atraumatic, Normocephalic Neck: Supple, JVD not distended Respiratory: Other (symmetric chest expansion) Cardiovascular: No rubs, No murmurs Gastrointestinal: Soft and benign, No guarding Musculoskeletal: No clubbing Integumentary: No warmth Neurological: Normal tone Lymphatics: No axilla or inguinal lymphadenopathy Urinary: Other (no bladder distention) External genitalia: Deferred Rectal: Deferred Assessment And Plan - Plan 1. Acute kidney injury secondary to hepatorenal, oliguric, dialysis dependent. Received dialysis today. Next HD Mon per [facility]. 2. Hypotension, resolved. Off Midodrine. Monitor BP. 3. Anasarca, multifactorial, secondary to hepatorenal, liver disease status post paracentesis yesterday. We will continue to challenge with dialysis. 4. Iron deficiency anemia secondary to GI bleed. Continue IV iron. Transfuse pRBC prn for hgb < 7.0. 5. Failure to thrive. Feeding tube was placed. We will follow up. 6. Deconditioning. Continue PT/OT.
[2021-12-06] MEDS: INSULIN -REGULAR HUMAN 50 UNIT/0.5 ML ML SQ SCH ×4 (07:30→20:58)
[2021-12-06] MEDS: AMOX/CLAV 200 MG/5 ML ORAL SUSP (100 ML BTL) PO SCH ×2 (08:44→20:35)
[2021-12-06] MEDS: MEDIHONEY 44 ML TOPICAL TUBE TOP SCH (08:45)
[2021-12-06] MEDS: PANTOPRAZOLE 40 MG INJ IVP SCH ×2 (08:45→20:35)
[2021-12-06] MEDS: JUVEN PACKET PO SCH (08:45)
[2021-12-06 09:12] VITALS: O2SAT 97
--- NOTE | 2021-12-06 10:13 | P.PN ---
Subjective Date of Service: 12/06/21 Chief Complaint: Hypoglycemia, hematochezia, INR 7, anemia, new ESLD / ascites, aspiration Subjective: No new changes Physical Examination - Vital Signs Temperature: 97.3 F Blood Pressure: 109/50 Pulse: 73 Respirations: 18 Pulse Ox (%): 98 - Physical Exam General: Alert, In no apparent distress, Confused Respiratory: Clear to auscultation bilaterally Gastrointestinal: Soft and benign, No tenderness, No masses, No rebound, No guarding, Ascites Assessment And Plan - Current Problems (Diagnosis) (1) Chronic kidney disease Current Visit: Yes Status: Chronic Qualifiers: Chronic kidney disease stage 3 subtype: stage 3b (GFR 30-44) - Plan - continue dialysis via temporary HD catheter - continue medical management for hepatorenal syndrome - will not plan for permacath placement until appropriate, currently remains coagulopathic, if permacath needed, will need to correct with FFP,blood products - patient scheduled for transfer to service administrator as his liver has significant dysfunction
[2021-12-06] MEDS ORDERED: ALBUMIN HUMAN 25% 100 ML IV SCH (11:00)
--- NOTE | 2021-12-06 11:16 | P.PN ---
Subjective Date of Service: 12/06/21 Chief Complaint: Hypoglycemia, hematochezia, INR 7, anemia, new ESLD / ascites, aspiration Patient seen and examined at dialysis, having abdominal pain. Review of Systems 10-point ROS is otherwise unremarkable Physical Examination - Vital Signs Temperature: 97.3 F Blood Pressure: 109/50 Pulse: 73 Respirations: 18 Pulse Ox (%): 98 - Studies Laboratory Last Values WBC 15.4 K/uL (4.3-10.9) H D 11/22/21 20:20 RBC 3.07 M/uL (4.33-5.43) L 11/22/21 20:20 Hgb 9.1 g/dL (13.6-17.9) L 11/22/21 20:20 Hct 27.9 % (39.6-49.0) L 11/22/21 20:20 MCV 90.9 fL (80-100) 11/22/21 20:20 MCH 29.6 pg (27.0-35.0) 11/22/21 20:20 MCHC 32.5 g/dL (32.0-36.0) 11/22/21 20:20 RDW 24.0 % (12.1-15.2) H 11/22/21 20:20 Plt Count 281 K/uL (152-406) D 11/22/21 20:20 MPV 8.5 fL (7.6-11.3) 11/22/21 20:20 Neutrophils % 89.2 % (41.7-73.7) H 11/22/21 20:20 Lymphocytes % 3.4 % (15.3-44.8) L 11/22/21 20:20 Monocytes % 6.8 % (3.3-12.3) 11/22/21 20:20 Eosinophils % 0.3 % (0-4.4) 11/22/21 20:20 Basophils % 0.3 % (0-1.3) 11/22/21 20:20 Absolute Neutrophils 13.8 K/uL (1.8-8.0) H 11/22/21 20:20 Absolute Lymphocytes 0.5 K/uL (0.7-4.9) L 11/22/21 20:20 Absolute Monocytes 1.1 K/uL (0.1-1.3) 11/22/21 20:20 Absolute Eosinophils 0.0 K/uL (0-0.5) 11/22/21 20:20 Absolute Basophils 0.1 K/uL (0-0.5) 11/22/21 20:20 Platelet Estimate Adeq 11/22/21 20:20 Polychromasia Slight 11/22/21 20:20 Anisocytosis 2+ 11/22/21 20:20 Morphology Comment Noted (NOT SEEN) 11/22/21 20:20 Sodium Cancelled 11/23/21 05:00 Potassium Cancelled 11/23/21 05:00 Chloride Cancelled 11/23/21 05:00 Carbon Dioxide Cancelled 11/23/21 05:00 Anion Gap Cancelled 11/23/21 05:00 BUN Cancelled 11/23/21 05:00 Creatinine Cancelled 11/23/21 05:00 Estimated GFR Cancelled 11/23/21 05:00 Glucose Cancelled 11/23/21 05:00 POC Glucose 37 mg/dL (65-120) L* 11/23/21 13:26 Calcium Cancelled 11/23/21 05:00 Troponin I High Sens 19.6 pg/mL (<58.9) 11/22/21 20:20 Urine Color Yellow (Yellow) 11/23/21 06:30 Urine Appearance Clear (Clear) 11/23/21 06:30 Urine pH 6.0 (5.0-7.0) 11/23/21 06:30 Ur Specific [place] 1.015 (1.005-1.030) 11/23/21 06:30 Glucose (UA)(Auto) 1+ (Negative) H 11/23/21 06:30 Urine Ketones Negative (Negative) 11/23/21 06:30 Urine Blood Negative (Negative) 11/23/21 06:30 Urine Nitrite Negative (Negative) 11/23/21 06:30 Urine Bilirubin Negative (Negative) 11/23/21 06:30 Urine Urobilinogen 1.0 mg/dL (0.2-1.0) 11/23/21 06:30 Ur Leukocyte Esterase Negative (Negative) 11/23/21 06:30 Urine Total Protein Negative (Negative) 11/23/21 06:30 Influenza Type A RNA Negative (NEGATIVE) 11/23/21 00:23 Influenza Type B RNA Negative (NEGATIVE) 11/23/21 00:23 SARS-CoV-2 RNA (RT-PCR) Negative (NEGATIVE) 11/23/21 00:23 Smear Scan Ok (OK) 11/22/21 20:20 Assessment And Plan - Plan Physical Exam: General: Alert HEENT: Atraumatic Neck: Supple Respiratory: Other (Bilateral crackles/rales) Cardiovascular: Normal pulses, Normal S1 S2, Edema (Diffuse), Irregular heart rate/rhythm Gastrointestinal: Distended Integumentary: Other (Diffuse anasarca, wounds to bilateral upper and lower extremities. Stage III pressure wounds to sacrum and upper back.) Urinary: Victoria catheter External genitalia: Other (scrotal swelling) Rectal: Normal Conclusions/Impression: Antibiotics: Augmentin: urrent Cefazolin: 11/27current Meropenem: 11/20-11/2027 Vancomycin: 11/20-11/2026 Assessment/plan Gram positive bacteremia Blood cultures obtained on 11/24 grew methicillin susceptible Staph aureus Repeat cultures obtained on 11/26 and 11/27 showed no growth. Transthoracic echocardiogram without any acute findings. Recommend patient be transferred for transesophageal echocardiogram due to indwelling intracardiac devices -Continue cefazolin at this time. Results of transesophageal echocardiogram will determine duration. -Possible source includes multiple bilateral upper/lower extremity wounds Multifocal PNA Checks x-ray performed on 11/26 showed signs concerning for multifocal pneumonia. Patient has completed 5 day course of meropenem. Repeat chest x-ray performed on 12/01 showed bilateral pulmonary opacities with no improvement. Will start Augmentin x7 days. Liver cirrhosis with ascites GI following. Likely source of patient's thrombocytopenia. -Paracentesis performed on 12/04. 7 L of fluid pulled from abdomen, fluid analysis pending. Need to r/u SBP. We will hold off empiric coverage for SBP at this time until fluid analysis results are obtained. NADEGE on CKD Right temporary femoral dialysis catheter placed on 12/02. First dialysis session on 12/02. Sacral stage III wound Wound care on board. Offload wound and avoid direct pressure Wounds to bilateral upper/lower extremities Wound care following. Continue local wound care. Plan of care discussed with Dr. Brendan hackett Thank you for consultation
[2021-12-06] MEDS ORDERED: AA 4.25 %/D5W/ELECTROLYTES 2,000 ML, Lipids 20% 250 ML with MULTIVITAMINS INJ 10 ML IV SCH ×3 (17:00)
[2021-12-06] MEDS ORDERED: AMINO ACIDS 4.25 %/DEXTROSE 5% 2,000 ML IV SCH (17:00)
[2021-12-06] MEDS ORDERED: AA 4.25 %/D5W/ELECTROLYTES 2,000 ML IV SCH (17:00)
--- NOTE | 2021-12-06 17:45 | P.PN ---
Subjective Date of Service: 12/06/21 Chief Complaint: Hypoglycemia, hematochezia, INR 7, anemia, new ESLD / ascites, aspiration Patient is more awake today. He was seen during hemodialysis. His blood pressure was borderline low and he had only about 45 minutes to 1 hour of dialysis. No fever. Physical Examination - Vital Signs Temperature: 97.4 F Blood Pressure: 104/47 Pulse: 60 Respirations: 20 Pulse Ox (%): 99 Assessment And Plan - Current Problems (Diagnosis) (1) Metabolic encephalopathy Current Visit: Yes Status: Acute (2) Hypoglycemia Current Visit: Yes Status: Acute (3) A-fib Current Visit: Yes Status: Chronic Qualifiers: Atrial fibrillation type: unspecified chronic Qualified Code(s): I48.20 - Chronic atrial fibrillation, unspecified; I48.2 - Chronic atrial fibrillation (4) Chronic kidney disease Current Visit: Yes Status: Chronic Qualifiers: Chronic kidney disease stage 3 subtype: stage 3b (GFR 30-44) (5) Type 2 diabetes mellitus Current Visit: Yes Status: Chronic Qualifiers: Diabetes mellitus halfway insulin use: without halfway use Diabetes mellitus complication status: with hypoglycemia Diabetes mellitus complication detail: without coma Qualified Code(s): E11.649 - Type 2 diabetes mellitus with hypoglycemia without coma (6) Status post biventricular cardiac pacemaker insertion Current Visit: No Status: Acute (7) Acute blood loss anemia Current Visit: Yes Status: Acute (8) Coagulopathy Current Visit: Yes Status: Acute (9) Hepatic failure Current Visit: Yes Status: Acute (10) Liver cirrhosis Current Visit: Yes Status: Acute - Plan Physical exam GEN: alert, oriented x2, intermittently confused HEENT: Normal conjunctiva, sclera anicteric CV: Regular rate and rhythm, anasarca Pulm: nonproductive cough, b/l crackles ABD: Abdomen distended, + ascites Integumentary: superficial wounds at mid back, sacrum, right heel, and left calf with dressings in place, LLE and left upper extremity with serosanguineous drainage noted on dressing : edematous scrotum Neuro: moving all extremities, generalized weakness Problem List Acute metabolic encephalopathy Hypoglycemia, secondary to sulfonylurea use, resolved MSSA bacteremia NADEGE on CKD2 hepatic failure, liver cirrhosis, new Chronic atrial fibrillation, s/p watchman's procedure Diabetes mellitus type 2, [id number] acute blood loss anemia s/p biventricular cardiac pacemaker insertion Waxing and waning mental status, creatinine and BUN improving slowly with dialysis. nephrology following, managing fluids/diuresis. CT abd: liver cirrhosis with ascites. Hepatitis negative. Ascites is worsening despite dialysis. US guided paracentesis done about 7 L of fluid drained. Monitor for repeat paracentesis GI saw patient and suspect amiodarone toxicity which was discontinued on admission. Hepatitis profile is negative. Hypoglycemia - secondary to sulfonylurea use in the context of liver cirrhosis/hepatic failure. Patient's A1c also within normal range. Blood glucose level has been stable. High risk for hypoglycemia with poor oral intake. Dobhoff Insertion unsuccessful today. Patient started on PPN in the meantime. Discussed with Dr. Garcia who is considering the above insertion with endoscopy. Initial blood culture: MSSA, ID consulted, empiric vancomycin started 11/26, changed to Ancef per sensitivities Repeat cultures no growth, initial echocardiogram (TTE) without evidence of vegetation; patient does have pacemaker ID recommends MARC since patient has a pacemaker Initiating transfer to tertiary institution initiated. Hemoglobin appears to be stable, s/p 3u PRBCs, continue protonix. Transfuse as needed for hemoglobin less than 8. EGD done on 11/27, noted gastritis, evidence of portal hypertension. No active bleeding found BP improved and patient is currently hypertensive. Midodrine discontinued. Eliquis discontinued completely given bleed per cardiology-Dr. Del Toro, s/p watchman Afib is rate controlled, can use beta anjel if needed / tolerable, per cardiology Echo unremarkable. Normal EF. Patient with high mortality, poor prognosis. Had a long discussion with patient's and son about overall goals of care. They were made aware his prognosis is poor. Family want to continue aggressive measures. Son Juan raised the possibility of getting him a liver transplant and wanted another opinion or see a liver specialist in the least. Initiating transfer to tertiary institution initiated. Code: full
[2021-12-06 19:07] LABS: Magnesium 2.2 mg/dL (1.8-2.4); Phosphorus 4.3 mg/dL (2.5-4.9)
[2021-12-06] MEDS: CEFAZOLIN/SWI 2gm 2 GM/20 ML SYR IV SCH (20:33)
[2021-12-06] MEDS: SODIUM CHLORIDE 0.9% 10ML INJ IV PRN (20:38)
[2021-12-06 22:57] VITALS: BP 108/55; TEMP 97.9
[2021-12-07] MEDS ORDERED: AA 4.25 %/D5W/ELECTROLYTES 2,000 ML IV SCH (17:00)
--- NOTE | 2021-12-07 18:43 | P.DS ---
Admission Date: 11/23/21 Discharge Date: 12/07/21 Disposition: TRANSFER TO [facility] Discharge Condition: SERIOUS Reason for Admission: Hypoglycemia, hematochezia, INR 7, anemia, new ESLD / ascites, aspiration Consultations: GI-Dr. Smallwood Cardiology-Dr. Del Toro Infectious Disease-Dr. Cardona Nephrology-Dr. Kemp - Problems (1) Metabolic encephalopathy Status: Acute (2) Hypoglycemia Status: Acute (3) A-fib Status: Chronic Qualifiers: Atrial fibrillation type: unspecified chronic Qualified Code(s): I48.20 - Chronic atrial fibrillation, unspecified; I48.2 - Chronic atrial fibrillation (4) Chronic kidney disease Status: Chronic Qualifiers: Chronic kidney disease stage 3 subtype: stage 3b (GFR 30-44) (5) Type 2 diabetes mellitus Status: Chronic Qualifiers: Diabetes mellitus truck terminal manager insulin use: without truck terminal manager use Diabetes mellitus complication status: with hypoglycemia Diabetes mellitus complication detail: without coma Qualified Code(s): E11.649 - Type 2 diabetes mellitus with hypoglycemia without coma (6) Status post biventricular cardiac pacemaker insertion Status: Acute (7) Acute blood loss anemia Status: Acute (8) Coagulopathy Status: Acute (9) Hepatic failure Status: Acute (10) Liver cirrhosis Status: Acute Brief History of Present Illness: Patient is an 81-year-old male with hypertension, HLD, type 2 diabetes [id number]-[id number], A. fib on Eliquis who presented to the ED via EMS from [facility] stating FSBS of 50. When they arrived, they administered 150 mL D5 and sublingual glucose. Subsequent blood sugar was 106. ED attempted to increase his blood sugar with diet, but it could not sustained. Readings ranged from 64-112. Other labs significant for WBC 15, Cr 1.59, hgb 9.1. CT negative for acute findings. Patient was admitted here ~2 weeks ago with hypoglycemia. Hospitalized for further management. Hospital Course: Diagnosis Acute metabolic encephalopathy Hypoglycemia, secondary to sulfonylurea use, resolved MSSA bacteremia NADEGE on CKD2 hepatic failure, liver cirrhosis, new Chronic atrial fibrillation, s/p watchman's procedure Diabetes mellitus type 2, [id number]-acwloxonm acute blood loss anemia s/p biventricular cardiac pacemaker insertion Patient admitted to the ICU due to persistent hypoglycemia. CT abd: Showed liver cirrhosis with ascites. Hepatitis negative. Hypoglycemia - secondary to sulfonylurea use in the context of liver cirrhosis/hepatic failure. Patient's A1c also within normal range. Patient developed coagulopathy with INR up to 6.9. He was on Eliquis which was held and discontinued completely. He was given vitamin K IV x2 to bring INR down. Patient diagnosed with liver failure with coagulopathy. He also had severe hyperbilirubinemia. Patient had bloody bowel movement, NG tube inserted which drained coffee-ground material. Patient also transfused a total of 3 unit PRBC and started on Protonix. GI saw patient and suspect amiodarone toxicity which was discontinued on admission. EGD done later which showed portal hypertension gastropathy. GI bleeding stopped. Patient started on aggressive antibiotic therapy. Patient seen by cardiology recommended to discontinue Eliquis completely. Patient is status post watchman's procedure. Also has a pacemaker in place. Patient was also hypotensive. Patient placed on midodrine for hypotension. His heart rate was stable. Cardiology recommended beta-anjel as needed. He experience waxing and waning mental status, renal function got worse, nephrology was consulted and patient subsequently started on hemodialysis, creatinine and BUN improved slowly with dialysis. Ascites got worse despite dialysis. US guided paracentesis done about 7 L of fluid drained. Blood glucose level later stable. High risk for hypoglycemia with poor oral intake. Dobhoff Insertion unsuccessful today. Patient started on PPN in the meantime. Discussed with Dr. Garcia who considered Dobhoff insertion by endoscopy. Spouse declined NG Tube insertion. Initial blood culture: MSSA, ID consulted, empiric vancomycin started 11/26, changed to Ancef per sensitivities Repeat cultures no growth, initial echocardiogram (TTE) without evidence of vegetation; patient does have pacemaker. Echo unremarkable. Normal EF. ID recommended MARC since patient has a pacemaker. Patient with high mortality, poor prognosis. Had a long discussion with patient's and son about overall goals of care. They were made aware his prognosis is poor. Family want to continue aggressive measures. Son Juan raised the possibility of getting him a liver transplant and wanted another opinion or see a liver specialist. Based on the fact that patient need MARC to rule out endocarditis and the family requesting for a liver specialist evaluation Transfer to tertiary institution was initiated. Patient accepted to [facility] at [place]. Patient transferred to [facility] overnight. Vital Signs/Physical Exam: Temp Pulse Resp BP Pulse Ox 97.9 F 62 20 108/55 L 96 05/06/22 22:57 12/06/21 22:57 12/06/21 22:57 12/06/21 22:57 12/06/21 22:57 Laboratory Data at Discharge: WBC 15.4 K/uL (4.3-10.9) H 12/06/21 04:02 Hgb 8.7 g/dL (13.6-17.9) L 12/06/21 04:02 Hct 26.6 % (39.6-49.0) L 12/06/21 04:02 Plt Count 140 K/uL (152-406) L 12/06/21 04:02 PT 23.8 SECONDS (9.5-12.5) H 12/06/21 04:02 INR 2.13 12/06/21 04:02 APTT 39.4 SECONDS (24.3-36.9) H 12/06/21 04:02 Sodium 143 mmol/L (136-145) 12/06/21 04:02 Potassium 4.3 mmol/L (3.5-5.1) 12/06/21 04:02 BUN 83 mg/dL (7-18) H 12/06/21 04:02 Creatinine 2.42 mg/dL (0.55-1.3) H 12/06/21 04:02 Glucose 156 mg/dL (74-106) H 12/06/21 04:02 Uric Acid 6.4 mg/dL (3.5-7.2) 11/27/21 04:45 Phosphorus 4.3 mg/dL (2.5-4.9) 12/06/21 18:20 Magnesium 2.2 mg/dL (1.8-2.4) 12/06/21 18:20 Total Bilirubin 4.0 mg/dL (0.2-1.0) H 12/06/21 04:02 AST 86 U/L (15-37) H 12/06/21 04:02 ALT 12 U/L (12-78) 12/06/21 04:02 Alkaline Phosphatase 141 U/L (45-117) H 12/06/21 04:02 Home Medications: Atorvastatin Calcium [Lipitor] 80 mg PO BEDTIME 01/12/20 Ezetimibe 10 mg PO BEDTIME 06/11/20 Fenofibrate 160 mg PO BEDTIME 01/12/20 Omeprazole [Prilosec] 40 mg PO [id number] 01/12/20 Ascorbic Acid [Vitamin C*] 1,000 mg PO DAILY 12/07/20 Amiodarone HCl [Pacerone] 400 mg PO BEDTIME 11/08/21 Apixaban [Eliquis] 5 mg PO BID 11/08/21 Ferrous Sulfate [Iron] 325 mg PO DAILY 11/08/21 Cholecalciferol (Vitamin D3) [Vitamin D 1000 Iu Tab*] 2,000 unit PO DAILY tab 11/14/21 Gabapentin [Neurontin*] 100 mg PO BEDTIME cap 11/14/21 Dylan [Dylan*] 1 pkt PO BID powd.pack 11/14/21 Docusate Sodium 100 mg PO BID 11/23/21 Empagliflozin [Jardiance] 25 mg PO DAILY 11/23/21 Furosemide [Lasix] 20 mg PO DAILY 11/23/21 Glimepiride [Amaryl] 4 mg PO DAILY 11/23/21 Nepro Shake [Nepro*] 1 can PO BID 11/23/21 Followup: NONE,NONE [Primary Care Provider] - Time spent managing pt's care (in minutes): 42
== END 2021-12-06 21:30 | disposition short-term general hospital (02) | DRG 637 ==
LOC: ER 19:18 → INTOOBSV 11-23 00:25 → ERHOLD 11-23 00:25 → OBSVTOIN 11-23 00:25 → 2ND 11-23 02:20 → 3RD-ICU 11-23 04:01 → OBSVTOIN 11-23 14:36 → 2ND 11-27 23:23
PROVIDERS: ADMIT Internal Medicine; ATTEND Internal Medicine
PROC: 0T9B70Z Drainage of Bladder with Drainage Device, Via Natural or Artificial Opening (ICD-10-PCS; 2021-11-23)
PROC: 0DH68UZ Insertion of Feeding Device into Stomach, Via Natural or Artificial Opening Endoscopic (ICD-10-PCS; 2021-11-27)
PROC: 0DB68ZX Excision of Stomach, Via Natural or Artificial Opening Endoscopic, Diagnostic (ICD-10-PCS; principal; 2021-11-27 11:15)
PROC: 06HY33Z Insertion of Infusion Device into Lower Vein, Percutaneous Approach (ICD-10-PCS; 2021-12-02)
PROC: 5A1D70Z Performance of Urinary Filtration, Intermittent, Less than 6 Hours Per Day (ICD-10-PCS; 2021-12-02)
PROC: 5A1D70Z Performance of Urinary Filtration, Intermittent, Less than 6 Hours Per Day (ICD-10-PCS; 2021-12-03)
PROC: 0W9G3ZZ Drainage of Peritoneal Cavity, Percutaneous Approach (ICD-10-PCS; 2021-12-04)
PROC: 5A1D70Z Performance of Urinary Filtration, Intermittent, Less than 6 Hours Per Day (ICD-10-PCS; 2021-12-04)
PROC: 5A1D70Z Performance of Urinary Filtration, Intermittent, Less than 6 Hours Per Day (ICD-10-PCS; 2021-12-06)
DX: E11.649 Type 2 diabetes mellitus with hypoglycemia without coma (principal); A41.01 Sepsis due to Methicillin susceptible Staphylococcus aureus; L89.153 Pressure ulcer of sacral region, stage 3; L89.103 Pressure ulcer of unspecified part of back, stage 3; K29.71 Gastritis, unspecified, with bleeding; K57.11 Diverticulosis of small intestine without perforation or abscess with bleeding; G93.41 Metabolic encephalopathy; E43 Unspecified severe protein-calorie malnutrition; J69.0 Pneumonitis due to inhalation of food and vomit; R65.20 Severe sepsis without septic shock; I48.20 Chronic atrial fibrillation, unspecified; K76.6 Portal hypertension; D62 Acute posthemorrhagic anemia; R18.8 Other ascites; E87.0 Hyperosmolality and hypernatremia; E87.1 Hypo-osmolality and hyponatremia; N17.0 Acute kidney failure with tubular necrosis; I25.10 Atherosclerotic heart disease of native coronary artery without angina pectoris; E11.22 Type 2 diabetes mellitus with diabetic chronic kidney disease; I12.9 Hypertensive chronic kidney disease with stage 1 through stage 4 chronic kidney disease, or unspecified chronic kidney disease; N18.32 Chronic kidney disease, stage 3b; E78.2 Mixed hyperlipidemia; K31.89 Other diseases of stomach and duodenum; K72.10 Chronic hepatic failure without coma; K71.7 Toxic liver disease with fibrosis and cirrhosis of liver; R62.7 Adult failure to thrive; N43.3 Hydrocele, unspecified; N50.89 Other specified disorders of the male genital organs; D69.6 Thrombocytopenia, unspecified; T46.2X5A Adverse effect of other antidysrhythmic drugs, initial encounter; T38.3X5A Adverse effect of insulin and oral hypoglycemic [antidiabetic] drugs, initial encounter; Z20.822 Contact with and (suspected) exposure to COVID-19; Z95.0 Presence of cardiac pacemaker; Z79.01 Long term (current) use of anticoagulants; Z85.038 Personal history of other malignant neoplasm of large intestine; Z95.818 Presence of other cardiac implants and grafts; Z68.27 Body mass index [BMI] 27.0-27.9, adult; Z87.891 Personal history of nicotine dependence; Z79.4 Long term (current) use of insulin
CPT/HCPCS: 0240U; 36415; 36430; 49083; 71045; 74018; 74177; 76770; 76870; 80048; 80053; 80069; 80076; 80202; 81003; 82103; 82140; 82248; 82390; 82550; 82570; 82607; 82728; 82746; 82947; 83520; 83540; 83735; 83970; 84100; 84156; 84165; 84166; 84443; 84466; 84484; 84550; 85014; 85018; 85025; 85027; 85379; 85610; 85730; 86021; 86038; 86160; 86225; 86255; 86317; 86430; 86671; 86704; 86706; 86803; 86850; 86900; 86901; 86927; 87040; 87077; 87086; 87088; 87186; 87205; 87340; 87389; 87522; 88305; 88312; 90935; 92610; 93005; 93306; 93975; 94640; 94760; 97110; 97162; 97530; 99251; 99285; C9113; G0257; G0378; J0690; J1100; J1644; J1815; J1940; J2354; J2405; J2704; J2916; J3370; J3430; J7030; J7040; J7042; J7050; J7799; P9016; P9017; P9047; P9059; Q9967; U0003